=== PATIENT | female | born 1995 ===

== ENCOUNTER 2020-10-27 14:09 | Emergency (ER) | payer OTHER, MEDICARE, MEDICAID, SELFPAY ==
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
--- NOTE | ~2020-10-27 | XR_ITS ---
EXAMINATION: XR CHEST CLINICAL INFORMATION: Shortness of breath COMPARISON: None TECHNIQUE: Frontal view of the chest was obtained. FINDINGS: No significant abnormality is noted involving the heart, lungs, mediastinum, bony thorax or soft tissues. XR/XR chest 1V IMPRESSION: Unremarkable examination.
[2020-10-27 14:58] VITALS: BP 151/99; PULSE 94; RESP 16; TEMP 36.5; O2SAT 98; BMI 27.8
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
[2020-10-27 16:44] LABS: MANUAL DIFF FLAG NO
[2020-10-27 16:47] LABS: Basophils Percent Auto 0.3 % (0-2); Eosinophils Absolute Auto 0.1 X10*3/uL (0.0-0.4); Eosinophils Percent Auto 0.7 % (0-4); Hematocrit 43.8 % (37-47); Hemoglobin 15.2 g/dl (12.0-16.0); Imm Gran Abs Auto 0.01 X10*3/uL (0.00-0.03); Imm Gran Pct Auto 0.1 % (0.0-0.4); Lymphocytes Absolute Auto 2.5 X10*3/uL (1.2-4.9); Lymphocytes Percent Auto 33.3 % (20-40); Mean Corpuscular HGB Conc 34.7 g/dl (31.0-35.0); Mean Corpuscular Hemoglobin 30.1 pg (27.0-33.0); Mean Corpuscular Volume 86.7 fL (80-98); Monocytes Absolute Auto 0.5 X10*3/uL (0.1-1.2); Monocytes Percent Auto 7.3 % (2-11); Neutrophils Absolute Auto 4.3 X10*3/uL (2.0-8.3); Neutrophils Percent Auto 58.3 % (45-73); Platelet Count 348 X10*3/uL (160-400); Red Blood Count 5.05 X10*6/uL (4.20-5.50); Red Cell Distribution Width 12.7 % (11.0-16.0); White Blood Count 7.4 X10*3/uL (4.8-10.8)
[2020-10-27 16:49] LABS: OBS Int Ctl Valid YES; OBS1 NEGATIVE (NEGATIVE)
[2020-10-27] MEDS: Metoclopramide HCl 10 MG/2 ML VIAL IVPUSH (16:53)
[2020-10-27] MEDS: 0.9 % Sodium Chloride 1,000 ML 999 ML IVCONT (16:54)
[2020-10-27 17:15] LABS: Glucose Urine UA NEG (NEG); Leukocyte Esterase Urine NEG (NEG); Nitrite Urine NEG (NEG); Urine Blood NEG (NEG); Urine Ketones NEG (NEG); Urine Protein TRACE MG/DL (NEG-TRACE)
[2020-10-27 17:15] LABS: Lipase 14 U/L (8-78)
[2020-10-27 17:18] LABS: Alanine Aminotransferase 14 U/L (0-31); Albumin Level 4.8 g/dL (3.5-5.0); Alkaline Phosphatase 85 U/L (39-117); Anion Gap 13 (12-20); Aspartate Amino Transferase 14 U/L (5-31); Bilirubin Direct 0.5 mg/dL (0.0-0.5); Bilirubin Total 1.2 mg/dL (0.0-1.0); Blood Urea Nitrogen 9 mg/dL (9-16); Carbon Dioxide 25 mmol/L (22-29); Chloride 107 mmol/L (96-108); Creatinine Clr Calc Pharmacy 107.8; Estimated Glomerular Filt Rate > 60; Glucose Random 87 mg/dL (60-115); Magnesium 2.2 mg/dL (1.6-2.6); Potassium 3.9 mmol/L (3.3-5.1); Sodium 141 mmol/L (135-145); Total Protein 7.8 g/dL (6.5-8.0); Troponin-I High Sensitivity < 3.5 ng/L (<3.5-17.0)
[2020-10-27 17:21] LABS: Appearance Urine CLEAR; Color Urine YELLOW
[2020-10-27 17:22] LABS: UPreg QC Valid YES; Urine Pregnancy NEGATIVE (NEGATIVE)
[2020-10-27 17:36] LABS: Amphetamine Screen Urine Not Detected (Not Detect); Barbiturates, Urine Not Detected (Not Detect); Benzodiazepines Screen Urine Not Detected (Not Detect); Cannabinoid Screen Urine POSITIVE (Not Detect); Cocaine Screen Urine Not Detected (Not Detect); Opiate Screen Urine Not Detected (Not Detect); Phencyclidine Screen Urine Not Detected (Not Detect)
[2020-10-27 18:13] VITALS: BP 122/67; PULSE 62; RESP 18; O2SAT 100
[2020-10-27] MEDS: iohexoL 350 MG/ML 100 ML INFUS..BTL IV (18:39)
[2020-10-27 19:49] VITALS: BP 124/85; PULSE 76; RESP 16; TEMP 36.6; O2SAT 99
== END 2020-10-27 19:54 | disposition home or self-care (01) ==
PROVIDERS: Physician Assistant; Emergency Provider Emergency Medicine; PCP Internal Medicine
DX: Z04.1 Encounter for examination and observation following transport accident (principal); R10.9 Unspecified abdominal pain; R11.2 Nausea with vomiting, unspecified; R19.7 Diarrhea, unspecified; F12.90 Cannabis use, unspecified, uncomplicated; Z79.899 Other long term (current) drug therapy
CPT/HCPCS: 36415; 71045; 74177; 80048; 80076; 80307; 81003; 81025; 82272; 83690; 83735; 84484; 85025; 96361; 96374; 96375; 99284; J2765; Q9967

== ENCOUNTER 2021-02-04 11:54 | Emergency (ER) | payer MEDICARE, MEDICAID, SELFPAY ==
--- NOTE | ~2021-02-04 | XR_ITS ---
EXAMINATION: XR ABDOMEN KUB CLINICAL INDICATION: Rectal foreign body. COMPARISON: None TECHNIQUE: AP view of the abdomen. FINDINGS: No radiopaque foreign body. The bowel gas pattern is normal with no evidence of ileus or obstruction. No unusual soft tissue calcifications are noted. The bones are unremarkable. XR/XR KUB IMPRESSION: Unremarkable examination.
--- NOTE | ~2021-02-04 | CT_ITS ---
EXAMINATION: CT abdomen pelvis w con CLINICAL INFORMATION: Reason for Exam r/o rectal FB and perforation. rectal pain COMPARISON: No prior CT available for comparison. TECHNIQUE: Multidetector volumetric imaging was performed from the superior aspect of the liver through the pubic symphysis 85 mL Omnipaque 350 injected Sagittal and coronal reformatted images were obtained on the technologist's workstation. This CT examination was performed using dose optimization techniques as appropriate, variously including the following: *Automated exposure control *Adjustment of mA and/or kV according to patient size (this includes techniques or standardized protocols for targeted exams where dose is matched to indication/reason for exam; i.e. extremities or head) *Use of iterative reconstruction technique DLP: 479 mGy-cm FINDINGS: LOWER THORAX: Included lung bases are clear. HEPATOBILIARY: No focal hepatic lesions. No biliary ductal dilatation. GALLBLADDER: Gallbladder unremarkable. SPLEEN: Spleen is normal in size. PANCREAS: No focal mass or ductal dilatation. STOMACH AND GASTROINTESTINAL TRACT: Stomach is grossly unremarkable. There is no bowel distention or thickening. No CT evidence of appendicitis. ADRENALS: No adrenal nodules. KIDNEYS/URETERS: No hydronephrosis, stones or solid mass lesions. URINARY BLADDER: Partially decompressed. PELVIC VISCERA: Urinary bladder unremarkable. Uterus is normal for patient's age. Rectum and perirectal fat are clear. No CT evidence of radiodense foreign body. Trace amount of free fluid in the pelvis considered physiologic for patient's age. PERITONEUM: No free air or fluid. LYMPH NODES: No lymphadenopathy. VASCULAR:Abdominal aorta normal in size, no aneurysm found. BONES, ABDOMINAL WALL AND SOFT TISSUES: Age-appropriate changes of the spine and skeletal system, no destructive osteolytic or osteosclerotic bone lesion found CT/CT abdomen pelvis w con IMPRESSION: No CT explanation for patient's pain symptoms. No radiodense foreign body found within the rectum. No CT evidence of bowel perforation. Trace amount of fluid in the pelvis likely physiologic.
[2021-02-04 12:35] VITALS: BP 126/80; PULSE 87; RESP 18; TEMP 36.6; O2SAT 98; BMI 24.0
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
[2021-02-04 15:48] LABS: MANUAL DIFF FLAG NO
[2021-02-04 15:50] LABS: Basophils Percent Auto 0.3 % (0-2); Eosinophils Percent Auto 0.4 % (0-4); Hematocrit 42.6 % (37.0-47.0); Hemoglobin 14.5 g/dl (12.0-16.0); Imm Gran Abs Auto 0.02 X10*3/uL (0.00-0.03); Imm Gran Pct Auto 0.2 % (0.0-0.4); Lymphocytes Percent Auto 30.8 % (20-40); Mean Corpuscular Hemoglobin 30.2 pg (27.0-33.0); Mean Corpuscular Volume 88.8 fL (80.0-98.0); Mean Platelet Volume 9.7 fL (9.4-12.3); Monocytes Absolute Auto 0.8 X10*3/uL (0.1-1.2); Monocytes Percent Auto 8.1 % (2-11); Neutrophils Absolute Auto 5.87 x10*3/uL (2.0-8.3); Neutrophils Percent Auto 60.2 % (45-73); Platelet Count 362 X10*3/uL (160-400); Red Cell Distribution Width 12.7 % (11.0-16.0); White Blood Count 9.8 X10*3/uL (4.8-10.8)
[2021-02-04 16:12] LABS: Alanine Aminotransferase 18 U/L (0-31); Albumin Level 4.8 g/dL (3.5-5.0); Alkaline Phosphatase 84 U/L (39-117); Anion Gap 13 (12-20); Aspartate Amino Transferase 17 U/L (5-31); Bilirubin Direct 0.3 mg/dL (0.0-0.5); Bilirubin Total 0.6 mg/dL (0.0-1.0); Blood Urea Nitrogen 8 mg/dL (9-16); Calcium 9.8 mg/dL (8.4-10.2); Carbon Dioxide 26 mmol/L (22-29); Chloride 107 mmol/L (96-108); Creatinine Clr Calc Pharmacy 95.2; Estimated Glomerular Filt Rate > 60; Glucose Random 82 mg/dL (60-115); Lipase 10 U/L (8-78); Magnesium 2.3 mg/dL (1.6-2.6); Potassium 3.8 mmol/L (3.3-5.1); Sodium 142 mmol/L (135-145); Total Protein 7.7 g/dL (6.5-8.0)
[2021-02-04 16:28] LABS: OBS Int Ctl Valid YES; OBS1 NEGATIVE (NEGATIVE)
[2021-02-04 16:31] LABS: Appearance Urine HAZY; Color Urine YELLOW; Glucose Urine UA NEG (NEG); Leukocyte Esterase Urine NEG (NEG); Nitrite Urine NEG (NEG); Specific Gravity - Urine >= 1.030 (1.005-1.025); Urine Blood NEG (NEG); Urine Ketones 40 MG/DL (NEG); Urine Protein NEG (NEG-TRACE)
[2021-02-04 16:33] LABS: UPreg QC Valid YES; Urine Pregnancy NEGATIVE (NEGATIVE)
[2021-02-04] MEDS: Fluconazole 150 MG TABLET PO (16:56)
[2021-02-04] MEDS: cefTRIAXone sodium 500 MG, Lidocaine HCl 1 % MPF 1 ML IM (16:58)
[2021-02-04] MEDS: Ketorolac Tromethamine 15 MG/ML VIAL 30 MG IM (16:59)
[2021-02-04 17:09] VITALS: BP 136/78; PULSE 80; RESP 18; O2SAT 100
[2021-02-04 18:15] LABS: HCG Quantitative < 2 mIU/mL
[2021-02-04] MEDS: iohexoL 350 MG/ML 100 ML INFUS..BTL IV (18:35)
[2021-02-04 20:10] VITALS: BP 112/58; PULSE 72; RESP 16; TEMP 37.3; O2SAT 96
[2021-02-05 05:48] LABS: CT PCR NOT DETECTED (Not Detect.); NG PCR NOT DETECTED (Not Detect.)
[2021-02-05 11:05] LABS: BV Int Neg Control Negative (Negative); BV Int Pos Control Positive (Positive)
== END 2021-02-04 21:06 | disposition home or self-care (01) ==
PROVIDERS: Physician Assistant; Emergency Provider Internal Medicine; PCP Internal Medicine
DX: K60.2 Anal fissure, unspecified (principal); A54.9 Gonococcal infection, unspecified; B37.9 Candidiasis, unspecified
CPT/HCPCS: 36415; 74018; 74177; 80048; 80076; 81003; 81025; 82272; 83690; 83735; 84702; 85025; 87480; 87491; 87510; 87591; 87660; 96372; 96374; 96375; 99284; J0696; J1885; Q9967

== ENCOUNTER 2021-03-02 00:41 | Emergency (ER) | payer MEDICARE, MEDICAID, SELFPAY ==
--- NOTE | ~2021-03-02 | XR_ITS ---
EXAMINATION: XR CHEST CLINICAL INFORMATION: Chest discomfort COMPARISON: 10/27/2020 TECHNIQUE: Frontal view of the chest was obtained. FINDINGS: The lungs are clear with no focal consolidation. No evidence of pneumothorax, pulmonary edema, or pleural effusions. The cardiomediastinal silhouette is unremarkable. No acute osseous findings. XR/XR chest 1V IMPRESSION: No acute cardiopulmonary findings.
[2021-03-02 00:53] VITALS: BP 111/70; PULSE 70; RESP 18; TEMP 36.9; O2SAT 97; BMI 27.9
[2021-03-02 01:27] LABS: COVID-19 Test Negative (Negative); IDNOW Serial# 9DD0AD1C
[2021-03-02 01:33] VITALS: RESP 16
[2021-03-02 02:02] VITALS: BP 120/74; PULSE 74; RESP 18; O2SAT 96
[2021-03-02 02:08] LABS: Basophils Percent Auto 0.2 % (0-2); Eosinophils Absolute Auto 0.1 X10*3/uL (0.0-0.4); Eosinophils Percent Auto 1.1 % (0-4); Hemoglobin 13.5 g/dl (12.0-16.0); Imm Gran Abs Auto 0.02 X10*3/uL (0.00-0.03); Imm Gran Pct Auto 0.2 % (0.0-0.4); Lymphocytes Absolute Auto 2.4 X10*3/uL (1.2-4.9); Lymphocytes Percent Auto 29.4 % (20-40); MANUAL DIFF FLAG NO; Mean Corpuscular HGB Conc 33.8 g/dl (31.0-35.0); Mean Corpuscular Hemoglobin 29.7 pg (27.0-33.0); Mean Corpuscular Volume 88.1 fL (80.0-98.0); Mean Platelet Volume 9.9 fL (9.4-12.3); Monocytes Absolute Auto 0.6 X10*3/uL (0.1-1.2); Monocytes Percent Auto 7.5 % (2-11); Neutrophils Percent Auto 61.6 % (45-73); Platelet Count 273 X10*3/uL (160-400); Red Blood Count 4.54 X10*6/uL (4.20-5.50); Red Cell Distribution Width 12.6 % (11.0-16.0); White Blood Count 8.1 X10*3/uL (4.8-10.8)
[2021-03-02 02:09] LABS: Appearance Urine HAZY; Color Urine YELLOW; Glucose Urine UA NEG (NEG); Leukocyte Esterase Urine NEG (NEG); Nitrite Urine NEG (NEG); Specific Gravity - Urine >= 1.030 (1.005-1.025); UACC Culture Trigger NO; Urine Blood NEG (NEG); Urine Ketones NEG (NEG); Urine Protein 1+ MG/DL (NEG-TRACE)
[2021-03-02 02:11] LABS: UPreg QC Valid YES; Urine Pregnancy NEGATIVE (NEGATIVE)
[2021-03-02 02:15] LABS: Bacteria Urine 2+ /LPF; Mucus Urine 2+ /LPF; RBC Urine 0 /HPF (0); Squamous Epithelial Cell Urine 3+ /LPF
[2021-03-02 02:48] LABS: Alanine Aminotransferase 13 U/L (0-31); Albumin Level 4.3 g/dL (3.5-5.0); Alkaline Phosphatase 66 U/L (39-117); Anion Gap 14 (12-20); Aspartate Amino Transferase 11 U/L (5-31); Bilirubin Direct 0.2 mg/dL (0.0-0.5); Bilirubin Total 0.4 mg/dL (0.0-1.0); Blood Urea Nitrogen 9 mg/dL (9-16); Calcium 9.2 mg/dL (8.4-10.2); Carbon Dioxide 22 mmol/L (22-29); Chloride 105 mmol/L (96-108); Creatinine Clr Calc Pharmacy 105.8; Estimated Glomerular Filt Rate > 60; Glucose Random 94 mg/dL (60-115); Lipase 14 U/L (8-78); Potassium 3.4 mmol/L (3.3-5.1); Sodium 138 mmol/L (135-145); Total Protein 6.9 g/dL (6.5-8.0)
--- NOTE | 2021-03-02 03:38 | ED_ITS ---
HPI - Abdominal Pain General Chief Complaint: Abdominal Pain Stated Complaint: Abdominal & Back Pain Time Seen by Provider: 03/02/21 02:27 Source: patient Mode of arrival: ambulatory History of Present Illness HPI narrative: 26-year-old female without significant past medical history presents with abdominal pain in the epigastric area for approximately 2 weeks with associated nausea that is sharp in nature and states radiating into the b ack. She denies any vomiting or alcohol use and denies any diarrhea. In addition, patient denies any shortness of breath/chest pain/palpitations/urinary pain/burning/frequency. Related Data Previous Rx's Medication Instructions Recorded cyclobenzaprine 5 mg tablet 5 mg PO TID PRN #20 tab 06/03/20 naproxen 500 mg tablet 500 mg PO BID PRN #60 tab 06/03/20 doxycycline hyclate 100 mg tablet 100 mg PO BID 7 Days #14 tab 02/04/21 fluconazole 150 mg tablet 150 mg PO DAILY #1 tab 02/04/21 (Diflucan) sucralfate 100 mg/mL oral 10 ml PO BID #420 ml 03/02/21 suspension (Carafate) Allergies Allergy/AdvReac Type Severity Reaction Status Date / Time metronidazole [From FLAGYL] Allergy Unknown UNKNOWN Unverified 02/06/21 09:56 PEPPERONI Allergy Unknown HIVES Uncoded 02/06/21 09:56 Review of Systems Review of Systems Pertinent positives and negatives as stated in HPI 10 point review of systems is otherwise negative. Physical Exam Vital Signs: Vital Signs: Last Vital Signs Temp 98.4 F 03/02/21 00:53 Pulse 74 03/02/21 02:02 Resp 18 03/02/21 02:02 BP 120/74 03/02/21 02:02 Pulse Ox 96 03/02/21 02:02 Body Mass Index 27.9 VITAL SIGNS: Reviewed. GENERAL: Well developed, well nourished, in no acute distress. HEAD: Normocephalic/atraumatic EYES: PERRLA, EOMI OROPHARYNX: no oral lesions noted, posterior pharynx clear LUNGS: Normal breath sounds. No adventitious sounds or accessory muscle use. SpO2<96> CARDIOVASCULAR: Regular rate and rhythm without noted murmurs ABDOMEN: Soft, non-tender, non-distended with bowel sounds. NEUROLOGIC: Alert and oriented x 4. PSYCH: Tearful, logical thought process Course Course Course Narrative: 26-year-old female who is had a history of a number of visits here to the emergency room for chest pain/back pain/abdominal pain and today on review of all investigations there are no acute findings. Discussed with patient that her symptoms deserved to be further evaluated and she was encouraged to follow-up with her primary care provider. She was treated with a GI cocktail as symptoms are highly suspicious for possible ulcer disease. MDM - Abdominal Pain Lab Data Result diagrams: 03/02/21 02:00 03/02/21 02:00 Labs: Lab Results 03/02/21 03/02/21 03/02/21 Range/Units 01:02 02:00 02:00 WBC 8.1 (4.8-10.8) X10*3/uL RBC 4.54 (4.20-5.50) X10*6/uL Hgb 13.5 (12.0-16.0) g/dl Hct 40.0 (37.0-47.0) % MCV 88.1 (80.0-98.0) fL MCH 29.7 (27.0-33.0) pg MCHC 33.8 (31.0-35.0) g/dl RDW 12.6 (11.0-16.0) % Plt Count 273 (160-400) X10*3/uL MPV 9.9 (9.4-12.3) fL Immature Gran % (Auto) 0.2 (0.0-0.4) % Neut % (Auto) 61.6 (45-73) % Lymph % (Auto) 29.4 (20-40) % [place] % (Auto) 7.5 (2-11) % Eos % (Auto) 1.1 (0-4) % Baso % (Auto) 0.2 (0-2) % Lymph # (Auto) 2.4 (1.2-4.9) X10*3/uL [place] # (Auto) 0.6 (0.1-1.2) X10*3/uL Eos # (Auto) 0.1 (0.0-0.4) X10*3/uL Baso # (Auto) 0.0 (0.0-0.2) X10*3/uL Abs Immat Gran (auto) 0.02 (0.00-0.03) X10*3/uL Absolute Neuts (auto) 5.0 (2.0-8.3) x10*3/uL Absolute Nucleated RBC 0.000 (0.0-0.012) X10*3/uL Nucleated RBC % (auto) 0.0 (0.0-0.2) /100WBC Sodium 138 (135-145) mmol/L Potassium 3.4 (3.3-5.1) mmol/L Chloride 105 (96-108) mmol/L Carbon Dioxide 22 (22-29) mmol/L Anion Gap 14 (12-20) BUN 9 (9-16) mg/dL Creatinine 0.80 (0.5-1.4) mg/dL Estim Creat Clear Calc 105.8 Estimated GFR > 60 Random Glucose 94 (60-115) mg/dL Calcium 9.2 D (8.4-10.2) mg/dL Total Bilirubin 0.4 (0.0-1.0) mg/dL Direct Bilirubin 0.2 (0.0-0.5) mg/dL AST 11 (5-31) U/L ALT 13 (0-31) U/L Alkaline Phosphatase 66 D (39-117) U/L Total Protein 6.9 (6.5-8.0) g/dL Albumin 4.3 (3.5-5.0) g/dL Lipase 14 (8-78) U/L Urine Color Urine Appearance Urine pH (5.0-8.0) Ur Specific [place] (1.005-1.025) Urine Protein (NEG-TRACE) MG/DL Urine Glucose (UA) (NEG) MG/DL Urine Ketones (NEG) MG/DL Urine Blood (NEG) Urine Nitrite (NEG) Ur Leukocyte Esterase (NEG) Urine RBC (0) /HPF Urine WBC (0-4) /HPF Ur Squamous Epith Cells /LPF Urine Bacteria /LPF Urine Mucus /LPF Urine Test (NEGATIVE) COVID-19 (FERNANDO) Negative (Negative) COVID-19 Clin Com See Note 03/02/21 03/02/21 Range/Units 02:03 02:03 WBC (4.8-10.8) X10*3/uL RBC (4.20-5.50) X10*6/uL Hgb (12.0-16.0) g/dl Hct (37.0-47.0) % MCV (80.0-98.0) fL MCH (27.0-33.0) pg MCHC (31.0-35.0) g/dl RDW (11.0-16.0) % Plt Count (160-400) X10*3/uL MPV (9.4-12.3) fL Immature Gran % (Auto) (0.0-0.4) % Neut % (Auto) (45-73) % Lymph % (Auto) (20-40) % [place] % (Auto) (2-11) % Eos % (Auto) (0-4) % Baso % (Auto) (0-2) % Lymph # (Auto) (1.2-4.9) X10*3/uL [place] # (Auto) (0.1-1.2) X10*3/uL Eos # (Auto) (0.0-0.4) X10*3/uL Baso # (Auto) (0.0-0.2) X10*3/uL Abs Immat Gran (auto) (0.00-0.03) X10*3/uL Absolute Neuts (auto) (2.0-8.3) x10*3/uL Absolute Nucleated RBC (0.0-0.012) X10*3/uL Nucleated RBC % (auto) (0.0-0.2) /100WBC Sodium (135-145) mmol/L Potassium (3.3-5.1) mmol/L Chloride (96-108) mmol/L Carbon Dioxide (22-29) mmol/L Anion Gap (12-20) BUN (9-16) mg/dL Creatinine (0.5-1.4) mg/dL Estim Creat Clear Calc Estimated GFR Random Glucose (60-115) mg/dL Calcium (8.4-10.2) mg/dL Total Bilirubin (0.0-1.0) mg/dL Direct Bilirubin (0.0-0.5) mg/dL AST (5-31) U/L ALT (0-31) U/L Alkaline Phosphatase (39-117) U/L Total Protein (6.5-8.0) g/dL Albumin (3.5-5.0) g/dL Lipase (8-78) U/L Urine Color YELLOW Urine Appearance HAZY Urine pH 6.0 (5.0-8.0) Ur Specific [place] >= 1.030 H (1.005-1.025) Urine Protein 1+ H (NEG-TRACE) MG/DL Urine Glucose (UA) NEG (NEG) MG/DL Urine Ketones NEG (NEG) MG/DL Urine Blood NEG (NEG) Urine Nitrite NEG (NEG) Ur Leukocyte Esterase NEG (NEG) Urine RBC 0 (0) /HPF Urine WBC 1-4 (0-4) /HPF Ur Squamous Epith Cells 3+ /LPF Urine Bacteria 2+ /LPF Urine Mucus 2+ /LPF Urine Test NEGATIVE (NEGATIVE) COVID-19 (FERNANDO) (Negative) COVID-19 Clin Com Discharge Plan Discharge Clinical Impression: Gastritis, Epigastric abdominal pain Patient Disposition: Home, Self-Care Instructions: Gastritis (ED), Diet for Stomach Ulcers and Gastritis (ED), Abdominal Pain (ED) Additional Instructions: Follow-up with your primary care provider in the next 2-3 days by calling their office and seeing if you can get on the wait list to be seen before your scheduled appointment. Stop taking any ibuprofen, Motrin, naproxen, Aleve. Return to the ER for worsening symptoms. Prescriptions: New sucralfate [Carafate] 100 mg/mL suspension 10 ml PO BID Qty: 420 RF: 0 No Action doxycycline hyclate 100 mg tablet 100 mg PO BID 7 Days Qty: 14 RF: 0 fluconazole [Diflucan] 150 mg tablet 150 mg PO DAILY Qty: 1 RF: 0 cyclobenzaprine 5 mg tablet 5 mg PO TID PRN (Reason: muscle spasm) Qty: 20 RF: 0 naproxen 500 mg tablet 500 mg PO BID PRN (Reason: pain) Qty: 60 RF: 0 PMFSH Past Medical History Source: nursing notes reviewed Medical History HIV exposure Social History Social History Alcohol intake: unknown Patient Tobacco Use Status: Current someday Tobacco user Advance Directives: No Advance Directives Information Provided: No Patient : No
[2021-03-02] MEDS: Magnesium Hydrox/Alum Hydrox 30 ML ORAL.SUSP PO (03:41)
[2021-03-02] MEDS: Lidocaine HCl Viscous 2 % 15 ML SOLUTION 10 ML MUCOUS MEM (03:41)
== END 2021-03-02 04:09 | disposition home or self-care (01) ==
PROVIDERS: Emergency Provider Student in an Organized Health Care Education/Training Program
DX: K29.70 Gastritis, unspecified, without bleeding (principal); R10.9 Unspecified abdominal pain; Z20.822 Contact with and (suspected) exposure to COVID-19; Z79.899 Other long term (current) drug therapy
CPT/HCPCS: 36415; 71045; 80048; 80076; 81001; 81025; 83690; 85025; 87635; 99283; 99284

== ENCOUNTER 2021-03-19 09:23 | Outpatient (REF) | payer MEDICARE, MEDICAID, SELFPAY ==
[2021-03-19 09:46] LABS: MANUAL DIFF FLAG NO
[2021-03-19 10:22] LABS: Basophils Percent Auto 0.4 % (0-2); Eosinophils Absolute Auto 0.1 X10*3/uL (0.0-0.4); Eosinophils Percent Auto 1.3 % (0-4); Hematocrit 42.3 % (37.0-47.0); Imm Gran Abs Auto 0.03 X10*3/uL (0.00-0.03); Imm Gran Pct Auto 0.5 % (0.0-0.4); Lymphocytes Absolute Auto 2.1 X10*3/uL (1.2-4.9); Lymphocytes Percent Auto 38.6 % (20-40); Mean Corpuscular HGB Conc 33.1 g/dl (31.0-35.0); Mean Corpuscular Hemoglobin 29.4 pg (27.0-33.0); Mean Corpuscular Volume 88.9 fL (80.0-98.0); Mean Platelet Volume 10.9 fL (9.4-12.3); Monocytes Absolute Auto 0.3 X10*3/uL (0.1-1.2); Monocytes Percent Auto 6.2 % (2-11); Neutrophils Absolute Auto 2.9 x10*3/uL (2.0-8.3); Platelet Count 281 X10*3/uL (160-400); Red Blood Count 4.76 X10*6/uL (4.20-5.50); Red Cell Distribution Width 12.9 % (11.0-16.0); White Blood Count 5.5 X10*3/uL (4.8-10.8)
[2021-03-19 10:57] LABS: Alanine Aminotransferase 13 U/L (0-31); Albumin Level 4.5 g/dL (3.5-5.0); Alkaline Phosphatase 68 U/L (39-117); Anion Gap 14 (12-20); Aspartate Amino Transferase 17 U/L (5-31); Bilirubin Total 0.4 mg/dL (0.0-1.0); Blood Urea Nitrogen 9 mg/dL (9-16); Calcium 9.6 mg/dL (8.4-10.2); Carbon Dioxide 20 mmol/L (22-29); Chloride 111 mmol/L (96-108); Cholesterol 167 mg/dL; Estimated Glomerular Filt Rate > 60; Glucose Fasting 87 mg/dL (60-99); HDL Cholesterol 46 mg/dL; LDL Cholesterol Calculated 106 mg/dl; Potassium 4.2 mmol/L (3.3-5.1); Sodium 141 mmol/L (135-145); Total Protein 7.4 g/dL (6.5-8.0); Triglycerides 79 mg/dL
[2021-03-19 11:11] LABS: HBc Num1 0.08 S/CO (0.00-0.79); Hepatitis B Core Antibody Nonreactive (Nonreactive); Hepatitis B Surface Antigen Negative (Negative); ~HepC Num1 0.17 S/CO (0.00-0.79); ~Hepatitis B Surface Antibody NONREACTIVE (Nonreactive); ~Hepatitis C Antibody Nonreactive (Nonreactive)
[2021-03-19 11:17] LABS: TSH reflex Free T4 0.97 uIU/mL (0.32-4.0)
== END 2021-03-19 09:24 | disposition home or self-care (01) ==
LOC: HO.LAB 09:23
PROVIDERS: Visit Provider Nurse Practitioner Family
DX: Z01.84 Encounter for antibody response examination (principal); Z11.3 Encounter for screening for infections with a predominantly sexual mode of transmission; I10 Essential (primary) hypertension; E78.00 Pure hypercholesterolemia, unspecified; Z76.89 Persons encountering health services in other specified circumstances
CPT/HCPCS: 36415; 80053; 80061; 84443; 85025; 86704; 86706; 86803; 87340

== ENCOUNTER 2021-03-24 21:12 | Emergency (ER) | payer MEDICARE, MEDICAID, SELFPAY ==
[2021-03-24 21:38] VITALS: BP 127/69; PULSE 72; RESP 16; TEMP 37.3; O2SAT 98; BMI 26.8
[2021-03-24 22:17] LABS: Strep A Nucleic Acid Negative (Negative)
--- NOTE | 2021-03-25 00:12 | ED.URI ---
HPI - URI/Sore Throat General Chief Complaint: Upper Respiratory Symptoms Stated Complaint: tonsils are swollen Time Seen by Provider: 03/24/21 23:50 Source: patient Mode of arrival: ambulatory History of Present Illness HPI Narrative: 26-year-old female with no significant past medical history presenting to the ED complaining of tonsillar swelling greater on the right, sore throat, painful swallowing x3 days. Reports symptoms sometimes make it difficult to breathe. Admits to similar symptoms in the past. Admits pain radiates to right ear. Denies fever, chills, cough, SOB, CP, COVID-19 exposure, recent travel, drooling, inability to handle secretions MD elicited complaint: sore throat Related Data Home Medications Medication Instructions Recorded Confirmed valacyclovir 500 mg tablet mg PO 03/13/21 03/17/21 Previous Rx's Medication Instructions Recorded acetaminophen 500 mg tablet 500 - 1,000 mg PO Q6H PRN #60 tab 03/17/21 cyclobenzaprine 5 mg tablet 5 mg PO BEDTIME #20 tab 03/17/21 nabumetone 500 mg tablet 500 mg PO BID #30 tab 03/17/21 amoxicillin 875 mg-potassium 1 tab PO Q12H 7 Days #14 tab 03/25/21 clavulanate 125 mg tablet (Augmentin) Allergies Allergy/AdvReac Type Severity Reaction Status Date / Time metronidazole [From FLAGYL] Allergy Unknown UNKNOWN Verified 03/24/21 21:43 PEPPERONI Allergy Unknown HIVES Uncoded 03/24/21 21:43 Review of Systems Review of Systems: Constitutional: No Fever, No Chills ENT/Mouth: No Ear Pain, No Nasal Congestion, No Sinus Pain, No Hoarseness, + sore throat, No Rhinorrhea, + Swallowing Difficulty Cardiovascular: No Chest Pain, No SOB Respiratory: No Cough, No Sputum, No Wheezing Gastrointestinal: No Nausea, No Vomiting, No Diarrhea, No Abdominal pain Musculoskeletal: No joint pain, No Myalgias, No Joint Swelling Skin: No Skin Lesions, No rash Neuro: No Weakness Yes all other systems are reviewed and are negative [facility] Past Medical History Attestation statement: The following information was validated with the patient. Medical History HIV exposure Surgical History History of wisdom tooth extraction Family History Family History Mother Substance use disorder Mental health disorder Father Cancer Social History Social History Housing: House Alcohol intake: former Patient Tobacco Use Status: Current someday Tobacco user Tobacco use type: Cigar e-Cigarette/Vaping Use: Never Used Second Hand Smoke Exposure: No Advance Directives: No Patient : No service: No Current occupational status: employed Current occupational exposures/hazards: No Physical Exam Vital Signs: Vital Signs: Last Vital Signs Temp 99.1 F 03/24/21 21:38 Pulse 72 03/24/21 21:38 Resp 16 03/24/21 21:38 BP 127/69 03/24/21 21:38 Pulse Ox 98 03/24/21 21:38 BMI result Body Mass Index 26.8 Const: General: cooperative, healthy appearing and no acute distress Orientation/consciousness: patient oriented x3 Limitations: no limitations HENMT: Head: Yes normal to inspection Ears: hearing grossly normal bilaterally, external ears normal, TM's normal bilaterally and mastoids normal General nose exam: Normal external nose present Face and sinus: Yes normal facial exam Mouth: Normal oral and palatal mucosa present and moist mucous membranes Throat: Yes uvula midline, No peritonsillar mass, Yes posterior oropharynx abnormal (+ bilateral tonsillar erythema and swelling. No exudates) and No uvular edema Eyes: General: appearance normal, both eyes and all related structures EOM: EOMs intact bilaterally Neck: Other: + submandibular lymphadenopathy greater on the right Neck: Yes normal visual inspection and Yes supple Resp: Effort & Inspection: normal respiratory effort, no respiratory distress, no stridor and not tachypneic Auscultation: clear to auscultation bilaterally Cardio: Rate: regular rate Heart sounds: S1 normal heart sound present and S2 normal heart sound present Skin: Rashes: no rashes Wounds: no wounds Neuro: General: patient oriented x3 Gait exam (Neuro): Normal gait present Extrem: General: Yes normal to inspection Course Course Course Narrative: -rapid strep negative -0018--COVID-19 negative. Discussed with patient worrisome signs and symptoms, will give p.o. Augmentin secondary to unilaterally enlarged lymphadenopathy. MDM - URI/Sore Throat MDM Narrative Medical decision making narrative: 26-year-old female with no significant past medical history presenting to the ED complaining of tonsillar swelling greater on the right, sore throat, painful swallowing x3 days. On exam low-grade temp 99.1?, NAD, nontoxic appearing, talking in complete sentences, handling secretions, no respiratory distress, bilateral tonsillar erythema and swelling right-sided submandibular lymphadenopathy. Concern for strep pharyngitis vs viral pharyngitis vs COVID-19/viral syndrome. Plan: COVID-19, rapid strep Differential Diagnosis Differential diagnosis: Likely upper respiratory infection, viral infection and pharyngitis Medical Records Attestation: I reviewed the patient's medical records. Lab Data Attestation: I reviewed the patient's lab results. Labs: Lab Results 03/24/21 03/24/21 Range/Units 21:44 23:55 COVID-19 (FERNANDO) Negative (Negative) COVID-19 Clin Com See Note S. pyogenes GrpA MARK Negative (Negative) Discharge Plan Discharge Clinical Impression: Lymphadenopathy Pharyngitis, acute Qualifiers: Pharyngitis/tonsillitis etiology: unspecified etiology Qualified Code(s): J02.9 - Acute pharyngitis, unspecified Patient Disposition: Home, Self-Care Instructions: Pharyngitis (ED), Lymphadenopathy (ED) Additional Instructions: You tested negative for COVID-19 and strep throat Due to your one-sided inflamed lymph nodes we are treating you with antibiotics, Augmentin as an antibiotic please take as prescribed Gargle with warm salt water for throat pain relief Low take Tylenol and Motrin at home for pain and swelling If symptoms persist or worsen, pain becomes unbearable, you are unable to eat or drink, you develop fever please return to the emergency department Prescriptions: New amoxicillin-pot clavulanate [Augmentin] 875-125 mg tablet 1 tab PO Q12H 7 Days Qty: 14 RF: 0 No Action nabumetone 500 mg tablet 500 mg PO BID Qty: 30 RF: 0 cyclobenzaprine 5 mg tablet 5 mg PO BEDTIME Qty: 20 RF: 0 acetaminophen 500 mg tablet 500 - 1,000 mg PO Q6H PRN (Reason: pain) Qty: 60 RF: 0 valacyclovir 500 mg tablet PO RF: 0 Referrals: Lacanlale,Daezel A, [employer] [Primary Care Provider] - 3 days
[2021-03-25 00:17] LABS: COVID-19 Test Negative (Negative); IDNOW Serial# 9DD0AD1C
== END 2021-03-25 00:34 | disposition home or self-care (01) ==
PROVIDERS: Physician Assistant; Emergency Provider Emergency Medicine; PCP Nurse Practitioner Family
DX: J02.9 Acute pharyngitis, unspecified (principal); R59.0 Localized enlarged lymph nodes; Z20.822 Contact with and (suspected) exposure to COVID-19
CPT/HCPCS: 36415; 87635; 87651; 99283

== ENCOUNTER 2021-04-10 11:30 | Outpatient (REF) | payer MEDICARE, MEDICAID, SELFPAY ==
[2021-04-10 12:14] LABS: Glucose Fasting 93 mg/dL (60-99)
[2021-04-10 12:28] LABS: Monotest Negative (Negative)
[2021-04-11 09:06] LABS: Rubella IgG Antibody 2.43 Index
== END 2021-04-10 11:31 | disposition home or self-care (01) ==
LOC: HO.LAB 11:30
PROVIDERS: PCP Nurse Practitioner Family; Visit Provider Nurse Practitioner Family
DX: Z01.84 Encounter for antibody response examination (principal); Z11.3 Encounter for screening for infections with a predominantly sexual mode of transmission; Z20.822 Contact with and (suspected) exposure to COVID-19; J02.9 Acute pharyngitis, unspecified; Z76.89 Persons encountering health services in other specified circumstances
CPT/HCPCS: 36415; 82947; 86308; 86735; 86762; 86765; 86787

== ENCOUNTER 2021-04-14 13:15 | Outpatient (REF) | payer MEDICARE, MEDICAID, SELFPAY ==
--- NOTE | ~2021-04-14 | CT_ITS ---
EXAMINATION: CT HEAD WITHOUT CONTRAST CLINICAL INFORMATION: Headache COMPARISON: None TECHNIQUE: Contiguous axial imaging was performed from the skull base to vertex without intravenous administration of contrast. This CT examination was performed using dose optimization techniques as appropriate, variously including the following: *Automated exposure control *Adjustment of mA and/or kV according to patient size (this includes techniques or standardized protocols for targeted exams where dose is matched to indication/reason for exam; i.e. extremities or head) *Use of iterative reconstruction technique DLP: 955 mGy-cm FINDINGS: There is no evidence of acute intracranial hemorrhage or territorial infarction. No abnormal mass effect or midline shift is seen. Lazo to white matter differentiation is well preserved. No extra-axial fluid collections are identified. The ventricles are normal in size. There is no abnormal attenuation within the brain parenchyma. The osseous structures and soft tissues are normal. The mastoid air cells and visualized portions of the paranasal sinuses are well aerated. CT/CT head/brain wo con IMPRESSION: Unremarkable exam.
== END 2021-04-14 13:16 | disposition home or self-care (01) ==
LOC: HO.CT 13:15
PROVIDERS: Visit Provider Nurse Practitioner Family
DX: R51.9 Headache, unspecified (principal); H53.9 Unspecified visual disturbance
CPT/HCPCS: 70450

== ENCOUNTER 2021-04-15 13:55 | Outpatient (REF) | payer MEDICARE, MEDICAID, SELFPAY ==
[2021-04-15 14:42] LABS: Magnesium 2.3 mg/dL (1.6-2.6)
[2021-04-15 15:03] LABS: Vitamin D 25-OH Total 13.5 ng/mL (>30)
[2021-04-15 16:35] LABS: Folate 10.2 ng/mL (> or = 4.0); Vitamin B12 292 pg/mL (200-900)
== END 2021-04-15 13:56 | disposition home or self-care (01) ==
LOC: HO.LAB 13:55
PROVIDERS: PCP Nurse Practitioner Family; Visit Provider Nurse Practitioner Family
DX: R20.0 Anesthesia of skin (principal); R20.2 Paresthesia of skin
CPT/HCPCS: 36415; 82306; 82607; 82746; 83735

== ENCOUNTER 2021-04-24 09:08 | Outpatient (REF) | payer MEDICARE, MEDICAID, SELFPAY ==
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
== END 2021-04-24 09:09 | disposition home or self-care (01) ==
LOC: HO.SH 09:08
PROVIDERS: Visit Provider Nurse Practitioner Family
DX: Z01.118 Encounter for examination of ears and hearing with other abnormal findings (principal); H93.13 Tinnitus, bilateral
CPT/HCPCS: 92550; 92557; 92587

== ENCOUNTER 2021-05-27 10:00 | Outpatient (RCR) | payer MEDICARE, MEDICAID, SELFPAY | END 2021-05-27 10:53 | disposition home or self-care (01) | LOC: HO.PTCHIC 10:00 | PROVIDERS: PCP Nurse Practitioner Family; Visit Provider Nurse Practitioner Family | DX: M54.2 Cervicalgia (principal) | CPT/HCPCS: 97110; 97140; 97161 ==

== ENCOUNTER 2021-06-24 08:57 | Outpatient (REF) | payer MEDICARE, MEDICAID, SELFPAY ==
--- NOTE | 2021-06-24 09:02 | EMG_ITS ---
This is a 26-year-old woman with a history of genital herpes, who comes in with 5-year history of swelling and paresthesia in the legs. Neurological examination is normal. IMPRESSION: Peripheral neuropathy. Rule out lumbar radiculopathy. Nerve conduction EMG study: Normal electrodiagnostic study of both lower extremities with no evidence of peripheral neuropathy or nerve entrapment. Normal EMG of the right L4-S1 innervated muscles. MD DEE Cruz/CLARKE / [id number]
== END 2021-06-24 08:58 | disposition home or self-care (01) ==
LOC: HO.NEURO 08:57
PROVIDERS: PCP Nurse Practitioner Family; Visit Provider Nurse Practitioner Family
DX: R20.0 Anesthesia of skin (principal); R20.2 Paresthesia of skin
CPT/HCPCS: 95885; 95912

== ENCOUNTER 2021-07-01 11:32 | Outpatient (REF) | payer MEDICARE, MEDICAID, SELFPAY ==
[2021-07-01 12:50] LABS: Erythrocyte Sedimentation Rate 2 MM/HR (0-20)
[2021-07-01 13:07] LABS: Alanine Aminotransferase 18 U/L (0-31); Albumin Level 4.6 g/dL (3.5-5.0); Alkaline Phosphatase 80 U/L (39-117); Anion Gap 13 (12-20); Aspartate Amino Transferase 15 U/L (5-31); Bilirubin Total 0.6 mg/dL (0.0-1.0); Blood Urea Nitrogen 7 mg/dL (9-16); Calcium 9.8 mg/dL (8.4-10.2); Carbon Dioxide 22 mmol/L (22-29); Chloride 107 mmol/L (96-108); Estimated Glomerular Filt Rate > 60; Glucose Random 90 mg/dL (60-115); Magnesium 2.2 mg/dL (1.6-2.6); Potassium 3.9 mmol/L (3.3-5.1); Sodium 138 mmol/L (135-145); Total Protein 7.5 g/dL (6.5-8.0)
[2021-07-01 13:13] LABS: Vitamin D 25-OH Total 13.1 ng/mL (>30)
[2021-07-01 13:31] LABS: Folate 12.4 ng/mL (> or = 4.0); Vitamin B12 235 pg/mL (200-900)
[2021-07-02 05:52] LABS: HBS Num1 > 1000.00 mIU/mL (0-7.99); HBc Num1 0.09 S/CO (0.00-0.79); Hepatitis B Core Antibody Nonreactive (Nonreactive); Hepatitis B Surface Antigen Negative (Negative); ~Hepatitis B Surface Antibody REACTIVE (Nonreactive)
== END 2021-07-01 11:33 | disposition home or self-care (01) ==
LOC: HO.LAB 11:32
PROVIDERS: PCP Nurse Practitioner Family; Visit Provider Nurse Practitioner Family
DX: Z01.84 Encounter for antibody response examination (principal); M62.838 Other muscle spasm; Z78.9 Other specified health status
CPT/HCPCS: 36415; 80053; 82306; 82550; 82607; 82746; 83735; 85652; 86140; 86704; 86706; 87340

== ENCOUNTER 2021-07-09 11:25 | Outpatient (REF) | payer MEDICARE, MEDICAID, SELFPAY ==
--- NOTE | ~2021-07-09 | US_ITS ---
EXAMINATION: US SOFT TISSUE HEAD/NECK CLINICAL INFORMATION: Enlarged lymph nodes-right cervical adenopathy. COMPARISON: None TECHNIQUE: Linear transducer grayscale and color Doppler examination of the right neck level II. FINDINGS: Corresponding to the site of the palpable area involving the right-sided neck, there is indeed a 2.4 cm maximum transverse dimension well-circumscribed hypoechoic mass identified, most consistent with abnormal enlarged lymph node. Specific note is made of absence of hilar fat. For comparison, contralateral left sided neck was also scanned showing a 0.8 cm maximum transverse dimension morphologically abnormal-appearing but normal-sized lymph node. A few additional morphologically normal-appearing normal-sized lymph nodes are also noted on the left. US/US soft tiss head and/or neck IMPRESSION: There is a 2.40 cm maximum transverse dimension well-circumscribed hypoechoic mass identified corresponding to the site of the palpable area involving the right-sided neck, most consistent with abnormally enlarged and morphologically abnormal-appearing lymph node, of indeterminate etiology.
== END 2021-07-09 11:26 | disposition home or self-care (01) ==
LOC: HO.HMGCX 11:25
PROVIDERS: Visit Provider Nurse Practitioner Family
DX: R59.9 Enlarged lymph nodes, unspecified (principal)
CPT/HCPCS: 76536

== ENCOUNTER 2021-07-22 09:35 | Outpatient (REF) | payer MEDICARE, MEDICAID, SELFPAY ==
--- NOTE | ~2021-07-22 | XR_ITS ---
EXAMINATION: XR LUMBAR SPINE XR THORACIC SPINE CLINICAL INFORMATION: Dorsalgia. COMPARISON: None TECHNIQUE: AP and lateral views of the thoracic spine. 6 views of the lumbar spine. FINDINGS: The bony texture and alignment of the thoracic spine is unremarkable. Disc spaces are maintained. Pedicles are intact. No abnormal paraspinal line bulge is seen. No destructive bony lesions are evident. There are 5 [id number] lumbar vertebrae. The bony texture and alignment is satisfactory. Disc spaces are maintained. Pedicles intact. No acute fracture, spondylolisthesis, or spondylolysis is seen. Sacroiliac joints unremarkable. Psoas margins intact. XR/XR thoracic spine 3V IMPRESSION: No significant bony abnormality of the thoracic or lumbar spine identified.
--- NOTE | ~2021-07-22 | XR_ITS ---
EXAMINATION: XR LUMBAR SPINE XR THORACIC SPINE CLINICAL INFORMATION: Dorsalgia. COMPARISON: None TECHNIQUE: AP and lateral views of the thoracic spine. 6 views of the lumbar spine. FINDINGS: The bony texture and alignment of the thoracic spine is unremarkable. Disc spaces are maintained. Pedicles are intact. No abnormal paraspinal line bulge is seen. No destructive bony lesions are evident. There are 5 [id number] lumbar vertebrae. The bony texture and alignment is satisfactory. Disc spaces are maintained. Pedicles intact. No acute fracture, spondylolisthesis, or spondylolysis is seen. Sacroiliac joints unremarkable. Psoas margins intact. XR/XR lumbar spine 4V min IMPRESSION: No significant bony abnormality of the thoracic or lumbar spine identified.
[2021-07-22 12:26] LABS: Vitamin D 25-OH Total 18.7 ng/mL (>30)
== END 2021-07-22 09:36 | disposition home or self-care (01) ==
LOC: HO.LAB 09:35
PROVIDERS: PCP Nurse Practitioner Family; Visit Provider Nurse Practitioner Family
DX: M54.9 Dorsalgia, unspecified (principal); E55.9 Vitamin D deficiency, unspecified
CPT/HCPCS: 36415; 72072; 72110; 82306

== ENCOUNTER 2021-08-06 00:05 | Emergency (ER) | payer MEDICARE, MEDICAID, SELFPAY ==
--- NOTE | ~2021-08-06 | US_ITS ---
EXAMINATION: US PELVIS CLINICAL INFORMATION: Lower abdominal pain with history of ovarian cysts COMPARISON: 08/07/2018 TECHNIQUE: Ultrasound of the pelvis is performed using both transabdominal and transvaginal transducers along with Doppler. Transvaginal imaging is performed due to inadequate visualization transabdominally. FINDINGS: The uterus measures 9.0 cm in length and 4.0 x 5.5 cm in AP and transverse dimensions. Endometrial stripe measures 0.3 cm in thickness. The right ovary measures 3.2 x 2.4 x 2.7 cm (volume 11 mL) and contains a few cystic structures measuring up to 1.7 cm which are suggestive of follicles. The left ovary measures 2.7 x 2.1 x 2.2 cm (volume 7 mL) and appears unremarkable. Small amount of free fluid is noted in the cul-de-sac. US/US pelvic and transvaginal IMPRESSION: Small amount of nonspecific pelvic free fluid, which may be physiologic. Few small cystic structures in the right ovary favoring follicles.
[2021-08-06 00:29] VITALS: BP 135/81; PULSE 64; RESP 16; TEMP 36.8; O2SAT 99; BMI 28.8
[2021-08-06 00:37] LABS: Basophils Percent Auto 0.4 % (0-2); Eosinophils Absolute Auto 0.2 X10*3/uL (0.0-0.4); Hematocrit 40.8 % (37.0-47.0); Hemoglobin 13.9 g/dl (12.0-16.0); Imm Gran Abs Auto 0.02 X10*3/uL (0.00-0.03); Imm Gran Pct Auto 0.2 % (0.0-0.4); MANUAL DIFF FLAG NO; Mean Corpuscular HGB Conc 34.1 g/dl (31.0-35.0); Mean Corpuscular Hemoglobin 29.4 pg (27.0-33.0); Mean Corpuscular Volume 86.4 fL (80.0-98.0); Mean Platelet Volume 9.7 fL (9.4-12.3); Monocytes Absolute Auto 0.7 X10*3/uL (0.1-1.2); Monocytes Percent Auto 8.2 % (2-11); Neutrophils Absolute Auto 4.1 x10*3/uL (2.0-8.3); Neutrophils Percent Auto 45.2 % (45-73); Platelet Count 325 X10*3/uL (160-400); Red Blood Count 4.72 X10*6/uL (4.20-5.50); Red Cell Distribution Width 12.8 % (11.0-16.0); White Blood Count 9.1 X10*3/uL (4.8-10.8)
[2021-08-06 00:44] LABS: Appearance Urine CLEAR; Color Urine STRAW; Glucose Urine UA NEG (NEG); Leukocyte Esterase Urine NEG (NEG); Nitrite Urine NEG (NEG); Urine Blood NEG (NEG); Urine Ketones NEG (NEG); Urine Protein NEG (NEG-TRACE)
[2021-08-06 00:45] LABS: Urine Pregnancy NEGATIVE (NEGATIVE)
[2021-08-06 00:46] LABS: UPreg QC Valid YES
--- NOTE | 2021-08-06 00:58 | ED.ABDPAIN ---
HPI - Abdominal Pain General Chief Complaint: Abdominal Pain Stated Complaint: appendicitis ? R abd / ovary pain Time Seen by Provider: 08/06/21 00:54 Source: patient Mode of arrival: ambulatory Limitations: no limitations History of Present Illness HPI narrative: History of ovarian cyst been having pain in the lower abdomen for last 8 hours with nausea no vomiting. Patient does have diffuse abdominal pain for last 2 and half weeks seen her PCP with workup negative plan to get ultrasound came here today as the pain coming back and getting worse more in the lower abdomen no urinary complaints no fever no chills no back pain Related Data Home Medications Medication Instructions Recorded Confirmed valacyclovir 500 mg tablet mg PO 03/13/21 07/24/21 emtricitabine 200 mg-tenofovir 1 tab PO DAILY 04/10/21 07/24/21 disoproxil fumarate 300 mg tablet Previous Rx's Medication Instructions Recorded acetaminophen 500 mg tablet 500 - 1,000 mg PO Q6H PRN #60 tab 03/17/21 docusate sodium 100 mg capsule 100 mg PO DAILY #30 cap 04/17/21 cholecalciferol (vitamin D3) 50 50 mcg PO DAILY #90 tab 07/01/21 mcg (2,000 unit) tablet tizanidine 2 mg tablet 2 mg PO Q12H PRN #14 tab 07/01/21 nystatin 100,000 unit/mL oral 4 ml PO QID 7 Days #112 ml 07/23/21 suspension azithromycin 250 mg tablet See Rx Instructions PO .COMPLEX #6 07/29/21 tab epinephrine 0.3 mg/0.3 mL 0.3 mg (0.3 mL) IM Q4H PRN 30 Days 07/29/21 injection, auto-injector (EpiPen #2 ea 2-Edward) albuterol sulfate 90 mcg/actuation 2 inh INHALATION Q6-8H PRN #6.7 g 07/30/21 aerosol inhaler dicyclomine 20 mg tablet 20 mg PO QID PRN #20 tab 08/06/21 naproxen 500 mg tablet 500 mg PO BID PRN #30 tab 08/06/21 Allergies Allergy/AdvReac Type Severity Reaction Status Date / Time metronidazole [From FLAGYL] Allergy Unknown UNKNOWN Verified 07/29/21 08:54 PEPPERONI Allergy Unknown HIVES Uncoded 07/29/21 08:54 Review of Systems Review of Systems Yes all other systems are reviewed and are negative PMFSH Past Medical History Medical History HIV exposure Surgical History History of wisdom tooth extraction Family History Family History Mother Substance use disorder Mental health disorder Father Cancer Social History Social History Housing: House Alcohol intake: current Alcohol intake frequency: holidays/special occasions only Patient Tobacco Use Status: Former Tobacco user Tobacco use type: Cigar e-Cigarette/Vaping Use: Never Used Second Hand Smoke Exposure: No Advance Directives: No Patient : No service: No Current occupational status: employed Current occupational exposures/hazards: No Cognitive needs: No Hearing needs: No Vision needs: Yes (glasses) Physical Exam ED Vital Signs: Vital Signs - 24 hr 08/06/21 00:29 08/06/21 01:18 Temperature 98.3 F 98.4 F Pulse Rate 64 58 Respiratory Rate 16 14 Blood Pressure 135/81 107/77 Pulse Oximetry 99 99 BMI result Body Mass Index 28.8 Appearance: Alert. Oriented X3. No acute distress. ENT: Pharynx normal. Oral Mucosa moist Neck: Normal inspection. Neck supple. CVS: Normal heart rate and rhythm. Pulses normal. Respiratory: No respiratory distress. Equal air entry bilateral, no wheezing/rales/rhonchi Abdomen: Soft diffuse tenderness no rebound tenderness or guarding, Bowel sounds are present, no mass palpable, no CVA tenderness Skin: Skin warm and dry. Normal skin color. Normal skin turgor. Extremities: No lower extremity edema. No calf tenderness Neuro: Oriented X 3. MDM - Abdominal Pain MDM Narrative Medical decision making narrative: Patient's history of ovarian cyst ultrasound showed right-sided small cyst with small amount of free fluid likely the cause for the pain also patient looks like she has IBS will discharge patient on dicyclomine and naproxen Lab Data Attestation: I reviewed the patient's lab results. Result diagrams: 08/06/21 00:33 08/06/21 00:33 Labs: Lab Results 08/06/21 08/06/21 08/06/21 Range/Units 00:33 00:33 00:38 WBC 9.1 (4.8-10.8) X10*3/uL RBC 4.72 (4.20-5.50) X10*6/uL Hgb 13.9 (12.0-16.0) g/dl Hct 40.8 (37.0-47.0) % MCV 86.4 (80.0-98.0) fL MCH 29.4 (27.0-33.0) pg MCHC 34.1 (31.0-35.0) g/dl RDW 12.8 (11.0-16.0) % Plt Count 325 (160-400) X10*3/uL MPV 9.7 (9.4-12.3) fL Immature Gran % (Auto) 0.2 (0.0-0.4) % Neut % (Auto) 45.2 (45-73) % Lymph % (Auto) 44.0 H (20-40) % [place] % (Auto) 8.2 (2-11) % Eos % (Auto) 2.0 (0-4) % Baso % (Auto) 0.4 (0-2) % Lymph # (Auto) 4.0 (1.2-4.9) X10*3/uL [place] # (Auto) 0.7 (0.1-1.2) X10*3/uL Eos # (Auto) 0.2 (0.0-0.4) X10*3/uL Baso # (Auto) 0.0 (0.0-0.2) X10*3/uL Abs Immat Gran (auto) 0.02 (0.00-0.03) X10*3/uL Absolute Neuts (auto) 4.1 (2.0-8.3) x10*3/uL Absolute Nucleated RBC 0.000 (0.0-0.012) X10*3/uL Nucleated RBC % (auto) 0.0 (0.0-0.2) /100WBC Sodium 139 (135-145) mmol/L Potassium 3.9 (3.3-5.1) mmol/L Chloride 108 (96-108) mmol/L Carbon Dioxide 24 (22-29) mmol/L Anion Gap 11 L (12-20) BUN 8 L (9-16) mg/dL Creatinine 0.77 (0.5-1.4) mg/dL Estim Creat Clear Calc 111.6 Estimated GFR > 60 Random Glucose 105 (60-115) mg/dL Calcium 9.6 (8.4-10.2) mg/dL Total Bilirubin 0.2 (0.0-1.0) mg/dL AST 12 (5-31) U/L ALT 13 (0-31) U/L Alkaline Phosphatase 74 (39-117) U/L Total Protein 7.0 (6.5-8.0) g/dL Albumin 4.2 (3.5-5.0) g/dL Lipase 31 (8-78) U/L Urine Color STRAW Urine Appearance CLEAR Urine pH 6.0 (5.0-8.0) Ur Specific [place] 1.010 (1.005-1.025) Urine Protein NEG (NEG-TRACE) MG/DL Urine Glucose (UA) NEG (NEG) MG/DL Urine Ketones NEG (NEG) MG/DL Urine Blood NEG (NEG) Urine Nitrite NEG (NEG) Ur Leukocyte Esterase NEG (NEG) Urine Test (NEGATIVE) 08/06/21 Range/Units 00:38 WBC (4.8-10.8) X10*3/uL RBC (4.20-5.50) X10*6/uL Hgb (12.0-16.0) g/dl Hct (37.0-47.0) % MCV (80.0-98.0) fL MCH (27.0-33.0) pg MCHC (31.0-35.0) g/dl RDW (11.0-16.0) % Plt Count (160-400) X10*3/uL MPV (9.4-12.3) fL Immature Gran % (Auto) (0.0-0.4) % Neut % (Auto) (45-73) % Lymph % (Auto) (20-40) % [place] % (Auto) (2-11) % Eos % (Auto) (0-4) % Baso % (Auto) (0-2) % Lymph # (Auto) (1.2-4.9) X10*3/uL [place] # (Auto) (0.1-1.2) X10*3/uL Eos # (Auto) (0.0-0.4) X10*3/uL Baso # (Auto) (0.0-0.2) X10*3/uL Abs Immat Gran (auto) (0.00-0.03) X10*3/uL Absolute Neuts (auto) (2.0-8.3) x10*3/uL Absolute Nucleated RBC (0.0-0.012) X10*3/uL Nucleated RBC % (auto) (0.0-0.2) /100WBC Sodium (135-145) mmol/L Potassium (3.3-5.1) mmol/L Chloride (96-108) mmol/L Carbon Dioxide (22-29) mmol/L Anion Gap (12-20) BUN (9-16) mg/dL Creatinine (0.5-1.4) mg/dL Estim Creat Clear Calc Estimated GFR Random Glucose (60-115) mg/dL Calcium (8.4-10.2) mg/dL Total Bilirubin (0.0-1.0) mg/dL AST (5-31) U/L ALT (0-31) U/L Alkaline Phosphatase (39-117) U/L Total Protein (6.5-8.0) g/dL Albumin (3.5-5.0) g/dL Lipase (8-78) U/L Urine Color Urine Appearance Urine pH (5.0-8.0) Ur Specific [place] (1.005-1.025) Urine Protein (NEG-TRACE) MG/DL Urine Glucose (UA) (NEG) MG/DL Urine Ketones (NEG) MG/DL Urine Blood (NEG) Urine Nitrite (NEG) Ur Leukocyte Esterase (NEG) Urine Test NEGATIVE (NEGATIVE) Discharge Plan Discharge Clinical Impression: Ovarian cyst Patient Disposition: Home, Self-Care Instructions: Ovarian Cyst (ED), Irritable Bowel Syndrome (ED) Additional Instructions: Drink plenty of fluids Dicyclomine and naproxen as advised for the pain Follow with PCP Prescriptions: New dicyclomine 20 mg tablet 20 mg PO QID PRN (Reason: abdominal pain) Qty: 20 0RF naproxen 500 mg tablet 500 mg PO BID PRN (Reason: pain) Qty: 30 0RF No Action docusate sodium 100 mg capsule 100 mg PO DAILY Qty: 30 1RF cholecalciferol (vitamin D3) 50 mcg (2,000 unit) tablet 50 mcg PO DAILY Qty: 90 1RF tizanidine 2 mg tablet 2 mg PO Q12H PRN (Reason: muscle spasticity) Qty: 14 0RF nystatin 100,000 unit/mL suspension 4 ml PO QID 7 Days Qty: 112 0RF Rx Instructions: swish and swallow emtricitabine-tenofovir (TDF) 200-300 mg tablet 1 tab PO DAILY 0RF albuterol sulfate 90 mcg/actuation HFA aerosol inhaler 2 inh inhalation Q6-8H PRN (Reason: shortness of breath or wheezing) Qty: 6.7 0RF acetaminophen 500 mg tablet 500 - 1,000 mg PO Q6H PRN (Reason: pain) Qty: 60 0RF valacyclovir 500 mg tablet PO 0RF Recombivax HB (PF) 10 mcg/mL suspension 1.0 ml IM ONCE Qty: 1 0RF azithromycin 250 mg tablet See Rx Instructions PO .COMPLEX Qty: 6 0RF Rx Instructions: For 250 mg dose pack: take 500 mg today (day 1), then 250 mg for 4 days (days 2-5) PO epinephrine [EpiPen 2-Edward] 0.3 mg/0.3 mL auto-injector 0.3 mg IM Q4H PRN (Reason: anaphylaxis) 30 Days Qty: 2 4RF Rx Instructions: practice injector as well if available please Interventions: ED Discharge Assessment Last Done: 08/06/21 02:25 Discharge Date/Time: 08/06/21 02:25
[2021-08-06 00:59] LABS: Alanine Aminotransferase 13 U/L (0-31); Albumin Level 4.2 g/dL (3.5-5.0); Alkaline Phosphatase 74 U/L (39-117); Anion Gap 11 (12-20); Aspartate Amino Transferase 12 U/L (5-31); Bilirubin Total 0.2 mg/dL (0.0-1.0); Blood Urea Nitrogen 8 mg/dL (9-16); Calcium 9.6 mg/dL (8.4-10.2); Carbon Dioxide 24 mmol/L (22-29); Chloride 108 mmol/L (96-108); Creatinine Clr Calc Pharmacy 111.6; Estimated Glomerular Filt Rate > 60; Glucose Random 105 mg/dL (60-115); Lipase 31 U/L (8-78); Potassium 3.9 mmol/L (3.3-5.1); Sodium 139 mmol/L (135-145)
[2021-08-06 01:18] VITALS: BP 107/77; PULSE 58; RESP 14; TEMP 36.9; O2SAT 99
[2021-08-06] MEDS: Dicyclomine HCl 10 MG CAPSULE 20 MG PO (02:00)
[2021-08-06] MEDS: traMADoL HCL 50 MG TABLET PO (02:19)
== END 2021-08-06 02:25 | disposition home or self-care (01) ==
PROVIDERS: Emergency Provider Internal Medicine; PCP Nurse Practitioner Family
DX: N83.202 Unspecified ovarian cyst, left side (principal); N83.201 Unspecified ovarian cyst, right side; R10.30 Lower abdominal pain, unspecified; Z87.891 Personal history of nicotine dependence; Z79.899 Other long term (current) drug therapy
CPT/HCPCS: 36415; 76830; 76856; 80053; 81003; 81025; 83690; 85025; 99284

== ENCOUNTER → 2021-08-10 09:57 | Outpatient (BNVA) | payer MEDICARE, MEDICAID, SELFPAY | PROVIDERS: PCP Nurse Practitioner Family; Referring Provider Nurse Practitioner Family; Visit Provider Surgery | DX: R59.9 Enlarged lymph nodes, unspecified (principal); R06.02 Shortness of breath; T78.40XA Allergy, unspecified, initial encounter; Z88.9 Allergy status to unspecified drugs, medicaments and biological substances | CPT/HCPCS: 99202 ==

== ENCOUNTER → 2021-09-01 15:19 | Outpatient (BNVA) | payer MEDICARE, MEDICAID, SELFPAY | PROVIDERS: PCP Nurse Practitioner Family; Visit Provider Nurse Practitioner Family | DX: M54.2 Cervicalgia (principal); M62.838 Other muscle spasm; M79.601 Pain in right arm; M79.602 Pain in left arm; R20.2 Paresthesia of skin | CPT/HCPCS: 99202 ==

== ENCOUNTER 2021-09-03 15:58 | Outpatient (REF) | payer MEDICARE, MEDICAID, SELFPAY ==
--- NOTE | ~2021-09-03 | XR_ITS ---
EXAMINATION: CHEST AND CERVICAL SPINE CLINICAL INFORMATION: Pleurodynia COMPARISON: None TECHNIQUE: chest 2 views. cervical spine 4 views FINDINGS: Chest: The lungs are well-expanded and clear. The heart size and pulmonary vascularity is normal. No gross bony abnormality seen. Cervical spine: There is mild straightening of cervical lordosis. The vertebral heights, alignment and disc heights are normal. There is no visible acute fracture, dislocation or subluxation seen. No lytic or sclerotic process seen. The prevertebral soft tissues are normal. XR/XR chest 2V IMPRESSION: Unremarkable chest exam. Unremarkable cervical spine exam.
--- NOTE | ~2021-09-03 | XR_ITS ---
EXAMINATION: CHEST AND CERVICAL SPINE CLINICAL INFORMATION: Pleurodynia COMPARISON: None TECHNIQUE: chest 2 views. cervical spine 4 views FINDINGS: Chest: The lungs are well-expanded and clear. The heart size and pulmonary vascularity is normal. No gross bony abnormality seen. Cervical spine: There is mild straightening of cervical lordosis. The vertebral heights, alignment and disc heights are normal. There is no visible acute fracture, dislocation or subluxation seen. No lytic or sclerotic process seen. The prevertebral soft tissues are normal. XR/XR cervical spine 3V IMPRESSION: Unremarkable chest exam. Unremarkable cervical spine exam.
[2021-09-04 07:58] LABS: HIV AB/AG Nonreactive (Nonreactive); HIV Num 1 0.05 S/CO (0.00-0.99); ~HepC Num1 0.12 S/CO (0.00-0.79); ~Hepatitis C Antibody Nonreactive (Nonreactive)
== END 2021-09-03 15:59 | disposition home or self-care (01) ==
LOC: HO.XRAY 15:58
PROVIDERS: Absent Provider Nurse Practitioner Family; PCP Nurse Practitioner Family; Visit Provider Nurse Practitioner Family
DX: Z11.4 Encounter for screening for human immunodeficiency virus [HIV] (principal); Z11.3 Encounter for screening for infections with a predominantly sexual mode of transmission; R07.81 Pleurodynia; M54.2 Cervicalgia
CPT/HCPCS: 36415; 71046; 72040; 86803; 87389

== ENCOUNTER 2021-09-15 13:53 | Outpatient (REF) | payer MEDICARE, MEDICAID, SELFPAY ==
--- NOTE | ~2021-09-15 | CT_ITS ---
EXAMINATION: CT SOFT TISSUE NECK WITH CONTRAST CLINICAL INFORMATION: Localized swelling, mass and lump. COMPARISON: Cervical spine 09/03/2021, ultrasound soft tissue head and neck 07/09/2021 TECHNIQUE: Following the intravenous administration of 60 mL of Omnipaque 350 intravenous contrast, helical imaging was performed in the axial plane with generation of coronal and sagittal reformatted images. This CT examination was performed using dose optimization techniques as appropriate, variously including the following: *Automated exposure control *Adjustment of mA and/or kV according to patient size (this includes techniques or standardized protocols for targeted exams where dose is matched to indication/reason for exam; i.e. extremities or head) *Use of iterative reconstruction technique DLP: 265 mGy-cm FINDINGS: There are bilateral level 2 prominent neck lymph nodes. The largest right neck lymph node measures 2.2 x 1.3 x 0.7 cm on axial image 61/3. Largest left neck lymph node measures 1.8 x 1.4 x 1.0 cm on axial image 59/3. A lead marker placed on the level 3 right neck corresponds to a normal appearing sternomastoid muscle and subcutaneous fat. The ultrasound markings are slightly different which corresponds to a lymph node in the right neck. There are small shotty submandibular lymph nodes as well. The parotid glands are homogeneous in attenuation. The submandibular glands are normal. No contour abnormality or pathologic enhancement is seen within the oral cavity or pharyngeal mucosal space. The laryngeal structures are normal. The parapharyngeal fat is preserved. The carotid sheath vasculature opacify normally. No extra mucosal soft tissue mass or fluid collection is seen. No retropharyngeal fluid collection is seen. The thyroid gland is normal. The superior mediastinum is unremarkable. There is a 4 mm nodule right upper lobe axial image 126/3. Otherwise the lung apices are clear. The mastoid air cells and visualized portions of the paranasal sinuses are well-aerated. The temporomandibular joints are normal. No periapical disease is identified. No osseous abnormalities are seen. The imaged portions of the brain parenchyma are unremarkable. CT/CT soft tissue neck w con IMPRESSION: 1. Bilateral borderline neck lymph nodes. What patient probably feels is a right neck lymph node. No mass or abnormal enhancement seen. Bilateral prominent lymph nodes could be secondary to inflammatory or infectious etiology or a normal finding. 2. There is a 4 mm nodule right upper lobe. 3. Recommend a follow-up CT chest in 6-12 months.
[2021-09-15 14:31] LABS: Blood Urea Nitrogen 9 mg/dL (9-16); Estimated Glomerular Filt Rate > 60
[2021-09-15] MEDS: iohexoL 300 MG/ML 100 ML INFUS..BTL IV (21:43)
== END 2021-09-15 13:54 | disposition home or self-care (01) ==
LOC: HO.CT 13:53
PROVIDERS: Absent Provider Nurse Practitioner Family; PCP Nurse Practitioner Family; Visit Provider Nurse Practitioner Family
DX: R22.1 Localized swelling, mass and lump, neck (principal); E55.9 Vitamin D deficiency, unspecified
CPT/HCPCS: 36415; 70491; 82306; 82565; 84520; Q9967

== ENCOUNTER 2021-09-28 14:07 | Outpatient (REF) | payer MEDICARE, MEDICAID, SELFPAY ==
--- NOTE | ~2021-09-28 | XR_ITS ---
EXAMINATION: XR ANKLE, LEFT CLINICAL INFORMATION: Left ankle pain COMPARISON: None TECHNIQUE: AP, lateral, and mortise views of the left ankle. FINDINGS: The bones and soft tissues are normal. No fracture. Alignment is anatomic. Joint spaces are maintained. XR/XR ankle LT 2V IMPRESSION: No bony of the left ankle identified.
[2021-09-28 15:19] LABS: Albumin Level 4.1 g/dL (3.5-5.0); Total Protein 6.7 g/dL (6.5-8.0)
[2021-09-28 15:42] LABS: Vitamin D 25-OH Total 15.3 ng/mL (>30)
== END 2021-09-28 14:08 | disposition home or self-care (01) ==
LOC: HO.LAB 14:07
PROVIDERS: Nurse Practitioner Family; PCP Nurse Practitioner Family; Visit Provider Nurse Practitioner Family
DX: M25.572 Pain in left ankle and joints of left foot (principal); R60.0 Localized edema; E55.9 Vitamin D deficiency, unspecified
CPT/HCPCS: 36415; 73600; 82040; 82306; 84155

== ENCOUNTER 2021-11-17 10:30 | Outpatient (REF) | payer MEDICARE, MEDICAID, SELFPAY ==
--- NOTE | ~2021-11-17 | US_ITS ---
EXAMINATION: US ABDOMEN COMPLETE CLINICAL INFORMATION: Abdominal pain. COMPARISON: None TECHNIQUE: Real-time imaging of the abdominal viscera. FINDINGS: PANCREAS: Normal. ABDOMINAL AORTA: The proximal, mid, and distal segments are normal in caliber. INFERIOR VENA CAVA: Visualized portions are normal. LIVER: Normal. The liver is normal in size. The liver contour is normal. Parenchymal echogenicity is normal. No focal hepatic lesion. There is no intrahepatic biliary duct dilatation seen. GALLBLADDER: Gallbladder wall thickness is 0.19 cm. The gallbladder is physiologically distended without evidence of stones, sludge, polyps, wall thickening or pericholecystic fluid. COMMON BILE DUCT: Normal in caliber measuring 0.17 cm in diameter. RIGHT KIDNEY: Normal. No hydronephrosis. No renal calculi or focal parenchymal lesions. The kidney measures 11.0 cm in maximum dimension. LEFT KIDNEY: Normal. No hydronephrosis. No renal calculi or focal parenchymal lesions. The kidney measures 10.7 cm in maximum dimension. SPLEEN: Normal. The spleen measures 10.0 cm in maximum dimension. FREE FLUID: None. US/US abdomen complete IMPRESSION: Unremarkable complete abdomen ultrasound.
== END 2021-11-17 10:31 | disposition home or self-care (01) ==
LOC: HO.HMGCX 10:30
PROVIDERS: PCP Internal Medicine; Visit Provider Internal Medicine
DX: R10.9 Unspecified abdominal pain (principal)
CPT/HCPCS: 76700

== ENCOUNTER 2021-11-19 08:33 | Outpatient (REF) | payer MEDICARE, MEDICAID, SELFPAY ==
--- NOTE | 2021-11-19 08:37 | EMG_ITS ---
Bilateral median and ulnar motor and sensory studies were performed. Bilateral radial and median and lateral antecubital brachial sensory studies were performed and paraspinal muscles were tested with a needle. IMPRESSION: 1. Mild left ulnar neuropathy across cubital tunnel. 2. No evidence of median neuropathy or radiculopathy. MD LISE Gutierrez/CLARKE / [id number]
== END 2021-11-19 08:34 | disposition home or self-care (01) ==
LOC: HO.NEURO 08:33
PROVIDERS: PCP Nurse Practitioner Family; Visit Provider Nurse Practitioner Family
DX: R20.2 Paresthesia of skin (principal); M79.601 Pain in right arm; M79.602 Pain in left arm
CPT/HCPCS: 95886; 95913

== ENCOUNTER 2021-11-25 13:29 | Outpatient (REF) | payer MEDICARE, MEDICAID, SELFPAY ==
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
== END 2021-11-25 13:30 | disposition home or self-care (01) ==
LOC: HO.XRAY 13:29
PROVIDERS: Visit Provider Psychiatry & Neurology Neurology
DX: M50.90 Cervical disc disorder, unspecified, unspecified cervical region (principal)
CPT/HCPCS: 72050

== ENCOUNTER 2021-12-02 15:27 | Outpatient (REF) | payer MEDICARE, MEDICAID, SELFPAY ==
[2021-12-02 16:48] LABS: Vitamin D 25-OH Total 19.2 ng/mL (>30)
[2021-12-08 09:03] LABS: Cardiolipin IgG Ab <2.0 GPL-U/mL; Cardiolipin IgM Ab <2.0 MPL-U/mL
== END 2021-12-02 15:28 | disposition home or self-care (01) ==
LOC: HO.LAB 15:27
PROVIDERS: PCP Internal Medicine; Visit Provider Internal Medicine
DX: N96 Recurrent pregnancy loss (principal); E55.9 Vitamin D deficiency, unspecified
CPT/HCPCS: 36415; 82306; 86147

== ENCOUNTER 2021-12-09 09:25 | Outpatient (REF) | payer MEDICARE, MEDICAID, SELFPAY ==
--- NOTE | ~2021-12-09 | XR_ITS ---
EXAMINATION: XR MANDIBLE CLINICAL INFORMATION: Jaw pain. COMPARISON: None TECHNIQUE: 4 views of the mandible were obtained. FINDINGS: There are no fractures or dislocations. No bone, joint or soft tissue abnormality is demonstrated. The TM joints are symmetrical without any bony erosive changes. XR/XR mandible min 4V IMPRESSION: Unremarkable mandible and bilateral TM joints.
== END 2021-12-09 09:26 | disposition home or self-care (01) ==
LOC: HO.XRAY 09:25
PROVIDERS: PCP Internal Medicine; Visit Provider Internal Medicine
DX: R68.84 Jaw pain (principal)
CPT/HCPCS: 70110

== ENCOUNTER → 2021-12-10 15:04 | Outpatient (REF) | payer MEDICARE, MEDICAID, SELFPAY | LOC: HO.SL 15:04 | PROVIDERS: PCP Internal Medicine; Visit Provider Psychiatry & Neurology Neurology | DX: G47.33 Obstructive sleep apnea (adult) (pediatric) (principal) | CPT/HCPCS: 95806 ==

== ENCOUNTER → 2022-01-04 09:34 | Outpatient (BNVA) | payer MEDICARE, MEDICAID, SELFPAY | PROVIDERS: PCP Internal Medicine; Visit Provider Anesthesiology | DX: M54.2 Cervicalgia (principal); R20.2 Paresthesia of skin; M79.601 Pain in right arm; M79.602 Pain in left arm; M62.838 Other muscle spasm; M47.816 Spondylosis without myelopathy or radiculopathy, lumbar region | CPT/HCPCS: 99212 ==

== ENCOUNTER → 2022-01-05 09:59 | Outpatient (BNVA) | payer MEDICARE, MEDICAID, SELFPAY | PROVIDERS: PCP Internal Medicine; Visit Provider Orthopaedic Surgery | DX: G56.22 Lesion of ulnar nerve, left upper limb (principal) | CPT/HCPCS: 99202 ==

== ENCOUNTER 2022-01-07 09:47 | Emergency (ER) | payer MEDICARE, MEDICAID, SELFPAY ==
[2022-01-07 10:13] VITALS: BP 141/86; PULSE 86; RESP 20; TEMP 37; O2SAT 97; BMI 30.9
--- NOTE | 2022-01-07 11:18 | ED.ALLEREA ---
HPI - Allergic Reaction General Chief complaint: Allergic Reaction <Katy Hoover NP - Last Filed: 01/07/22 18:38> Stated complaint: Swollen Sore Throat <Katy Hoover NP - Last Filed: 01/07/22 18:38> Time Seen by Provider: 01/07/22 11:03 <LAUREN Crawley Last Filed: 01/07/22 18:38> Source: patient <LAUREN Crawley Last Filed: 01/07/22 18:38> Mode of arrival: ambulatory <Katy Hoover NP - Last Filed: 01/07/22 18:38> Limitations: no limitations <LAUREN Crawley Last Filed: 01/07/22 18:38> History of Present Illness HPI narrative: This is a 26-year-old female with a past medical history of allergies and a past allergic reaction that did not require hospitalization or intubation but she did get prescribed an epi pen, who comes to the ER with complaints of throat swelling and closing overnight. Patient contributes the reaction to drinking of the juice or to slices that she just bought an used for dinner. Patient reports taking Benadryl numerous times over night with little relief, but was afraid to inject her EpiPen because she did want to wake up her daughter anger to the hospital. Patient denies lip swelling, rashes, facial swelling, denies fever, chills, nausea, or vomiting. <Katy Hoover NP - Last Filed: 01/07/22 18:38> MD complaint: allergic reaction <Katy Hoover NP - Last Filed: 01/07/22 18:38> Onset (ago): hour(s) <Katy Hoover NP - Last Filed: 01/07/22 18:38> Exposure: food <LAUREN Crawley Last Filed: 01/07/22 18:38> Symptoms: itching, difficulty breathing and tongue swelling <LAUREN Crawley Last Filed: 01/07/22 18:38> Severity: moderate <LAUREN Crawley Last Filed: 01/07/22 18:38> Treatment prior to arrival: benadryl <LAUREN Crawley Last Filed: 01/07/22 18:38> Previous Allergic Reaction History: prior ED visit(s) <Katy Hoover NP - Last Filed: 01/07/22 18:38> Related Data Home medications: Home Medications Medication Instructions Recorded Confirmed valacyclovir 500 mg tablet mg PO 03/13/21 12/02/21 Previous Rx's Medication Instructions Recorded albuterol sulfate 90 mcg/actuation 2 inh inhalation Q6-8H PRN 07/30/21 aerosol inhaler shortness of breath or wheezing #6.7 grams hydrocortisone 2.5 % topical cream 1 appl topical BID #20 grams 09/15/21 loratadine 10 mg tablet 10 mg PO DAILY #30 tabs 09/15/21 cholecalciferol (vitamin D3) 1,250 1,250 mcg PO QWEEK #12 caps 09/18/21 mcg (50,000 unit) capsule diclofenac sodium 1 % topical gel 2 g topical QID #100 grams 09/28/21 (Voltaren Arthritis Pain) diphenhydramine HCl 25 mg tablet 50 mg PO TID PRN allergic reaction 01/07/22 (Benadryl Allergy) #14 tabs epinephrine 0.3 mg/0.3 mL 0.3 mg (0.3 mL) IM Q4H PRN 01/07/22 injection, auto-injector (EpiPen anaphylaxis 1 month #2 ea 2-Edward) famotidine 20 mg tablet (Pepcid) 20 mg PO BID #14 tabs 01/07/22 prednisone 20 mg tablet 40 mg PO DAILY 5 days #10 tabs 01/07/22 <Katy Hoover NP - Last Filed: 01/07/22 18:38> Allergies/adverse reactions: Allergies Allergy/AdvReac Type Severity Reaction Status Date / Time Seasonal Allergies Allergy Mild Unknown Verified 01/05/22 10:19 metronidazole [From FLAGYL] Allergy Unknown UNKNOWN Verified 01/05/22 10:19 PEPPERONI Allergy Unknown HIVES Uncoded 01/05/22 10:19 <Katy Hoover NP - Last Filed: 01/07/22 18:38> Review of Systems Review of Systems: Yes all other systems are reviewed and are negative <Katy Hoover NP - Last Filed: 01/07/22 18:38> Constitutional: Constitutional: Denies body ache(s), Denies chills, Denies fatigue, Denies fever(s), Denies headache(s) and Denies snoring <Katy Hoover NP - Last Filed: 01/07/22 18:38> Eyes: Eyes: Denies diplopia, Denies eye discharge and Denies dry eyes <Katy Hoover NP - Last Filed: 01/07/22 18:38> ENT: Reports Normal hearing present, Denies change in voice, Denies vertigo, Denies dizziness, Denies ear discharge, Denies headache(s), Denies lip swelling, Denies nasal congestion, Denies sinus pressure, Denies sore throat, Reports throat swelling and Reports tongue swelling <Katy Hoover NP - Last Filed: 01/07/22 18:38> Cardiovascular: Cardiovascular: Denies chest pain, Denies chest pain at rest, Denies chest pain with activity, Denies Epigastric Pain, Denies syncope, Denies pedal edema and Reports dyspnea <Katy Hoover NP - Last Filed: 01/07/22 18:38> Respiratory: Respiratory: Denies chest congestion, Reports cough (dry), Denies excessive phlegm production, Reports dyspnea, Denies snoring, Denies stridor and Denies wheezing <Katy Hoover NP - Last Filed: 01/07/22 18:38> Gastrointestinal: Gastrointestinal: Denies belching, Denies constipation, Denies diarrhea and Denies vomiting <Katy Hoover NP - Last Filed: 01/07/22 18:38> Genitourinary: Genitourinary: Reports no additional female genitourinary complaints <Katy Hoover NP - Last Filed: 01/07/22 18:38> Musculoskeletal: Musculoskeletal: Reports no additional musculoskeletal complaints <Katy Hoover NP - Last Filed: 01/07/22 18:38> Neurologic: Reports Normal hearing present, Reports Abnormal speech present, Denies vertigo, Denies dizziness, Denies syncope and Denies headache(s) <Katy Hoover NP - Last Filed: 01/07/22 18:38> Psychiatric: Psychiatric: Reports no additional psychiatric complaints <Katy Hoover NP - Last Filed: 01/07/22 18:38> Endocrine: Endocrine: Reports no additional endocrine complaints and Denies fatigue <Katy Hoover NP - Last Filed: 01/07/22 18:38> Hematologic/Lymphatic: Hematologic/Lymphatic: Reports no additional hematologic/lymphatic complaints <Katy Hoover NP - Last Filed: 01/07/22 18:38> Allergic/Immunologic: Allergic/Immunologic: Denies lip swelling, Reports throat swelling, Reports tongue swelling and Denies wheezing <Katy Hoover NP - Last Filed: 01/07/22 18:38> [facility]LY [facility] Past Medical History Attestation statement: The following information was validated with the patient. 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 <Katy Hoover NP - Last Filed: 01/07/22 18:38> Surgical History: Surgical History History of wisdom tooth extraction <Katy Hoover NP - Last Filed: 01/07/22 18:38> Family History Family History: Family History Mother Substance use disorder Mental health disorder Father Cancer <Katy Hoover NP - Last Filed: 01/07/22 18:38> Social History Social History: Social History (Updated 01/05/22 @ 10:22 by JACKELIN Cedillo) Housing: House Alcohol intake: current Alcohol intake frequency: holidays/special occasions only Patient Tobacco Use Status: Former Tobacco user Tobacco use type: Cigar e-Cigarette/Vaping Use: Currently Using Second Hand Smoke Exposure: No Advance Directives: No Advance Directives Information Provided: Yes service: No Current occupational status: employed 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 Current occupational exposures/hazards: No Cognitive needs: No Hearing needs: No Vision needs: Yes (glasses) <Katy Hoover NP - Last Filed: 01/07/22 18:38> Physical Exam ED Vital Signs: Vital Signs - 24 hr 01/07/22 10:13 Temperature 98.6 F Pulse Rate 86 Respiratory Rate 20 Blood Pressure 141/86 H Pulse Oximetry 97 Oxygen Delivery Method Room Air BMI result Body Mass Index 30.9 <Katy Hoover NP - Last Filed: 01/07/22 18:38> Vital Signs - 24 hr 01/07/22 10:13 Temperature 98.6 F Pulse Rate 86 Respiratory Rate 20 Blood Pressure 141/86 H Pulse Oximetry 97 Oxygen Delivery Method Room Air BMI result Body Mass Index 30.9 <SERGIO Ellis - Last Filed: 01/07/22 18:33> Const General: cooperative, healthy appearing, comfortable and no acute distress <Katy Hoover NP - Last Filed: 01/07/22 18:38> Orientation/consciousness: patient oriented x3 <Katy Hoover NP - Last Filed: 01/07/22 18:38> HENMT Head: Yes normal to inspection and Yes atraumatic <Katy Hoover NP - Last Filed: 01/07/22 18:38> Ears: hearing grossly normal bilaterally <Katy Hoover NP - Last Filed: 01/07/22 18:38> General nose exam: Normal external nose present, Normal nares present, No nasal polyps present, Normal nasal mucous membranes and turbinates present, Normal septum present and No nasal discharge present <Katy Hoover NP - Last Filed: 01/07/22 18:38> Face and sinus: Yes normal facial exam, Yes sinuses nontender and Yes face symmetric <Katy Hoover NP - Last Filed: 01/07/22 18:38> Mouth: Normal oral and palatal mucosa present, lip normal, tongue normal and moist mucous membranes <Katy Hoover NP - Last Filed: 01/07/22 18:38> Teeth and gingiva: dentition normal <Katy Hoover NP - Last Filed: 01/07/22 18:38> Throat: Yes posterior oropharynx normal, Yes tonsils normal and Yes uvula midline <Katy Hoover NP - Last Filed: 01/07/22 18:38> Eyes General: appearance normal, both eyes and all related structures <Katy Hoover NP - Last Filed: 01/07/22 18:38> Visual Rinaldi: normal visual rinaldi by confrontation <Katy FriedmanaliciastefanyLAUREN - Last Filed: 01/07/22 18:38> Alignment and Position: alignment normal <Katy FriedmanaliciastefanyLAUREN - Last Filed: 01/07/22 18:38> Eyelids: Yes eyelids normal <Katy FriedmanaliciastefanyLAUREN - Last Filed: 01/07/22 18:38> Conjunctivae: conjunctivae normal <Katy Friedmanmarlen [employer] - Last Filed: 01/07/22 18:38> Sclerae: sclerae normal <Katy Friedmanaliciastefany [employer] - Last Filed: 01/07/22 18:38> Corneas: corneas normal <Katyramona Hoover NP - Last Filed: 01/07/22 18:38> Pupils: Equal, round and reactive pupils present <Katy FriedmanLAUREN gee - Last Filed: 01/07/22 18:38> EOM: EOMs intact bilaterally <Katyramona Hoover NP - Last Filed: 01/07/22 18:38> Direct Ophthalmoscopy: normal light reflex <Katy Friedmanmarlen [employer] - Last Filed: 01/07/22 18:38> Neck Neck: Yes normal visual inspection and Yes no meningeal signs <Katy LAUREN Hoover - Last Filed: 01/07/22 18:38> Thyroid: Thyroid normal <Katy Friedmanmarlen [facility] Last Filed: 01/07/22 18:38> Lymphatic: no lymphadenopathy noted <Katyramona Hoover NP - Last Filed: 01/07/22 18:38> Chest Chest palpation & inspection: normal inspection of the chest <Katyramona Hoover [employer] - Last Filed: 01/07/22 18:38> Resp Effort & Inspection: normal respiratory effort, no respiratory distress, no stridor, not tachypneic, no tracheal deviation, no tripod positioning, no use of accessory muscles and symmetric chest movement <Katyramona Hoover NP - Last Filed: 01/07/22 18:38> Auscultation: clear to auscultation bilaterally <Katy Hoover NP - Last Filed: 01/07/22 18:38> Cardio Jugular venous distension: no JVD <Katy Hoover [employer] - Last Filed: 01/07/22 18:38> Palpation: normal PMI <Katyramona Hoover NP - Last Filed: 01/07/22 18:38> Rate: regular rate <Katyramona Hoover NP - Last Filed: 01/07/22 18:38> Rhythm: regular rhythm <Katyramona Hoover NP - Last Filed: 01/07/22 18:38> Heart sounds: S1 normal heart sound present and S2 normal heart sound present <Katyramona Hoover NP - Last Filed: 01/07/22 18:38> GI Inspection: Yes normal to inspection <Katyramona Hoover NP - Last Filed: 01/07/22 18:38> Palpation (GI): Soft to palpation, nontender, no guarding and not rigid <Katyramona Hoover NP - Last Filed: 01/07/22 18:38> Auscultation: normal bowel sounds <Katy Hoover NP - Last Filed: 01/07/22 18:38> Rectal Exam - Female: deferred <Katyramona Hoover NP - Last Filed: 01/07/22 18:38> General: Yes no CVA tenderness <Katyramona Hoover NP - Last Filed: 01/07/22 18:38> Back/Spine/Pelvis Back: no CVA tenderness <Katyramona Hoover NP - Last Filed: 01/07/22 18:38> Skin General skin exam: no rashes or lesions noted and elasticity normal <Katyramona Hoover NP - Last Filed: 01/07/22 18:38> Lesions: no lesions <Katyramona Hoover NP - Last Filed: 01/07/22 18:38> Rashes: no rashes <Katy Hoover NP - Last Filed: 01/07/22 18:38> Trauma: no lacerations or abrasions <Katy Hoover NP - Last Filed: 01/07/22 18:38> Wounds: no wounds <Katy Hoover NP - Last Filed: 01/07/22 18:38> Neuro General: patient oriented x3, gait normal and no meningeal signs <Katy Hoover NP - Last Filed: 01/07/22 18:38> Cranial nerves: Yes Equal, round and reactive pupils present and Yes Normal hearing present <Katy ElderLAUREN gee - Last Filed: 01/07/22 18:38> Cognition (Neuro): normal cognition <Katy FriedmanLAUREN gee - Last Filed: 01/07/22 18:38> Speech: Abnormal speech present <Katyramona Hoover NP - Last Filed: 01/07/22 18:38> Extrem General: Yes normal to inspection <Katyramona Hoover NP - Last Filed: 01/07/22 18:38> Psych Appearance: grossly normal <Katyramona Hoover NP - Last Filed: 01/07/22 18:38> Mental Status: mental status grossly normal <Katyramona Hoover NP - Last Filed: 01/07/22 18:38> Speech and movement: Normal speech and movement present and Clear speech present; No Slurred speech present <Katyramona Hoover NP - Last Filed: 01/07/22 18:38> Affect: normal affect <Katyramona Hoover NP - Last Filed: 01/07/22 18:38> Attitude: cooperative <Katyramona Hoover NP - Last Filed: 01/07/22 18:38> Thought process: Normal thought process present <Katyramona Hoover NP - Last Filed: 01/07/22 18:38> Thought content: Normal thought content present <Katyramona Hoover NP - Last Filed: 01/07/22 18:38> Course Course Course Narrative: IMP/Plan: Allergic rxn. Not anaphylaxis. Not sepsis/ infectious etiology. Patient well appearing in no acute distress, breathing easily without throat symptoms. Speaking full sentences, and handling secretions without difficulty. There is no obvious threat to airway. Lungs are CTA in all rinaldi. No signs of angioedema, stridor, airway compromise, anaphylaxis or anaphylactic shock. Not c/w SSSS/ TEN/ Eryth multiforme/ Romero Johnsons. Given HPI and PE - Will watch and observe. If patient continues to be symptom free - will d/c with return precautions. Patient understands and agrees with plan. <Katy Hoover NP - Last Filed: 01/07/22 18:38> IMP/Plan: Allergic rxn. Not anaphylaxis. Not sepsis/ infectious etiology. Patient well appearing in no acute distress, breathing easily without throat symptoms. Speaking full sentences, and handling secretions without difficulty. There is no obvious threat to airway. Lungs are CTA in all rinaldi. No signs of angioedema, stridor, airway compromise, anaphylaxis or anaphylactic shock. Not c/w SSSS/ TEN/ Eryth multiforme/ Romero Johnsons. Given HPI and PE - Will watch and observe. If patient continues to be symptom free - will d/c with return precautions. Patient understands and agrees with plan <SERGIO Ellis - Last Filed: 01/07/22 18:33> MDM - Allergic Reaction MDM Narrative Medical decision making narrative: <Katy Hoover NP - Last Filed: 01/07/22 18:38> Medical Records Attestation: I reviewed the patient's medical records. <Katy Hoover NP - Last Filed: 01/07/22 18:38> Lab Data Attestation: I reviewed the patient's lab results. <Katy Hoover NP - Last Filed: 01/07/22 18:38> Labs: Lab Results 01/07/22 Range/Units 12:01 COVID-19 (FERNANDO) Negative (Negative) COVID-19 Clin Com See Note <Katy Hoover NP - Last Filed: 01/07/22 18:38> Lab Results 01/07/22 Range/Units 12:01 COVID-19 (FERNANDO) Negative (Negative) COVID-19 Clin Com See Note <SERGIO Ellis - Last Filed: 01/07/22 18:33> Discharge Plan Discharge Clinical Impression: Allergic reaction <Katy Hoover NP - Last Filed: 01/07/22 18:38> Patient Disposition: Home, Self-Care <Katy Hoover NP - Last Filed: 01/07/22 18:38> Instructions: General Allergic Reaction (ED), Allergy Testing (ED) <Katy Hoover NP - Last Filed: 01/07/22 18:38> Additional Instructions: Thank you for your visit to the emergency department. He came in for treatment of an allergic reaction. Please take medications as prescribed. If you develop another allergic reaction please use EpiPen as directed and return to the emergency department. <Katy Hoover NP - Last Filed: 01/07/22 18:38> Prescriptions: New prednisone 20 mg tablet 40 mg PO DAILY 5 Days Qty: 10 0RF famotidine [Pepcid] 20 mg tablet 20 mg PO BID Qty: 14 0RF diphenhydramine HCl [Benadryl Allergy] 25 mg tablet 50 mg PO TID PRN (Reason: allergic reaction) Qty: 14 0RF No Action cholecalciferol (vitamin D3) 1,250 mcg (50,000 unit) capsule 1,250 mcg PO QWEEK Qty: 12 0RF epinephrine [EpiPen 2-Edward] 0.3 mg/0.3 mL auto-injector 0.3 mg IM Q4H PRN (Reason: anaphylaxis) 30 Days Qty: 2 4RF Rx Instructions: practice injector as well if available please hydrocortisone 2.5 % cream 1 appl topical BID Qty: 20 0RF loratadine 10 mg tablet 10 mg PO DAILY Qty: 30 0RF albuterol sulfate 90 mcg/actuation HFA aerosol inhaler 2 inh inhalation Q6-8H PRN (Reason: shortness of breath or wheezing) Qty: 6.7 0RF valacyclovir 500 mg tablet PO Recombivax HB (PF) 10 mcg/mL suspension 1.0 ml IM ONCE Qty: 1 0RF diclofenac sodium [Voltaren Arthritis Pain] 1 % gel 2 g topical QID Qty: 100 0RF Rx Instructions: apply to single elbow, wrist or hand; for hand includes palm/fingers/back of hand <Katy Hoover NP - Last Filed: 01/07/22 18:38> Referrals: Maeve Woodard MD [Primary Care Provider] - <Katy Hoover NP - Last Filed: 01/07/22 18:38> Stand Alone Forms: Work/School Release <Katy Hoover NP - Last Filed: 01/07/22 18:38> Interventions: ED Discharge Assessment Last Done: 01/07/22 12:35 <Katy Hoover NP - Last Filed: 01/07/22 18:38> Discharge Date/Time: 01/07/22 12:35 <Katy Hoover NP - Last Filed: 01/07/22 18:38> Print Language: Estonian <Katy Hoover [employer] - Last Filed: 01/07/22 18:38>
[2022-01-07] MEDS: Famotidine 20 MG TABLET PO (11:49)
[2022-01-07] MEDS: predniSONE 20 MG TABLET 60 MG PO (11:49)
[2022-01-07 12:34] LABS: COVID-19 Test Negative (Negative)
== END 2022-01-07 12:35 | disposition home or self-care (01) ==
PROVIDERS: Physician Assistant Medical; Emergency Provider Emergency Medicine Emergency Medical Services; PCP Internal Medicine
DX: T78.40XA Allergy, unspecified, initial encounter (principal); X58.XXXA Exposure to other specified factors, initial encounter; Z20.822 Contact with and (suspected) exposure to COVID-19
CPT/HCPCS: 87635; 99282; 99283

== ENCOUNTER 2022-01-26 06:12 | Outpatient (REF) | payer MEDICARE, MEDICAID, SELFPAY | END 2022-01-26 06:13 | disposition home or self-care (01) | LOC: CF 06:12 | PROVIDERS: Visit Provider Anesthesiology | DX: Z13.89 Encounter for screening for other disorder (principal) ==

== ENCOUNTER 2022-02-09 06:31 | Outpatient (REF) | payer MEDICARE, MEDICAID, SELFPAY ==
--- NOTE | ~2022-02-09 | XR_ITS ---
EXAMINATION: XR FOOT, RIGHT CLINICAL INFORMATION: Pain following injury COMPARISON: None TECHNIQUE: AP, lateral, and oblique views of the right foot. FINDINGS: The bones and soft tissues are normal. No fracture. Alignment is anatomic. Joint spaces are maintained. XR/XR foot RT min 3V IMPRESSION: Normal right foot.
[2022-02-09 14:55] LABS: MANUAL DIFF FLAG NO
[2022-02-09 15:32] LABS: Basophils Percent Auto 0.3 % (0-2); Eosinophils Percent Auto 0.3 % (0-4); Hematocrit 42.5 % (37.0-47.0); Hemoglobin 14.6 g/dl (12.0-16.0); Imm Gran Abs Auto 0.03 X10*3/uL (0.00-0.03); Imm Gran Pct Auto 0.3 % (0.0-0.4); Lymphocytes Absolute Auto 3.2 X10*3/uL (1.2-4.9); Lymphocytes Percent Auto 33.7 % (20-40); Mean Corpuscular HGB Conc 34.4 g/dl (31.0-35.0); Mean Corpuscular Hemoglobin 29.1 pg (27.0-33.0); Mean Corpuscular Volume 84.7 fL (80.0-98.0); Mean Platelet Volume 10.3 fL (9.4-12.3); Monocytes Absolute Auto 0.6 X10*3/uL (0.1-1.2); Monocytes Percent Auto 6.4 % (2-11); Neutrophils Absolute Auto 5.5 x10*3/uL (2.0-8.3); Platelet Count 368 X10*3/uL (160-400); Red Blood Count 5.02 X10*6/uL (4.20-5.50); White Blood Count 9.4 X10*3/uL (4.8-10.8)
[2022-02-09 16:36] LABS: Vitamin D 25-OH Total 15.9 ng/mL (>30)
[2022-02-09 17:53] LABS: Iron 70 mcg/dL (30-160); Percent Iron Saturation 22 % (15-50); Total Iron Binding Capacity 317 mcg/dL (228-428); Unsaturated Iron Binding 247 ug/dL
== END 2022-02-09 06:32 | disposition home or self-care (01) ==
LOC: HO.XRAY 06:31
PROVIDERS: Nurse Practitioner Family; Absent Provider Internal Medicine; PCP Internal Medicine; Visit Provider Anesthesiology
DX: S99.921A Unspecified injury of right foot, initial encounter (principal); M47.816 Spondylosis without myelopathy or radiculopathy, lumbar region; D64.9 Anemia, unspecified; E55.9 Vitamin D deficiency, unspecified; X58.XXXA Exposure to other specified factors, initial encounter; Y93.9 Activity, unspecified; Y92.9 Unspecified place or not applicable; Y99.9 Unspecified external cause status
CPT/HCPCS: 36415; 73630; 82306; 83540; 85025

== ENCOUNTER 2022-03-04 09:12 | Outpatient (REF) | payer MEDICARE, MEDICAID, SELFPAY ==
--- NOTE | ~2022-03-04 | CT_ITS ---
EXAMINATION: CT CHEST WITH CONTRAST CLINICAL INFORMATION: Follow-up pulmonary nodule COMPARISON: Previous chest x-ray September [address] September 2021 and abdominal and pelvic CT February 2021 TECHNIQUE: Multidetector volumetric CT imaging of the chest was obtained after the administration of 65 mL of Omnipaque 350 intravenous contrast without immediate adverse reactions. Axial MIP volume rendering provided. Sagittal and coronal reformatted images were obtained. This CT examination was performed using dose optimization techniques as appropriate, variously including the following: *Automated exposure control *Adjustment of mA and/or kV according to patient size (this includes techniques or standardized protocols for targeted exams where dose is matched to indication/reason for exam; i.e. 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 There is a 2 mm right middle lobe nodule axial image 98 series 5. This is not seen on previous exams and cannot be compared. There is a 6 mm right lower lobe nodule axial image 105 series 5 that is stable from lung windows from abdominal and pelvic CT February 2021. MEDIASTINUM: The mediastinum is normal. PLEURA: There is no pleural effusion. No pleural mass or thickening. AXILLA: No lymphadenopathy. UPPER ABDOMEN: The liver is low in attenuation questionable for mild fatty infiltration. OSSEOUS STRUCTURES: Unremarkable. CT/CT chest w IV con IMPRESSION: Small pulmonary nodules largest measuring 6 mm in the right lower lobe. The 2 larger pulmonary nodules are stable from previous CT scans as described above. 2 mm right middle lobe nodule is not included in [id number] on prior exams and cannot be compared. According to the UPDATED 2017 Fleischner Society recommendations, the advised follow-up imaging for less than 6 mm solid nodule: Low risk, no chest CT follow-up and high risk, optional chest CT follow-up in one year. Fleischner guidelines were followed.
[2022-03-04] MEDS: iohexoL 350 MG/ML 100 ML INFUS..BTL IV (10:05)
== END 2022-03-04 09:13 | disposition home or self-care (01) ==
LOC: HO.CT 09:12
PROVIDERS: PCP Internal Medicine; Visit Provider Internal Medicine
DX: R91.1 Solitary pulmonary nodule (principal)
CPT/HCPCS: 71260; Q9967

== ENCOUNTER → 2022-03-09 09:51 | Outpatient (BNVA) | payer MEDICARE, MEDICAID, SELFPAY | PROVIDERS: PCP Internal Medicine; Visit Provider Orthopaedic Surgery | DX: G56.22 Lesion of ulnar nerve, left upper limb (principal) | CPT/HCPCS: 99212 ==

== ENCOUNTER 2022-03-18 10:56 | Outpatient (REF) | payer MEDICARE, MEDICAID, SELFPAY ==
[2022-03-18 12:38] LABS: Erythrocyte Sedimentation Rate 2 MM/HR (0-20)
[2022-03-18 13:43] LABS: Vitamin B12 259 pg/mL (200-900)
[2022-03-22 23:05] LABS: CRP High Sensitivity 2.4 mg/L
== END 2022-03-18 10:57 | disposition home or self-care (01) ==
LOC: HO.LAB 10:56
PROVIDERS: PCP Internal Medicine; Visit Provider Nurse Practitioner Family
DX: M79.671 Pain in right foot (principal); M79.672 Pain in left foot; R20.0 Anesthesia of skin; R20.2 Paresthesia of skin; G89.4 Chronic pain syndrome
CPT/HCPCS: 36415; 82607; 85652; 86141; 99212

== ENCOUNTER → 2022-03-19 09:11 | Outpatient (BNVA) | payer MEDICARE, MEDICAID, SELFPAY | PROVIDERS: PCP Internal Medicine; Visit Provider Internal Medicine Pulmonary Disease | DX: R91.8 Other nonspecific abnormal finding of lung field (principal); J45.909 Unspecified asthma, uncomplicated | CPT/HCPCS: 99202 ==

== ENCOUNTER 2022-03-23 16:01 | Outpatient (REF) | payer MEDICARE, MEDICAID, SELFPAY ==
[2022-03-23 18:27] LABS: TSH reflex Free T4 0.82 uIU/mL (0.32-4.0)
== END 2022-03-23 16:02 | disposition home or self-care (01) ==
LOC: HO.LAB 16:01
PROVIDERS: Visit Provider Nurse Practitioner Family
DX: F32.2 Major depressive disorder, single episode, severe without psychotic features (principal)
CPT/HCPCS: 36415; 84443

== ENCOUNTER 2022-03-24 18:01 | Outpatient (REF) | payer MEDICARE, MEDICAID, SELFPAY ==
--- NOTE | ~2022-03-24 | MR_ITS ---
MR LUMBAR SPINE WITHOUT CONTRAST CLINICAL INFORMATION: Lumbar region radiculopathy. COMPARISON: None available. TECHNIQUE: MRI of the lumbar spine was obtained using routine sequences without contrast. FINDINGS: There are 5 nonrib-bearing lumbar-type vertebral bodies. Lumbar alignment is normal. The vertebral body heights are maintained. The disc volumes are preserved and the discs remain well-hydrated. There is no bone marrow edema. There are no acute fractures. Conus terminates at the L1-L2 level. There are no significant extraspinal soft tissue findings. Lumbar disc contours are within normal limits. There is no central canal stenosis and there is no foraminal stenosis within the lumbar spine. MR/MR lumbar spine wo con IMPRESSION: Unremarkable MRI of the lumbar spine. No lumbar disc herniations. No central canal stenosis
== END 2022-03-24 18:02 | disposition home or self-care (01) ==
LOC: HO.MRI 18:01
PROVIDERS: Visit Provider Nurse Practitioner Family
DX: M54.16 Radiculopathy, lumbar region (principal); M47.816 Spondylosis without myelopathy or radiculopathy, lumbar region
CPT/HCPCS: 72148

== ENCOUNTER 2022-04-02 13:40 | Outpatient (REF) | payer MEDICARE, MEDICAID, SELFPAY ==
--- NOTE | 2022-04-02 16:49 | PFT_ITS ---
Forced vital capacity 103%, FEV1 108%, FEV1/FVC ratio 90. [id number] 133%, MVV 103%. Post bronchodilator therapy, there is no significant change. Total lung capacity 107%. Residual volume 103%. Diffusion capacity 103% CONCLUSION: Normal pulmonary function test, and there is no evidence of obstructive or restrictive pulmonary disorder. Clinical correlation recommended. MD GUILLAUME Tinoco/CLARKE / [id number]
== END 2022-04-02 13:41 | disposition home or self-care (01) ==
LOC: HO.RESP 13:40
PROVIDERS: Visit Provider Internal Medicine Pulmonary Disease
DX: J45.909 Unspecified asthma, uncomplicated (principal)
CPT/HCPCS: 94060; 94727; 94729

== ENCOUNTER 2022-04-09 13:58 | Outpatient (REF) | payer MEDICARE, MEDICAID, SELFPAY ==
[2022-04-10 06:57] LABS: CT PCR DETECTED (Not Detect.); NG PCR NOT DETECTED (Not Detect.)
[2022-04-10 12:19] LABS: BV Int Neg Control Negative (Negative); BV Int Pos Control Positive (Positive)
== END 2022-04-09 13:59 | disposition home or self-care (01) ==
LOC: HO.LNP 13:58
PROVIDERS: PCP Internal Medicine; Visit Provider Advanced Practice Midwife
DX: Z01.419 Encounter for gynecological examination (general) (routine) without abnormal findings (principal); B37.31 Acute candidiasis of vulva and vagina; Z11.3 Encounter for screening for infections with a predominantly sexual mode of transmission; Z79.899 Other long term (current) drug therapy
CPT/HCPCS: 0353U; 87480; 87510; 87660; 88142; 99212

== ENCOUNTER 2022-04-22 09:57 | Outpatient (REF) | payer MEDICARE, MEDICAID, SELFPAY ==
--- NOTE | ~2022-04-22 | XR_ITS ---
EXAMINATION: XR CHEST CLINICAL INFORMATION: R06.00 - Dyspnea, unspecified COMPARISON: CT chest 03/04/2022; chest radiographs 09/03/2021, 03/02/2021. TECHNIQUE: 2 views of the chest were obtained. FINDINGS: The lungs are clear and there is no airspace consolidation or groundglass opacity or effusion. Heart size normal. Vascularity normal. The hilar and mediastinal contours are unremarkable. No acute bony abnormality. Bilateral nipple piercings again seen. XR/XR chest 2V IMPRESSION: Unremarkable examination.
--- NOTE | 2022-04-22 10:05 | ECG_ITS ---
Test Reason : preop Blood Pressure : / mmHG Vent. Rate : 062 BPM Atrial Rate : 062 BPM P-R Int : 146 ms QRS Dur : 100 ms QT Int : 404 ms P-R-T Axes : 034 037 033 degrees QTc Int : 410 ms Sinus rhythm with Premature atrial complexes Otherwise normal ECG No previous ECGs available Referred By: Maeve Guzman Electronically Signed By:EDMAR RICE MD
[2022-04-22 10:12] LABS: MANUAL DIFF FLAG NO
[2022-04-22 11:03] LABS: Basophils Percent Auto 0.6 % (0-2); Eosinophils Absolute Auto 0.1 X10*3/uL (0.0-0.4); Eosinophils Percent Auto 1.1 % (0-4); Hematocrit 45.1 % (37.0-47.0); Hemoglobin 15.2 g/dl (12.0-16.0); Imm Gran Abs Auto 0.01 X10*3/uL (0.00-0.03); Imm Gran Pct Auto 0.1 % (0.0-0.4); Lymphocytes Absolute Auto 2.8 X10*3/uL (1.2-4.9); Lymphocytes Percent Auto 39.8 % (20-40); Mean Corpuscular HGB Conc 33.7 g/dl (31.0-35.0); Mean Corpuscular Volume 85.9 fL (80.0-98.0); Mean Platelet Volume 10.5 fL (9.4-12.3); Monocytes Absolute Auto 0.4 X10*3/uL (0.1-1.2); Monocytes Percent Auto 5.8 % (2-11); Neutrophils Absolute Auto 3.7 x10*3/uL (2.0-8.3); Neutrophils Percent Auto 52.6 % (45-73); Platelet Count 357 X10*3/uL (160-400); Red Blood Count 5.25 X10*6/uL (4.20-5.50); Red Cell Distribution Width 12.8 % (11.0-16.0); White Blood Count 7.1 X10*3/uL (4.8-10.8)
[2022-04-22 11:18] LABS: Alanine Aminotransferase 16 U/L (0-31); Albumin Level 4.6 g/dL (3.5-5.0); Alkaline Phosphatase 85 U/L (39-117); Anion Gap 13 (12-20); Aspartate Amino Transferase 12 U/L (5-31); Bilirubin Total 0.6 mg/dL (0.0-1.0); Blood Urea Nitrogen 8 mg/dL (9-16); Calcium 9.4 mg/dL (8.4-10.2); Carbon Dioxide 22 mmol/L (22-29); Chloride 108 mmol/L (96-108); Cholesterol 187 mg/dL; Estimated Glomerular Filt Rate > 60; Glucose Fasting 103 mg/dL (60-99); HDL Cholesterol 44 mg/dL; LDL Cholesterol Calculated 123 mg/dl; Potassium 3.9 mmol/L (3.3-5.1); Sodium 139 mmol/L (135-145); Total Protein 7.5 g/dL (6.5-8.0); Triglycerides 103 mg/dL
[2022-04-22 11:29] LABS: Syphilis Screen Nonreactive (Nonreactive)
[2022-04-22 11:30] LABS: HBsAGNum1 0.28 S/CO (0.00-0.99); HIV AB/AG Nonreactive (Nonreactive); HIV Num 1 0.07 S/CO (0.00-0.99); Hepatitis B Surface Antigen Negative (Negative); ~Hepatitis C Antibody Nonreactive (Nonreactive)
[2022-04-22 11:39] LABS: Vitamin D 25-OH Total 12.6 ng/mL (>30)
== END 2022-04-22 09:58 | disposition home or self-care (01) ==
LOC: HO.XRAY 09:57
PROVIDERS: Advanced Practice Midwife; PCP Internal Medicine; Visit Provider Internal Medicine
DX: Z00.00 Encounter for general adult medical examination without abnormal findings (principal); B37.31 Acute candidiasis of vulva and vagina; G89.4 Chronic pain syndrome; E55.9 Vitamin D deficiency, unspecified; R06.00 Dyspnea, unspecified; Z11.3 Encounter for screening for infections with a predominantly sexual mode of transmission; Z13.6 Encounter for screening for cardiovascular disorders
CPT/HCPCS: 36415; 71046; 80053; 80061; 82306; 85025; 86780; 86803; 87340; 87389; 93005

== ENCOUNTER 2022-04-29 13:58 | Outpatient (REF) | payer MEDICARE, MEDICAID, SELFPAY ==
--- NOTE | ~2022-04-29 | MM_ITS ---
EXAMINATION: MM DIAGNOSTIC DIGITAL BREAST TOMOSYNTHESIS, BILATERAL US DIAGNOSTIC ULTRASOUND BREAST, RIGHT CLINICAL INFORMATION: 27-year-old with right breast pain. No erythema or palpable mass. Patient notes intermittent bilateral milky discharge. No prior breast imaging. The lifetime risk of breast cancer based on the Tyrer-Cuzick Model is 18%. COMPARISON: None (current study represents initial baseline exam). TECHNIQUE: Ultrasound right breast is initially performed using grayscale imaging and color Doppler without and with harmonics. All 4 quadrants are imaged. Subsequently, bilateral digital breast tomosynthesis is performed. Digital breast tomosynthesis is performed in both the craniocaudal and mediolateral oblique views along with computer-aided detection (CAD). Synthesized 2D images are generated from the tomosynthesis. FINDINGS: Ultrasound, right: Ultrasound right breast demonstrates no cystic or solid mass, architectural abnormality, or focal duct ectasia. No skin thickening or edema tracking in the soft tissue planes. Mammography, bilateral: There are scattered areas of fibroglandular density (ACR BI-RADS breast composition Category b). Breast tissue composition borders on predominantly fatty. Stromal and fibroglandular densities appear normal. There is no significant mass or architectural abnormality or focal duct ectasia. No abnormal calcifications. The axilla are unremarkable. No skin thickening or coarsening of the Frederick's ligaments. There are bilateral nipple piercings. Results are discussed with the patient at time of visit. The history of bilateral intermittent milky nipple discharge suggests probable systemic etiology, possibly hormonal. Availability of genetic testing also discussed in regards to family history and cancer risks. 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 MM/MM tomosynthesis diagnostic BI IMPRESSION: 1. No mammographic evidence of malignancy or inflammatory changes. 2. Unremarkable targeted right breast ultrasound. ASSESSMENT: BI-RADS 1: Negative RECOMMENDATION: 1. Patient should be managed based on the clinical impression. The bilateral intermittent milky nipple discharge suggests probable systemic etiology, possibly hormonal. Recommend correlation with laboratories. 2. If there is significant or concerning family history cancer, genetic testing may be considered for further assessment. 3. Otherwise, routine annual screening mammography, beginning age 40, or earlier as clinical risk factors warrant. This patient's information was entered into a reminder system with a target due date for their next mammogram.
== END 2022-04-29 13:59 | disposition home or self-care (01) ==
LOC: HO.MAMMO 13:58
PROVIDERS: PCP Internal Medicine; Visit Provider Internal Medicine
DX: N64.4 Mastodynia (principal)
CPT/HCPCS: 76642; 77062; 77066

== ENCOUNTER → 2022-04-30 13:28 | Outpatient (BNVA) | payer MEDICARE, MEDICAID, SELFPAY | PROVIDERS: PCP Internal Medicine; Visit Provider Orthopaedic Surgery | DX: G56.22 Lesion of ulnar nerve, left upper limb (principal); U07.0 Vaping-related disorder; F17.290 Nicotine dependence, other tobacco product, uncomplicated | CPT/HCPCS: 99212 ==

== ENCOUNTER 2022-05-06 06:20 | Day surgery (SDC) | payer MEDICARE, MEDICAID, SELFPAY ==
[2022-05-06] VITALS (7 sets, daily range): BP systolic 119–153; BP diastolic 67–90; PULSE 65–92; RESP 15–16; TEMP 36.8–36.9; O2SAT 97–99; BMI 31.4
[2022-05-06 06:46] LABS: UPreg QC Valid YES; Urine Pregnancy NEGATIVE (NEGATIVE)
--- NOTE | 2022-05-06 07:13 | P.CONAN_ITS ---
HPI - Anesthesia Eval Consult details Narrative: 27 year old female for left cubital tunnel release PMFSH Active Problems Active Problems: All Active Problems (Updated 05/06/22 @ 06:35 by Patricia Pitts RN) Back pain (Acute) Abdominal pain (Acute) Hematochezia (Acute) Nausea and vomiting (Acute) Chest pain (Acute) Severe anxiety (Acute) Vision changes (Acute) Headache (Acute) Cervicalgia (Acute) Routine screening for STI (sexually transmitted infection) (Acute) Screening for eye condition (Acute) PTSD (post-traumatic stress disorder) (Acute) Bipolar 1 disorder (Acute) ADHD (Acute) Depo-Provera contraceptive status (Acute) Upper respiratory tract infection (Acute) Sore throat (Acute) Tinnitus (Acute) Numbness and tingling of both legs (Acute) Hemorrhoids (Acute) Vitamin D deficiency (Acute) Nonimmune to hepatitis B virus (Acute) Immunization due (Acute) Left shoulder pain (Acute) Adenopathy (Acute) Shortness of breath (Acute) Muscle spasm (Acute) Muscle twitch (Acute) Thrush, oral (Acute) Mass in neck (Acute) Allergic reaction (Acute) Atopic reaction (Acute) Upper respiratory tract infection (Acute) Cervicalgia (Acute) Paresthesia and pain of both upper extremities (Acute) Muscle spasms of neck (Acute) Rib pain on right side (Acute) Neck mass (Acute) Anxiety and depression (Acute) Bug bite (Acute) Low vitamin D level (Acute) Incidental lung nodule, > 3mm and < 8mm (Acute) Lymphadenopathy (Acute) Bilateral leg edema (Acute) Left ankle pain (Acute) Allergies (Acute) Abdominal pain (Acute) Paresthesia of hand, bilateral (Acute) Pain in right elbow (Acute) Cubital tunnel syndrome (Acute) Right upper lobe pulmonary nodule (Acute) Hypovitaminosis D (Acute) Jaw pain (Acute) Preoperative clearance (Acute) Spondylosis of lumbar region without myelopathy or radiculopathy (Acute) Cubital tunnel syndrome on left (Acute) Injury of toe on right foot (Acute) Pulmonary nodules (Acute) Pain in both feet (Acute) Chronic pain syndrome (Acute) Polyarthralgia (Acute) Lumbar spondylosis (Acute) Lumbar radiculopathy (Acute) Asthma (Acute) Physical exam (Acute) Breast pain, right (Acute) Moderate recurrent major depression (Acute) Cervical cancer screening (Acute) Screen for sexually transmitted diseases (Acute) Well woman exam with routine gynecological exam (Acute) Yeast infection involving the vagina and surrounding area (Acute) control counseling (Acute) Past Medical History Medical History (Updated 05/06/22 @ 06:35 by Patricia Pitts, RN) ADHD Asthma Bipolar 1 disorder Borderline personality disorder COVID-19 virus infection Depression Encounter to establish care (~03/2021) GERD (gastroesophageal reflux disease) History of multiple miscarriages HIV exposure Low vitamin D level Lung nodules Family History Family History Mother Substance use disorder Mental health disorder Father Cancer Family history of problems with anesthesia: Unobtainable Surgical History Surgical History (Updated 05/06/22 @ 06:36 by Patricia Pitts RN) History of wisdom tooth extraction Hx of biopsy History of Problems with Anesthesia: No Social History Social History Housing: House Alcohol intake: current Alcohol intake frequency: holidays/special occasions only Patient Tobacco Use Status: Never used Tobacco Tobacco use type: Cigar e-Cigarette/Vaping Use: Currently Using Second Hand Smoke Exposure: No Use of substances other than those prescribed or required for medical reasons: Yes Substance Use Frequency: Daily Are you DNR?: No Advance Directives: No Advance Directives Information Provided: Yes service: No Current occupational status: employed 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 Current occupational exposures/hazards: No Cognitive needs: No Hearing needs: No Vision needs: Yes (glasses) Meds Allergies Allergy/AdvReac Type Severity Reaction Status Date / Time Seasonal Allergies Allergy Mild Unknown Verified 05/06/22 06:36 metronidazole [From FLAGYL] Allergy Unknown UNKNOWN Verified 05/06/22 06:36 PEPPERONI Allergy Unknown HIVES Uncoded 04/29/22 13:44 Home Medications Medication Instructions Recorded Confirmed Last Taken Type methylprednisolone acetate 20 20 mg Infiltration Q3W 04/09/22 04/29/22 Unknown History mg/mL suspension for injection (Depo-Medrol) Exam Exam Date and Time: May 06, 2022 0713 Height,Weight and Vital Signs: Height 5 ft 4 in Weight 83.007 kg Last Vital Signs Temp 98.4 F 05/06/22 06:43 Pulse 77 05/06/22 06:43 Resp 15 05/06/22 06:43 BP 134/80 05/06/22 06:43 Pulse Ox 97 05/06/22 06:43 O2 Del Method 05/06/22 06:43 Pertinent Lab Results Pertinent Lab Results: Laboratory Tests 05/06/22 06:30 Urine Test NEGATIVE Airway Mallampati Class: II TM Dist: >3cm Neck ROM: Full Heart: rrr Lungs: cta Assessment and Plan Assessment Anesthesia Assessment: Anesthesia Plan Discussed and Chart Reviewed Final Anesthetic Review Family History of Problems with Anesthesia: Unobtainable History of Problems with Anesthesia: No NPO: Yes ASA Class: II Final Preanesthetic Review: No Changes in Pt Med Stat, Meds/Allgs Chart Reviewed, Consent Obtained/Reviewed and Anes Risks/Benef Reviewed Patient Risk: Low Procedure Risk: Low Anesthetic Plan Anesthetic Plan: GA Disposition: Standard PACU
--- NOTE | 2022-05-06 07:46 | MHC.SHP ---
Pre-Procedural Eval Section A Date of Service: 05/06/22 The patient is an INPATIENT: No Changes since office visit: No Cold of Flu in the past 2 weeks, No New Medical Problems, No Changes in Medication and No Patient answered all questions The History & Physical has been completed within 30 days and I have reviewed it.: Yes Section B Chief Complaint: Lesion of ulnar nerve, left upper limb Allergies: Allergies Allergy/AdvReac Type Severity Reaction Status Date / Time Seasonal Allergies Allergy Mild Unknown Verified 05/06/22 06:36 metronidazole [From FLAGYL] Allergy Unknown UNKNOWN Verified 05/06/22 06:36 PEPPERONI Allergy Unknown HIVES Uncoded 04/29/22 13:44 Plan I have reviewed the history and physical and performed a pertinent physical examination on my patient. No changes have occurred unless specified. Time Spent With Patient Time: Total time managing care of this patient today ____ minutes.
--- NOTE | 2022-05-06 07:46 | W.PM.OPN ---
Operative Note Operative Note Date of Service: 05/06/22 Narrative: Operative Note Narrative: Preop diagnosis: 1. Left Cubital tunnel syndrome Postop diagnosis: Same Procedure: 1. Left Cubital Tunnel Release Surgeon: Vera Carbajal MD Anesthesia: General Anesthesia Findings: Thickening about the ulnar nerve at the cubital tunnel Implants: none Tourniquet time: 19 minutes EBL: 5.0 ml Specimen: none Drains: None Complications: None Disposition: Brought to the recovery room in stable condition Plan: Follow-up in 10-14 days for wound check, and suture removal Indications: The patient is 27 years old with left cubital tunnel syndrome . The risks and benefits of operative treatment, including but not limited to risk of damage to blood vessels, nerves, tendons, infection, recurrence, persistent pain or numbness, incomplete resolution of preoperative symptoms, or need for further surgery were discussed with the patient and they wished to proceed with surgery. Procedure: Once consent was obtained patient was brought back to the operating suite and placed in the operating table in a supine position. Perioperative antibiotics and anesthesia was administered by the anesthesia team. The limb was prepped and draped in a standard surgical fashion, and a sterile tourniquet applied to the proximal aspect of the left upper extremity. The limb was elevated exsanguinated with Esmarch bandage and the tourniquet inflated to 250 mm of mercury for a total tourniquet time of 19 minutes. A 6 cm gently curved but longitudinally oriented incision was made centered over the cubital tunnel of the left upper extremity. Incision was made through the skin to the subcutaneous tissues using a # 15 Blade. I then dissected down to the level of the medial epicondyle and the cubital tunnel using tenotomy scissors. Care was taken to protect the lateral antebrachial cutaneous nerve. The ulnar nerve was identified just posterior to the medial intermuscular septum. The ulnar nerve was released in a proximal to distal direction using tenotomy in iris scissors while directly visualizing and protecting the ulnar nerve. Thickening and fibrosis was appreciated about the ulnar nerve as it passed through the cubital tunnel. The ulnar nerve was assessed as I passed the elbow through full flexion and extension and was found to remain stable within its groove. At this point the tourniquet was deflated and hemostasis obtained with a brief period of local pressure and bipolar electrocautery. The wound was copiously irrigated with normal saline. The subcutaneous layer was closed with 4-0 Vicryl suture, and the skin edges were reapproximated with 5-0 nylon suture. The wound was infiltrated with some 0.25% plain Marcaine for postop pain control and sterile dressings was applied. The patient appears to have tolerated the procedure well and with no complications. All digits were well vascularized conclusion of the case.
== END 2022-05-06 10:25 | disposition home or self-care (01) ==
PROVIDERS: Anesthesiology; PCP Internal Medicine; Visit Provider Orthopaedic Surgery
PROC: (CPT 64718; principal; 2022-05-06 07:30)
DX: G56.22 Lesion of ulnar nerve, left upper limb (principal)
CPT/HCPCS: 64718; 81025; J0690; J1100; J1885; J2405; J2795

== ENCOUNTER → 2022-05-10 10:35 | Outpatient (BNVA) | payer MEDICARE, MEDICAID, SELFPAY | PROVIDERS: PCP Internal Medicine; Visit Provider Physician Assistant | DX: Z13.89 Encounter for screening for other disorder (principal) | CPT/HCPCS: 99212 ==

== ENCOUNTER → 2022-05-19 13:26 | Outpatient (BNVA) | payer MEDICARE, MEDICAID, SELFPAY | PROVIDERS: Visit Provider Orthopaedic Surgery | DX: Z13.89 Encounter for screening for other disorder (principal) | CPT/HCPCS: 99212 ==

== ENCOUNTER 2022-06-03 09:03 | Outpatient (REF) | payer MEDICARE, MEDICAID, SELFPAY ==
--- NOTE | ~2022-06-03 | XR_ITS ---
EXAMINATION: XR THORACIC SPINE CLINICAL INFORMATION: Dorsalgia. COMPARISON: Radiographs dated 07/22/2021. TECHNIQUE: Frontal, lateral and swimmer's views of the thoracic spine were obtained. FINDINGS: There is no fracture or bone destruction seen and the vertebral alignment is normal. There is no disc space narrowing. There is no abnormality of the paraspinal soft tissues. XR/XR thoracic spine 3V IMPRESSION: Unremarkable examination. EXAMINATION: XR LUMBOSACRAL SPINE CLINICAL INFORMATION: Spondylosis without myelopathy or radiculopathy. COMPARISON: Radiographs dated 07/22/2021. TECHNIQUE: AP, bilateral oblique and lateral views of the lumbar spine were obtained. Lateral views were obtained in flexion, extension, and neutral positions. A dedicated lateral view is obtained of the lumbosacral junction. FINDINGS: Vertebral body heights are normal. There is a slight lumbar dextroscoliosis. The lumbar disc spaces are well-maintained. No acute fracture or spondylolisthesis is seen. There is no spondylolysis defect. There is no instability with flexion or extension. The posterior elements are intact. The paravertebral soft tissues are unremarkable. IMPRESSION: 1. No acute fracture or spondylolisthesis is seen. There is no spondylolysis defect. 2. There is a slight lumbar dextroscoliosis. 3. The lumbar disc spaces are well-maintained. 4. There is no instability with flexion or extension.
--- NOTE | ~2022-06-03 | XR_ITS ---
EXAMINATION: XR THORACIC SPINE CLINICAL INFORMATION: Dorsalgia. COMPARISON: Radiographs dated 07/22/2021. TECHNIQUE: Frontal, lateral and swimmer's views of the thoracic spine were obtained. FINDINGS: There is no fracture or bone destruction seen and the vertebral alignment is normal. There is no disc space narrowing. There is no abnormality of the paraspinal soft tissues. XR/XR lumbar spine 6V w bending IMPRESSION: Unremarkable examination. EXAMINATION: XR LUMBOSACRAL SPINE CLINICAL INFORMATION: Spondylosis without myelopathy or radiculopathy. COMPARISON: Radiographs dated 07/22/2021. TECHNIQUE: AP, bilateral oblique and lateral views of the lumbar spine were obtained. Lateral views were obtained in flexion, extension, and neutral positions. A dedicated lateral view is obtained of the lumbosacral junction. FINDINGS: Vertebral body heights are normal. There is a slight lumbar dextroscoliosis. The lumbar disc spaces are well-maintained. No acute fracture or spondylolisthesis is seen. There is no spondylolysis defect. There is no instability with flexion or extension. The posterior elements are intact. The paravertebral soft tissues are unremarkable. IMPRESSION: 1. No acute fracture or spondylolisthesis is seen. There is no spondylolysis defect. 2. There is a slight lumbar dextroscoliosis. 3. The lumbar disc spaces are well-maintained. 4. There is no instability with flexion or extension.
== END 2022-06-03 09:04 | disposition home or self-care (01) ==
LOC: HO.XRAY 09:03
PROVIDERS: PCP Internal Medicine; Visit Provider Nurse Practitioner Family
DX: M47.816 Spondylosis without myelopathy or radiculopathy, lumbar region (principal); M62.838 Other muscle spasm; M54.2 Cervicalgia; M54.6 Pain in thoracic spine; G43.109 Migraine with aura, not intractable, without status migrainosus; Z91.81 History of falling
CPT/HCPCS: 72072; 72114; 99212

== ENCOUNTER → 2022-06-15 12:22 | Outpatient (BNVA) | payer MEDICARE, MEDICAID, SELFPAY | PROVIDERS: PCP Internal Medicine; Visit Provider Orthopaedic Surgery | DX: Z48.811 Encounter for surgical aftercare following surgery on the nervous system (principal); Z98.890 Other specified postprocedural states | CPT/HCPCS: 99212 ==

== ENCOUNTER → 2022-07-02 15:23 | Outpatient (BNVA) | payer MEDICARE, MEDICAID, SELFPAY | PROVIDERS: PCP Internal Medicine; Visit Provider Nurse Practitioner Family | DX: M25.50 Pain in unspecified joint (principal); M47.816 Spondylosis without myelopathy or radiculopathy, lumbar region; M79.7 Fibromyalgia; G89.4 Chronic pain syndrome | CPT/HCPCS: 99212 ==

== ENCOUNTER 2022-07-06 08:26 | Outpatient (REF) | payer MEDICARE, MEDICAID, SELFPAY ==
--- NOTE | ~2022-07-06 | CT_ITS ---
EXAMINATION: CT CHEST WITHOUT CONTRAST CLINICAL INFORMATION: Pulmonary nodules. COMPARISON: Chest x-ray 04/22/[address] chest 03/04/2022. TECHNIQUE: Multidetector volumetric CT imaging of the chest was done. Axial MIP volume rendering provided. Sagittal and coronal reformatted images were obtained. This CT examination was performed using dose optimization techniques as appropriate, variously including the following: *Automated exposure control *Adjustment of mA and/or kV according to patient size (this includes techniques or standardized protocols for targeted exams where dose is matched to indication/reason for exam; i.e. extremities or head) *Use of iterative reconstruction technique DLP: 131 mGy-cm. FINDINGS: SMASH HAND: Unremarkable. LUNGS: There are 3 pulmonary nodules: A 4 nodule right upper lobe axial image 181/7, a 2 new nodule right middle lobe axial image 355/7 and a 6 mm nodule right lower lobe laterally image 362/7. These nodules are stable. There are no new nodules seen. MEDIASTINUM: Thyroid lobes are symmetric and normal. Central trachea and the bronchi are widely patent. The heart size and the great vessels are normal caliber. No abnormal-sized mediastinal or hilar lymph nodes seen. There is no pericardial effusion. CORONARY ARTERY CALCIFICATION: None visualized on this study. PLEURA: There is no pleural effusion or thickening. AXILLA: There are small shotty lymph nodes in the axilla. UPPER ABDOMEN: Visualized liver, spleen, pancreas and bilateral adrenal glands are unremarkable. OSSEOUS STRUCTURES: No aggressive lytic or sclerotic process seen. CT/CT chest wo IV con IMPRESSION: 1. Stable bilateral pulmonary nodules. No new nodules seen. 2. No abnormal mediastinal or axillary lymph nodes seen. Fleischner guidelines were followed.
== END 2022-07-06 08:27 | disposition home or self-care (01) ==
LOC: HO.CT 08:26
PROVIDERS: PCP Internal Medicine; Visit Provider Internal Medicine Pulmonary Disease
DX: R91.8 Other nonspecific abnormal finding of lung field (principal)
CPT/HCPCS: 71250

== ENCOUNTER → 2022-07-07 10:02 | Outpatient (BNVA) | payer MEDICARE, MEDICAID, SELFPAY | PROVIDERS: PCP Internal Medicine; Visit Provider Advanced Practice Midwife | DX: A74.9 Chlamydial infection, unspecified (principal) | CPT/HCPCS: 99212 ==

== ENCOUNTER → 2022-07-30 11:35 | Outpatient (BNVA) | payer MEDICARE, MEDICAID, SELFPAY | PROVIDERS: PCP Internal Medicine; Visit Provider Nurse Practitioner Family | DX: Z51.81 Encounter for therapeutic drug level monitoring (principal); M25.50 Pain in unspecified joint; M47.816 Spondylosis without myelopathy or radiculopathy, lumbar region; M79.7 Fibromyalgia; M41.86 Other forms of scoliosis, lumbar region; G89.4 Chronic pain syndrome | CPT/HCPCS: Q3014 ==

== ENCOUNTER 2022-09-07 13:27 | Outpatient (REF) | payer MEDICARE, MEDICAID, SELFPAY ==
[2022-09-08 06:12] LABS: CT PCR NOT DETECTED (Not Detect.); NG PCR NOT DETECTED (Not Detect.)
[2022-09-08 12:37] LABS: BV Int Neg Control Negative (Negative); BV Int Pos Control Positive (Positive)
== END 2022-09-07 13:28 | disposition home or self-care (01) ==
LOC: HO.LNP 13:27
PROVIDERS: PCP Internal Medicine; Visit Provider Advanced Practice Midwife
DX: A74.9 Chlamydial infection, unspecified (principal); Z20.2 Contact with and (suspected) exposure to infections with a predominantly sexual mode of transmission
CPT/HCPCS: 0353U; 87480; 87510; 87660; 99212

== ENCOUNTER 2022-09-13 13:30 | Outpatient (RCR) | payer MEDICARE, MEDICAID, SELFPAY ==
--- NOTE | 2022-07-07 13:04 | MHC.OT.EP ---
[address] [phone] Occupational Therapy Plan of Care Patient Name: Argelia Adan Date of Evaluation: 07/07/22 Diagnosis: Left Cubital Tunnel Release Pain Location: Constant ache/stabbing and high sensitivity in left medial elbow and over scar incision Pain Score: 10 Pain Scale Used: Numeric (0 - 10) Aggravating Factors: Movement, use, sleeping Alleviating Factors: Sleeping pains, ice Assessment: 27 yo female w/ hx of left arm numbness, underwent EMG while trying to locate source of numbness and back/neck pain. She underwent left cubital tunnel release 2// but has since had more difficulty w/ elbow pain, changes in sensation/sensitivity over incision site. On assessment today, she is reporting 10/10 pain at incision site, pulling and stabbing with movement, but has full range and incision check shows well healing scar with no significant edema or redness, palpable and mobile tissue, no hypertrophy noted and therapist able to touch and palpate without report of increased discomfort. She does have decreased gross grasp and reports she has difficulty w/ all daily activities and has been unable to work since surgery. We have educated on simple ulnar nerve glide and intro into desensitization to incision site. I anticipate she will find relief w/ course of therapy. Frequency and Duration: The patient will be seen 2x/wk for 4 weeks Short Term Goals: Ind w/ joint protection w/ sleeping to avoid overbending elbow Ind w/ scar mobilization techniques Ind w/ scar desensitization techniques Gross grasp 30lb 5/10 pain w/ light daily activites [facility] Goals: 2/10 pain w/ moderate home tasks QuickDASH score <40pts Gross grasp 40lb Ind w/ progression of scar textures Treatment Plan: Therapeutic Exercise Therapeutic Activity Home Exercise Program Patient Education Desensitization/Sensory Re-ed Edema Control ADL Training Ultrasound MHP Cold Packs Soft Tissue Mobilization Kinesiotaping Electronically Signed By: Nhung Rivera OTR/Michelle CHT Please Sign and return to therapist. Thank you once again for your referral.
--- NOTE | 2022-09-17 13:22 | MHC.OT.DC ---
[address] [phone] F: [phone] Occupational Therapy Discharge Note Patient Name: Argelia Adan Provider: Vera Carbajal MD Diagnosis: Left Cubital Tunnel Release Date of Surgery: 05/06/22 Date of Evaluation: 07/07/22 Date of Discharge: 09/17/22 Treatments to Date: 8 Cancellations to Date: 5 No Shows to Date: 4 Discharge Status: Improved Function Independent with HEP Discharge Summary: Argelia was referred to OT s/p cubital tunnel release 05/06/22 w/ persistent pain and impaired sensation at surgical site. She had limited elbow range at this time, but has progressed well w/ good range and strength. Scar is soft and mobile, she reports good carry over w/ HEP for exercises, scar management and desensitization. She notes general B/L UE fatigue and pain, we have added UB stretches and back strengthening for postural stability, but at this time she is Ind w/ post-op self management. Electronically Signed By: Nhung Rivera OTR/L CHT Reviewed/agree with student documentation: Therapist: Please Sign and return to therapist, thank you for your referral.
== END 2023-08-30 13:43 | disposition home or self-care (01) ==
LOC: HO.OT 13:30
PROVIDERS: PCP Internal Medicine; Visit Provider Orthopaedic Surgery
DX: G56.22 Lesion of ulnar nerve, left upper limb (principal)
CPT/HCPCS: 97110; 97112; 97140; 97165

== ENCOUNTER → 2022-09-22 09:33 | Outpatient (BNVA) | payer MEDICARE, MEDICAID, SELFPAY | PROVIDERS: PCP Internal Medicine; Visit Provider Internal Medicine Pulmonary Disease | DX: R91.8 Other nonspecific abnormal finding of lung field (principal) | CPT/HCPCS: 99212 ==

== ENCOUNTER 2022-10-12 09:59 | Outpatient (AMB) | payer MEDICARE, MEDICAID, SELFPAY ==
[2022-10-12 10:09] VITALS: BP 122/80
--- NOTE | 2022-10-12 10:09 | A.OFFPC_ITS ---
Vital Signs 10/12/22 10:09 Height 5 ft 4 in Weight 175 lb BMI 30.0 BP 122/80 Blood Pressure Location Lt brachial Position Sitting Intake Visit Reasons: 6m follow up Intake Note: Patient here for a 6 month follow up Park Maintainer Required: No Accompanied by: Self / Same As Patient Allergies Seasonal Allergies Allergy (Mild, Verified 10/12/22 10:20) Unknown metronidazole [From FLAGYL] Allergy (Unknown, Verified 10/12/22 10:20) UNKNOWN duloxetine Adverse Reaction (Verified 10/12/22 10:20) Nausea PEPPERONI Allergy (Unknown, Uncoded 10/12/22 10:20) HIVES Medication List - Last Reconciled 10/12/22 by Maeve Guzman MD albuterol sulfate 90 mcg/actuation 2 inhalations inhalation Q6-8H PRN azelastine intranasal baclofen 10 mg PO TID 30 days cholecalciferol (vitamin D3) 1,250 mcg PO QWEEK diclofenac sodium 1% (Voltaren Arthritis Pain) 2 grams topical QID diphenhydramine HCl (Benadryl Allergy) 50 mg (2 x 25 mg) PO TID PRN epinephrine (EpiPen 2-Edward) 0.3 mg (0.3 mL) IM Q4H PRN 1 month gabapentin 300 mg PO BEDTIME 30 days hydrocortisone 2.5% 1 appl topical BID loratadine 10 mg PO DAILY magnesium glycinate 200 mg (2 x 100 mg) PO DAILY 30 days methylprednisolone acetate (Depo-Medrol) 20 mg Infiltration Q3W riboflavin (vitamin B2) 400 mg PO DAILY 30 days valacyclovir 1,000 mg (2 x 500 mg) PO DAILY 90 days Tobacco use date assessed: 04/07/22 Dental Screening Dental Screen Date: 10/12/22 Did you have a dental visit in the last 12 months?: No Did you have a dental problem in the last 6 months where you did not have access to dental care?: No Was dental information given to patient?: Patient has dentist HPI HPI Comments History of Present Illness Details This is a 27-year-old female with bipolar disorder, vitamin-D deficiency, psoriasis that complains of abdominal pain in epigastric area burning like in quality that radiates to bilateral upper quadrants. This has been present for over 6 months. I will start her on PPIs as needed. On supplements for vitamin-D deficiency and vitamin-D levels will be order. She wants a referral for Dermatology due to psoriasis. Bipolar disorder is follow by counseling once a week and psychiatry sees her every 2 weeks. Was prescribed medication but she does not take it because she does not feel the need. [facility] Medical History (Updated 10/12/22 @ 10:37 by Maeve Guzman MD) ADHD Asthma Bipolar 1 disorder Borderline personality disorder COVID-19 virus infection Depression Encounter to establish care (~03/2021) GERD (gastroesophageal reflux disease) History of multiple miscarriages HIV exposure Low vitamin D level Lung nodules Surgical History History of wisdom tooth extraction Hx of biopsy Family History Mother Substance use disorder Mental health disorder Father Cancer Social History Housing: House Alcohol intake: current Alcohol intake frequency: holidays/special occasions only Patient Tobacco Use Status: Never used Tobacco Tobacco use type: Cigar e-Cigarette/Vaping Use: Currently Using Second Hand Smoke Exposure: No service: No Current occupational status: unemployed 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 Saeed White, Hanane Steen, Ang Bae and colleagues, with an educational carly from [employer]. Review of Systems Const All systems reviewed & are unremarkable except as noted in HPI and below Eyes Reports no additional complaints, Denies change in vision and Denies other visual disturbances Card Denies chest pain at rest, Denies chest pain with activity, Denies edema, Denies irregular heart rhythm, Denies claudication, Denies dyspnea, Denies dyspnea on exertion, Denies orthopnea, Denies paroxysmal nocturnal dyspnea and Denies slow heart rate Resp Denies cough, Denies dyspnea and Denies dyspnea on exertion GI Denies abdominal pain, Denies change in bowel habits, Denies excessive flatus, Reports heartburn, Denies nausea and Denies vomiting Denies urinary incontinence, Denies urinary hesitancy and Denies urinary urgency Musc Denies abnormal gait, Denies atrophy, Denies deformity and Denies limited range of motion Skin/Breast Denies bleeding lesions, Denies changing lesions and Denies rash Neuro Denies abnormal gait and Denies lack of coordination Physical exam (Primary Care) Vital Signs: Last Vital Signs BP 122/80 10/12/22 10:09 BMI result Body Mass Index 30.0 Tobacco/Smoking Status: Tobacco use Status Tobacco use date assessed 04/07/22 10/12/22 10:16 Patient Tobacco Use Status Never used Tobacco 10/12/22 10:16 Tobacco use type Cigar 10/12/22 10:16 e-Cigarette/Vaping Use Currently Using 10/12/22 10:16 Thrive Assessment: Date of Thrive Assessment Date Thrive assessed 04/07/22 10/12/22 10:16 Eyes General: appearance normal, both eyes and all related structures Eyelids: Yes eyelids normal Conjunctivae: conjunctivae normal Neck Neck: Yes normal visual inspection and Yes supple Resp Effort & Inspection: normal respiratory effort Auscultation: clear to auscultation bilaterally Cardio Jugular venous distension: no JVD Rate: regular rate Rhythm: regular rhythm Heart sounds: S1 normal heart sound present and S2 normal heart sound present Extrem General: Yes full ROM Assessment and Plan Assessment & Plan (1) Bipolar 1 disorder: Code(s): F31.9 - Bipolar disorder, unspecified Plan: Follow-up with counseling and psychiatry. (2) Vitamin D deficiency: Code(s): E55.9 - Vitamin D deficiency, unspecified Plan: Continue vitamin-D supplement. (3) Abdominal pain: Code(s): R10.9 - Unspecified abdominal pain Plan: Upper GI series ordered. Start PPIs as needed. (4) Psoriasis: Code(s): L40.9 - Psoriasis, unspecified Plan: Start steroid cream as needed. Referred to dermatology. Orders: Orders Vitamin B12 and Folate Today E53.8 - Deficiency of other specified B group vitamins Vitamin D 25-OH Total Today E55.9 - Vitamin D deficiency, unspecified [place] upper GI series Today R10.13 - Epigastric pain Referrals Dermatology Referral L40.9 - Psoriasis, unspecified Medications: New hydroxyzine HCl 25 mg PO BEDTIME 30 days PRN 30 tabs 1RF itching omeprazole 20 mg PO DAILY 30 days PRN 30 caps 1RF heartburn triamcinolone acetonide 0.025% 1 appl topical DAILY 2 weeks PRN 15 grams 0RF psoriasis Coding Level of Care Code Est Pt Level 4 (92541) Diagnoses Bipolar 1 disorder F31.9 Vitamin D deficiency E55.9 Abdominal pain R10.9 Psoriasis L40.9 Time Spent (min) 22
== END 2022-10-12 10:37 | disposition home or self-care (01) ==
PROVIDERS: Visit Provider Internal Medicine
DX: F31.9 Bipolar disorder, unspecified (principal); E55.9 Vitamin D deficiency, unspecified; R10.9 Unspecified abdominal pain; L40.9 Psoriasis, unspecified
CPT/HCPCS: 99214

== ENCOUNTER 2022-10-12 10:47 | Outpatient (REF) | payer MEDICARE, MEDICAID, SELFPAY ==
[2022-10-12 13:18] LABS: Vitamin D 25-OH Total 20.8 ng/mL (>30)
[2022-10-12 13:31] LABS: Folate 6.5 ng/mL (> or = 4.0); Vitamin B12 260 pg/mL (200-900)
== END 2022-10-12 10:48 | disposition home or self-care (01) ==
LOC: HO.LAB 10:47
PROVIDERS: Visit Provider Internal Medicine
DX: E53.8 Deficiency of other specified B group vitamins (principal); E55.9 Vitamin D deficiency, unspecified
CPT/HCPCS: 36415; 82306; 82607; 82746

== ENCOUNTER 2022-10-13 08:24 | Outpatient (REF) | payer MEDICARE, MEDICAID, SELFPAY ==
[2022-10-13 09:31] LABS: Alanine Aminotransferase 16 U/L (0-31); Albumin Level 4.3 g/dL (3.5-5.0); Alkaline Phosphatase 77 U/L (39-117); Anion Gap 12 (12-20); Aspartate Amino Transferase 11 U/L (5-31); Bilirubin Direct 0.1 mg/dL (0.0-0.5); Bilirubin Total 0.3 mg/dL (0.0-1.0); Blood Urea Nitrogen 8 mg/dL (9-16); Calcium 9.6 mg/dL (8.4-10.2); Carbon Dioxide 22 mmol/L (22-29); Chloride 110 mmol/L (96-108); Estimated Glomerular Filt Rate > 60; Glucose Random 104 mg/dL (60-115); Potassium 3.8 mmol/L (3.3-5.1); Sodium 140 mmol/L (135-145); Total Protein 7.2 g/dL (6.5-8.0)
== END 2022-10-13 08:25 | disposition home or self-care (01) ==
LOC: HO.LAB 08:24
PROVIDERS: PCP Internal Medicine; Visit Provider Psychiatry & Neurology Neurology
DX: R20.0 Anesthesia of skin (principal)
CPT/HCPCS: 36415; 80048; 80076

== ENCOUNTER 2022-10-21 14:37 | Outpatient (AMB) | payer MEDICARE, MEDICAID, SELFPAY ==
[2022-10-21 14:45] VITALS: BP 116/68; PULSE 74; TEMP 36.8; O2SAT 98; BMI 30.3
--- NOTE | 2022-10-21 14:45 | MHC.OFFVIS ---
Intake Vital Signs 10/21/22 14:45 Height 5 ft 4 in Weight 176 lb 5.917 oz BMI 30.3 BP 116/68 Blood Pressure Location Lt brachial Position Sitting Pulse 74 Pulse Source Pulse Oximeter Temp 98.2 F Temp Source Skin Pulse Oximetry (%) 98 Intake Visit Reasons: Chronic pain syndrome Intake Note: New pt presents today for consult., referred by pain mgmt. Diagnosed with FM, offered cortisone injections, she declined. C/o whole body pain States pain doctor wanted her to come here to address the inflammation in her back. 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 Required: No Accompanied by: Self / Same As Patient Allergies Seasonal Allergies Allergy (Mild, Verified 10/21/22 14:50) Unknown metronidazole [From FLAGYL] Allergy (Unknown, Verified 10/21/22 14:50) UNKNOWN duloxetine Adverse Reaction (Verified 10/21/22 14:50) Nausea PEPPERONI Allergy (Unknown, Uncoded 10/21/22 14:50) HIVES Medication List - Last Reconciled 10/21/22 by Beatrice Enriquez MD albuterol sulfate 90 mcg/actuation 2 inhalations inhalation Q6-8H PRN azelastine intranasal baclofen 10 mg PO TID 30 days cholecalciferol (vitamin D3) 50 mcg PO DAILY 90 days diclofenac sodium 1% (Voltaren Arthritis Pain) 2 grams topical QID diphenhydramine HCl (Benadryl Allergy) 50 mg (2 x 25 mg) PO TID PRN epinephrine (EpiPen 2-Edward) 0.3 mg (0.3 mL) IM Q4H PRN 1 month fluticasone propionate 50 mcg/actuation (Flonase Allergy Relief) 1 spray intranasal BID folic acid 1 mg PO DAILY 90 days gabapentin 300 mg PO BEDTIME 30 days hydrocortisone 2.5% 1 appl topical BID hydroxyzine HCl 25 mg PO BEDTIME PRN 30 days loratadine 10 mg PO DAILY magnesium glycinate 200 mg (2 x 100 mg) PO DAILY 30 days mecobalamin (vitamin B12) 1,000 mcg PO DAILY 90 days methylprednisolone acetate (Depo-Medrol) 20 mg Infiltration Q3W omeprazole 20 mg PO DAILY PRN riboflavin (vitamin B2) 400 mg PO DAILY 30 days triamcinolone acetonide 0.025% 1 appl topical DAILY PRN 2 weeks valacyclovir 1,000 mg (2 x 500 mg) PO DAILY 90 days HPI HPI Comments History of Present Illness Details This is a 27-year-old female who presents for evaluation of diffuse pain. Patient was evaluated by Pain Management will refer her to rheumatology for evaluation of fibromyalgia. She took gabapentin for 1 month prescribed by Pain Management which helped her sleep but did not provide much help. Duloxetine was prescribed but patient did not pick it up. She continues to have diffuse pain especially along her entire spine. She also has tingling and numbness of various areas of her body. She has difficulty falling and staying asleep. She is unaware of a definite family history of autoimmune rheumatic disease [facility] Medical History ADHD Asthma Bipolar 1 disorder Borderline personality disorder COVID-19 virus infection Depression Encounter to establish care (~03/2021) GERD (gastroesophageal reflux disease) History of multiple miscarriages HIV exposure Low vitamin D level Lung nodules Surgical History History of wisdom tooth extraction Hx of biopsy S/P cubital tunnel release Family History Mother Substance use disorder Mental health disorder Father Cancer Social History Housing: House Alcohol intake: current Alcohol intake frequency: holidays/special occasions only Patient Tobacco Use Status: Never used Tobacco Tobacco use type: Cigar e-Cigarette/Vaping Use: Currently Using Second Hand Smoke Exposure: No service: No Current occupational status: unemployed 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 Cognitive needs: No Hearing needs: No Vision needs: Yes (glasses) Female Reproductive History Menstrual Age of Menarche: 13 Total pregnancies: 4 Ab spontaneous: 3 Review of Systems Const Reports fatigue, Reports headache(s) and Reports weakness Eyes Reports blurry vision, Reports dry eyes, Reports itchy eyes and Reports eye pain ENT Reports dizziness, Reports headache(s) and Reports tinnitus Card Reports chest pain Resp Reports wheezing GI Reports heartburn and Reports nausea Musc Reports arthralgias and Reports stiffness Skin/Breast Reports unusual bruising Neuro Reports dizziness, Reports headache(s), Reports memory loss and Reports weakness Psych Reports anxiety, Reports depression and Reports memory loss Endo Reports fatigue Aller/Immun Reports itchy eyes and Reports wheezing Physical Exam Vital Signs: Last Vital Signs Temp 98.2 F 10/21/22 14:45 Pulse 74 10/21/22 14:45 BP 116/68 10/21/22 14:45 Pulse Ox 98 10/21/22 14:45 BMI result Body Mass Index 30.3 Const General: cooperative, healthy appearing and comfortable Nutritional Appearance: overweight Orientation/consciousness: patient oriented x3 Limitations: no limitations HEENT Head: Yes normocephalic and Yes atraumatic Mouth: moist mucous membranes Resp Effort & Inspection: normal respiratory effort and able to speak in complete sentences Auscultation: clear to auscultation bilaterally Cardio Rate: regular rate Rhythm: regular rhythm Skin General skin exam: no rashes or lesions noted Neuro General: patient oriented x3 Extrem Other: No active synovitis. No significant fibromyalgia tender points Assessment & Plan Assessment & Plan (1) Fibromyalgia: Code(s): M79.7 - Fibromyalgia Plan: This is a 27-year-old female presents for evaluation of diffuse pain. Referred by Pain Management. I do not see any signs of autoimmune rheumatic disease upon my evaluation. Discussed management of fibromyalgia with patient. Is a noninflammatory, non-autoimmune central afferent processing disorder leading to a diffuse pain syndrome. Patient follows up regularly with a psychiatrist and a psychotherapist. I suggested evaluation by a therapist and/or a psychiatrist. Advised patient to try to follow sleep hygiene practices. She had a sleep study which did not show sleep apnea. Discuss CBT for sleep with psychotherapist. Patient walks more than 25 minutes most days, she would benefit from increased physical activity, either through formal physical therapy or by joining a gym. Advised patient that she should start activity slowly and increase as tolerated. Consider low-impact exercises such as swimming, aqua therapy stretching, yoga. She took gabapentin for 1 month and it was not helpful. Duloxetine was prescribed but patient did not pick it up. Patient can follow-up with her other providers. Follow-up as needed Coding Level of Care Code New Pt Level 3 (59436) Diagnoses Fibromyalgia M79.7
== END 2022-10-21 15:25 | disposition home or self-care (01) ==
PROVIDERS: PCP Internal Medicine; Visit Provider Student in an Organized Health Care Education/Training Program
DX: M79.7 Fibromyalgia (principal)
CPT/HCPCS: 99203

== ENCOUNTER → 2022-10-21 14:37 | Outpatient (BNVA) | payer MEDICARE, MEDICAID, SELFPAY | PROVIDERS: Visit Provider Student in an Organized Health Care Education/Training Program | DX: M79.7 Fibromyalgia (principal) | CPT/HCPCS: 99202 ==

== ENCOUNTER 2022-11-02 20:22 | Emergency (ER) | payer MEDICARE, MEDICAID, SELFPAY ==
[2022-11-02 21:06] VITALS: BP 112/73; PULSE 78; RESP 20; TEMP 36.9; O2SAT 100; BMI 26.1
--- NOTE | 2022-11-02 22:50 | ED_ITS ---
HPI - General Adult General Chief complaint: Wound/Laceration Stated complaint: right hand finger lac Time Seen by Provider: 11/02/22 22:45 Source: patient, RN notes reviewed and old records reviewed Mode of arrival: ambulatory Limitations: no limitations History of Present Illness HPI narrative: 27-year-old female presents for evaluation of a laceration to the right 4th finger. Patient reports that she was trying to use a knife to puncture holes into the bottom of a pot for a plant to be used She accidentally sliced her right 4th finger on the palmar surface Bleeding controlled She is able to flex and extend the finger Unknown last tetanus She complains of mild pain a 07/12 pain Related Data Home Medications Medication Instructions Recorded Confirmed methylprednisolone acetate 20 20 mg Infiltration Q3W 04/09/22 10/12/22 mg/mL suspension for injection (Depo-Medrol) azelastine 137 mcg (0.1 %) nasal intranasal 06/03/22 10/12/22 spray aerosol Previous Rx's Medication Instructions Recorded hydrocortisone 2.5 % topical cream 1 appl topical BID #20 grams 09/15/21 diclofenac sodium 1 % topical gel 2 g topical QID #100 grams 09/28/21 (Voltaren Arthritis Pain) diphenhydramine HCl 25 mg tablet 50 mg PO TID PRN allergic reaction 01/07/22 (Benadryl Allergy) #14 tabs epinephrine 0.3 mg/0.3 mL 0.3 mg (0.3 mL) IM Q4H PRN 01/07/22 injection, auto-injector (EpiPen anaphylaxis 1 month #2 ea 2-Edward) valacyclovir 500 mg tablet 1,000 mg PO DAILY 90 days #180 tabs 04/07/22 baclofen 10 mg tablet 10 mg PO TID muscle spasm 30 days 06/03/22 #90 tabs magnesium glycinate 100 mg tablet 200 mg PO DAILY migraine 30 days 06/03/22 #60 tabs riboflavin (vitamin B2) 400 mg 400 mg PO DAILY migraine headache 06/03/22 tablet 30 days #30 tabs cholecalciferol (vitamin D3) 50 50 mcg PO DAILY 90 days #90 caps 10/12/22 mcg (2,000 unit) capsule hydroxyzine HCl 25 mg tablet 25 mg PO BEDTIME PRN itching 30 10/12/22 days #30 tabs omeprazole 20 mg capsule,delayed 20 mg PO DAILY PRN for heartburn 10/12/22 release #90 caps triamcinolone acetonide 0.025 % 1 appl topical DAILY PRN psoriasis 10/12/22 topical cream 2 weeks #15 grams albuterol sulfate 90 mcg/actuation 2 inh inhalation Q6-8H PRN 10/13/22 aerosol inhaler shortness of breath or wheezing #6.7 grams fluticasone propionate 50 1 spray intranasal BID #16 grams 10/13/22 mcg/actuation nasal spray,suspension (Flonase Allergy Relief) loratadine 10 mg tablet 10 mg PO DAILY #30 tabs 10/13/22 folic acid 1 mg tablet 1 mg PO DAILY 90 days #90 tabs 10/17/22 mecobalamin (vitamin B12) 1,000 1,000 mcg PO DAILY 90 days #90 tabs 10/17/22 mcg chewable tablet gabapentin 300 mg capsule 300 mg PO BID pain 30 days #60 caps 10/25/22 clotrimazole 1 % topical cream 1 appl topical BID 4 weeks #30 10/26/22 grams ibuprofen 800 mg tablet 800 mg PO TID PRN pain #20 tabs 11/02/22 Allergies Allergy/AdvReac Type Severity Reaction Status Date / Time Seasonal Allergies Allergy Mild Unknown Verified 10/21/22 14:50 metronidazole [From FLAGYL] Allergy Unknown UNKNOWN Verified 10/21/22 14:50 duloxetine AdvReac Nausea Verified 10/21/22 14:50 PEPPERONI Allergy Unknown HIVES Uncoded 10/21/22 14:50 Review of Systems Integumentary/Breasts: Skin/Breast: Reports wounds PMFSH Past Medical History Medical History ADHD Asthma Bipolar 1 disorder Borderline personality disorder COVID-19 virus infection Depression Encounter to establish care (~03/2021) GERD (gastroesophageal reflux disease) History of multiple miscarriages HIV exposure Low vitamin D level Lung nodules Surgical History History of wisdom tooth extraction Hx of biopsy S/P cubital tunnel release Family History Family History Mother Substance use disorder Mental health disorder Father Cancer Social History Social History Housing: House Alcohol intake: current Alcohol intake frequency: holidays/special occasions only Patient Tobacco Use Status: Never used Tobacco Tobacco use type: Cigar e-Cigarette/Vaping Use: Currently Using Second Hand Smoke Exposure: No Advance Directives: No Advance Directives Information Provided: Yes service: No Current occupational status: unemployed 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 Cognitive needs: No Hearing needs: No Vision needs: Yes (glasses) Physical Exam ED Vital Signs: Vital Signs - 24 hr 11/02/22 21:06 Temperature 98.4 F Pulse Rate 78 Respiratory Rate 20 Blood Pressure 112/73 Pulse Oximetry 100 Oxygen Delivery Method Room Air BMI result Body Mass Index 26.1 Const General: healthy appearing, comfortable, no acute distress, alert and awake Nutritional Appearance: well nourished Orientation/consciousness: patient oriented x3 HENMT Head: Yes normocephalic and Yes atraumatic Skin Other: Indicates she is due for an hear the ventral surface of the right 4th finger just distal to the MCP joint General skin exam: elasticity normal Neuro General: patient oriented x3 Cranial nerves: Yes Bilaterally intact EOM present Cognition (Neuro): normal cognition Extrem Other: Moving all extremities well without any obvious deformities. She is able to flex and extend the right 4th finger with complete range of motion. Procedures Laceration Laceration 1: Site: hand Side (If applicable): right (4th finger) Size (cm): 2 Description: linear Depth: simple, single layer Local Anesthetic: lidocaine 1% Amount of anesthesia used (mL): 4 Pre-repair: wound explored Skin layer closed with: nylon Size (cm): 5-0 Number of sutures: 2 Medical Decision Making Medical Decision Making MDM Narrative: 27-year-old female will require wound closure, see procedure note. Tetanus will be updated. No evidence of tendon Injury Differential Diagnosis Differential Diagnoses: The differential diagnosis associated with the presentation includes Laceration Skin tear Puncture wound acute wound Discharge Plan Discharge Clinical Impression: Finger laceration Patient Disposition: Home, Self-Care Instructions: Laceration (ED) Additional Instructions: You had 2 sutures placed today. These can be removed in 7-10 days Keep the area clean and dry Your tetanus was also updated today Return for new or worsening symptoms Prescriptions: New ibuprofen 800 mg tablet 800 mg PO TID PRN (Reason: pain) Qty: 20 0RF No Action epinephrine [EpiPen 2-Edward] 0.3 mg/0.3 mL auto-injector 0.3 mg IM Q4H PRN (Reason: anaphylaxis) 30 Days Qty: 2 4RF Rx Instructions: practice injector as well if available please omeprazole 20 mg capsule,delayed release(DR/EC) 20 mg PO DAILY PRN (Reason: for heartburn) Qty: 90 0RF cholecalciferol (vitamin D3) 50 mcg (2,000 unit) capsule 50 mcg PO DAILY 90 Days Qty: 90 1RF albuterol sulfate 90 mcg/actuation HFA aerosol inhaler 2 inh inhalation Q6-8H PRN (Reason: shortness of breath or wheezing) Qty: 6.7 0RF fluticasone propionate [Flonase Allergy Relief] 50 mcg/actuation spray,suspension 1 spray intranasal BID Qty: 16 3RF Rx Instructions: administer into each nostril loratadine 10 mg tablet 10 mg PO DAILY Qty: 30 3RF folic acid 1 mg tablet 1 mg PO DAILY 90 Days Qty: 90 1RF mecobalamin (vitamin B12) 1,000 mcg tablet,chewable 1,000 mcg PO DAILY 90 Days Qty: 90 1RF gabapentin 300 mg capsule 300 mg PO BID 30 Days Qty: 60 3RF clotrimazole 1 % cream 1 appl topical BID 28 Days Qty: 30 0RF diphenhydramine HCl [Benadryl Allergy] 25 mg tablet 50 mg PO TID PRN (Reason: allergic reaction) Qty: 14 0RF hydrocortisone 2.5 % cream 1 appl topical BID Qty: 20 0RF diclofenac sodium [Voltaren Arthritis Pain] 1 % gel 2 g topical QID Qty: 100 0RF Rx Instructions: apply to single elbow, wrist or hand; for hand includes palm/fingers/back of hand valacyclovir 500 mg tablet 1,000 mg PO DAILY 90 Days Qty: 180 1RF hydroxyzine HCl 25 mg tablet 25 mg PO BEDTIME PRN (Reason: itching) 30 Days Qty: 30 1RF triamcinolone acetonide 0.025 % cream 1 appl topical DAILY PRN (Reason: psoriasis) 14 Days Qty: 15 0RF Depo-Medrol 20 mg/mL suspension 20 mg Infiltration Q3W azelastine 137 mcg (0.1 %) aerosol,spray intranasal baclofen 10 mg tablet 10 mg PO TID 30 Days Qty: 90 0RF magnesium glycinate 100 mg tablet 200 mg PO DAILY 30 Days Qty: 60 6RF riboflavin (vitamin B2) 400 mg tablet 400 mg PO DAILY 30 Days Qty: 30 6RF
[2022-11-03] MEDS: Ibuprofen 800 MG TABLET PO (00:14)
[2022-11-03] MEDS: Diphth,Pertus(ACell),Tet Adult 0.5 ML SYRINGE IM (00:14)
== END 2022-11-03 00:19 | disposition home or self-care (01) ==
PROVIDERS: Emergency Provider Internal Medicine
DX: S61.214A Laceration without foreign body of right ring finger without damage to nail, initial encounter (principal); W26.0XXA Contact with knife, initial encounter; Y93.89 Activity, other specified; Y92.017 Garden or yard in single-family (private) house as the place of occurrence of the external cause; Y99.9 Unspecified external cause status
CPT/HCPCS: 12001; 90471; 90715; 99283; 99284

== ENCOUNTER 2022-11-09 12:01 | Outpatient (AMB) | payer MEDICARE, MEDICAID, SELFPAY ==
[2022-11-09 12:10] VITALS: BP 118/78; PULSE 78; O2SAT 98; BMI 29.5
--- NOTE | 2022-11-09 12:10 | A.OFFPC_ITS ---
Vital Signs 11/09/22 12:10 Height 5 ft 4 in Weight 172 lb BMI 29.5 BP 118/78 Blood Pressure Location Rt brachial Position Sitting Pulse 78 Pulse Source Pulse Oximeter Pulse Oximetry (%) 98 Intake Visit Reasons: Rt [place] [facility] [place] Intake Note: stitches removal from ring finger Allergies Seasonal Allergies Allergy (Mild, Verified 11/09/22 12:16) Unknown metronidazole [From FLAGYL] Allergy (Unknown, Verified 11/09/22 12:16) UNKNOWN duloxetine Adverse Reaction (Verified 11/09/22 12:16) Nausea PEPPERONI Allergy (Unknown, Uncoded 11/09/22 12:16) HIVES Medication List - Last Reconciled 11/09/22 by BROOKE Rosado albuterol sulfate 90 mcg/actuation 2 inhalations inhalation Q6-8H PRN azelastine intranasal baclofen 10 mg PO TID 30 days cholecalciferol (vitamin D3) 50 mcg PO DAILY 90 days clotrimazole 1% 1 appl topical BID 4 weeks diclofenac sodium 1% (Voltaren Arthritis Pain) 2 grams topical QID diphenhydramine HCl (Benadryl Allergy) 50 mg (2 x 25 mg) PO TID PRN epinephrine (EpiPen 2-Edward) 0.3 mg (0.3 mL) IM Q4H PRN 1 month fluticasone propionate 50 mcg/actuation (Flonase Allergy Relief) 1 spray intranasal BID folic acid 1 mg PO DAILY 90 days gabapentin 300 mg PO BID 30 days hydrocortisone 2.5% 1 appl topical BID hydroxyzine HCl 25 mg PO BEDTIME PRN 30 days ibuprofen 800 mg PO TID PRN loratadine 10 mg PO DAILY magnesium glycinate 200 mg (2 x 100 mg) PO DAILY 30 days mecobalamin (vitamin B12) 1,000 mcg PO DAILY 90 days methylprednisolone acetate (Depo-Medrol) 20 mg Infiltration Q3W omeprazole 20 mg PO DAILY PRN riboflavin (vitamin B2) 400 mg PO DAILY 30 days triamcinolone acetonide 0.025% 1 appl topical DAILY PRN 2 weeks valacyclovir 1,000 mg (2 x 500 mg) PO DAILY 90 days Tobacco use date assessed: 04/07/22 HPI R[place] [facility] [place] HPI Details Patient is a 27-year-old female presents today for right hand 4th finger sutures removal. Patient of Dr. Reeves. Patient was seen in the emergency department 11/02/2022 for right hand 4th finger laceration after working in a garden, 2 sutures were placed, patient was given tetanus vaccine. She is here today for sutures removal. Denies finger pain, able to move fingers with no problem, reports intermittent pruritus around laceration. [facility] Medical History ADHD Asthma Bipolar 1 disorder Borderline personality disorder COVID-19 virus infection Depression Encounter to establish care (~03/2021) GERD (gastroesophageal reflux disease) History of multiple miscarriages HIV exposure Low vitamin D level Lung nodules Surgical History History of wisdom tooth extraction Hx of biopsy S/P cubital tunnel release Family History Mother Substance use disorder Mental health disorder Father Cancer Social History Housing: House Alcohol intake: current Alcohol intake frequency: holidays/special occasions only Patient Tobacco Use Status: Never used Tobacco Tobacco use type: Cigar e-Cigarette/Vaping Use: Currently Using Second Hand Smoke Exposure: No service: No Current occupational status: unemployed 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 Saeed White, Hanane Steen, Ang Bae and colleagues, with an educational carly from [employer]. Review of Systems Const Reports no additional complaints Skin/Breast Reports as per HPI Physical exam (Primary Care) Vital Signs: Last Vital Signs Pulse 78 11/09/22 12:10 BP 118/78 11/09/22 12:10 Pulse Ox 98 11/09/22 12:10 BMI result Body Mass Index 29.5 Tobacco/Smoking Status: Tobacco use Status Tobacco use date assessed 04/07/22 11/09/22 12:13 Patient Tobacco Use Status Never used Tobacco 11/09/22 12:13 Tobacco use type Cigar 11/09/22 12:13 e-Cigarette/Vaping Use Currently Using 11/09/22 12:13 Thrive Assessment: Date of Thrive Assessment Date Thrive assessed 04/07/22 11/09/22 12:13 Const General: cooperative and no acute distress Orientation/consciousness: patient oriented x3 HENMT Head: Yes normocephalic and Yes atraumatic Eyes General: appearance normal, both eyes and all related structures Pupils: Equal, round and reactive pupils present EOM: EOMs intact bilaterally Neck Neck: Yes normal visual inspection and Yes full ROM Resp Effort & Inspection: normal respiratory effort and able to speak in complete sentences Auscultation: clear to auscultation bilaterally, no crackles, no rales, no rhonchi and no wheezes Cardio Rate: regular rate Rhythm: regular rhythm Heart sounds: S1 normal heart sound present and S2 normal heart sound present Peripheral pulses: radial pulses present on the right GI Auscultation: normal bowel sounds Skin Other: Right hand 4th finger palmar aspect laceration about 2 cm with 2 sutures, sutures removed, patient tolerated well, no erythema, no discharge, laceration well approximated, very mild tenderness Neuro General: patient oriented x3 Cranial nerves: Yes Equal, round and reactive pupils present Gait exam (Neuro): Normal gait present Extrem General: Yes full ROM and No edema Assessment and Plan Assessment & Plan (1) Visit for suture removal: Code(s): Z48.02 - Encounter for removal of sutures Plan: Right hand 4th finger palmar aspect laceration about 2 cm with 2 sutures, sutures removed, patient tolerated well, no erythema, no discharge, laceration well approximated, very mild tenderness. Keep area dry and clean. Signs and symptoms reviewed when to notify provider or go to the emergency department. Patient agreed with the plan. Coding Level of Care Code Est Pt Level 2 (69971) Diagnoses Visit for suture removal Z48.02
== END 2022-11-09 12:32 | disposition home or self-care (01) ==
PROVIDERS: Visit Provider Nurse Practitioner Family
DX: Z48.02 Encounter for removal of sutures (principal)
CPT/HCPCS: 99212

== ENCOUNTER 2022-11-16 09:27 | Outpatient (REF) | payer MEDICARE, MEDICAID, SELFPAY ==
--- NOTE | ~2022-11-16 | FL_ITS ---
EXAMINATION: XR GI SERIES CLINICAL INFORMATION: 27-year-old female complaining of episodic epigastric pain. COMPARISON: None available. TECHNIQUE: Standard double air contrast upper GI examination was performed utilizing both thick and thin barium. Multiple spot images were obtained.. FINDINGS: Esophagus is normal in caliber and contour. There is no mucosal abnormality, stricture, or mass. Esophageal peristalsis appears normal. There is no hiatus hernia. There is no evidence of gastroesophageal reflux. Stomach has a normal contour with normal fold pattern. No ulcerations, masses, or other abnormalities. The duodenal bulb has a normal appearance. Slight delay of contrast into the duodenal sweep was noted, however eventually contrast did progress throughout the duodenum normally. Normal fold pattern noted in the duodenum. FLUOROSCOPY TIME: 3.4 minutes 19 spot images obtained. DOSE AREA PRODUCT: 38.261 uGy-m2 (microgray-meter squared) FL/FL upper GI series IMPRESSION: Normal upper GI series examination.
== END 2022-11-16 09:28 | disposition home or self-care (01) ==
LOC: HO.XRAY 09:27
PROVIDERS: PCP Internal Medicine; Visit Provider Internal Medicine
DX: R10.13 Epigastric pain (principal)
CPT/HCPCS: 74240

== ENCOUNTER → 2022-11-16 09:29 | Outpatient (BNV) | payer MEDICARE, MEDICAID, SELFPAY | PROVIDERS: PCP Internal Medicine; Visit Provider Radiology Diagnostic Radiology | DX: R10.13 Epigastric pain (principal) | CPT/HCPCS: 74240 ==

== ENCOUNTER 2023-04-02 12:30 | Emergency (ER) | payer MEDICARE, MEDICAID, SELFPAY ==
--- NOTE | ~2023-04-02 | XR_ITS ---
EXAMINATION: CHEST 2 VIEWS CLINICAL INFORMATION: pain. COMPARISON: 04/22/2022. TECHNIQUE: PA and lateral views of the chest obtained. FINDINGS: The lungs are well expanded. No focal infiltrate, effusion, edema, or pneumothorax. Cardiac and mediastinal silhouettes are within normal limits for technique. No acute bony abnormality seen XR/XR chest 2V IMPRESSION: No evidence of acute disease
--- NOTE | 2023-04-02 13:26 | ED.GENADULT ---
HPI - General Adult General Chief complaint: Upper Respiratory Symptoms Stated complaint: L ear pain/Sore throat Time Seen by Provider: 04/02/23 14:59 Source: patient, RN notes reviewed and old records reviewed Mode of arrival: ambulatory Limitations: no limitations History of Present Illness HPI narrative: 28-year-old woman presents for evaluation of left ear pain, sore throat. her symptoms started 2 days ago. Her daughter was positive for RSV and flu 2 weeks ago she denies any difficulty swallowing has pain while doing so she has mild cough no fevers or chills no other complaints or concerns Related Data Home Medications Medication Instructions Recorded Confirmed methylprednisolone acetate 20 20 mg Infiltration Q3W 04/09/22 11/09/22 mg/mL suspension for injection (Depo-Medrol) azelastine 137 mcg (0.1 %) nasal intranasal 06/03/22 11/09/22 spray aerosol Previous Rx's Medication Instructions Recorded hydrocortisone 2.5 % topical cream 1 appl topical BID #20 grams 09/15/21 diclofenac sodium 1 % topical gel 2 g topical QID #100 grams 09/28/21 (Voltaren Arthritis Pain) diphenhydramine HCl 25 mg tablet 50 mg (2 x 25 mg) PO TID PRN 01/07/22 (Benadryl Allergy) allergic reaction #14 tabs epinephrine 0.3 mg/0.3 mL 0.3 mg (0.3 mL) IM Q4H PRN 01/07/22 injection, auto-injector (EpiPen anaphylaxis 1 month #2 ea 2-Edward) valacyclovir 500 mg tablet 1,000 mg (2 x 500 mg) PO DAILY 90 04/07/22 days #180 tabs baclofen 10 mg tablet 10 mg PO TID muscle spasm 30 days 06/03/22 #90 tabs magnesium glycinate 100 mg tablet 200 mg (2 x 100 mg) PO DAILY 06/03/22 migraine 30 days #60 tabs riboflavin (vitamin B2) 400 mg 400 mg PO DAILY migraine headache 06/03/22 tablet 30 days #30 tabs cholecalciferol (vitamin D3) 50 50 mcg PO DAILY 90 days #90 caps 10/12/22 mcg (2,000 unit) capsule hydroxyzine HCl 25 mg tablet 25 mg PO BEDTIME PRN itching 30 10/12/22 days #30 tabs omeprazole 20 mg capsule,delayed 20 mg PO DAILY PRN for heartburn 10/12/22 release #90 caps triamcinolone acetonide 0.025 % 1 appl topical DAILY PRN psoriasis 10/12/22 topical cream 2 weeks #15 grams fluticasone propionate 50 1 spray intranasal BID #16 grams 10/13/22 mcg/actuation nasal spray,suspension (Flonase Allergy Relief) loratadine 10 mg tablet 10 mg PO DAILY #30 tabs 10/13/22 folic acid 1 mg tablet 1 mg PO DAILY 90 days #90 tabs 10/17/22 mecobalamin (vitamin B12) 1,000 1,000 mcg PO DAILY 90 days #90 tabs 10/17/22 mcg chewable tablet gabapentin 300 mg capsule 300 mg PO BID pain 30 days #60 caps 10/25/22 clotrimazole 1 % topical cream 1 appl topical BID 4 weeks #30 10/26/22 grams ibuprofen 800 mg tablet 800 mg PO TID PRN pain #20 tabs 11/02/22 albuterol sulfate 90 mcg/actuation 2 inh inhalation Q6-8H PRN 11/14/22 aerosol inhaler shortness of breath or wheezing #6.7 grams amoxicillin 500 mg tablet 500 mg PO TID #30 tabs 04/02/23 Allergies Allergy/AdvReac Type Severity Reaction Status Date / Time Seasonal Allergies Allergy Mild Unknown Verified 11/09/22 12:16 metronidazole [From FLAGYL] Allergy Unknown UNKNOWN Verified 11/09/22 12:16 duloxetine AdvReac Nausea Verified 11/09/22 12:16 PEPPERONI Allergy Unknown HIVES Uncoded 11/09/22 12:16 Review of Systems Constitutional: Constitutional: Denies chills and Denies fever(s) ENT: Denies ear discharge, Reports otalgia and Reports sore throat Cardiovascular: Cardiovascular: Denies dyspnea Respiratory: Respiratory: Denies chest congestion, Denies cough and Denies dyspnea Gastrointestinal: Gastrointestinal: Denies abdominal pain, Denies nausea and Denies vomiting Musculoskeletal: Musculoskeletal: Denies back pain Integumentary/Breasts: Skin/Breast: Denies rash PMFSH Past Medical History Medical History ADHD Asthma Bipolar 1 disorder Borderline personality disorder COVID-19 virus infection Depression Encounter to establish care (~03/2021) GERD (gastroesophageal reflux disease) History of multiple miscarriages HIV exposure Low vitamin D level Lung nodules Surgical History History of wisdom tooth extraction Hx of biopsy S/P cubital tunnel release Family History Family History Mother Substance use disorder Mental health disorder Father Cancer Social History Social History Housing: House Alcohol intake: current Alcohol intake frequency: holidays/special occasions only Patient Tobacco Use Status: Never used Tobacco Tobacco use type: Cigar e-Cigarette/Vaping Use: Currently Using Second Hand Smoke Exposure: No Advance Directives: No Advance Directives Information Provided: No service: No Current occupational status: unemployed 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 Cognitive needs: No Hearing needs: No Vision needs: Yes (glasses) Physical Exam ED Vital Signs: Vital Signs - 24 hr 04/02/23 13:27 Temperature 97.5 F Pulse Rate 63 Respiratory Rate 18 Blood Pressure 145/97 H Pulse Oximetry 98 Oxygen Delivery Method Room Air BMI result Body Mass Index 30.9 Const General: healthy appearing, comfortable, no acute distress, alert and awake Nutritional Appearance: well nourished Orientation/consciousness: patient oriented x3 HENMT Other: mildly erythematous oropharynx with bilateral tonsillar hypertrophy, no exudates Head: Yes normocephalic and Yes atraumatic Ears: TM's abnormal bilaterally, TM normal on the right, left TM abnormal and TM abnormal ( left erythematous with bulging) Eyes Eyelids: Yes eyelids normal Conjunctivae: conjunctivae normal Sclerae: sclerae normal Corneas: corneas normal Pupils: Equal, round and reactive pupils present EOM: EOMs intact bilaterally Neck Neck: Yes full ROM Resp Effort & Inspection: normal respiratory effort, able to speak in complete sentences, no audible wheezes and not labored Auscultation: clear to auscultation bilaterally Cardio Rate: regular rate Rhythm: regular rhythm GI Inspection: No distended Palpation (GI): Soft to palpation, not firm, nontender, no guarding and not rigid Skin General skin exam: no rashes or lesions noted and elasticity normal Neuro General: patient oriented x3 Cranial nerves: Yes Equal, round and reactive pupils present and Yes Bilaterally intact EOM present Cognition (Neuro): normal cognition Extrem Other: Moving all extremities well without any obvious deformities Course Course Course Narrative: RME- 28-year-old female presents for evaluation of left ear pain and a sore throat. 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 Left TM is slightly erythematous compared to the right. No perforations. Plan for viral testing, strep throat swab, chest x-ray Medical Decision Making Medical Decision Making MDM Narrative: 28-year-old female presents for evaluation of ear pain and sore throat. Her viral swab were negative, chest x-ray was clear, her your does appear to show acute left otitis media will treat with amoxicillin. Differential Diagnosis Differential Diagnoses: The differential diagnosis associated with the presentation includes Otitis media Otitis externa Pharyngitis Upper respiratory infection Lab Data Labs: Lab Results 04/02/23 Range/Units 14:07 Influenza Type A (PCR) NEGATIVE (Negative) Influenza Type B (PCR) NEGATIVE (Negative) RSV RNA Qual (PCR) NEGATIVE (Negative) SARS-CoV-2 RNA (RT-PCR) NEGATIVE (Negative) S. pyogenes GrpA MARK Negative (Negative) Independent Interpretation I performed an independent interpretation of an: Plain X-Ray ( no infiltrate) Radiology Impression Discussion of test interpretation with radiology: I have reviewed the radiologist's reading. ( unremarkable examination) Discharge Plan Discharge Clinical Impression: Acute left otitis media Patient Disposition: Home, Self-Care Instructions: Ear Infection (ED) Additional Instructions: your being treated for an ear infection, take amoxicillin 3 times daily for 10 days. your viral swabs were negative in your chest x-ray was clear use ibuprofen/Tylenol for pain follow-up with your primary doctor Prescriptions: New amoxicillin 500 mg tablet 500 mg PO TID Qty: 30 0RF No Action epinephrine [EpiPen 2-Edward] 0.3 mg/0.3 mL auto-injector 0.3 mg IM Q4H PRN (Reason: anaphylaxis) 30 Days Qty: 2 4RF Rx Instructions: practice injector as well if available please omeprazole 20 mg capsule,delayed release(DR/EC) 20 mg PO DAILY PRN (Reason: for heartburn) Qty: 90 0RF cholecalciferol (vitamin D3) 50 mcg (2,000 unit) capsule 50 mcg PO DAILY 90 Days Qty: 90 1RF fluticasone propionate [Flonase Allergy Relief] 50 mcg/actuation spray,suspension 1 spray intranasal BID Qty: 16 3RF Rx Instructions: administer into each nostril loratadine 10 mg tablet 10 mg PO DAILY Qty: 30 3RF folic acid 1 mg tablet 1 mg PO DAILY 90 Days Qty: 90 1RF mecobalamin (vitamin B12) 1,000 mcg tablet,chewable 1,000 mcg PO DAILY 90 Days Qty: 90 1RF gabapentin 300 mg capsule 300 mg PO BID 30 Days Qty: 60 3RF clotrimazole 1 % cream 1 appl topical BID 28 Days Qty: 30 0RF albuterol sulfate 90 mcg/actuation HFA aerosol inhaler 2 inh inhalation Q6-8H PRN (Reason: shortness of breath or wheezing) Qty: 6.7 0RF diphenhydramine HCl [Benadryl Allergy] 25 mg tablet 50 mg PO TID PRN (Reason: allergic reaction) Qty: 14 0RF ibuprofen 800 mg tablet 800 mg PO TID PRN (Reason: pain) Qty: 20 0RF hydrocortisone 2.5 % cream 1 appl topical BID Qty: 20 0RF diclofenac sodium [Voltaren Arthritis Pain] 1 % gel 2 g topical QID Qty: 100 0RF Rx Instructions: apply to single elbow, wrist or hand; for hand includes palm/fingers/back of hand valacyclovir 500 mg tablet 1,000 mg PO DAILY 90 Days Qty: 180 1RF hydroxyzine HCl 25 mg tablet 25 mg PO BEDTIME PRN (Reason: itching) 30 Days Qty: 30 1RF triamcinolone acetonide 0.025 % cream 1 appl topical DAILY PRN (Reason: psoriasis) 14 Days Qty: 15 0RF Depo-Medrol 20 mg/mL suspension 20 mg Infiltration Q3W azelastine 137 mcg (0.1 %) aerosol,spray intranasal baclofen 10 mg tablet 10 mg PO TID 30 Days Qty: 90 0RF magnesium glycinate 100 mg tablet 200 mg PO DAILY 30 Days Qty: 60 6RF riboflavin (vitamin B2) 400 mg tablet 400 mg PO DAILY 30 Days Qty: 30 6RF
[2023-04-02 13:27] VITALS: BP 145/97; PULSE 63; RESP 18; TEMP 36.4; O2SAT 98; BMI 30.9
[2023-04-02 14:23] LABS: IDNOW Serial# 08D9AD1C; Strep A Nucleic Acid Negative (Negative)
[2023-04-02 14:53] LABS: Influenza A PCR NEGATIVE (Negative); Influenza B PCR NEGATIVE (Negative); Resp Syncy Virus RNA Qual PCR NEGATIVE (Negative); SARS COV2 PCR INHOUSE NEGATIVE (Negative)
== END 2023-04-02 15:09 | disposition home or self-care (01) ==
PROVIDERS: Physician Assistant; Emergency Provider Emergency Medicine; PCP Internal Medicine
DX: H66.92 Otitis media, unspecified, left ear (principal); H92.02 Otalgia, left ear; R07.89 Other chest pain; J02.8 Acute pharyngitis due to other specified organisms; Z20.828 Contact with and (suspected) exposure to other viral communicable diseases; Z20.822 Contact with and (suspected) exposure to COVID-19
CPT/HCPCS: 0241U; 71046; 87651; 99282; 99283

== ENCOUNTER 2023-04-12 09:35 | Outpatient (AMB) | payer MEDICARE, MEDICAID, SELFPAY ==
[2023-04-12 09:38] VITALS: BP 118/70; BMI 31.2
--- NOTE | 2023-04-12 09:38 | MHC.PC.OV ---
Vital Signs 04/12/23 09:38 Height 5 ft 4 in Weight 182 lb BMI 31.2 BP 118/70 Blood Pressure Location Lt brachial Position Sitting Intake Visit Reasons: PE Intake Note: Patient here for a physical exam Customer Service Consultant Required: No Accompanied by: Self / Same As Patient Allergies Seasonal Allergies Allergy (Mild, Verified 04/12/23 09:53) Unknown metronidazole [From FLAGYL] Allergy (Unknown, Verified 04/12/23 09:53) UNKNOWN duloxetine Adverse Reaction (Verified 04/12/23 09:53) Nausea PEPPERONI Allergy (Unknown, Uncoded 04/12/23 09:53) HIVES Medication List - Last Reconciled 04/12/23 by Maeve Guzman MD albuterol sulfate 90 mcg/actuation 2 inhalations inhalation Q6-8H PRN amoxicillin 500 mg PO TID azelastine intranasal baclofen 10 mg PO TID 30 days cholecalciferol (vitamin D3) 50 mcg PO DAILY 90 days clotrimazole 1% 1 appl topical BID 4 weeks diclofenac sodium 1% (Voltaren Arthritis Pain) 2 grams topical QID diphenhydramine HCl (Benadryl Allergy) 50 mg (2 x 25 mg) PO TID PRN epinephrine (EpiPen 2-Edward) 0.3 mg (0.3 mL) IM Q4H PRN 1 month fluticasone propionate 50 mcg/actuation (Flonase Allergy Relief) 1 spray intranasal BID folic acid 1 mg PO DAILY 90 days gabapentin 300 mg PO BID 30 days hydrocortisone 2.5% 1 appl topical BID hydroxyzine HCl 25 mg PO BEDTIME PRN 30 days ibuprofen 800 mg PO TID PRN loratadine 10 mg PO DAILY magnesium glycinate 200 mg (2 x 100 mg) PO DAILY 30 days mecobalamin (vitamin B12) 1,000 mcg PO DAILY 90 days methylprednisolone acetate (Depo-Medrol) 20 mg Infiltration Q3W omeprazole 20 mg PO DAILY PRN riboflavin (vitamin B2) 400 mg PO DAILY 30 days triamcinolone acetonide 0.025% 1 appl topical DAILY PRN 2 weeks valacyclovir 1,000 mg (2 x 500 mg) PO DAILY 90 days Tobacco use date assessed: 04/12/23 Dental Screening Dental Screen Date: 04/12/23 Did you have a dental visit in the last 12 months?: No Did you have a dental problem in the last 6 months where you did not have access to dental care?: No Was dental information given to patient?: Patient has dentist HPI HPI Comments History of Present Illness Details This is a 28-year-old female with bipolar disorder that comes for her physical exam. She refuse treatment for her bipolar disorder. Last Pap smear was April 2022 and was normal. No chest pain or shortness of breath. Complains of diffuse joint pain and would like to see rheumatology. [facility] Medical History (Updated 04/12/23 @ 10:03 by Maeve Guzman MD) Lung nodules Borderline personality disorder Depression Bipolar 1 disorder ADHD Low vitamin D level GERD (gastroesophageal reflux disease) Asthma History of multiple miscarriages COVID-19 virus infection Encounter to establish care (~03/2021) HIV exposure Surgical History S/P cubital tunnel release Hx of biopsy History of wisdom tooth extraction Family History Mother Substance use disorder Mental health disorder Father Cancer Social History Housing: House Alcohol intake: current Alcohol intake frequency: holidays/special occasions only Patient Tobacco Use Status: Never used Tobacco Tobacco use type: Cigar e-Cigarette/Vaping Use: Currently Using Second Hand Smoke Exposure: No service: No Current occupational status: unemployed 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 1. Little interest or pleasure in doing things: not at all 2. Feeling down, depressed, or hopeless: not at all 3. Trouble falling or staying asleep, or sleeping too much: not at all 4. Feeling tired or having little energy: not at all 5. Poor appetite or overeating: not at all 6. Feeling bad about yourself - or that you are a failure or have let yourself or your family down: not at all 7. Trouble concentrating on things, such as reading the newspaper or watching television: not at all 8. Moving or speaking so slowly that other people could have noticed. Or the opposite - being so fidgety or restless that you have been moving around a lot more than usual: not at all 9. Thoughts that you would be better off or of hurting yourself in some way: not at all Total score: 0 Depression Screening Interpretation: Negative Depression Screening Done: Yes 53778 - PHQ-9 Billing: Yes Source: Developed by Drs. Saeed White, Hanane Steen, Ang Bae and colleagues, with an educational carly from [employer]. Thrive Questionnaire Date Thrive assessed: 04/12/23 I am a: Patient What is your living situation today?: I have a steady place to live Within the past 12 months, did the food you bought not last and you didn't have the money to get more?: Never true Within the past 12 months, did you worry whether your food would run out before you got money to buy more?: Never true Do you have trouble paying for medicines?: No Do you have trouble getting transportation to medical appointments?: No Do you have trouble paying your heating and electricity bill?: No Do you have trouble taking care of your child, family member or friend?: No Do you have trouble with day-to-day activities such as bathing, preparing meals, shopping, managing finances, etc.?: No Are you currently unemployed and looking for a job?: No Are you interested in more education?: No Please select the resources that you would like help with: None Currently or been in a relationship where the following occur: no concerns reported AUDIT C Alcohol Use Questionnaire (AUDIT-C) 1. How often do you have a drink containing alcohol?: Monthly or less 2. How many drinks containing alcohol do you have on a typical day when you are drinking?: 1 or 2 3. How often do you have six or more drinks on one occasion?: Never Total Score: 1 Score Reviewed/Action Taken: No MEGAN-7 AMB Questionnaire MEGAN-7 Date MEGAN - 7 assessed: 04/12/23 Feeling nervous, anxious, or on edge: 0 = Not at all Not being able to stop or control worryin = Not at all Worrying too much about different things: 0 = Not at all Trouble relaxin = Not at all Being so restless that it is hard to sit still: 0 = Not at all Becoming easily annoyed or irritable: 0 = Not at all Feeling afraid as if something awful might happen: 0 = Not at all Total MEGAN-7 score (0-4 normal; 5-9 mild; 10-14 moderate; 15-21 severe): 0 Source: Developed by Drs. Saeed White, Hanane Steen, Ang Bae and colleagues, with an educational carly from [employer]. MEGAN-7 Assessment Billing MEGAN-7 Assessment Tool: MEGAN-7 Assessment 60057 Review of Systems Const All systems reviewed & are unremarkable except as noted in HPI and below Eyes Reports no additional complaints, Denies change in vision and Denies other visual disturbances Card Denies chest pain at rest, Denies chest pain with activity, Denies edema, Denies irregular heart rhythm, Denies claudication, Denies dyspnea, Denies dyspnea on exertion, Denies orthopnea, Denies paroxysmal nocturnal dyspnea and Denies slow heart rate Resp Denies cough, Denies dyspnea and Denies dyspnea on exertion GI Denies abdominal pain, Denies change in bowel habits, Denies excessive flatus, Denies nausea and Denies vomiting Denies urinary incontinence, Denies urinary hesitancy and Denies urinary urgency Musc Denies abnormal gait, Denies atrophy, Denies deformity and Denies limited range of motion Skin/Breast Denies bleeding lesions, Denies changing lesions and Denies rash Neuro Denies abnormal gait, Denies behavioral changes, Denies confusion and Denies lack of coordination Psych Denies behavioral changes and Denies confusion Physical exam (Primary Care) Vital Signs: Last Vital Signs BP 118/70 04/12/23 09:38 BMI result Body Mass Index 31.2 Tobacco/Smoking Status: Tobacco use Status Tobacco use date assessed 04/12/23 04/12/23 09:45 Patient Tobacco Use Status Never used Tobacco 04/12/23 09:45 Tobacco use type Cigar 04/12/23 09:45 e-Cigarette/Vaping Use Currently Using 04/12/23 09:45 PHQ-9: PHQ-9 Score PHQ-9: Total score 0 04/12/23 09:57 Depression Screening Interpretation: Negative Thrive Assessment: Date of Thrive Assessment Date Thrive assessed 04/12/23 04/12/23 09:45 Currently or been in a relationship where the following occur: no concerns reported Const General: No confusion Orientation/consciousness: patient oriented x3 and No confusion HENMT Head: Yes normal to inspection, Yes normocephalic and Yes atraumatic Ears: external ears normal Eyes General: appearance normal, both eyes and all related structures Eyelids: Yes eyelids normal Conjunctivae: conjunctivae normal Neck Neck: Yes normal visual inspection and Yes supple Resp Effort & Inspection: normal respiratory effort Auscultation: clear to auscultation bilaterally Cardio Jugular venous distension: no JVD Rate: regular rate Rhythm: regular rhythm Heart sounds: S1 normal heart sound present and S2 normal heart sound present GI Inspection: Yes normal to inspection Palpation (GI): Soft to palpation and nontender Auscultation: normal bowel sounds Skin General skin exam: no rashes or lesions noted Neuro General: patient oriented x3, no focal motor deficits and No confusion Extrem General: Yes full ROM Psych Appearance: grossly normal Office Procedures Flu Questionnaire Does the patient have a severe egg allergy?: No Immunizations flu vacc [id number] 6mos up(PF) 60 mcg(15 mcgx4)/0.5 mL IM syringe Performing Provider: Maeve Guzman MD [facility] Documented (not given) by: SAMINA Barnes on 04/12/23 10:06 Reason Not Given: Not Given Assessment and Plan Assessment & Plan (1) Physical exam: Code(s): Z00.00 - Encounter for general adult medical examination without abnormal findings Plan: Repeat in a year. (2) Bipolar 1 disorder: Code(s): F31.9 - Bipolar disorder, unspecified Plan: Refuse treatment. Orders: Orders Influenza [id number] Immunization Today Z23 - Encounter for immunization XR scapula RT Today M89.8X1 - Other specified disorders of bone, shoulder Referrals Rheumatology Referral M25.50 - Pain in unspecified joint Coding Level of Care Code Est Pt Prev Care 18-39y(87068) Diagnoses Physical exam Z00.00 Bipolar 1 disorder F31.9 Additional Codes MEGAN-7 Assessment Billing - MEGAN-7 Assessment Tool: MEGAN-7 Assessment 19441 ([id number]) Time Spent (min) 32
== END 2023-04-12 10:03 | disposition home or self-care (01) ==
PROVIDERS: Visit Provider Internal Medicine
DX: Z00.00 Encounter for general adult medical examination without abnormal findings (principal); F31.9 Bipolar disorder, unspecified
CPT/HCPCS: 99395

== ENCOUNTER 2023-04-12 10:13 | Outpatient (REF) | payer MEDICARE, MEDICAID, SELFPAY ==
--- NOTE | ~2023-04-12 | XR_ITS ---
EXAMINATION: XR SCAPULA, RIGHT CLINICAL INFORMATION: Reason for Exam M89.8X1 - Other specified disorders of bone, shoulder COMPARISON: None available. TECHNIQUE: AP and scapular Y views of the right scapula. FINDINGS: The bones and soft tissues are normal. No scapular fracture. Glenohumeral and acromioclavicular alignment is normal. XR/XR scapula RT IMPRESSION: Normal right scapula.
== END 2023-04-12 10:14 | disposition home or self-care (01) ==
LOC: HO.XRAY 10:13
PROVIDERS: PCP Internal Medicine; Visit Provider Internal Medicine
DX: M89.8X1 Other specified disorders of bone, shoulder (principal)
CPT/HCPCS: 73010

== ENCOUNTER 2023-05-11 09:51 | Emergency (ER) | payer MEDICARE, MEDICAID, SELFPAY ==
[2023-05-11 10:35] VITALS: BP 131/71; PULSE 58; RESP 16; TEMP 36.4; O2SAT 98; BMI 31.2
--- NOTE | 2023-05-11 12:11 | ED_ITS ---
HPI - General Adult General Chief complaint: General Medical Stated complaint: Swelling in thighs Time Seen by Provider: 05/11/23 11:54 History of Present Illness HPI narrative: patient complains of red area on inside of bilateral thighs for several weeks She also thinks she has Trichomonas and wants testing to follow with [facility] as she is allergic to Flagyl and says that [facility] would like her to get another test to confirm whether or not she has Trichomonas She has no fever vomiting or dysuria Related Data Home Medications Medication Instructions Recorded Confirmed methylprednisolone acetate 20 20 mg Infiltration Q3W 04/09/22 04/12/23 mg/mL suspension for injection (Depo-Medrol) azelastine 137 mcg (0.1 %) nasal intranasal 06/03/22 04/12/23 spray aerosol Previous Rx's Medication Instructions Recorded hydrocortisone 2.5 % topical cream 1 appl topical BID #20 grams 09/15/21 diclofenac sodium 1 % topical gel 2 g topical QID #100 grams 09/28/21 (Voltaren Arthritis Pain) diphenhydramine HCl 25 mg tablet 50 mg (2 x 25 mg) PO TID PRN 01/07/22 (Benadryl Allergy) allergic reaction #14 tabs epinephrine 0.3 mg/0.3 mL 0.3 mg (0.3 mL) IM Q4H PRN 01/07/22 injection, auto-injector (EpiPen anaphylaxis 1 month #2 ea 2-Edward) valacyclovir 500 mg tablet 1,000 mg (2 x 500 mg) PO DAILY 90 04/07/22 days #180 tabs baclofen 10 mg tablet 10 mg PO TID muscle spasm 30 days 06/03/22 #90 tabs magnesium glycinate 100 mg tablet 200 mg (2 x 100 mg) PO DAILY 06/03/22 migraine 30 days #60 tabs riboflavin (vitamin B2) 400 mg 400 mg PO DAILY migraine headache 06/03/22 tablet 30 days #30 tabs cholecalciferol (vitamin D3) 50 50 mcg PO DAILY 90 days #90 caps 10/12/22 mcg (2,000 unit) capsule hydroxyzine HCl 25 mg tablet 25 mg PO BEDTIME PRN itching 30 10/12/22 days #30 tabs omeprazole 20 mg capsule,delayed 20 mg PO DAILY PRN for heartburn 10/12/22 release #90 caps triamcinolone acetonide 0.025 % 1 appl topical DAILY PRN psoriasis 10/12/22 topical cream 2 weeks #15 grams fluticasone propionate 50 1 spray intranasal BID #16 grams 10/13/22 mcg/actuation nasal spray,suspension (Flonase Allergy Relief) loratadine 10 mg tablet 10 mg PO DAILY #30 tabs 10/13/22 folic acid 1 mg tablet 1 mg PO DAILY 90 days #90 tabs 10/17/22 mecobalamin (vitamin B12) 1,000 1,000 mcg PO DAILY 90 days #90 tabs 10/17/22 mcg chewable tablet gabapentin 300 mg capsule 300 mg PO BID pain 30 days #60 caps 10/25/22 clotrimazole 1 % topical cream 1 appl topical BID 4 weeks #30 10/26/22 grams ibuprofen 800 mg tablet 800 mg PO TID PRN pain #20 tabs 11/02/22 albuterol sulfate 90 mcg/actuation 2 inh inhalation Q6-8H PRN 11/14/22 aerosol inhaler shortness of breath or wheezing #6.7 grams amoxicillin 500 mg tablet 500 mg PO TID #30 tabs 04/02/23 clobetasol 0.05 % topical ointment 1 appl topical BID 1 week #15 grams 05/11/23 Allergies Allergy/AdvReac Type Severity Reaction Status Date / Time Seasonal Allergies Allergy Mild Unknown Verified 05/11/23 10:34 metronidazole [From FLAGYL] Allergy Unknown UNKNOWN Verified 05/11/23 10:34 duloxetine AdvReac Nausea Verified 05/11/23 10:34 PEPPERONI Allergy Unknown HIVES Uncoded 04/12/23 09:53 PMFSH Past Medical History Source: nursing notes reviewed Medical History Lung nodules Borderline personality disorder Depression Bipolar 1 disorder ADHD Low vitamin D level GERD (gastroesophageal reflux disease) Asthma History of multiple miscarriages COVID-19 virus infection Encounter to establish care (~03/2021) HIV exposure Surgical History S/P cubital tunnel release Hx of biopsy History of wisdom tooth extraction Family History Family History Mother Substance use disorder Mental health disorder Father Cancer Social History Social History Housing: House Alcohol intake: current Alcohol intake frequency: holidays/special occasions only Patient Tobacco Use Status: Never used Tobacco Tobacco use type: Cigar e-Cigarette/Vaping Use: Currently Using Second Hand Smoke Exposure: No Advance Directives: No Advance Directives Information Provided: No service: No Current occupational status: unemployed 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 Cognitive needs: No Hearing needs: No Vision needs: Yes (glasses) Physical Exam ED Vital Signs: Vital Signs - 24 hr 05/11/23 10:35 Temperature 97.5 F Pulse Rate 58 Respiratory Rate 16 Blood Pressure 131/71 Pulse Oximetry 98 Oxygen Delivery Method Room Air BMI result Body Mass Index 31.2 general appearance no distress Neck is supple respiratory no distress Abdomen soft nontender External exam of in her thighs shows small areas of redness in bilateral upper inner thighs, no herpetic lesions no evidence of abscess or cellulitis Course Course Course Narrative: patient with small areas of redness in upper inner thighs is treated for possible fungal infection with clobetasol Bacterial vaginosis panel and GC chlamydia testing were done These results will be followed with proof passer, she believes she is positive for Trichomonas [facility] she should follow with [facility] to seek alternative treatment BV test was sent today at her request to confirm diagnosis of trichomoniasis Discharge Plan Discharge Clinical Impression: Rash, skin Patient Disposition: Home, Self-Care Additional Instructions: vaginal swab tests were sent and results will be available to gynecology so make an appointment with the [facility] As you are allergic to Flagyl if the test comes positive you will need the specialist to guide care Return any time any worse condition or any concerns For the small red rash on inner thighs which may be a fungal infection we will try clobetasol ointment Prescriptions: New clobetasol 0.05 % ointment 1 appl topical BID 7 Days Qty: 15 0RF No Action epinephrine [EpiPen 2-Edward] 0.3 mg/0.3 mL auto-injector 0.3 mg IM Q4H PRN (Reason: anaphylaxis) 30 Days Qty: 2 4RF Rx Instructions: practice injector as well if available please omeprazole 20 mg capsule,delayed release(DR/EC) 20 mg PO DAILY PRN (Reason: for heartburn) Qty: 90 0RF cholecalciferol (vitamin D3) 50 mcg (2,000 unit) capsule 50 mcg PO DAILY 90 Days Qty: 90 1RF fluticasone propionate [Flonase Allergy Relief] 50 mcg/actuation spray,suspension 1 spray intranasal BID Qty: 16 3RF Rx Instructions: administer into each nostril loratadine 10 mg tablet 10 mg PO DAILY Qty: 30 3RF folic acid 1 mg tablet 1 mg PO DAILY 90 Days Qty: 90 1RF mecobalamin (vitamin B12) 1,000 mcg tablet,chewable 1,000 mcg PO DAILY 90 Days Qty: 90 1RF gabapentin 300 mg capsule 300 mg PO BID 30 Days Qty: 60 3RF clotrimazole 1 % cream 1 appl topical BID 28 Days Qty: 30 0RF albuterol sulfate 90 mcg/actuation HFA aerosol inhaler 2 inh inhalation Q6-8H PRN (Reason: shortness of breath or wheezing) Qty: 6.7 0RF diphenhydramine HCl [Benadryl Allergy] 25 mg tablet 50 mg PO TID PRN (Reason: allergic reaction) Qty: 14 0RF amoxicillin 500 mg tablet 500 mg PO TID Qty: 30 0RF ibuprofen 800 mg tablet 800 mg PO TID PRN (Reason: pain) Qty: 20 0RF hydrocortisone 2.5 % cream 1 appl topical BID Qty: 20 0RF diclofenac sodium [Voltaren Arthritis Pain] 1 % gel 2 g topical QID Qty: 100 0RF Rx Instructions: apply to single elbow, wrist or hand; for hand includes palm/fingers/back of hand valacyclovir 500 mg tablet 1,000 mg PO DAILY 90 Days Qty: 180 1RF hydroxyzine HCl 25 mg tablet 25 mg PO BEDTIME PRN (Reason: itching) 30 Days Qty: 30 1RF triamcinolone acetonide 0.025 % cream 1 appl topical DAILY PRN (Reason: psoriasis) 14 Days Qty: 15 0RF Depo-Medrol 20 mg/mL suspension 20 mg Infiltration Q3W azelastine 137 mcg (0.1 %) aerosol,spray intranasal baclofen 10 mg tablet 10 mg PO TID 30 Days Qty: 90 0RF magnesium glycinate 100 mg tablet 200 mg PO DAILY 30 Days Qty: 60 6RF riboflavin (vitamin B2) 400 mg tablet 400 mg PO DAILY 30 Days Qty: 30 6RF
[2023-05-11 15:21] LABS: CT PCR NOT DETECTED (Not Detect.); NG PCR NOT DETECTED (Not Detect.)
[2023-05-12 11:11] LABS: BV Int Neg Control Negative (Negative); BV Int Pos Control Positive (Positive)
== END 2023-05-11 13:53 | disposition home or self-care (01) ==
PROVIDERS: Physician Assistant Medical; Emergency Provider Emergency Medicine; PCP Internal Medicine
DX: A59.01 Trichomonal vulvovaginitis (principal); R21 Rash and other nonspecific skin eruption
CPT/HCPCS: 0353U; 87480; 87510; 87660; 99283

== ENCOUNTER 2023-05-14 11:12 | Emergency (ER) | payer MEDICARE, MEDICAID, SELFPAY ==
--- NOTE | 2023-05-14 11:19 | ED.GENADULT ---
HPI - General Adult General Chief complaint: General Medical Stated complaint: Allergy to medicine? Time Seen by Provider: 05/14/23 11:18 Source: patient Mode of arrival: ambulatory Limitations: no limitations History of Present Illness HPI narrative: Patient is a 28 year old assigned female at with a history of PTSD, bipolar disorder, and chronic pain syndrome presenting to the emergency department today requesting treatment for trich and BV infections. Patient states that she spoke with someone from here on the phone earlier in the day about getting IV Flagyl and being monitored to insure she doesn't have an allergic reaction. Patient explained she has seen her OBGYN and spoken to all the area allergists and no one does the flagyl desensitization she needs. Patient states that she would like a dose of the medication here after being pre-treated and monitored. Patient states that her allergy was a rash and it was back in 2016. Patient denies any dizziness, lightheadedness, abdominal pain, nausea, vomiting, fever, chills, blurry vision, double vision, loss of vision, chest pain, difficulty breathing, shortness of breath, back pain, night sweats, pain with urination, increased urinary frequency, increased urinary urgency, blood in her urine or stool, syncope or a near syncopal episode, recent trauma or falls, bowel incontinence, bladder incontinence, bowel retention, bladder retention, or any other complaints at this time. Onset (ago): week(s) Severity: mild Relieving factors: none Exacerbating factors: none Associated symptoms: denies other symptoms Treatments prior to arrival: none Related Data Home Medications Medication Instructions Recorded Confirmed methylprednisolone acetate 20 20 mg Infiltration Q3W 04/09/22 04/12/23 mg/mL suspension for injection (Depo-Medrol) azelastine 137 mcg (0.1 %) nasal intranasal 06/03/22 04/12/23 spray aerosol Previous Rx's Medication Instructions Recorded hydrocortisone 2.5 % topical cream 1 appl topical BID #20 grams 09/15/21 diclofenac sodium 1 % topical gel 2 g topical QID #100 grams 09/28/21 (Voltaren Arthritis Pain) diphenhydramine HCl 25 mg tablet 50 mg (2 x 25 mg) PO TID PRN 01/07/22 (Benadryl Allergy) allergic reaction #14 tabs epinephrine 0.3 mg/0.3 mL 0.3 mg (0.3 mL) IM Q4H PRN 01/07/22 injection, auto-injector (EpiPen anaphylaxis 1 month #2 ea 2-Edward) valacyclovir 500 mg tablet 1,000 mg (2 x 500 mg) PO DAILY 90 04/07/22 days #180 tabs baclofen 10 mg tablet 10 mg PO TID muscle spasm 30 days 06/03/22 #90 tabs magnesium glycinate 100 mg tablet 200 mg (2 x 100 mg) PO DAILY 06/03/22 migraine 30 days #60 tabs riboflavin (vitamin B2) 400 mg 400 mg PO DAILY migraine headache 06/03/22 tablet 30 days #30 tabs cholecalciferol (vitamin D3) 50 50 mcg PO DAILY 90 days #90 caps 10/12/22 mcg (2,000 unit) capsule hydroxyzine HCl 25 mg tablet 25 mg PO BEDTIME PRN itching 30 10/12/22 days #30 tabs omeprazole 20 mg capsule,delayed 20 mg PO DAILY PRN for heartburn 10/12/22 release #90 caps triamcinolone acetonide 0.025 % 1 appl topical DAILY PRN psoriasis 10/12/22 topical cream 2 weeks #15 grams fluticasone propionate 50 1 spray intranasal BID #16 grams 10/13/22 mcg/actuation nasal spray,suspension (Flonase Allergy Relief) loratadine 10 mg tablet 10 mg PO DAILY #30 tabs 10/13/22 folic acid 1 mg tablet 1 mg PO DAILY 90 days #90 tabs 10/17/22 mecobalamin (vitamin B12) 1,000 1,000 mcg PO DAILY 90 days #90 tabs 10/17/22 mcg chewable tablet gabapentin 300 mg capsule 300 mg PO BID pain 30 days #60 caps 10/25/22 clotrimazole 1 % topical cream 1 appl topical BID 4 weeks #30 10/26/22 grams ibuprofen 800 mg tablet 800 mg PO TID PRN pain #20 tabs 11/02/22 albuterol sulfate 90 mcg/actuation 2 inh inhalation Q6-8H PRN 11/14/22 aerosol inhaler shortness of breath or wheezing #6.7 grams amoxicillin 500 mg tablet 500 mg PO TID #30 tabs 04/02/23 clobetasol 0.05 % topical ointment 1 appl topical BID 1 week #15 grams 05/11/23 metronidazole 500 mg tablet 500 mg PO BID 7 days #14 tabs 05/14/23 prednisone 20 mg tablet 20 mg PO DAILY 7 days #7 tabs 05/14/23 Allergies Allergy/AdvReac Type Severity Reaction Status Date / Time Seasonal Allergies Allergy Mild Unknown Verified 05/11/23 10:34 metronidazole [From FLAGYL] Allergy Unknown Hives Verified 05/11/23 16:12 duloxetine AdvReac Nausea Verified 05/11/23 10:34 PEPPERONI Allergy Unknown HIVES Uncoded 04/12/23 09:53 Review of Systems Constitutional: Constitutional: Reports no additional constitutional complaints, Denies chills, Denies fever(s) and Denies night sweats Eyes: Eyes: Reports no additional eye complaints, Denies blurry vision, Denies change in vision, Denies diplopia, Denies eye discharge, Denies loss of vision and Denies eye pain ENT: Denies dizziness Cardiovascular: Cardiovascular: Reports no additional cardiovascular complaints, Denies chest pain, Denies lightheadedness, Denies Loss of Consciousness and Denies dyspnea Respiratory: Respiratory: Reports no additional respiratory complaints and Denies dyspnea Gastrointestinal: Gastrointestinal: Reports no additional gastrointestinal complaints, Denies abdominal pain, Denies melena, Denies hematochezia, Denies change in bowel habits and Denies change in stool character Genitourinary: Genitourinary: Denies hematuria, Denies urinary frequency, Denies dysuria, Denies urinary incontinence, Denies urinary hesitancy and Denies urinary urgency Musculoskeletal: Musculoskeletal: Reports no additional musculoskeletal complaints, Denies numbness and Denies tingling Neurologic: Denies dizziness, Denies loss of vision, Denies numbness and Denies tingling Psychiatric: Psychiatric: Reports no additional psychiatric complaints Endocrine: Endocrine: Reports no additional endocrine complaints Hematologic/Lymphatic: Hematologic/Lymphatic: Reports no additional hematologic/lymphatic complaints Allergic/Immunologic: Allergic/Immunologic: Reports no additional allergic/immunologic complaints PMFSH Past Medical History Attestation statement: The following information was validated with the patient. Source: old records reviewed and nursing notes reviewed Medical History Pain of right scapula Visit for suture removal Chlamydia infection Dextroscoliosis of lumbar spine Status post fall Mid back pain control counseling Yeast infection involving the vagina and surrounding area Well woman exam with routine gynecological exam Screen for sexually transmitted diseases Cervical cancer screening Breast pain, right Physical exam Lumbar radiculopathy Lumbar spondylosis Polyarthralgia Pain in both feet Injury of toe on right foot Preoperative clearance Jaw pain Pain in right elbow Paresthesia of hand, bilateral Abdominal pain Left ankle pain Bilateral leg edema Lymphadenopathy Incidental lung nodule, > 3mm and < 8mm Low vitamin D level Bug bite Anxiety and depression Neck mass Rib pain on right side Muscle spasms of neck Paresthesia and pain of both upper extremities Cervicalgia Upper respiratory tract infection Atopic reaction Allergic reaction Mass in neck Thrush, oral Muscle twitch Muscle spasm Shortness of breath Adenopathy Left shoulder pain Immunization due Nonimmune to hepatitis B virus Numbness and tingling of both legs Tinnitus Sore throat Upper respiratory tract infection Depo-Provera contraceptive status Screening for eye condition Routine screening for STI (sexually transmitted infection) Cervicalgia Headache Vision changes Chest pain Nausea and vomiting Hematochezia Abdominal pain Back pain Lung nodules Borderline personality disorder Depression Bipolar 1 disorder ADHD Low vitamin D level GERD (gastroesophageal reflux disease) Asthma History of multiple miscarriages COVID-19 virus infection Encounter to establish care (~03/2021) HIV exposure Surgical History S/P cubital tunnel release Hx of biopsy History of wisdom tooth extraction Family History Family History Mother Substance use disorder Mental health disorder Father Cancer Social History Social History Housing: House Alcohol intake: current Alcohol intake frequency: holidays/special occasions only Patient Tobacco Use Status: Never used Tobacco Tobacco use type: Cigar Smoked in Last 30 Days: Yes e-Cigarette/Vaping Use: Currently Using Second Hand Smoke Exposure: No Use of substances other than those prescribed or required for medical reasons: No Advance Directives: No Advance Directives Information Provided: No service: No Current occupational status: unemployed 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 Cognitive needs: No Hearing needs: No Vision needs: Yes (glasses) Physical Exam ED Vital Signs: Vital Signs - 24 hr 05/14/23 11:30 05/14/23 12:33 05/14/23 12:58 Temperature 98.1 F 98.2 F 98.2 F Pulse Rate 78 82 87 Respiratory Rate 16 20 18 Blood Pressure 137/95 H 126/80 123/73 Pulse Oximetry 96 97 97 Oxygen Delivery Method Room Air Room Air Room Air BMI result Body Mass Index 30.0 Const General: cooperative, no acute distress, alert and awake Nutritional Appearance: well nourished Orientation/consciousness: patient oriented x3 Limitations: no limitations HENMT Head: Yes normal to inspection and Yes atraumatic Ears: hearing grossly normal bilaterally and external ears normal General nose exam: Normal external nose present, no nasal discharge noted and no epistaxis Face and sinus: Yes normal facial exam, No abrasion and No laceration Mouth: Normal oral and palatal mucosa present, no drooling and no muffled voice Eyes General: appearance normal, both eyes and all related structures Periorbital: periorbital findings normal Eyelids: Yes eyelids normal Conjunctivae: conjunctivae normal Pupils: Equal, round and reactive pupils present EOM: EOMs intact bilaterally Neck Neck: Yes normal visual inspection, Yes full ROM and Yes no lymphadenopathy Chest Chest palpation & inspection: normal inspection of the chest Resp Effort & Inspection: normal respiratory effort and able to speak in complete sentences GI Inspection: Yes normal to inspection Neuro General: patient oriented x3 and moves all extremities Cranial nerves: Yes Equal, round and reactive pupils present Cognition (Neuro): normal cognition Motor exam (neuro): 5/5 motor strength present throughout Sensory Exam: Normal double simultaneous stimulation for sensation Coordination: [id number] test normal Extrem General: Yes normal to inspection, Yes full ROM and Yes capillary refill normal Psych Appearance: grossly normal Mental Status: mental status grossly normal Affect: normal affect Attitude: cooperative Thought process: Normal thought process present Thought content: Normal thought content present Insight: Good insight present (Psych) Medications Administered Discontinued Medications Generic Name Dose Route Start Last Admin Trade Name Freq PRN Reason Stop Dose Admin Diphenhydramine HCl 50 mg 05/14/23 11:29 05/14/23 12:14 Diphenhydramine Hcl 50 Mg/Ml Vial IVPUSH 05/14/23 11:30 50 mg ONCE ONE Administration Metronidazole 500 mg in 100 mls @ 100 mls/hr 05/14/23 11:29 05/14/23 13:44 Flagyl IV 05/14/23 12:28 Infused ONCE ONE Infusion Methylprednisolone Sodium Succinate 60 mg 05/14/23 11:37 05/14/23 12:11 Methylprednisolone Sod Succ 125 Mg/2 Ml Vial IVPUSH 05/14/23 11:38 60 mg ONCE ONE Administration Medical Decision Making Medical Decision Making [facility] Narrative: Patient is a 28 year old assigned female at with a history of PTSD, bipolar disorder, and chronic pain syndrome presenting to the emergency department today for trich and BV treatment. Patient's physical exam was unremarkable. Patient's blood work was unremarkable. I explained my physical exam findings as well as all test results to the patient. I answered all questions asked by the patient. Patient was given IV Flagyl after receiving IV steroids and Benadryl, without any incident. I stressed the importance of the patient taking her medication as prescribed. I stressed the importance of the patient following up with her primary care provider. I stressed the importance of the patient returning to the emergency department immediately if her symptoms were to worsen or if she were to develop any dizziness, shortness of breath, difficulty breathing, chest pain, blurry vision, loss of vision, nausea, vomiting, abdominal pain, fever, chills, back pain, or any other complaints. Patient verbalized agreement and understanding with this treatment plan and discharge. Please also refer to the addendum I wrote on the 05/11/2023 ED visit. Differential Diagnosis Differential Diagnoses: The differential diagnosis associated with the presentation includes Medication reaction Trichomonas Bacterial vaginitis Bacterial vaginosis Admission/Observation Consideration of admission/observation: Escalation of care including admission/observation considered Patient would have been admitted to the hospital had her work up had any findings where hospital admission was appropriate and her clinical presentation warranted hospital admission. Lab Data [facility] Lab Attestation statement: I reviewed the patient's lab results. My interpretation of these results are in the [facility] Rationale portion of this note. 05/14/23 11:47 05/14/23 12:45 Labs: Lab Results 05/14/23 05/14/23 Range/Units 11:47 12:45 WBC 8.1 (4.8-10.8) X10*3/uL RBC 5.20 (4.20-5.50) X10*6/uL Hgb 15.0 (12.0-16.0) g/dl Hct 43.8 (37.0-47.0) % MCV 84.2 (80.0-98.0) fL MCH 28.8 (27.0-33.0) pg MCHC 34.2 (31.0-35.0) g/dl RDW 12.7 (11.0-16.0) % Plt Count 321 (160-400) X10*3/uL MPV 9.6 (9.4-12.3) fL Immature Gran % (Auto) 0.5 H (0.0-0.4) % Neut % (Auto) 67.0 (45-73) % Lymph % (Auto) 24.8 (20-40) % Troup % (Auto) 6.8 (2-11) % Eos % (Auto) 0.7 (0-4) % Baso % (Auto) 0.2 (0-2) % Lymph # (Auto) 2.0 (1.2-4.9) X10*3/uL Troup # (Auto) 0.6 (0.1-1.2) X10*3/uL Eos # (Auto) 0.1 (0.0-0.4) X10*3/uL Baso # (Auto) 0.0 (0.0-0.2) X10*3/uL Abs Immat Gran (auto) 0.04 H (0.00-0.03) X10*3/uL Absolute Neuts (auto) 5.4 (2.0-8.3) x10*3/uL Absolute Nucleated RBC 0.000 (0.0-0.012) X10*3/uL Nucleated RBC % (auto) 0.0 (0.0-0.2) /100WBC Sodium 139 (135-145) mmol/L Potassium 3.8 (3.3-5.1) mmol/L Chloride 107 (96-108) mmol/L Carbon Dioxide 22 (22-29) mmol/L Anion Gap 14 (12-20) BUN 8 L (9-16) mg/dL Creatinine 0.80 (0.5-1.4) mg/dL Estim Creat Clear Calc 111.5 Estimated GFR > 60 Random Glucose 88 (60-115) mg/dL Calcium 9.3 (8.4-10.2) mg/dL Magnesium 2.3 (1.6-2.6) mg/dL Total Bilirubin 0.8 (0.0-1.0) mg/dL AST 16 (5-31) U/L ALT 14 (0-31) U/L Alkaline Phosphatase 79 (39-117) U/L Total Protein 7.7 (6.5-8.0) g/dL Albumin 4.3 (3.5-5.0) g/dL Discharge Plan Discharge Clinical Impression: Infection due to trichomonas, Bacterial vaginitis Patient Disposition: Home, Self-Care Instructions: Bacterial Vaginosis (ED), Trichomoniasis (ED) Additional Instructions: Do NOT drink alcohol while on these medications. You may take benadryl over the counter for any itching / rash. Follow up with your primary care provider. Return to the emergency department immediately if your symptoms worsen or if you develop any dizziness, shortness of breath, difficulty breathing, chest pain, blurry vision, loss of vision, nausea, vomiting, abdominal pain, fever, chills, back pain, or any other complaints. Prescriptions: New prednisone 20 mg tablet 20 mg PO DAILY 7 Days Qty: 7 0RF metronidazole 500 mg tablet 500 mg PO BID 7 Days Qty: 14 0RF No Action epinephrine [EpiPen 2-Edward] 0.3 mg/0.3 mL auto-injector 0.3 mg IM Q4H PRN (Reason: anaphylaxis) 30 Days Qty: 2 4RF Rx Instructions: practice injector as well if available please omeprazole 20 mg capsule,delayed release(DR/EC) 20 mg PO DAILY PRN (Reason: for heartburn) Qty: 90 0RF cholecalciferol (vitamin D3) 50 mcg (2,000 unit) capsule 50 mcg PO DAILY 90 Days Qty: 90 1RF fluticasone propionate [Flonase Allergy Relief] 50 mcg/actuation spray,suspension 1 spray intranasal BID Qty: 16 3RF Rx Instructions: administer into each nostril loratadine 10 mg tablet 10 mg PO DAILY Qty: 30 3RF folic acid 1 mg tablet 1 mg PO DAILY 90 Days Qty: 90 1RF mecobalamin (vitamin B12) 1,000 mcg tablet,chewable 1,000 mcg PO DAILY 90 Days Qty: 90 1RF gabapentin 300 mg capsule 300 mg PO BID 30 Days Qty: 60 3RF clotrimazole 1 % cream 1 appl topical BID 28 Days Qty: 30 0RF albuterol sulfate 90 mcg/actuation HFA aerosol inhaler 2 inh inhalation Q6-8H PRN (Reason: shortness of breath or wheezing) Qty: 6.7 0RF diphenhydramine HCl [Benadryl Allergy] 25 mg tablet 50 mg PO TID PRN (Reason: allergic reaction) Qty: 14 0RF amoxicillin 500 mg tablet 500 mg PO TID Qty: 30 0RF clobetasol 0.05 % ointment 1 appl topical BID 7 Days Qty: 15 0RF ibuprofen 800 mg tablet 800 mg PO TID PRN (Reason: pain) Qty: 20 0RF hydrocortisone 2.5 % cream 1 appl topical BID Qty: 20 0RF diclofenac sodium [Voltaren Arthritis Pain] 1 % gel 2 g topical QID Qty: 100 0RF Rx Instructions: apply to single elbow, wrist or hand; for hand includes palm/fingers/back of hand valacyclovir 500 mg tablet 1,000 mg PO DAILY 90 Days Qty: 180 1RF hydroxyzine HCl 25 mg tablet 25 mg PO BEDTIME PRN (Reason: itching) 30 Days Qty: 30 1RF triamcinolone acetonide 0.025 % cream 1 appl topical DAILY PRN (Reason: psoriasis) 14 Days Qty: 15 0RF Depo-Medrol 20 mg/mL suspension 20 mg Infiltration Q3W azelastine 137 mcg (0.1 %) aerosol,spray intranasal baclofen 10 mg tablet 10 mg PO TID 30 Days Qty: 90 0RF magnesium glycinate 100 mg tablet 200 mg PO DAILY 30 Days Qty: 60 6RF riboflavin (vitamin B2) 400 mg tablet 400 mg PO DAILY 30 Days Qty: 30 6RF Referrals: Maeve Woodard MD [Primary Care Provider] - Interventions: ED Discharge Assessment Last Done: 05/14/23 15:58 Discharge Date/Time: 05/14/23 15:58 Print Language: Grenadian
[2023-05-14 11:30] VITALS: BP 137/95; PULSE 78; RESP 16; TEMP 36.7; O2SAT 96
[2023-05-14 11:52] LABS: MANUAL DIFF FLAG NO
[2023-05-14 11:53] LABS: Basophils Percent Auto 0.2 % (0-2); Eosinophils Absolute Auto 0.1 X10*3/uL (0.0-0.4); Eosinophils Percent Auto 0.7 % (0-4); Hematocrit 43.8 % (37.0-47.0); Imm Gran Abs Auto 0.04 X10*3/uL (0.00-0.03); Imm Gran Pct Auto 0.5 % (0.0-0.4); Lymphocytes Percent Auto 24.8 % (20-40); Mean Corpuscular HGB Conc 34.2 g/dl (31.0-35.0); Mean Corpuscular Hemoglobin 28.8 pg (27.0-33.0); Mean Corpuscular Volume 84.2 fL (80.0-98.0); Mean Platelet Volume 9.6 fL (9.4-12.3); Monocytes Absolute Auto 0.6 X10*3/uL (0.1-1.2); Monocytes Percent Auto 6.8 % (2-11); Neutrophils Absolute Auto 5.4 x10*3/uL (2.0-8.3); Platelet Count 321 X10*3/uL (160-400); Red Cell Distribution Width 12.7 % (11.0-16.0); White Blood Count 8.1 X10*3/uL (4.8-10.8)
[2023-05-14] MEDS: methylPREDNISolone Sod Succ 125 MG/2 ML VIAL 60 MG IVPUSH (12:11)
[2023-05-14] MEDS: diphenhydrAMINE HCL 50 MG/ML VIAL IVPUSH (12:14)
[2023-05-14] MEDS: metroNIDAZOLE/NS 500 MG/100 ML PIGGYBACK 100 MG IV (12:30)
[2023-05-14 12:33] VITALS: BP 126/80; PULSE 82; RESP 20; TEMP 36.8; O2SAT 97
[2023-05-14 12:58] VITALS: BP 123/73; PULSE 87; RESP 18; TEMP 36.8; O2SAT 97
[2023-05-14 13:14] LABS: Alanine Aminotransferase 14 U/L (0-31); Albumin Level 4.3 g/dL (3.5-5.0); Alkaline Phosphatase 79 U/L (39-117); Anion Gap 14 (12-20); Aspartate Amino Transferase 16 U/L (5-31); Bilirubin Total 0.8 mg/dL (0.0-1.0); Blood Urea Nitrogen 8 mg/dL (9-16); Calcium 9.3 mg/dL (8.4-10.2); Carbon Dioxide 22 mmol/L (22-29); Chloride 107 mmol/L (96-108); Creatinine Clr Calc Pharmacy 111.5; Estimated Glomerular Filt Rate > 60; Glucose Random 88 mg/dL (60-115); Magnesium 2.3 mg/dL (1.6-2.6); Potassium 3.8 mmol/L (3.3-5.1); Sodium 139 mmol/L (135-145); Total Protein 7.7 g/dL (6.5-8.0)
== END 2023-05-14 15:58 | disposition home or self-care (01) ==
PROVIDERS: Physician Assistant Medical; Emergency Provider Emergency Medicine; PCP Internal Medicine
DX: A59.01 Trichomonal vulvovaginitis (principal); N76.0 Acute vaginitis
CPT/HCPCS: 36415; 80053; 83735; 85025; 96365; 96375; 99284; J1200; J1836; J2930

== ENCOUNTER 2023-07-21 14:33 | Outpatient (AMB) | payer MEDICARE, MEDICAID, SELFPAY ==
--- NOTE | 2023-07-21 14:36 | MHC.OFFVIS ---
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 Doing well with no concerns. She tries to eat healthy and stays active with exercise. Currently is not sexually active. She reports a increased discharge. STI screening offered; she accepts. Denies family history of breast, ovarian or colon cancer. Last pap smear 2022, negative. [facility] Medical History Pain of right scapula Visit for suture removal Chlamydia infection Dextroscoliosis of lumbar spine Status post fall Mid back pain control counseling Yeast infection involving the vagina and surrounding area Well woman exam with routine gynecological exam Screen for sexually transmitted diseases Cervical cancer screening Breast pain, right Physical exam Lumbar radiculopathy Lumbar spondylosis Polyarthralgia Pain in both feet Injury of toe on right foot Preoperative clearance Jaw pain Pain in right elbow Paresthesia of hand, bilateral Abdominal pain Left ankle pain Bilateral leg edema Lymphadenopathy Incidental lung nodule, > 3mm and < 8mm Low vitamin D level Bug bite Anxiety and depression Neck mass Rib pain on right side Muscle spasms of neck Paresthesia and pain of both upper extremities Cervicalgia Upper respiratory tract infection Atopic reaction Allergic reaction Mass in neck Thrush, oral Muscle twitch Muscle spasm Shortness of breath Adenopathy Left shoulder pain Immunization due Nonimmune to hepatitis B virus Numbness and tingling of both legs Tinnitus Sore throat Upper respiratory tract infection Depo-Provera contraceptive status Screening for eye condition Routine screening for STI (sexually transmitted infection) Cervicalgia Headache Vision changes Chest pain Nausea and vomiting Hematochezia Abdominal pain Back pain Lung nodules Borderline personality disorder Depression Bipolar 1 disorder ADHD Low vitamin D level GERD (gastroesophageal reflux disease) Asthma History of multiple miscarriages COVID-19 virus infection Encounter to establish care (~03/2021) HIV exposure Surgical History S/P cubital tunnel release Hx of biopsy History of wisdom tooth extraction Family History Mother Substance use disorder Mental health disorder Father Cancer Social History Housing: House Alcohol intake: current Alcohol intake frequency: holidays/special occasions only Patient Tobacco Use Status: Never used Tobacco Tobacco use type: Cigar e-Cigarette/Vaping Use: Currently Using Second Hand Smoke Exposure: No service: No Current occupational status: unemployed 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 Cognitive needs: No Hearing needs: No Vision needs: Yes (glasses) Female Reproductive History Menstrual Age of Menarche: 13 control method: progesterone injection Total pregnancies: 4 Full term: 1 Number of Living Children: 1 Ab induced: 2 Ab spontaneous: 1 Date of last pap smear: 04/09/22 (neg) History of STI: Yes (04/09/22 chl, 05/11/23 Trich) Review of Systems Const All systems reviewed & are unremarkable except as noted in HPI and below Reports as per HPI Eyes Reports no additional complaints ENT Reports no additional complaints Card Reports no additional complaints Resp Reports no additional complaints GI Reports as per HPI and Reports no additional complaints Reports as per HPI Musc Reports no additional complaints Skin/Breast Reports as per HPI Neuro Reports no additional complaints Psych Reports no additional complaints Endo Reports no additional complaints Clif/Lymph Reports no additional complaints Aller/Immun Reports no additional complaints Physical Exam Vital Signs: Last Vital Signs BP 110/70 07/21/23 14:37 BMI result Body Mass Index 31.2 Const General: cooperative, healthy appearing, no acute distress, well developed and alert Orientation/consciousness: patient oriented x3 HEENT Head: Yes normal to inspection Eyes General: appearance normal, both eyes and all related structures Neck Neck: Yes normal visual inspection Thyroid: Thyroid normal Chest Chest palpation & inspection: normal inspection of the chest and other (no puckering, dimpling, peau de orange, retraction, discharge, masses) Breast/axilla inspection: normal inspection of the breasts Breast/axilla palpation: normal palpation of the breasts Resp Effort & Inspection: normal respiratory effort GI Inspection: Yes normal to inspection Palpation (GI): Soft to palpation Rectal Exam - Female: deferred General: Yes bladder normal to palpation External Female Exam: normal external appearance and normal appearance of the urethra Speculum Exam - Vagina: normal appearance of the vagina, normal palpation and normal vaginal discharge Speculum Exam - Cervix: normal appearance of the cervix and normal palpation Bimanual exam- vagina & uterus: normal bimanual exam, normal palpation, uterine size normal, bladder normal to palpation, normal palpation and non-tender Bimanual Exam- Adnexa, other: no masses Skin General skin exam: no rashes or lesions noted Rashes: no rashes Neuro General: patient oriented x3 Cognition (Neuro): normal cognition Extrem General: Yes normal to inspection Psych Attitude: cooperative Thought process: Normal thought process present Results AMB Urinalysis, Automated UA Leukoctes 0 Maryanne/uL Last Edit by SAMINA Quintanilla on 07/21/23 15:02 UA Nitrite Negative Last Edit by Anel Wick Liset on 07/21/23 15:02 UA Urobilinogen 0 mg/dL Last Edit by Anel Wick Liset on 07/21/23 15:02 UA Protein 0 mg/dL Last Edit by SAMINA Quintanilla on 07/21/23 15:02 UA pH 6.0 Last Edit by SAMINA Quintanilla on 07/21/23 15:02 UA Blood 0 Jeromy/uL Last Edit by Anel Wick Liset on 07/21/23 15:02 UA Specific [place] 1.025 Last Edit by Anel Wick Liset on 07/21/23 15:02 UA Ketone Negative Last Edit by SAMINA Quintanilla on 07/21/23 15:02 UA Bilirubin 0 mg/dL Last Edit by SAMINA Quintanilla on 07/21/23 15:02 UA Glucose 0 mg/dL Last Edit by SAMINA Quintanilla on 07/21/23 15:02 AMB Test Urine AMB Test Urine Negative Last Edit by SAMINA Quintanilla on 07/21/23 15:02 Results Reviewed Results Reviewed: Laboratory Last Values Urine pH (Auto) 6.0 07/21/23 15:00 Specific [place] (Auto) 1.025 07/21/23 15:00 Urine Protein (Auto) 0 mg/dL 07/21/23 15:00 Glucose (UA)(Auto) 0 mg/dL 07/21/23 15:00 Urine Ketones (Auto) Negative 07/21/23 15:00 Urine Blood (Auto) 0 Jeromy/uL 07/21/23 15:00 Urine Nitrite (Auto) Negative 07/21/23 15:00 Urine Bilirubin (Auto) 0 mg/dL 07/21/23 15:00 Urine Urobilinogen (Auto) 0 mg/dL 07/21/23 15:00 Leukocyte Esterase (Auto) 0 Maryanne/uL 07/21/23 15:00 Tst Clinic Negative 07/21/23 15:00 Assessment & Plan Assessment & Plan (1) Encounter for well woman exam with routine gynecological exam: Code(s): Z01.419 - Encounter for gynecological examination (general) (routine) without abnormal findings Plan Discussed: Current recommendations for pap smears per ASCCP guidelines. Breast awareness and periodic breast exams. Maintain a healthy lifestyle including a well balanced diet and routine exercise. Use condoms for STI and prevention. Patient verbalizes understanding and agrees to the plan of care. She was given opportunity to ask questions and all questions were answered to the best of my ability. RTO in one year for annual conduit installer examination. This note is constructed using voice recognition software. While every effort has been made to ensure accuracy, supervisor cap and hat production errors may have been included. Orders: Orders AMB Urinalysis Automated 07/21/23 R10.2 - Pelvic and perineal pain AMB HCG Urine Test 07/21/23 R10.2 - Pelvic and perineal pain US pelvic and transvaginal 07/21/23 R10.2 - Pelvic and perineal pain CT NG by PCR Today Z20.2 - Contact with and (suspected) exposure to infections with a predominantly sexual mode of transmission Bacterial Vaginosis Panel Today Z20.2 - Contact with and (suspected) exposure to infections with a predominantly sexual mode of transmission
[2023-07-21 14:37] VITALS: BP 110/70; BMI 31.2
== END 2023-07-21 15:32 | disposition home or self-care (01) ==
PROVIDERS: PCP Internal Medicine; Visit Provider Advanced Practice Midwife
DX: Z01.419 Encounter for gynecological examination (general) (routine) without abnormal findings (principal)
CPT/HCPCS: G0101

== ENCOUNTER 2023-07-21 14:33 | Outpatient (REF) | payer MEDICARE, MEDICAID, SELFPAY ==
[2023-07-22 12:49] LABS: CT PCR NOT DETECTED (Not Detect.); NG PCR NOT DETECTED (Not Detect.)
[2023-07-23 13:07] LABS: BV Int Neg Control Negative (Negative); BV Int Pos Control Positive (Positive)
== END 2023-07-21 14:34 | disposition home or self-care (01) ==
LOC: HO.LNP 14:33
PROVIDERS: PCP Internal Medicine; Visit Provider Advanced Practice Midwife
DX: Z13.89 Encounter for screening for other disorder (principal)
CPT/HCPCS: 0353U; 81003; 81025; 87480; 87510; 87660; G0101

== ENCOUNTER 2023-07-21 15:27 | Outpatient (REF) | payer MEDICARE, MEDICAID, SELFPAY ==
--- NOTE | ~2023-07-21 | XR_ITS ---
EXAMINATION: XR KNEE, LEFT CLINICAL INFORMATION: Pain in left knee COMPARISON: None available. TECHNIQUE: AP and lateral views of the left knee. FINDINGS: No fracture or joint effusion. Alignment is anatomic. Joint spaces are maintained. No abnormal soft tissue calcification. XR/XR knee LT 2V IMPRESSION: No bony abnormality.
== END 2023-07-21 15:28 | disposition home or self-care (01) ==
LOC: HO.LAB 15:27
PROVIDERS: PCP Internal Medicine; Visit Provider Advanced Practice Midwife
DX: Z01.419 Encounter for gynecological examination (general) (routine) without abnormal findings (principal); M25.562 Pain in left knee; R10.2 Pelvic and perineal pain; Z20.2 Contact with and (suspected) exposure to infections with a predominantly sexual mode of transmission
CPT/HCPCS: 0353U; 73560; 81003; 81025; 87480; 87510; 87660; G0101

== ENCOUNTER 2023-07-31 16:45 | Emergency (ER) | payer MEDICARE, MEDICAID, SELFPAY ==
--- NOTE | ~2023-07-31 | CT_ITS ---
EXAMINATION: CT CHEST, ABDOMEN AND PELVIS WITH CONTRAST CLINICAL INFORMATION: Pain status post fall COMPARISON: 07/06/2022 TECHNIQUE: Multidetector volumetric imaging was performed from the thoracic inlet through the pubic symphysis following administration of oral and 100 mL of Omnipaque 300 intravenous contrast. Sagittal and coronal reformatted images were obtained on the technologist workstation. This CT examination was performed using dose optimization techniques as appropriate, variously including the following: *Automated exposure control *Adjustment of mA and/or kV according to patient size (this includes techniques or standardized protocols for targeted exams where dose is matched to indication/reason for exam; i.e. extremities or head) *Use of iterative reconstruction technique DLP: 294 and 617 mGy-cm FINDINGS: CHEST: LUNGS: 3 pulmonary nodules unchanged within the right upper lobe right middle lobe and right lower lobe. No new findings. MEDIASTINUM: The mediastinum is normal. Central vascular structures are unremarkable. No hilar or mediastinal lymphadenopathy. PERICARDIUM/PLEURA: There is no significant effusion. No pleural mass or thickening. CHEST WALL/AXILLA: Unremarkable. ABDOMEN/PELVIS: LIVER, GALLBLADDER, BILIARY TREE: The liver is normal in size, shape, and attenuation. No focal hepatic lesion or biliary ductal dilatation is present. The gallbladder is unremarkable with no evidence of radiopaque gallstones, gallbladder wall thickening, or pericholecystic inflammatory changes. PANCREAS: Unremarkable. SPLEEN: Unremarkable. ADRENAL GLANDS: Unremarkable. KIDNEYS AND URETERS: The kidneys are normal in size, shape, and attenuation. No hydronephrosis or hydroureter or calculi seen. No perinephric stranding. BLADDER: Unremarkable. GASTROINTESTINAL TRACT: The small and large bowel are unremarkable. The appendix is unremarkable. ABDOMINAL WALL: No hernia is demonstrated. LYMPH NODES: Normal. VASCULAR: Unremarkable. PELVIC VISCERA: Unremarkable. OSSEOUS STRUCTURES: Unremarkable. CT/CT abdomen pelvis wo IV con IMPRESSION: 1. No evidence for any traumatic injury. Stable pulmonary nodules as above. No new findings. 2. No acute abnormality. No significant change from 07/06/2022. No evidence for any acute fracture. No significant abnormality within the abdomen or pelvis. 3. No significant change in small pulmonary nodules.
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
[2023-07-31 16:55] VITALS: BP 155/96; PULSE 95; RESP 16; TEMP 36.8; O2SAT 96; BMI 31.3
--- NOTE | 2023-07-31 17:04 | ED_ITS ---
HPI - General Adult General Chief complaint: Extremity Injury, Lower Stated complaint: L knee injury Time Seen by Provider: 07/31/23 18:04 Source: patient Mode of arrival: ambulatory Limitations: no limitations History of Present Illness HPI narrative: Patient is a 28 year old assigned female at with a history of Bipolar disorder and PTSD presenting to the emergency department today with neck pain, left flank pain, and left knee pain. Patient states that she isn't sure what happened because she drank a lot of alcohol but she believes she may have fallen. Patient denies any dizziness, lightheadedness, abdominal pain, nausea, vomiting, fever, chills, blurry vision, double vision, loss of vision, chest pain, difficulty breathing, shortness of breath, back pain, night sweats, pain with urination, increased urinary frequency, increased urinary urgency, blood in her urine or stool, syncope or a near syncopal episode, bowel incontinence, bladder incontinence, bowel retention, bladder retention, or any other complaints at this time. Relieving factors: none Exacerbating factors: none Associated symptoms: denies other symptoms Treatments prior to arrival: none Related Data Home Medications ?Medication ?Instructions ?Recorded ?Confirmed azelastine 137 mcg (0.1 %) nasal intranasal 06/03/22 04/12/23 spray aerosol Previous Rx's ?Medication ?Instructions ?Recorded hydrocortisone 2.5 % topical cream 1 appl topical BID #20 grams 09/15/21 diclofenac sodium 1 % topical gel 2 g topical QID #100 grams 09/28/21 (Voltaren Arthritis Pain) diphenhydramine HCl 25 mg tablet 50 mg (2 x 25 mg) PO TID PRN 01/07/22 (Benadryl Allergy) allergic reaction #14 tabs epinephrine 0.3 mg/0.3 mL 0.3 mg (0.3 mL) IM Q4H PRN 01/07/22 injection, auto-injector (EpiPen anaphylaxis 1 month #2 ea 2-Edward) valacyclovir 500 mg tablet 1,000 mg (2 x 500 mg) PO DAILY 90 04/07/22 days #180 tabs baclofen 10 mg tablet 10 mg PO TID muscle spasm 30 days 06/03/22 #90 tabs magnesium glycinate 100 mg tablet 200 mg (2 x 100 mg) PO DAILY 06/03/22 migraine 30 days #60 tabs riboflavin (vitamin B2) 400 mg 400 mg PO DAILY migraine headache 06/03/22 tablet 30 days #30 tabs cholecalciferol (vitamin D3) 50 50 mcg PO DAILY 90 days #90 caps 10/12/22 mcg (2,000 unit) capsule omeprazole 20 mg capsule,delayed 20 mg PO DAILY PRN for heartburn 10/12/22 release #90 caps triamcinolone acetonide 0.025 % 1 appl topical DAILY PRN psoriasis 10/12/22 topical cream 2 weeks #15 grams fluticasone propionate 50 1 spray intranasal BID #16 grams 10/13/22 mcg/actuation nasal spray,suspension (Flonase Allergy Relief) loratadine 10 mg tablet 10 mg PO DAILY #30 tabs 10/13/22 folic acid 1 mg tablet 1 mg PO DAILY 90 days #90 tabs 10/17/22 mecobalamin (vitamin B12) 1,000 1,000 mcg PO DAILY 90 days #90 tabs 10/17/22 mcg chewable tablet gabapentin 300 mg capsule 300 mg PO BID pain 30 days #60 caps 10/25/22 clotrimazole 1 % topical cream 1 appl topical BID 4 weeks #30 10/26/22 grams ibuprofen 800 mg tablet 800 mg PO TID PRN pain #20 tabs 11/02/22 albuterol sulfate 90 mcg/actuation 2 inh inhalation Q6-8H PRN 11/14/22 aerosol inhaler shortness of breath or wheezing #6.7 grams clobetasol 0.05 % topical ointment 1 appl topical BID 1 week #15 grams 05/11/23 clindamycin phosphate 2 % vaginal 1 appful vaginal BEDTIME 7 days #5 07/26/23 cream grams fluconazole 150 mg tablet 150 mg PO DAILY 1 dose #1 tab 07/26/23 cefuroxime axetil 250 mg tablet 250 mg PO BID 7 days #14 tabs 07/31/23 Allergies Allergy/AdvReac Type Severity Reaction Status Date / Time Seasonal Allergies Allergy Mild Unknown Verified 07/31/23 16:57 metronidazole [From FLAGYL] Allergy Unknown Hives Verified 07/31/23 16:57 duloxetine AdvReac Nausea Verified 07/31/23 16:57 Review of Systems Constitutional: Constitutional: Reports no additional constitutional comp laints, Denies chills, Denies fever(s) and Denies night sweats Eyes: Eyes: Reports no additional eye complaints, Denies blurry vision, Denies change in vision, Denies diplopia, Denies eye discharge, Denies loss of vision and Denies eye pain ENT: Denies dizziness and Reports neck pain Cardiovascular: Cardiovascular: Reports no additional cardiovascular complaints, Denies chest pain, Denies lightheadedness, Denies Loss of Consciousness and Denies dyspnea Respiratory: Respiratory: Reports no additional respiratory complaints and Denies dyspnea Gastrointestinal: Gastrointestinal: Reports no additional gastrointestinal complaints, Denies abdominal pain, Denies melena, Denies hematochezia, Denies change in bowel habits and Denies change in stool character Genitourinary: Genitourinary: Denies hematuria, Denies urinary frequency, Denies dysuria, Reports flank pain, Denies urinary incontinence, Denies urinary hesitancy and Denies urinary urgency Musculoskeletal: Musculoskeletal: Reports no additional musculoskeletal complaints, Reports neck pain, Denies numbness and Denies tingling Comments: left knee pain Neurologic: Denies dizziness, Denies loss of vision, Denies numbness and Denies tingling Psychiatric: Psychiatric: Reports no additional psychiatric complaints Endocrine: Endocrine: Reports no additional endocrine complaints Hematologic/Lymphatic: Hematologic/Lymphatic: Reports no additional hematologic/lymphatic complaints Allergic/Immunologic: Allergic/Immunologic: Reports no additional allergic/immunologic complaints [facility] Past Medical History Attestation statement: The following information was validated with the patient. Source: old records reviewed and nursing notes reviewed Medical History Pain of right scapula Visit for suture removal Chlamydia infection Dextroscoliosis of lumbar spine Status post fall Mid back pain control counseling Yeast infection involving the vagina and surrounding area Well woman exam with routine gynecological exam Screen for sexually transmitted diseases Cervical cancer screening Breast pain, right Physical exam Lumbar radiculopathy Lumbar spondylosis Polyarthralgia Pain in both feet Injury of toe on right foot Preoperative clearance Jaw pain Pain in right elbow Paresthesia of hand, bilateral Abdominal pain Left ankle pain Bilateral leg edema Lymphadenopathy Incidental lung nodule, > 3mm and < 8mm Low vitamin D level Bug bite Anxiety and depression Neck mass Rib pain on right side Muscle spasms of neck Paresthesia and pain of both upper extremities Cervicalgia Upper respiratory tract infection Atopic reaction Allergic reaction Mass in neck Thrush, oral Muscle twitch Muscle spasm Shortness of breath Adenopathy Left shoulder pain Immunization due Nonimmune to hepatitis B virus Numbness and tingling of both legs Tinnitus Sore throat Upper respiratory tract infection Depo-Provera contraceptive status Screening for eye condition Routine screening for STI (sexually transmitted infection) Cervicalgia Headache Vision changes Chest pain Nausea and vomiting Hematochezia Abdominal pain Back pain Lung nodules Borderline personality disorder Depression Bipolar 1 disorder ADHD Low vitamin D level GERD (gastroesophageal reflux disease) Asthma History of multiple miscarriages COVID-19 virus infection Encounter to establish care (~03/2021) HIV exposure Surgical History S/P cubital tunnel release Hx of biopsy History of wisdom tooth extraction Family History Family History Mother Substance use disorder Mental health disorder Father Cancer Social History Social History Housing: House Alcohol intake: current Alcohol intake frequency: holidays/special occasions only Patient Tobacco Use Status: Never used Tobacco Tobacco use type: Cigar e-Cigarette/Vaping Use: Currently Using Second Hand Smoke Exposure: No Advance Directives: No Advance Directives Information Provided: No Do you have a plan to hurt others: No Plan service: No Current occupational status: unemployed 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 Cognitive needs: No Hearing needs: No Vision needs: Yes (glasses) Physical Exam ED Vital Signs: Vital Signs - 24 hr 07/31/23 16:55 07/31/23 18:31 07/31/23 20:50 Temperature 98.2 F 98.1 F 98.4 F Pulse Rate 95 82 66 Respiratory Rate 16 18 19 Blood Pressure 155/96 H 148/88 H 130/84 Pulse Oximetry 96 98 99 Oxygen Delivery Method Room Air Room Air Room Air 07/31/23 21:24 Temperature 98.4 F Pulse Rate 66 Respiratory Rate 16 Blood Pressure 130/84 Pulse Oximetry 99 Oxygen Delivery Method BMI result Body Mass Index 31.3 Const General: cooperative, no acute distress, alert and awake Nutritional Appearance: well nourished Orientation/consciousness: patient oriented x3 Limitations: no limitations HENMT Head: Yes normal to inspection and Yes atraumatic Ears: hearing grossly normal bilaterally and external ears normal General nose exam: Normal external nose present, no nasal discharge noted and no epistaxis Face and sinus: Yes normal facial exam, No abrasion and No laceration Mouth: Normal oral and palatal mucosa present, no drooling and no muffled voice Eyes General: appearance normal, both eyes and all related structures Periorbital: periorbital findings normal Eyelids: Yes eyelids normal Conjunctivae: conjunctivae normal Pupils: Equal, round and reactive pupils present EOM: EOMs intact bilaterally Neck Other: minimal bruising present to the posterior cervical spine Neck: Yes full ROM and Yes no lymphadenopathy Chest Chest palpation & inspection: normal inspection of the chest Resp Effort & Inspection: normal respiratory effort and able to speak in complete sentences GI Inspection: Yes normal to inspection Neuro General: patient oriented x3 and moves all extremities Cranial nerves: Yes Equal, round and reactive pupils present Cognition (Neuro): normal cognition Motor exam (neuro): 5/5 motor strength present throughout Sensory Exam: Normal double simultaneous stimulation for sensation Coordination: [id number] test normal Extrem General: Yes normal to inspection, Yes full ROM and Yes capillary refill normal Psych Appearance: grossly normal Mental Status: mental status grossly normal Affect: normal affect Attitude: cooperative Thought process: Normal thought process present Thought content: Normal thought content present Insight: Good insight present (Psych) Course Course Course Narrative: RME: 28-year-old female presents to ED for bruising. Patient states she was drinking last night and does remember what happened. Patient states she might have fallen. Physical exam positive for posterior cervical spine tenderness mild bruising, left lower rib tenderness on palpation, and left knee tenderness. Medical Decision Making Medical Decision Making [facility] Narrative: Patient is a 28 year old assigned female at with a history of bipolar disorder and PTSD presenting to the emergency department today with bruising and possible fall. Patient's physical exam was as noted in the physical exam portion of this note. Patient's urine showed a UTI. Patient's left knee x-ray, head CT, C-spine CT, abdomen/pelvis CT, and chest CT showed no acute process. I explained my physical exam findings as well as all test results to the patient. I answered all questions asked by the patient. I stressed the importance of the patient taking her medication as prescribed. I stressed the importance of the patient following up with her primary care provider. I stressed the importance of the patient returning to the emergency department immediately if her symptoms were to worsen or if she were to develop any dizziness, shortness of breath, difficulty breathing, chest pain, blurry vision, loss of vision, nausea, vomiting, abdominal pain, fever, chills, back pain, or any other complaints. Patient verbalized agreement and understanding with this treatment plan and discharge. Differential Diagnosis Differential Diagnoses: The differential diagnosis associated with the presentation includes Fall Bruising Left knee pain Admission/Observation Consideration of admission/observation: Escalation of care including admission/observation considered Patient would have been admitted to the hospital had her work up had any findings where hospital admission was appropriate and her clinical presentation warranted hospital admission. Lab Data [facility] Lab Attestation statement: I reviewed the patient's lab results. My interpretation of these results are in the [facility] Rationale portion of this note. Labs: Lab Results 07/31/23 Range/Units 17:56 Urine Color Yellow Urine Appearance Clear Urine pH 8.5 (5.0-9.0) Ur Specific [place] >= 1.030 H (1.005-1.025) Urine Protein 30 (1+) H (Neg-Trace) mg/dL Urine Glucose (UA) Negative (Negative) mg/dL Urine Ketones Trace (Negative) mg/dL Urine Blood Negative (Negative) Urine Nitrite Negative (Negative) Ur Leukocyte Esterase Moderate (2+) H (Negative) Urine RBC 0-2 (0-2) /HPF Urine WBC 21-50 H (0-5) /HPF Ur Squamous Epith Cells 0-2 (0-2) /HPF Urine Bacteria 1+ (None Seen) Hyaline Casts 0-2 (0-2) /LPF Urine Test NEGATIVE (NEGATIVE) Independent Interpretation I performed an independent interpretation of an: Plain X-Ray and CT Scan Interpretation: My interpretation is in agreement with the radiologist's impression of these imaging studies. EXAMINATION: XR KNEE, LEFT CLINICAL INFORMATION: drunk. knee pain. possible fall COMPARISON: Left knee radiograph 07/21/2023 TECHNIQUE: AP, lateral, and both oblique views of the left knee. FINDINGS: No fracture or joint effusion. Alignment is anatomic. Joint spaces are maintained. No abnormal soft tissue calcification. XR/XR knee LT 4V IMPRESSION: Normal left knee. Dictated By: Shonda Rangel Signed By: Electronically signed by Shonda Rangel 07/31/[id number] EXAM: CT scan of the head and cervical spine. INDICATION: Reason for Exam drinkingand fall TECHNIQUE: A noncontrast CT scan was performed from the skull base to the vertex. A noncontrast CT scan of the cervical spine was performed from the base of the skull through T1 at 2.5 mm and 1.25 mm collimation. Coronal and sagittal reformats were obtained at the acquisition workstation. This CT examination was performed using dose optimization techniques as appropriate, variously including the following: *Automated exposure control *Adjustment of mA and/or kV according to patient size (this includes techniques or standardized protocols for targeted exams where dose is matched to indication/reason for exam; i.e. extremities or head) *Use of iterative reconstruction technique DLP: 444 mGy-cm COMPARISON: 04/14/2021 FINDINGS: Head: There is no evidence of acute intracranial hemorrhage or territorial infarction. Lazo-white matter differentiation is preserved. No abnormal mass effect or midline shift. No extra-axial fluid collections. No abnormal attenuation is demonstrated within the brain parenchyma. Scattered periventricular and deep white matter hypodensities consistent with microangiopathy. The ventricles and sulcal spaces are proportional without hydrocephalus. Proportional prominence of the ventricles and sulcal spaces. No acute osseous or soft tissue abnormalities. The mastoid air cells and visualized portions of the paranasal sinuses are well aerated. Cervical Spine: The atlantooccipital and atlantoaxial articulations are well aligned. Reversal of the normal cervical lordosis. Otherwise, there is anatomic alignment of the vertebral bodies and posterior elements. No evidence of acute fracture or subluxation. The vertebral body heights and disc spaces are maintained. There is no prevertebral soft tissue swelling. The thyroid gland and remaining cervical soft tissues are normal in appearance. The lung apices demonstrate no abnormalities. CT/CT cervical spine wo IV con IMPRESSION: No acute intracranial pathology. No acute fracture subluxation cervical spine. Dictated By: Ilia Carballo MD Signed By: Electronically signed by Ilia Carballo MD 07/31/232017 EXAMINATION: CT CHEST, ABDOMEN AND PELVIS WITH CONTRAST CLINICAL INFORMATION: Pain status post fall COMPARISON: 07/06/2022 TECHNIQUE: Multidetector volumetric imaging was performed from the thoracic inlet through the pubic symphysis following administration of oral and 100 mL of Omnipaque 300 intravenous contrast. Sagittal and coronal reformatted images were obtained on the technologist workstation. This CT examination was performed using dose optimization techniques as appropriate, variously including the following: *Automated exposure control *Adjustment of mA and/or kV according to patient size (this includes techniques or standardized protocols for targeted exams where dose is matched to indication/reason for exam; i.e. extremities or head) *Use of iterative reconstruction technique DLP: 294 and 617 mGy-cm FINDINGS: CHEST: LUNGS: 3 pulmonary nodules unchanged within the right upper lobe right middle lobe and right lower lobe. No new findings. MEDIASTINUM: The mediastinum is normal. Central vascular structures are unremarkable. No hilar or mediastinal lymphadenopathy. PERICARDIUM/PLEURA: There is no significant effusion. No pleural mass or thickening. CHEST WALL/AXILLA: Unremarkable. ABDOMEN/PELVIS: LIVER, GALLBLADDER, BILIARY TREE: The liver is normal in size, shape, and attenuation. No focal hepatic lesion or biliary ductal dilatation is present. The gallbladder is unremarkable with no evidence of radiopaque gallstones, gallbladder wall thickening, or pericholecystic inflammatory changes. PANCREAS: Unremarkable. SPLEEN: Unremarkable. ADRENAL GLANDS: Unremarkable. KIDNEYS AND URETERS: The kidneys are normal in size, shape, and attenuation. No hydronephrosis or hydroureter or calculi seen. No perinephric stranding. BLADDER: Unremarkable. GASTROINTESTINAL TRACT: The small and large bowel are unremarkable. The appendix is unremarkable. ABDOMINAL WALL: No hernia is demonstrated. LYMPH NODES: Normal. VASCULAR: Unremarkable. PELVIC VISCERA: Unremarkable. OSSEOUS STRUCTURES: Unremarkable. CT/CT abdomen pelvis wo IV con IMPRESSION: 1. No evidence for any traumatic injury. Stable pulmonary nodules as above. No new findings. 2. No acute abnormality. No significant change from 07/06/2022. No evidence for any acute fracture. No significant abnormality within the abdomen or pelvis. 3. No significant change in small pulmonary nodules. Dictated By: Ilia Carballo MD Signed By: Electronically signed by Ilia Carballo MD 07/31/232024 Radiology Impression Discussion of test interpretation with radiology: I have reviewed the radiologist's reading. Prescription Management I considered prescription management with: Antibiotic (patient prescribed an antibiotic for UTI) Discharge Plan Discharge Clinical Impression: Fall, Urinary tract infection, Acute knee pain Patient Disposition: Home, Self-Care Instructions: Urinary Tract Infection in Women (DC), Knee Pain (ED), Fall Prevention (ED) Additional Instructions: Follow up with your primary care provider. Return to the emergency department immediately if your symptoms worsen or if you develop any dizziness, shortness of breath, difficulty breathing, chest pain, blurry vision, loss of vision, nausea, vomiting, abdominal pain, fever, chills, back pain, or any other complaints. Prescriptions: New cefuroxime axetil 250 mg tablet 250 mg PO BID 7 Days Qty: 14 0RF No Action epinephrine [EpiPen 2-Edward] 0.3 mg/0.3 mL auto-injector 0.3 mg IM Q4H PRN (Reason: anaphylaxis) 30 Days Qty: 2 4RF Rx Instructions: practice injector as well if available please omeprazole 20 mg capsule,delayed release(DR/EC) 20 mg PO DAILY PRN (Reason: for heartburn) Qty: 90 0RF cholecalciferol (vitamin D3) 50 mcg (2,000 unit) capsule 50 mcg PO DAILY 90 Days Qty: 90 1RF fluticasone propionate [Flonase Allergy Relief] 50 mcg/actuation spra y,suspension 1 spray intranasal BID Qty: 16 3RF Rx Instructions: administer into each nostril loratadine 10 mg tablet 10 mg PO DAILY Qty: 30 3RF folic acid 1 mg tablet 1 mg PO DAILY 90 Days Qty: 90 1RF mecobalamin (vitamin B12) 1,000 mcg tablet,chewable 1,000 mcg PO DAILY 90 Days Qty: 90 1RF gabapentin 300 mg capsule 300 mg PO BID 30 Days Qty: 60 3RF clotrimazole 1 % cream 1 appl topical BID 28 Days Qty: 30 0RF albuterol sulfate 90 mcg/actuation HFA aerosol inhaler 2 inh inhalation Q6-8H PRN (Reason: shortness of breath or wheezing) Qty: 6.7 0RF clindamycin phosphate 2 % cream 1 appful vaginal BEDTIME 7 Days Qty: 5 0RF Rx Instructions: for 7 days fluconazole 150 mg tablet 150 mg PO DAILY Qty: 1 1RF Rx Instructions: administer on day 1 of therapy, diphenhydramine HCl [Benadryl Allergy] 25 mg tablet 50 mg PO TID PRN (Reason: allergic reaction) Qty: 14 0RF clobetasol 0.05 % ointment 1 appl topical BID 7 Days Qty: 15 0RF ibuprofen 800 mg tablet 800 mg PO TID PRN (Reason: pain) Qty: 20 0RF hydrocortisone 2.5 % cream 1 appl topical BID Qty: 20 0RF diclofenac sodium [Voltaren Arthritis Pain] 1 % gel 2 g topical QID Qty: 100 0RF Rx Instructions: apply to single elbow, wrist or hand; for hand includes palm/fingers/back of hand valacyclovir 500 mg tablet 1,000 mg PO DAILY 90 Days Qty: 180 1RF triamcinolone acetonide 0.025 % cream 1 appl topical DAILY PRN (Reason: psoriasis) 14 Days Qty: 15 0RF azelastine 137 mcg (0.1 %) aerosol,spray intranasal baclofen 10 mg tablet 10 mg PO TID 30 Days Qty: 90 0RF magnesium glycinate 100 mg tablet 200 mg PO DAILY 30 Days Qty: 60 6RF riboflavin (vitamin B2) 400 mg tablet 400 mg PO DAILY 30 Days Qty: 30 6RF Referrals: Maeve Woodard MD [Primary Care Provider] - Interventions: ED Discharge Assessment Last Done: 07/31/23 21:24 Discharge Date/Time: 07/31/23 21:25 Print Language: Mexican
[2023-07-31 18:07] LABS: Appearance Urine Clear; Color Urine Yellow; Glucose Urine UA Negative (Negative); Leukocyte Esterase Urine Moderate (2+) (Negative); Nitrite Urine Negative (Negative); PH 8.5 (5.0-9.0); Specific Gravity - Urine >= 1.030 (1.005-1.025); UMIC TRIGGER UACC YES; Urine Blood Negative (Negative); Urine Ketones Trace mg/dL (Negative); Urine Protein 30 (1+) mg/dL (Neg-Trace)
[2023-07-31 18:09] LABS: UPreg QC Valid YES; Urine Pregnancy NEGATIVE (NEGATIVE)
[2023-07-31 18:12] LABS: Bacteria Urine 1+ (None Seen); Hyaline Casts Urine 0-2 /LPF (0-2); RBC Urine 0-2 /HPF (0-2); Squamous Epithelial Cell Urine 0-2 /HPF (0-2); UACC Culture Trigger YES; WBC Urine 21-50 /HPF (0-5)
[2023-07-31 18:31] VITALS: BP 148/88; PULSE 82; RESP 18; TEMP 36.7; O2SAT 98
[2023-07-31 20:50] VITALS: BP 130/84; PULSE 66; RESP 19; TEMP 36.9; O2SAT 99
[2023-07-31 21:24] VITALS: BP 130/84; PULSE 66; RESP 16; TEMP 36.9; O2SAT 99
== END 2023-07-31 21:25 | disposition home or self-care (01) ==
PROVIDERS: Physician Assistant; Emergency Provider Internal Medicine; PCP Internal Medicine
DX: M25.562 Pain in left knee (principal); N39.0 Urinary tract infection, site not specified; Z91.81 History of falling
CPT/HCPCS: 70450; 71250; 72125; 73564; 74176; 81001; 81025; 87086; 99283; 99284

== ENCOUNTER 2023-08-02 13:23 | Outpatient (REF) | payer MEDICARE, MEDICAID, SELFPAY ==
--- NOTE | ~2023-08-02 | US_ITS ---
EXAMINATION: US PELVIS COMPLETE CLINICAL INFORMATION: Pelvic pain COMPARISON: CT abdomen pelvis 07/31/2023 TECHNIQUE: Transabdominal and transvaginal imaging was performed. FINDINGS: The uterus is of normal size and echogenicity measuring 8.3 x 4.3 x 5.0 cm. A regular homogeneous endometrium is identified measuring 0.5 cm. Both ovaries are of normal size and echogenicity. The right measures 3.1 x 1.6 x 2.1 cm for a volume of 5.4 mL. The left measures 2.8 x 2.1 x 2.1 cm for a volume of 6.5 mL. There is no pelvic free fluid. US/US pelvic and transvaginal IMPRESSION: Unremarkable pelvic ultrasound.
== END 2023-08-02 13:24 | disposition home or self-care (01) ==
LOC: HO.US 13:23
PROVIDERS: PCP Internal Medicine; Visit Provider Advanced Practice Midwife
DX: R10.2 Pelvic and perineal pain (principal)
CPT/HCPCS: 76830; 76856

== ENCOUNTER 2023-08-16 11:01 | Outpatient (REF) | payer MEDICARE, MEDICAID, SELFPAY ==
[2023-08-17 11:17] LABS: Bacterial Vaginosis PCR NEGATIVE (Negative); Candida Group PCR DETECTED (Not Detect); Candida glab krusei PCR NOT DETECTED (Not Detect); Trichomonas vaginalis PCR NOT DETECTED (Not Detect)
[2023-08-17 11:39] LABS: CT PCR NOT DETECTED (Not Detect.); NG PCR NOT DETECTED (Not Detect.)
== END 2023-08-16 11:02 | disposition home or self-care (01) ==
LOC: HO.LAB 11:01
PROVIDERS: PCP Internal Medicine; Visit Provider Advanced Practice Midwife
DX: Z01.419 Encounter for gynecological examination (general) (routine) without abnormal findings (principal); Z20.2 Contact with and (suspected) exposure to infections with a predominantly sexual mode of transmission
CPT/HCPCS: 0352U; 0353U; 99212

== ENCOUNTER 2023-08-16 11:01 | Outpatient (AMB) | payer MEDICARE, MEDICAID, SELFPAY ==
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
[2023-08-16 11:17] VITALS: BMI 31.6
== END 2023-08-16 12:22 | disposition home or self-care (01) ==
PROVIDERS: PCP Internal Medicine; Visit Provider Advanced Practice Midwife
DX: Z11.3 Encounter for screening for infections with a predominantly sexual mode of transmission (principal); B37.31 Acute candidiasis of vulva and vagina
CPT/HCPCS: 99213

== ENCOUNTER 2023-08-31 14:03 | Outpatient (AMB) | payer MEDICARE, MEDICAID, SELFPAY ==
[2023-08-31 14:04] VITALS: BP 122/82; BMI 30.9
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
== END 2023-08-31 14:37 | disposition home or self-care (01) ==
PROVIDERS: PCP Internal Medicine; Visit Provider Internal Medicine
DX: M25.562 Pain in left knee (principal); G89.29 Other chronic pain; K52.9 Noninfective gastroenteritis and colitis, unspecified; M79.7 Fibromyalgia; J45.30 Mild persistent asthma, uncomplicated
CPT/HCPCS: 99214; G2211

== ENCOUNTER 2023-09-01 11:31 | Outpatient (AMB) | payer MEDICARE, MEDICAID, SELFPAY ==
--- NOTE | 2023-09-01 11:37 | A.OFFVIS_ITS ---
Vital Signs 09/01/23 11:40 Height 5 ft 4 in Weight 181 lb BMI 31.1 BP 124/80 Intake Visit Reasons: Ultrasound Follow up Herbicide Service Sales Representative Required: No Information Interpreted: non-clinical & clinical Slat Pickler: Slat Pickler Present ([place]anre) Allergies Seasonal Allergies Allergy (Mild, Verified 09/01/23 11:42) Unknown metronidazole [From FLAGYL] Allergy (Unknown, Verified 09/01/23 11:42) Hives duloxetine Adverse Reaction (Verified 09/01/23 11:42) Nausea Is last menstrual period known: No (no menses depo) Post menopausal: No HPI Comments Details: Patient is here today for a follow up pelvic ultrasound due to history of pelvic pain. She reports the pelvic pain is more so cramping, she is unsure if she picked up the clindamycin treatment previously for BV. She admits to having unprotected intimacy with a several partners over the last week or so. Admits to consuming excessive amounts of alcohol. She does have a therapist she speaks with weekly. She is wondering if she should stopped Depo-Provera due to the risks of bone loss changes along with her vitamin-D deficiency. [facility] Medical History Yeast infection involving the vagina and surrounding area Pain of right scapula Visit for suture removal Chlamydia infection Dextroscoliosis of lumbar spine Status post fall Mid back pain control counseling Well woman exam with routine gynecological exam Screen for sexually transmitted diseases Cervical cancer screening Breast pain, right Physical exam Lumbar radiculopathy Lumbar spondylosis Polyarthralgia Pain in both feet Injury of toe on right foot Preoperative clearance Jaw pain Pain in right elbow Paresthesia of hand, bilateral Abdominal pain Left ankle pain Bilateral leg edema Lymphadenopathy Incidental lung nodule, > 3mm and < 8mm Low vitamin D level Bug bite Anxiety and depression Neck mass Rib pain on right side Muscle spasms of neck Paresthesia and pain of both upper extremities Cervicalgia Upper respiratory tract infection Atopic reaction Allergic reaction Mass in neck Thrush, oral Muscle twitch Muscle spasm Shortness of breath Adenopathy Left shoulder pain Immunization due Nonimmune to hepatitis B virus Numbness and tingling of both legs Tinnitus Sore throat Upper respiratory tract infection Depo-Provera contraceptive status Screening for eye condition Routine screening for STI (sexually transmitted infection) Cervicalgia Headache Vision changes Chest pain Nausea and vomiting Hematochezia Abdominal pain Back pain Lung nodules Borderline personality disorder Depression Bipolar 1 disorder ADHD Low vitamin D level GERD (gastroesophageal reflux disease) Asthma History of multiple miscarriages COVID-19 virus infection Encounter to establish care (~03/2021) HIV exposure Surgical History S/P cubital tunnel release Hx of biopsy History of wisdom tooth extraction Family History Mother Substance use disorder Mental health disorder Father Cancer Social History Housing: House Alcohol intake: current Alcohol intake frequency: holidays/special occasions only Patient Tobacco Use Status: Never used Tobacco Tobacco use type: Cigar e-Cigarette/Vaping Use: Currently Using Second Hand Smoke Exposure: No service: No Current occupational status: unemployed 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 Cognitive needs: No Hearing needs: No Vision needs: Yes (glasses) Female Reproductive History Menstrual Age of Menarche: 13 control method: progesterone injection Date of last pap smear: 04/12/22 (negative) Review of Systems Const All systems reviewed & are unremarkable except as noted in HPI and below Physical Exam Vital Signs: Last Vital Signs BP 124/80 09/01/23 11:40 BMI result Body Mass Index 31.1 Const General: cooperative, healthy appearing and no acute distress Orientation/consciousness: patient oriented x3 GI Inspection: Yes normal to inspection Palpation (GI): Soft to palpation and Other GI palpation findings present (Nontender) Rectal Exam - Female: visual inspection normal General: Yes bladder normal to palpation External Female Exam: normal appearance of the urethra Speculum Exam - Vagina: normal appearance of the vagina, normal palpation and normal vaginal discharge Speculum Exam - Cervix: normal appearance of the cervix and normal palpation Bimanual exam- vagina & uterus: normal bimanual exam, normal palpation, uterine size normal, bladder normal to palpation, normal palpation, uterine shape normal and non-tender Bimanual Exam- Adnexa, other: normal adnexae Neuro General: patient oriented x3 Results Reviewed Results Reviewed: [address] [address] Ultrasound Report Signed Patient: Argelia Adan MR#: [id number] : 1995 Acct:[id number] Age/Sex: 28 / F ADM Date: 08/02/23 Loc: HO.US Attending Dr: Marylou Garsia CNM Ordering Physician: Marylou Garsia CNM Date of Service: 08/02/23 Procedure(s): US pelvic and transvaginal Accession Number(s): [id number] cc: Marylou Garsia CNM; Maeve Woodard MD~ EXAMINATION: US PELVIS COMPLETE CLINICAL INFORMATION: Pelvic pain COMPARISON: CT abdomen pelvis 07/31/2023 TECHNIQUE: Transabdominal and transvaginal imaging was performed. FINDINGS: The uterus is of normal size and echogenicity measuring 8.3 x 4.3 x 5.0 cm. A regular homogeneous endometrium is identified measuring 0.5 cm. Both ovaries are of normal size and echogenicity. The right measures 3.1 x 1.6 x 2.1 cm for a volume of 5.4 mL. The left measures 2.8 x 2.1 x 2.1 cm for a volume of 6.5 mL. There is no pelvic free fluid. US/US pelvic and transvaginal IMPRESSION: Unremarkable pelvic ultrasound. 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: Assessment & Plan Assessment & Plan (1) Possible exposure to STD: Code(s): Z20.2 - Contact with and (suspected) exposure to infections with a predominantly sexual mode of transmission (2) Encounter to discuss test results: Code(s): Z71.2 - Person consulting for explanation of examination or test findings (3) High risk sexual behavior: Code(s): Z72.51 - High risk heterosexual behavior Qualifiers: High risk sexual behavior type: unspecified Qualified Code(s): Z72.51 - High risk heterosexual behavior (4) Pelvic cramping: Code(s): R10.2 - Pelvic and perineal pain Plan Discussed: Ultrasound findings are normal, encouraged to have STD screening today due to recent unprotected intimacy with multiple partners. Lab work for HIV ordered. Advised use of condoms consistently. Counseled regarding her benefit of staying on Depo-Provera for now due to the risk of , self-help measures to help with bone loss prevention to inclu de a healthy well-balanced diet, adequate calcium and vitamin-D intake, weight- bearing exercises routinely, stopping alcohol and tobacco use. We can discuss other options at her next follow-up. Encouraged to continue speaking with her therapist along with discussion of her alcohol consumption, and consider a plan for sobriety to include possibly rehab along with other supports such as AA meetings. Return to the office in 4 weeks to follow up on concerns today. Orders: Orders HIV Ab/Ag Today Z20.2 - Contact with and (suspected) exposure to infections with a predominantly sexual mode of transmission Hepatitis C Antibody Reflex Today Z20.2 - Contact with and (suspected) exposure to infections with a predominantly sexual mode of transmission Hepatitis B Core Antibody Today Z20.2 - Contact with and (suspected) exposure to infections with a predominantly sexual mode of transmission Syphilis Screen Today Z20.2 - Contact with and (suspected) exposure to infections with a predominantly sexual mode of transmission Coding Level of Care Code Est Pt Level 3 (98980) Diagnoses Possible exposure to STD Z20.2 Encounter to discuss test results Z71.2 High risk sexual behavior, unspecified type Z72.51 High risk sexual behavior type: unspecified Pelvic cramping R10.2
[2023-09-01 11:40] VITALS: BP 124/80; BMI 31.1
== END 2023-09-01 12:11 | disposition home or self-care (01) ==
LOC: HO.HWS 11:31
PROVIDERS: PCP Internal Medicine; Visit Provider Advanced Practice Midwife
DX: Z20.2 Contact with and (suspected) exposure to infections with a predominantly sexual mode of transmission (principal); Z71.2 Person consulting for explanation of examination or test findings; Z72.51 High risk heterosexual behavior; R10.2 Pelvic and perineal pain
CPT/HCPCS: 99213

== ENCOUNTER 2023-09-01 11:31 | Outpatient (REF) | payer MEDICARE, MEDICAID, SELFPAY ==
[2023-09-01 14:32] LABS: Syphilis Screen Nonreactive (Nonreactive)
[2023-09-01 15:19] LABS: Bacterial Vaginosis PCR NEGATIVE (Negative); Candida Group PCR NOT DETECTED (Not Detect); Candida glab krusei PCR NOT DETECTED (Not Detect); Trichomonas vaginalis PCR NOT DETECTED (Not Detect)
[2023-09-02 02:48] LABS: CT PCR NOT DETECTED (Not Detect.); NG PCR NOT DETECTED (Not Detect.)
[2023-09-02 08:12] LABS: HBc Num1 0.12 S/CO (0.00-0.79); HIV AB/AG Nonreactive (Nonreactive); HIV Num 1 0.05 S/CO (0.00-0.99); Hepatitis B Core Antibody Nonreactive (Nonreactive); ~HepC Num1 0.12 S/CO (0.00-0.79); ~Hepatitis C Antibody Nonreactive (Nonreactive)
== END 2023-09-01 11:32 | disposition home or self-care (01) ==
LOC: HO.LAB 11:31
PROVIDERS: Absent Provider Internal Medicine; PCP Internal Medicine; Visit Provider Advanced Practice Midwife
DX: N94.89 Other specified conditions associated with female genital organs and menstrual cycle (principal); R10.2 Pelvic and perineal pain; Z20.2 Contact with and (suspected) exposure to infections with a predominantly sexual mode of transmission; Z71.2 Person consulting for explanation of examination or test findings; Z72.51 High risk heterosexual behavior
CPT/HCPCS: 0352U; 0353U; 36415; 86704; 86780; 86803; 87389; 99212

== ENCOUNTER 2023-09-01 12:42 | Outpatient (REF) | payer MEDICARE, MEDICAID, SELFPAY | END 2023-09-01 12:43 | disposition home or self-care (01) | LOC: HO.LNP 12:42 | PROVIDERS: Visit Provider Advanced Practice Midwife | DX: Z13.89 Encounter for screening for other disorder (principal) ==

== ENCOUNTER 2023-09-30 09:52 | Outpatient (REF) | payer MEDICARE, MEDICAID, SELFPAY ==
[2023-09-30 12:03] LABS: Bacterial Vaginosis PCR NEGATIVE (Negative); Candida Group PCR NOT DETECTED (Not Detect); Candida glab krusei PCR NOT DETECTED (Not Detect); Trichomonas vaginalis PCR NOT DETECTED (Not Detect)
[2023-09-30 12:28] LABS: CT PCR NOT DETECTED (Not Detect.); NG PCR NOT DETECTED (Not Detect.)
== END 2023-09-30 09:53 | disposition home or self-care (01) ==
LOC: HO.LNP 09:52
PROVIDERS: PCP Internal Medicine; Visit Provider Advanced Practice Midwife
DX: R10.2 Pelvic and perineal pain (principal); M54.50 Low back pain, unspecified; Z20.2 Contact with and (suspected) exposure to infections with a predominantly sexual mode of transmission
CPT/HCPCS: 0352U; 81003; 81025; 87491; 87591; 99212

== ENCOUNTER 2023-09-30 09:52 | Outpatient (AMB) | payer MEDICARE, MEDICAID, SELFPAY ==
--- NOTE | 2023-09-30 09:58 | MHC.OFFVIS ---
Vital Signs 09/30/23 09:59 Height 5 ft 4 in Weight 182 lb 8 oz BMI 31.3 BP 114/66 Blood Pressure Location Lt brachial Position Sitting Intake Visit Reasons: 4 weeks follow up Allergies Seasonal Allergies Allergy (Mild, Verified 09/30/23 10:01) Unknown metronidazole [From FLAGYL] Allergy (Unknown, Verified 09/30/23 10:01) Hives duloxetine Adverse Reaction (Verified 09/30/23 10:01) Nausea HPI Comments Details: Patient reports today that she has cramping in the pelvic area and low back pain. Currently on Depo and no issues with bleeding. She admits to having a urine culture done in July and was told she had a UTI but never took any treatment. Review of the culture results was 100,000K of mixed contaminant. Uses boric acid as needed. She admits to drinking on the weekends and sometimes can not remember things. [facility] Medical History (Reviewed 09/30/23 @ 10:02 by Rohini Harris [facility]) Yeast infection involving the vagina and surrounding area Pain of right scapula Visit for suture removal Chlamydia infection Dextroscoliosis of lumbar spine Status post fall Mid back pain control counseling Well woman exam with routine gynecological exam Screen for sexually transmitted diseases Cervical cancer screening Breast pain, right Physical exam Lumbar radiculopathy Lumbar spondylosis Polyarthralgia Pain in both feet Injury of toe on right foot Preoperative clearance Jaw pain Pain in right elbow Paresthesia of hand, bilateral Abdominal pain Left ankle pain Bilateral leg edema Lymphadenopathy Incidental lung nodule, > 3mm and < 8mm Low vitamin D level Bug bite Anxiety and depression Neck mass Rib pain on right side Muscle spasms of neck Paresthesia and pain of both upper extremities Cervicalgia Upper respiratory tract infection Atopic reaction Allergic reaction Mass in neck Thrush, oral Muscle twitch Muscle spasm Shortness of breath Adenopathy Left shoulder pain Immunization due Nonimmune to hepatitis B virus Numbness and tingling of both legs Tinnitus Sore throat Upper respiratory tract infection Depo-Provera contraceptive status Screening for eye condition Routine screening for STI (sexually transmitted infection) Cervicalgia Headache Vision changes Chest pain Nausea and vomiting Hematochezia Abdominal pain Back pain Lung nodules Borderline personality disorder Depression Bipolar 1 disorder ADHD Low vitamin D level GERD (gastroesophageal reflux disease) Asthma History of multiple miscarriages COVID-19 virus infection Encounter to establish care (~03/2021) HIV exposure Surgical History S/P cubital tunnel release Hx of biopsy History of wisdom tooth extraction Family History Mother Substance use disorder Mental health disorder Father Cancer Social History Housing: House Alcohol intake: current Alcohol intake frequency: holidays/special occasions only Patient Tobacco Use Status: Never used Tobacco Tobacco use type: Cigar e-Cigarette/Vaping Use: Currently Using Second Hand Smoke Exposure: No service: No Current occupational status: unemployed 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 Cognitive needs: No Hearing needs: No Vision needs: Yes (glasses) Female Reproductive History Menstrual Age of Menarche: 13 Review of Systems Const All systems reviewed & are unremarkable except as noted in HPI and below Physical Exam Vital Signs: Last Vital Signs BP 114/66 09/30/23 09:59 BMI result Body Mass Index 31.3 Const General: cooperative, healthy appearing and no acute distress Orientation/consciousness: patient oriented x3 GI Inspection: Yes normal to inspection Palpation (GI): Soft to palpation and Other GI palpation findings present (Nontender) Rectal Exam - Female: visual inspection normal General: Yes bladder normal to palpation External Female Exam: normal appearance of the urethra Speculum Exam - Vagina: normal appearance of the vagina, normal palpation and abnormal vaginal discharge (Watery) Speculum Exam - Cervix: normal appearance of the cervix and normal palpation Bimanual exam- vagina & uterus: normal bimanual exam, normal palpation, uterine size normal, bladder normal to palpation, normal palpation, uterine shape normal and non-tender Bimanual Exam- Adnexa, other: normal adnexae Neuro General: patient oriented x3 Results AMB Test Urine AMB Test Urine Negative Last Edit by Rohini Harris CMA on 09/30/23 10:25 AMB Urinalysis, Automated UA Leukoctes 0 Maryanne/uL Last Edit by Rohini Harris CMA on 09/30/23 10:26 UA Nitrite Negative Last Edit by Rohini Harris CMA on 09/30/23 10:26 UA Urobilinogen 3.5 mg/dL Last Edit by Rohini Harris CMA on 09/30/23 10:26 UA Protein 0 mg/dL Last Edit by Rohini Harris CMA on 09/30/23 10:26 UA pH 5.5 Last Edit by Rohini Harris CMA on 09/30/23 10:26 UA Blood 0 Jeromy/uL Last Edit by Rohini Harris CMA on 09/30/23 10:26 UA Specific [place] 1.025 Last Edit by Rohini Harris CMA on 09/30/23 10:26 UA Ketone Negative Last Edit by Rohini Harris CMA on 09/30/23 10:26 UA Bilirubin 0 mg/dL Last Edit by Rohini Harris CMA on 09/30/23 10:26 UA Glucose 0 mg/dL Last Edit by Rohini Harris CMA on 09/30/23 10:26 Results Reviewed Results Reviewed: Laboratory Last Values Urine pH (Auto) 5.5 09/30/23 10:24 Specific [place] (Auto) 1.025 09/30/23 10:24 Urine Protein (Auto) 0 mg/dL 09/30/23 10:24 Glucose (UA)(Auto) 0 mg/dL 09/30/23 10:24 Urine Ketones (Auto) Negative 09/30/23 10:24 Urine Blood (Auto) 0 Jeromy/uL 09/30/23 10:24 Urine Nitrite (Auto) Negative 09/30/23 10:24 Urine Bilirubin (Auto) 0 mg/dL 09/30/23 10:24 Urine Urobilinogen (Auto) 3.5 mg/dL 09/30/23 10:24 Leukocyte Esterase (Auto) 0 Maryanne/uL 09/30/23 10:24 Tst Clinic Negative 09/30/23 10:24 Assessment & Plan Assessment & Plan (1) Possible exposure to STD: Code(s): Z20.2 - Contact with and (suspected) exposure to infections with a predominantly sexual mode of transmission (2) Pelvic cramping: Code(s): R10.2 - Pelvic and perineal pain Plan Plan BV panel and GC chlamydia today. Urine dip was normal. Advise safety with alcohol use offered referral -declined, encouraged sobriety. Return to the office p.r.n. await test results for plan of care. Keep appointment for annual exam as scheduled. Orders: Orders Bacterial Vaginosis Panel Today Z11.3 - Encounter for screening for infections with a predominantly sexual mode of transmission CT NG by PCR Today Z11.3 - Encounter for screening for infections with a predominantly sexual mode of transmission AMB HCG Urine Test Today Z32.02 - Encounter for test, result negative AMB Urinalysis Automated Today Z13.9 - Encounter for screening, unspecified Coding Level of Care Code Est Pt Level 3 (94698) Diagnoses Possible exposure to STD Z20.2 Pelvic cramping R10.2
[2023-09-30 09:59] VITALS: BP 114/66; BMI 31.3
== END 2023-09-30 10:55 | disposition home or self-care (01) ==
LOC: HO.HWS 09:52
PROVIDERS: PCP Internal Medicine; Visit Provider Advanced Practice Midwife
DX: Z20.2 Contact with and (suspected) exposure to infections with a predominantly sexual mode of transmission (principal); R10.2 Pelvic and perineal pain; Z32.02 Encounter for pregnancy test, result negative; Z13.9 Encounter for screening, unspecified
CPT/HCPCS: 99213

== ENCOUNTER 2023-10-02 13:37 | Emergency (ER) | payer MEDICARE, MEDICAID, SELFPAY ==
[2023-10-02 14:04] VITALS: BP 120/66; PULSE 86; RESP 18; TEMP 36.6; O2SAT 97; BMI 30.9
--- NOTE | 2023-10-02 14:06 | ED_ITS ---
HPI - URI/Sore Throat General Chief Complaint: Ear Problems Stated Complaint: Ear infection? Time Seen by Provider: 10/02/23 15:48 Source: patient and RN notes reviewed Mode of arrival: ambulatory Limitations: no limitations History of Present Illness ED Provider: Bri Salcedo PA-C HPI Narrative: This is a 28-year-old female, with a history of seasonal allergies, who presents emergency department with complaints of right ear pain and slightly sore throat x2 days. She states that several days ago she went swimming. She states that the pain in her right ear started after swimming. She states that she has a history of seasonal allergies. She denies any fevers or chills. Denies cough, abdominal pain, nausea, vomiting or diarrhea. Denies taking any medications prior to arrival. No other complaints or concerns at this time. MD elicited complaint: sore throat Onset (ago): day(s) Consistency: constant Able to tolerate fluids by mouth: Yes Exacerbating factors: nothing Relieving factors: nothing Associated symptoms: denies other symptoms Treatments prior to arrival: none Related Data Home Medications ?Medication ?Instructions ?Recorded ?Confirmed azelastine 137 mcg (0.1 %) nasal intranasal 06/03/22 08/31/23 spray medroxyprogesterone 400 mg/mL mg IM 09/01/23 intramuscular syringe Previous Rx's ?Medication ?Instructions ?Recorded hydrocortisone 2.5 % topical cream 1 appl topical BID #20 grams 09/15/21 diclofenac sodium 1 % topical gel 2 g topical QID #100 grams 09/28/21 (Voltaren Arthritis Pain) diphenhydramine HCl 25 mg tablet 50 mg (2 x 25 mg) PO TID PRN 01/07/22 (Benadryl Allergy) allergic reaction #14 tabs epinephrine 0.3 mg/0.3 mL 0.3 mg (0.3 mL) IM Q4H PRN 01/07/22 injection, auto-injector (EpiPen anaphylaxis 1 month #2 ea 2-Edward) valacyclovir 500 mg tablet 1,000 mg (2 x 500 mg) PO DAILY 90 04/07/22 days #180 tabs baclofen 10 mg tablet 10 mg PO TID muscle spasm 30 days 06/03/22 #90 tabs magnesium glycinate 100 mg (as 200 mg (2 x 100 mg) PO DAILY 06/03/22 glycinate) tablet migraine 30 days #60 tabs riboflavin (vitamin B2) 400 mg 400 mg PO DAILY migraine headache 06/03/22 tablet 30 days #30 tabs cholecalciferol (vitamin D3) 50 50 mcg PO DAILY 90 days #90 caps 10/12/22 mcg (2,000 unit) capsule omeprazole 20 mg capsule,delayed 20 mg PO DAILY PRN for heartburn 10/12/22 release #90 caps triamcinolone acetonide 0.025 % 1 appl topical DAILY PRN psoriasis 10/12/22 topical cream 2 weeks #15 grams fluticasone propionate 50 1 spray intranasal BID #16 grams 10/13/22 mcg/actuation nasal spray,suspension (Flonase Allergy Relief) loratadine 10 mg tablet 10 mg PO DAILY #30 tabs 10/13/22 folic acid 1 mg tablet 1 mg PO DAILY 90 days #90 tabs 10/17/22 mecobalamin (vitamin B12) 1,000 1,000 mcg PO DAILY 90 days #90 tabs 10/17/22 mcg chewable tablet gabapentin 300 mg capsule 300 mg PO BID pain 30 days #60 caps 10/25/22 clotrimazole 1 % topical cream 1 appl topical BID 4 weeks #30 10/26/22 grams ibuprofen 800 mg tablet 800 mg PO TID PRN pain #20 tabs 11/02/22 albuterol sulfate 90 mcg/actuation 2 inh inhalation Q6-8H PRN 11/14/22 aerosol inhaler shortness of breath or wheezing #6.7 grams clobetasol 0.05 % topical ointment 1 appl topical BID 1 week #15 grams 05/11/23 clindamycin phosphate 2 % vaginal 1 appful vaginal BEDTIME 7 days #5 07/26/23 cream grams miconazole nitrate 2 % vaginal 1 appful vaginal BEDTIME 7 days 08/16/23 cream (Miconazole-7) #45 grams Knee brace #1 ea 08/31/23 amoxicillin 500 mg capsule 500 mg PO BID 10 days #20 caps 10/02/23 amoxicillin 875 mg-potassium 1 tab PO BID 10 days #20 tabs 10/02/23 clavulanate 125 mg tablet Allergies Allergy/AdvReac Type Severity Reaction Status Date / Time Seasonal Allergies Allergy Mild Unknown Verified 10/02/23 14:04 metronidazole [From FLAGYL] Allergy Unknown Hives Verified 10/02/23 14:04 duloxetine AdvReac Nausea Verified 10/02/23 14:04 Review of Systems Review of Systems: Yes all other systems are reviewed and are negative Constitutional: Constitutional: Reports as per [facility] Past Medical History Medical History Yeast infection involving the vagina and surrounding area Pain of right scapula Visit for suture removal Chlamydia infection Dextroscoliosis of lumbar spine Status post fall Mid back pain control counseling Well woman exam with routine gynecological exam Screen for sexually transmitted diseases Cervical cancer screening Breast pain, right Physical exam Lumbar radiculopathy Lumbar spondylosis Polyarthralgia Pain in both feet Injury of toe on right foot Preoperative clearance Jaw pain Pain in right elbow Paresthesia of hand, bilateral Abdominal pain Left ankle pain Bilateral leg edema Lymphadenopathy Incidental lung nodule, > 3mm and < 8mm Low vitamin D level Bug bite Anxiety and depression Neck mass Rib pain on right side Muscle spasms of neck Paresthesia and pain of both upper extremities Cervicalgia Upper respiratory tract infection Atopic reaction Allergic reaction Mass in neck Thrush, oral Muscle twitch Muscle spasm Shortness of breath Adenopathy Left shoulder pain Immunization due Nonimmune to hepatitis B virus Numbness and tingling of both legs Tinnitus Sore throat Upper respiratory tract infection Depo-Provera contraceptive status Screening for eye condition Routine screening for STI (sexually transmitted infection) Cervicalgia Headache Vision changes Chest pain Nausea and vomiting Hematochezia Abdominal pain Back pain Lung nodules Borderline personality disorder Depression Bipolar 1 disorder ADHD Low vitamin D level GERD (gastroesophageal reflux disease) Asthma History of multiple miscarriages COVID-19 virus infection Encounter to establish care (~03/2021) HIV exposure Surgical History S/P cubital tunnel release Hx of biopsy History of wisdom tooth extraction Family History Family History Mother Substance use disorder Mental health disorder Father Cancer Social History Social History Housing: House Alcohol intake: current Alcohol intake frequency: holidays/special occasions only Patient Tobacco Use Status: Never used Tobacco Tobacco use type: Cigar e-Cigarette/Vaping Use: Currently Using Second Hand Smoke Exposure: No Advance Directives: No Advance Directives Information Provided: Yes Do you have a plan to hurt others: No Plan service: No Current occupational status: unemployed 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 No bulging, TM is intact. Left TM unremarkable. No mastoid tenderness Posterior oropharynx is mildly erythematous, no tonsillar hypertrophy or exudates noted. No trismus, drooling, or dysphonia. Head: Yes normal to inspection, Yes normocephalic and Yes atraumatic Ears: hearing grossly normal bilaterally General nose exam: Normal external nose present Face and sinus: Yes normal facial exam Mouth: Normal oral and palatal mucosa present Eyes: General: appearance normal, both eyes and all related structures Eyelids: Yes eyelids normal Conjunctivae: conjunctivae normal Sclerae: sclerae normal Pupils: Equal, round and reactive pupils present EOM: EOMs intact bilaterally Neck: Neck: Yes normal visual inspection, Yes full ROM and Yes no lymphadenopathy Lymphatic: no lymphadenopathy noted Chest: Chest palpation & inspection: normal inspection of the chest Resp: Effort & Inspection: normal respiratory effort and able to speak in complete sentences Auscultation: clear to auscultation bilaterally, no crackles, no rales, no rhonchi and no wheezes Cardio: Rate: regular rate Rhythm: regular rhythm Heart sounds: S1 normal heart sound present and S2 normal heart sound present GI: Inspection: Yes normal to inspection Skin: General skin exam: no rashes or lesions noted Trauma: no lacerations or abrasions Wounds: no wounds Neuro: General: patient oriented x3 and moves all extremities Cranial nerves: Yes Equal, round and reactive pupils present Extrem: General: Yes normal to inspection Right upper extremity: normal to inspection Left upper extremity: normal to inspection Right lower extremity: normal to inspection Left lower extremity: normal to inspection Course Course Course Narrative: This is a rapid medical exam. Deferred additional HPI, ROS, PE to primary provider. 28 yo yo female with history of arthritis, fibromyalgia, mental health diagnosis here with right ear pain since yesterday, right sided sore throat. Will obtain strep testing, covid testing TANISHA Galdamez APRN Medical Decision Making Medical Decision Making [facility] Narrative: This is a 28-year-old female who presents emergency department with complaints of right ear pain x2 days. She reports recent swimming. On arrival, vital signs within normal limits. Oropharynx is slightly erythematous, no tonsillar hypertrophy or exudates. Right TM is dull slightly erythematous. She has no mastoid tenderness. Differential diagnoses include viral syndrome, otitis media, otitis externa, pharyngitis, otalgia, Eustachian tube dysfunction. Less likely mastoiditis. COVID, flu and strep swabs were collected and are negative. Discussed findings with patient. Will treat as a early right otitis media. Given strict return precautions. She understands and agrees with plan. Patient stable for discharge. Differential Diagnosis Differential Diagnoses: The differential diagnosis associated with the presentation includes See above Lab Data [facility] Lab Attestation statement: I reviewed the patient's lab results. Negative viral swabs Labs: Lab Results 10/02/23 10/02/23 Range/Units 14:19 15:25 COVID-19 (FERNANDO) Negative (Negative) COVID-19 Clin Com See Note Influenza Type A (MARK) Negative (Negative) Influenza Type B (MARK) Negative (Negative) Influenza A & B Note See Note S. pyogenes GrpA MARK Negative (Negative) Radiology Impression Discussion of test interpretation with radiology: I have reviewed the radiologist's reading. External Record Review External record reviewed: Inpatient record, Office record, Outpatient record, Prior outpatient labs, Prior outpatient radiology, Primary care record and Outside ED record Discharge Plan Discharge Clinical Impression: Otitis media Patient Disposition: Home, Self-Care Instructions: Ear Infection (ED) Additional Instructions: You were seen in the emergency department due to right ear pain Your ear appears to be infected. Please take full course of antibiotics even if your feeling better. No swimming or submerging the ear canals with water until your symptoms improved and you complete the entire course. Take ibuprofen and or Tylenol as needed for pain and symptoms. If any new or worsening symptoms occur including but not limited to worsening pain, fevers, chest pain, shortness of breath, please return for re-evaluation. Prescriptions: New amoxicillin 500 mg capsule 500 mg PO BID 10 Days Qty: 20 0RF amoxicillin-pot clavulanate 875-125 mg tablet 1 tab PO BID 10 Days Qty: 20 0RF No Action epinephrine [EpiPen 2-Edward] 0.3 mg/0.3 mL auto-injector 0.3 mg IM Q4H PRN (Reason: anaphylaxis) 30 Days Qty: 2 4RF Rx Instructions: practice injector as well if available please omeprazole 20 mg capsule,delayed release(DR/EC) 20 mg PO DAILY PRN (Reason: for heartburn) Qty: 90 0RF cholecalciferol (vitamin D3) 50 mcg (2,000 unit) capsule 50 mcg PO DAILY 90 Days Qty: 90 1RF fluticasone propionate [Flonase Allergy Relief] 50 mcg/actuation spray,suspension 1 spray intranasal BID Qty: 16 3RF Rx Instructions: administer into each nostril loratadine 10 mg tablet 10 mg PO DAILY Qty: 30 3RF folic acid 1 mg tablet 1 mg PO DAILY 90 Days Qty: 90 1RF mecobalamin (vitamin B12) 1,000 mcg tablet,chewable 1,000 mcg PO DAILY 90 Days Qty: 90 1RF gabapentin 300 mg capsule 300 mg PO BID 30 Days Qty: 60 3RF clotrimazole 1 % cream 1 appl topical BID 28 Days Qty: 30 0RF albuterol sulfate 90 mcg/actuation HFA aerosol inhaler 2 inh inhalation Q6-8H PRN (Reason: shortness of breath or wheezing) Qty: 6.7 0RF clindamycin phosphate 2 % cream 1 appful vaginal BEDTIME 7 Days Qty: 5 0RF Rx Instructions: for 7 days diphenhydramine HCl [Benadryl Allergy] 25 mg tablet 50 mg PO TID PRN (Reason: allergic reaction) Qty: 14 0RF clobetasol 0.05 % ointment 1 appl topical BID 7 Days Qty: 15 0RF ibuprofen 800 mg tablet 800 mg PO TID PRN (Reason: pain) Qty: 20 0RF hydrocortisone 2.5 % cream 1 appl topical BID Qty: 20 0RF (DME) Knee brace Misc See Rx Instructions .Route Qty: 1 0RF Rx Instructions: As directed diclofenac sodium [Voltaren Arthritis Pain] 1 % gel 2 g topical QID Qty: 100 0RF Rx Instructions: apply to single elbow, wrist or hand; for hand includes palm/fingers/back of hand valacyclovir 500 mg tablet 1,000 mg PO DAILY 90 Days Qty: 180 1RF triamcinolone acetonide 0.025 % cream 1 appl topical DAILY PRN (Reason: psoriasis) 14 Days Qty: 15 0RF azelastine 137 mcg (0.1 %) aerosol,spray intranasal baclofen 10 mg tablet 10 mg PO TID 30 Days Qty: 90 0RF magnesium glycinate 100 mg tablet 200 mg PO DAILY 30 Days Qty: 60 6RF riboflavin (vitamin B2) 400 mg tablet 400 mg PO DAILY 30 Days Qty: 30 6RF medroxyprogesterone 400 mg/mL syringe IM miconazole nitrate [Miconazole-7] 2 % cream 1 appful vaginal BEDTIME 7 Days Qty: 45 3RF Interventions: ED Discharge Assessment Last Done: 10/02/23 19:06 Discharge Date/Time: 10/02/23 19:06 Print Language: Colombian
[2023-10-02 14:57] LABS: COVID-19 Test Negative (Negative); IDNOW Serial# 58CA691E
[2023-10-02 14:58] LABS: IDNOW Serial# 08D9AD1C; Strep A Nucleic Acid Negative (Negative)
[2023-10-02 16:02] LABS: IDNOW Serial# 152EDE1D; Influenza A Negative (Negative)
[2023-10-02 16:03] LABS: Influenza B2 Negative (Negative)
[2023-10-02 19:06] VITALS: BP 120/66; PULSE 86; RESP 18; TEMP 36.6; O2SAT 97
== END 2023-10-02 19:06 | disposition home or self-care (01) ==
PROVIDERS: Nurse Practitioner Family; Emergency Provider Emergency Medicine; PCP Internal Medicine
DX: J02.9 Acute pharyngitis, unspecified (principal); H66.91 Otitis media, unspecified, right ear; Z79.899 Other long term (current) drug therapy; Z11.52 Encounter for screening for COVID-19
CPT/HCPCS: 87502; 87635; 87651; 99282; 99283

== ENCOUNTER 2023-10-17 18:21 | Emergency (ER) | payer MEDICARE, MEDICAID, SELFPAY ==
--- NOTE | 2023-10-17 18:55 | ED_ITS ---
HPI - General Adult General Chief complaint: General Medical Stated complaint: body ache, headache Time Seen by Provider: 10/17/23 23:12 History of Present Illness ED Provider: Kyree ORR narrative: The patient is a 28-year-old female who complains headache, body aches, eye pressure, and cough. She also says that she has had problems with her left last lower molar. She says that she had a filling that has fallen out and she now has pain in the tooth. She has had trouble getting dental follow up. She has been feeling particularly unwell for about 2 days. She says that she has a lot of body aches. Her daughter is also ill with what seems to be a bad cold. Related Data Home Medications ?Medication ?Instructions ?Recorded ?Confirmed azelastine 137 mcg (0.1 %) nasal intranasal 06/03/22 08/31/23 spray medroxyprogesterone 400 mg/mL mg IM 09/01/23 intramuscular syringe Previous Rx's ?Medication ?Instructions ?Recorded hydrocortisone 2.5 % topical cream 1 appl topical BID #20 grams 09/15/21 diclofenac sodium 1 % topical gel 2 g topical QID #100 grams 09/28/21 (Voltaren Arthritis Pain) diphenhydramine HCl 25 mg tablet 50 mg (2 x 25 mg) PO TID PRN 01/07/22 (Benadryl Allergy) allergic reaction #14 tabs epinephrine 0.3 mg/0.3 mL 0.3 mg (0.3 mL) IM Q4H PRN 01/07/22 injection, auto-injector (EpiPen anaphylaxis 1 month #2 ea 2-Edward) valacyclovir 500 mg tablet 1,000 mg (2 x 500 mg) PO DAILY 90 04/07/22 days #180 tabs baclofen 10 mg tablet 10 mg PO TID muscle spasm 30 days 06/03/22 #90 tabs magnesium glycinate 100 mg (as 200 mg (2 x 100 mg) PO DAILY 06/03/22 glycinate) tablet migraine 30 days #60 tabs riboflavin (vitamin B2) 400 mg 400 mg PO DAILY migraine headache 06/03/22 tablet 30 days #30 tabs cholecalciferol (vitamin D3) 50 50 mcg PO DAILY 90 days #90 caps 10/12/22 mcg (2,000 unit) capsule omeprazole 20 mg capsule,delayed 20 mg PO DAILY PRN for heartburn 10/12/22 release #90 caps triamcinolone acetonide 0.025 % 1 appl topical DAILY PRN psoriasis 10/12/22 topical cream 2 weeks #15 grams fluticasone propionate 50 1 spray intranasal BID #16 grams 10/13/22 mcg/actuation nasal spray,suspension (Flonase Allergy Relief) loratadine 10 mg tablet 10 mg PO DAILY #30 tabs 10/13/22 folic acid 1 mg tablet 1 mg PO DAILY 90 days #90 tabs 10/17/22 mecobalamin (vitamin B12) 1,000 1,000 mcg PO DAILY 90 days #90 tabs 10/17/22 mcg chewable tablet gabapentin 300 mg capsule 300 mg PO BID pain 30 days #60 caps 10/25/22 clotrimazole 1 % topical cream 1 appl topical BID 4 weeks #30 10/26/22 grams ibuprofen 800 mg tablet 800 mg PO TID PRN pain #20 tabs 11/02/22 albuterol sulfate 90 mcg/actuation 2 inh inhalation Q6-8H PRN 11/14/22 aerosol inhaler shortness of breath or wheezing #6.7 grams clobetasol 0.05 % topical ointment 1 appl topical BID 1 week #15 grams 05/11/23 clindamycin phosphate 2 % vaginal 1 appful vaginal BEDTIME 7 days #5 07/26/23 cream grams miconazole nitrate 2 % vaginal 1 appful vaginal BEDTIME 7 days 08/16/23 cream (Miconazole-7) #45 grams Knee brace #1 ea 08/31/23 amoxicillin 500 mg capsule 500 mg PO BID 10 days #20 caps 10/02/23 amoxicillin 875 mg-potassium 1 tab PO BID 10 days #20 tabs 10/02/23 clavulanate 125 mg tablet amoxicillin 500 mg capsule 500 mg PO TID 7 days #21 caps 10/17/23 Allergies Allergy/AdvReac Type Severity Reaction Status Date / Time Seasonal Allergies Allergy Mild Unknown Verified 10/17/23 18:59 metronidazole [From FLAGYL] Allergy Unknown Hives Verified 10/17/23 18:59 duloxetine AdvReac Nausea Verified 10/17/23 18:59 Review of Systems Review of Systems: Yes all other systems are reviewed and are negative PMFSH Past Medical History Medical History Yeast infection involving the vagina and surrounding area Pain of right scapula Visit for suture removal Chlamydia infection Dextroscoliosis of lumbar spine Status post fall Mid back pain control counseling Well woman exam with routine gynecological exam Screen for sexually transmitted diseases Cervical cancer screening Breast pain, right Physical exam Lumbar radiculopathy Lumbar spondylosis Polyarthralgia Pain in both feet Injury of toe on right foot Preoperative clearance Jaw pain Pain in right elbow Paresthesia of hand, bilateral Abdominal pain Left ankle pain Bilateral leg edema Lymphadenopathy Incidental lung nodule, > 3mm and < 8mm Low vitamin D level Bug bite Anxiety and depression Neck mass Rib pain on right side Muscle spasms of neck Paresthesia and pain of both upper extremities Cervicalgia Upper respiratory tract infection Atopic reaction Allergic reaction Mass in neck Thrush, oral Muscle twitch Muscle spasm Shortness of breath Adenopathy Left shoulder pain Immunization due Nonimmune to hepatitis B virus Numbness and tingling of both legs Tinnitus Sore throat Upper respiratory tract infection Depo-Provera contraceptive status Screening for eye condition Routine screening for STI (sexually transmitted infection) Cervicalgia Headache Vision changes Chest pain Nausea and vomiting Hematochezia Abdominal pain Back pain Lung nodules Borderline personality disorder Depression Bipolar 1 disorder ADHD Low vitamin D level GERD (gastroesophageal reflux disease) Asthma History of multiple miscarriages COVID-19 virus infection Encounter to establish care (~03/2021) HIV exposure Surgical History S/P cubital tunnel release Hx of biopsy History of wisdom tooth extraction Family History Family History Mother Substance use disorder Mental health disorder Father Cancer Social History Social History Housing: House Alcohol intake: current Alcohol intake frequency: holidays/special occasions only Patient Tobacco Use Status: Never used Tobacco Tobacco use type: Cigar e-Cigarette/Vaping Use: Currently Using Second Hand Smoke Exposure: No Advance Directives: No Advance Directives Information Provided: No Do you have a plan to hurt others: No Plan service: No Current occupational status: unemployed 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 She does not appear in acute distress. HENMT Other: Face is symmetrical. Pharynx is unremarkable. Tympanic membranes are normal. Tooth #18 seems to have a large gap in the middle as if a filling had fallen out. No soft tissue swelling. No trismus. Eyes Other: Pupils are round equal, conjunctivae are clear, extraocular movements intact. Neck Other: No significant cervical adenopathy. Moving her neck easily. Resp Effort & Inspection: normal respiratory effort Auscultation: clear to auscultation bilaterally Cardio Rate: regular rate Rhythm: regular rhythm Heart sounds: S1 normal heart sound present and S2 normal heart sound present Skin Other: Skin is dry and unremarkable Neuro Other: The patient is awake and alert with a normal mental status. Her demeanor is entirely nontoxic. Pupils are round, equal, and reactive to light. Extraocular movements are intact. There is no nystagmus. Face is symmetrical. Speech is clear. She moves her extremities normally with normal strength and coordination. She is neurologically intact. Extrem Other: No peripheral edema Course Course Course Narrative: RME performed by Maricarmen Nicholson PA-C. Patient is a 28 year old assigned female at presenting to the emergency department with body aches. Patient states her child is sick and she has been having body aches. Detailed physical exam and review of systems are deferred to the enrollment consultant. Swabs ordered. Patient placed back in the waiting room pending room availability and results. Medications Administered Discontinued Medications Generic Name Dose Route Start Last Admin Trade Name Freq PRN Reason Stop Dose Admin Amoxicillin 500 mg 10/17/23 23:28 10/17/23 23:34 Amoxicillin 500 Mg Capsule PO 10/17/23 23:29 500 mg ONCE ONE Administration Medical Decision Making Medical Decision Making [facility] Narrative: The patient is a 28-year-old female. Both she and her 8-year-old daughter were checked in as patients. I saw the daughter as well. Daughter seemed to have a viral respiratory illness. The patient may also have a viral respiratory illness. Her viral swab is negative. Her rapid strep is negative. The patient is also complaining of pain related to tooth #18 where I think a filling has fallen out. She will be placed on a course of amoxicillin. She says that the dental work has been done at the [facility]. She says the dentist who did her previous work has left the state. She is having trouble following up. She is encouraged to contact the [facility]. Lab Data Labs: Lab Results 10/17/23 Range/Units 19:21 Influenza Type A (PCR) NEGATIVE (Negative) Influenza Type B (PCR) NEGATIVE (Negative) RSV RNA Qual (PCR) NEGATIVE (Negative) SARS-CoV-2 RNA (RT-PCR) NEGATIVE (Negative) S. pyogenes GrpA MARK Negative (Negative) Discharge Plan Discharge Clinical Impression: Pain, dental, Body aches Patient Disposition: Home, Self-Care Additional Instructions: Please do your best to try to follow up with the [facility] or the [facility] for a dental appointment for your left lower tooth. Please take the amoxicillin 3 times a day as prescribed. You have tested negative for COVID, RSV, and influenza. You have also tested negative for strep throat. You may use ibuprofen and acetaminophen as needed for discomfort. Please follow up with your regular doctor for these other symptoms if they persist. Return to the emergency room if significantly worse. Prescriptions: New amoxicillin 500 mg capsule 500 mg PO TID 7 Days Qty: 21 0RF No Action epinephrine [EpiPen 2-Edward] 0.3 mg/0.3 mL auto-injector 0.3 mg IM Q4H PRN (Reason: anaphylaxis) 30 Days Qty: 2 4RF Rx Instructions: practice injector as well if available please omeprazole 20 mg capsule,delayed release(DR/EC) 20 mg PO DAILY PRN (Reason: for heartburn) Qty: 90 0RF cholecalciferol (vitamin D3) 50 mcg (2,000 unit) capsule 50 mcg PO DAILY 90 Days Qty: 90 1RF fluticasone propionate [Flonase Allergy Relief] 50 mcg/actuation spray,suspension 1 spray intranasal BID Qty: 16 3RF Rx Instructions: administer into each nostril loratadine 10 mg tablet 10 mg PO DAILY Qty: 30 3RF folic acid 1 mg tablet 1 mg PO DAILY 90 Days Qty: 90 1RF mecobalamin (vitamin B12) 1,000 mcg tablet,chewable 1,000 mcg PO DAILY 90 Days Qty: 90 1RF gabapentin 300 mg capsule 300 mg PO BID 30 Days Qty: 60 3RF clotrimazole 1 % cream 1 appl topical BID 28 Days Qty: 30 0RF albuterol sulfate 90 mcg/actuation HFA aerosol inhaler 2 inh inhalation Q6-8H PRN (Reason: shortness of breath or wheezing) Qty: 6.7 0RF clindamycin phosphate 2 % cream 1 appful vaginal BEDTIME 7 Days Qty: 5 0RF Rx Instructions: for 7 days diphenhydramine HCl [Benadryl Allergy] 25 mg tablet 50 mg PO TID PRN (Reason: allergic reaction) Qty: 14 0RF clobetasol 0.05 % ointment 1 appl topical BID 7 Days Qty: 15 0RF ibuprofen 800 mg tablet 800 mg PO TID PRN (Reason: pain) Qty: 20 0RF amoxicillin 500 mg capsule 500 mg PO BID 10 Days Qty: 20 0RF amoxicillin-pot clavulanate 875-125 mg tablet 1 tab PO BID 10 Days Qty: 20 0RF hydrocortisone 2.5 % cream 1 appl topical BID Qty: 20 0RF (DME) Knee brace Misc See Rx Instructions .Route Qty: 1 0RF Rx Instructions: As directed diclofenac sodium [Voltaren Arthritis Pain] 1 % gel 2 g topical QID Qty: 100 0RF Rx Instructions: apply to single elbow, wrist or hand; for hand includes palm/fingers/back of hand valacyclovir 500 mg tablet 1,000 mg PO DAILY 90 Days Qty: 180 1RF triamcinolone acetonide 0.025 % cream 1 appl topical DAILY PRN (Reason: psoriasis) 14 Days Qty: 15 0RF azelastine 137 mcg (0.1 %) aerosol,spray intranasal baclofen 10 mg tablet 10 mg PO TID 30 Days Qty: 90 0RF magnesium glycinate 100 mg tablet 200 mg PO DAILY 30 Days Qty: 60 6RF riboflavin (vitamin B2) 400 mg tablet 400 mg PO DAILY 30 Days Qty: 30 6RF medroxyprogesterone 400 mg/mL syringe IM miconazole nitrate [Miconazole-7] 2 % cream 1 appful vaginal BEDTIME 7 Days Qty: 45 3RF Referrals: [facility] [Provider Group] (Dental pain) Maeve Woodard MD [Primary Care Provider] - (body aches) Interventions: ED Discharge Assessment Last Done: 10/17/23 23:52 Discharge Date/Time: 10/17/23 23:52 Print Language: Mozambican
[2023-10-17 18:56] VITALS: BP 123/80; PULSE 99; RESP 17; TEMP 36.6; O2SAT 97; BMI 30.4
[2023-10-17 19:53] LABS: IDNOW Serial# 6674DD1D; Strep A Nucleic Acid Negative (Negative)
[2023-10-17 20:11] LABS: Influenza A PCR NEGATIVE (Negative); Influenza B PCR NEGATIVE (Negative); Resp Syncy Virus RNA Qual PCR NEGATIVE (Negative); SARS COV2 PCR INHOUSE NEGATIVE (Negative)
[2023-10-17 22:34] VITALS: BP 121/82; PULSE 74; RESP 16; TEMP 36.7; O2SAT 98
[2023-10-17] MEDS: Amoxicillin 500 MG CAPSULE PO (23:34)
[2023-10-17 23:52] VITALS: BP 121/82; PULSE 74; RESP 16; TEMP 36.7; O2SAT 98
== END 2023-10-17 23:52 | disposition home or self-care (01) ==
PROVIDERS: Physician Assistant Medical; Emergency Provider Emergency Medicine; PCP Internal Medicine
DX: M79.10 Myalgia, unspecified site (principal); R51.9 Headache, unspecified; K08.89 Other specified disorders of teeth and supporting structures; Z03.818 Encounter for observation for suspected exposure to other biological agents ruled out
CPT/HCPCS: 0241U; 87651; 99283

== ENCOUNTER 2023-11-17 13:41 | Outpatient (AMB) | payer MEDICARE, MEDICAID, SELFPAY ==
[2023-11-17 13:53] VITALS: BP 112/70; BMI 31.4
--- NOTE | 2023-11-17 13:53 | A.OFFVIS_ITS ---
Vital Signs 11/17/23 13:53 Height 5 ft 5 in Weight 189 lb BMI 31.4 BP 112/70 Intake Visit Reasons: STD Testing Assemblies And Installations Inspector Required: No Information Interpreted: clinical only Baked And Graphite Inspector: Baked And Graphite Inspector Present Allergies Seasonal Allergies Allergy (Mild, Verified 11/17/23 13:54) Unknown metronidazole [From FLAGYL] Allergy (Unknown, Verified 11/17/23 13:54) Hives duloxetine Adverse Reaction (Verified 11/17/23 13:54) Nausea Medication List - Last Reconciled 11/17/23 by Florence Vora CNM albuterol sulfate 90 mcg/actuation 2 inhalations inhalation Q6-8H PRN azelastine intranasal baclofen 10 mg PO TID 30 days cholecalciferol (vitamin D3) 50 mcg PO DAILY 90 days clindamycin phosphate 2% 1 appful vaginal BEDTIME 7 days clobetasol 0.05% 1 appl topical BID 1 week clotrimazole 1% 1 appl topical BID 4 weeks diclofenac sodium 1% (Voltaren Arthritis Pain) 2 grams topical QID diphenhydramine HCl (Benadryl Allergy) 50 mg (2 x 25 mg) PO TID PRN epinephrine (EpiPen 2-Edward) 0.3 mg (0.3 mL) IM Q4H PRN 1 month fluticasone propionate 50 mcg/actuation (Flonase Allergy Relief) 1 spray intranasal BID folic acid 1 mg PO DAILY 90 days gabapentin 300 mg PO BID 30 days hydrocortisone 2.5% 1 appl topical BID ibuprofen 800 mg PO TID PRN Knee brace As directed loratadine 10 mg PO DAILY magnesium glycinate 200 mg (2 x 100 mg) PO DAILY 30 days mecobalamin (vitamin B12) 1,000 mcg PO DAILY 90 days medroxyprogesterone mg IM miconazole nitrate 2% (Miconazole-7) 1 appful vaginal BEDTIME 7 days omeprazole 20 mg PO DAILY PRN riboflavin (vitamin B2) 400 mg PO DAILY 30 days triamcinolone acetonide 0.025% 1 appl topical DAILY PRN 2 weeks valacyclovir 1,000 mg (2 x 500 mg) PO DAILY 90 days Is last menstrual period known: No (depo) HPI HPI STD Testing: Details: Patient is here because she wants to get checked for STIs she also sites complicated history of not feeling well. She says she had been having diarrhea for last 3 months. She has a stool sample kit in her car but she has not brought herself to do it yet. She is nauseous all the time she is worried that she might have caught a STI from someone she slept with 2 weeks ago it feels to her like when she had chlamydia she also had trichomoniasis in the past and she is allergic to Flagyl so she had to be put in the hospital to get the dose of Flagyl along with Benadryl and prednisone and recounted having the IV not work and feeling some allergic symptoms but wanting to get out of there and denying them, so she could get out of there and she broke out in hives still at the end of the course of the Flagyl at home. She does not feel like it is trich. She does not like using condoms. She cites a diet that is varied from home and outside preparation. She voices depression when I asked her about this she said she has a diagnosis of depression but she has a therapist and she does talk to her and that I was not to worry. She keeps feeling though that something is wrong and she gets pain and bloating in her upper abdomen and she feels like no body's able to tell her what is wrong and that is frustrating. She voiced when I and they do an autopsy that is when they'll figure out what is wrong with me She says she had some test in the hospital but was told that she was fine and she feels like everyone keeps telling her she is fine when she is not. [facility] Medical History (Updated 11/17/23 @ 15:07 by Florence Vora CNM) Chlamydia infection control counseling Yeast infection involving the vagina and surrounding area Pain of right scapula Visit for suture removal Dextroscoliosis of lumbar spine Status post fall Mid back pain Well woman exam with routine gynecological exam Screen for sexually transmitted diseases Cervical cancer screening Breast pain, right Physical exam Lumbar radiculopathy Lumbar spondylosis Polyarthralgia Pain in both feet Injury of toe on right foot Preoperative clearance Jaw pain Pain in right elbow Paresthesia of hand, bilateral Abdominal pain Left ankle pain Bilateral leg edema Lymphadenopathy Incidental lung nodule, > 3mm and < 8mm Low vitamin D level Bug bite Anxiety and depression Neck mass Rib pain on right side Muscle spasms of neck Paresthesia and pain of both upper extremities Cervicalgia Upper respiratory tract infection Atopic reaction Allergic reaction Mass in neck Thrush, oral Muscle twitch Muscle spasm Shortness of breath Adenopathy Left shoulder pain Immunization due Nonimmune to hepatitis B virus Numbness and tingling of both legs Tinnitus Sore throat Upper respiratory tract infection Depo-Provera contraceptive status Screening for eye condition Routine screening for STI (sexually transmitted infection) Cervicalgia Headache Vision changes Chest pain Nausea and vomiting Hematochezia Abdominal pain Back pain Lung nodules Borderline personality disorder Depression Bipolar 1 disorder ADHD Low vitamin D level GERD (gastroesophageal reflux disease) Asthma History of multiple miscarriages COVID-19 virus infection Encounter to establish care (~03/2021) HIV exposure Surgical History S/P cubital tunnel release Hx of biopsy History of wisdom tooth extraction Family History Mother Substance use disorder Mental health disorder Father Cancer Social History Housing: House Alcohol intake: current Alcohol intake frequency: holidays/special occasions only Patient Tobacco Use Status: Never used Tobacco Tobacco use type: Cigar e-Cigarette/Vaping Use: Currently Using Second Hand Smoke Exposure: No service: No Current occupational status: unemployed 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 External Female Exam: normal external appearance Speculum Exam - Vagina: normal appearance of the vagina and normal vaginal discharge Speculum Exam - Cervix: normal appearance of the cervix Bimanual exam- vagina & uterus: normal bimanual exam, uterine size normal, consistency normal, uterine mobility normal, uterine shape normal and non-tender Bimanual Exam- Adnexa, other: normal adnexae, no masses and No adnexal tenderness Results Reviewed Results Reviewed: Name: AntionetteArgelia Age/Sex: 27/F Attending: Florence Vora CNM : 1995 Submitted by: Florence Vora CNM Copies to: Maeve Woodard MD MR #: [id number] Status: DEP REF Collected: 04/09/22 Location: [facility] Received: 04/12/22 Interpretation Satisfactory for evaluation. Negative for intraepithelial lesion or malignancy. Clinical Information LMP: Unknown Previous PAP test: Unknown, WNL Material Received ThinPrep-Cervical Copies To Florence Vora CNM [address] [place] [address] [address]. [address] [place] [address] Maeve Woodard MD [address] [place] [address] [address]. [address] [place] [address] Electronically Signed By: Bri Banerjee 04/24/22 1229 The Pap Test is a screening procedure with the inherent possibility of both false negative and false positive results. Results should be interpreted in the context of historic and current clinical findings. Reliability of the Pap Test is enhanced by performing the test on a regular repetitive basis. Patient: Argelia Adan Age/Sex: 27/F MR#: [id number] Page 1 of 1 Assessment & Plan Assessment & Plan (1) Moderate recurrent major depression: Code(s): F33.1 - Major depressive disorder, recurrent, moderate Category: Medical (2) control counseling: Comment: [facility] around January 20, 2022, due for next around 2022, Code(s): Z30.09 - Encounter for other general counseling and advice on contraception Category: Medical (3) Chlamydia infection: Comment: Diagnosed 04/09/2022 and treated however patient never took medication medication prescribed again 07/07/2022 need test of cure in future.; patient says she was treated for this but believes she may have the same symptoms again she had unprotected intercourse 2 weeks ago and is concerned testing done today she will await the results.... Code(s): A74.9 - Chlamydial infection, unspecified Category: Medical (4) Encounter for screening examination for sexually transmitted disease: Code(s): Z11.3 - Encounter for screening for infections with a predominantly sexual mode of transmission Category: Medical (5) Chronic diarrhea: Code(s): K52.9 - Noninfective gastroenteritis and colitis, unspecified Category: Medical Plan Patient is here because she wants to get checked for STIs she also sites complicated history of not feeling well. She says she had been having diarrhea for last 3 months. She has a stool sample kit in her car but she has not brought herself to do it yet. She is nauseous all the time she is worried that she might have caught a STI from someone she slept with 2 weeks ago it feels to her like when she had chlamydia she also had trichomoniasis in the past and she is allergic to Flagyl so she had to be put in the hospital to get the dose of Flagyl along with Benadryl and prednisone and recounted having me IV not work and feeling some allergic symptoms but wanting to get out of there and denying them so she could get out of there and she broke out in hives still at the end of the course of the Flagyl at home. She does not feel like it is trich. She does not like using condoms. She cites a diet that is varied from home and outside preparation. She voices depression when I asked her about this she said she has a diagnosis of depression but she has a therapist and she does talked to her and that I was not to worry. She keeps feeling though that something is wrong and she gets pain and bloating in her upper abdomen and she feels like no body's able to tell her what is wrong and that is frustrating. She says she had some test in the hospital but was told that she was fine and she feels like a 1 keeps telling her she is fine when she is not. -lengthy visit discussing all of her symptoms and worries and concerns discussed the possibility of some bacterial contamination of her food perhaps listeria or some other pathogen. Suggested ordering stool sample however patient says she is already has the kit in her car and just has not brought herself to be able to do it yet. When placing orders it was evident that there was even a test for C diff the system. We will send a UA C&S. I did offer to treat her empirically while we await testing, as the urine culture would not even be ready until Tuesday or Tuesday, but she did not really think that it was that. She has a history of a severe allergic reaction to Flagyl, so she is and I are both hoping it is not trich. she says she feels like it might be chlamydia again. We will await testing. she is on the portal so she can gain access to her results tomorrow and if she does have chlamydia she will be treated. She says she has a therapist and does have support. she is eating. discussed eating lightly with lots of clear fluids while her GI system is dealing with what ever is going on and safety in food and drinking fluids she likes vitamin water and cranberry juice. I ordered testing for her for STIs that she will do at her leisure. Orders: Orders CT NG by PCR Today N89.8 - Other specified noninflammatory disorders of vagina, Z20.2 - Contact with and (suspected) exposure to infections with a predominantly sexual mode of transmission Bacterial Vaginosis Panel Today N89.8 - Other specified noninflammatory disorders of vagina HIV Ab/Ag Today A74.9 - Chlamydial infection, unspecified, F33.1 - Major depressive disorder, recurrent, moderate, K52.9 - Noninfective gastroenteritis and colitis, unspecified, Z11.3 - Encounter for screening for infections with a predominantly sexual mode of transmission, Z30.09 - Encounter for other general counseling and advice on contraception Hepatitis C Antibody Today A74.9 - Chlamydial infection, unspecified, F33.1 - Major depressive disorder, recurrent, moderate, K52.9 - Noninfective gastroenteritis and colitis, unspecified, Z11.3 - Encounter for screening for infections with a predominantly sexual mode of transmission, Z30.09 - Encounter for other general counseling and advice on contraception Hepatitis B Surface Antigen Today A74.9 - Chlamydial infection, unspecified, F33.1 - Major depressive disorder, recurrent, moderate, K52.9 - Noninfective gastroenteritis and colitis, unspecified, Z11.3 - Encounter for screening for infections with a predominantly sexual mode of transmission, Z30.09 - Encounter for other general counseling and advice on contraception Urine Culture Today N94.89 - Other specified conditions associated with female genital organs and menstrual cycle Syphilis Screen Today A74.9 - Chlamydial infection, unspecified, F33.1 - Major depressive disorder, recurrent, moderate, K52.9 - Noninfective gastroenteritis and colitis, unspecified, Z11.3 - Encounter for screening for infections with a predominantly sexual mode of transmission, Z30.09 - Encounter for other general counseling and advice on contraception Coding Level of Care Code Est Pt Level 3 (52524) Complex EM visit Add On G2211 Diagnoses Moderate recurrent major depression F33.1 control counseling Z30.09 Chlamydia infection A74.9 Encounter for screening examination for sexually transmitted disease Z11.3 Chronic diarrhea K52.9 Time Spent (min) 45 Comment Complex visit exploring patient's many concerns as noted
== END 2023-11-17 15:05 | disposition home or self-care (01) ==
LOC: HO.HWSM 13:42
PROVIDERS: PCP Internal Medicine; Visit Provider Advanced Practice Midwife
DX: Z30.09 Encounter for other general counseling and advice on contraception (principal); A74.9 Chlamydial infection, unspecified; F33.1 Major depressive disorder, recurrent, moderate
CPT/HCPCS: 99213; G2211

== ENCOUNTER 2023-11-17 13:41 | Outpatient (REF) | payer MEDICARE, MEDICAID, SELFPAY ==
[2023-11-18 05:09] LABS: CT PCR NOT DETECTED (Not Detect.); NG PCR NOT DETECTED (Not Detect.)
[2023-11-18 11:34] LABS: Bacterial Vaginosis PCR POSITIVE (Negative); Candida Group PCR NOT DETECTED (Not Detect); Candida glab krusei PCR NOT DETECTED (Not Detect); Trichomonas vaginalis PCR NOT DETECTED (Not Detect)
== END 2023-11-17 13:42 | disposition home or self-care (01) ==
LOC: HO.LNP 13:41
PROVIDERS: PCP Internal Medicine; Visit Provider Advanced Practice Midwife
DX: N89.8 Other specified noninflammatory disorders of vagina (principal); N94.89 Other specified conditions associated with female genital organs and menstrual cycle; Z20.2 Contact with and (suspected) exposure to infections with a predominantly sexual mode of transmission; F33.1 Major depressive disorder, recurrent, moderate; Z30.09 Encounter for other general counseling and advice on contraception; A74.9 Chlamydial infection, unspecified; Z11.3 Encounter for screening for infections with a predominantly sexual mode of transmission; K52.9 Noninfective gastroenteritis and colitis, unspecified
CPT/HCPCS: 0352U; 87086; 87491; 87591; 99212

== ENCOUNTER 2023-11-17 14:42 | Outpatient (REF) | payer MEDICARE, MEDICAID, SELFPAY | END 2023-11-17 14:43 | disposition home or self-care (01) | LOC: HO.LAB 14:42 | PROVIDERS: Visit Provider Advanced Practice Midwife | DX: Z13.89 Encounter for screening for other disorder (principal) ==

== ENCOUNTER 2024-01-30 09:12 | Emergency (ER) | payer MEDICARE, MEDICAID, SELFPAY ==
[2024-01-30 09:15] VITALS: BP 135/91; PULSE 74; RESP 18; TEMP 36.8; O2SAT 99; BMI 32.8
--- NOTE | 2024-01-30 09:27 | ED_ITS ---
HPI - General Adult General Chief complaint: General Medical Stated complaint: Neck pain Time Seen by Provider: 01/30/24 09:27 Source: patient Mode of arrival: ambulatory Limitations: no limitations History of Present Illness ED Provider: Flory Ware PA-C HPI narrative: 28 yo female with history of anxiety, fibromyalgia, PTSD, bipolar disorder, depression, asthma, chronic pain who presents to the ER for evaluation of left sided neck pain that started acutely this morning when she was doing her hair. She reports when she went to pull her hair back she looked down and heard a crack in her neck and had immediate pain in the left side of her neck, radiating to her upper back and left shoulder. Worse with any movement or palpation. No associated headache. No trauma. She took tylenol prior to coming in with no relief. MD complaint: neck pain Onset (ago): minute(s) Location: neck Radiation: back and extremity Severity: severe Severity scale (1-10): 10 Quality: sharp Pain Consistency: constant Relieving factors: rest Exacerbating factors: movement Associated symptoms: denies other symptoms Treatments prior to arrival: other (tylenol) Related Data Home Medications ?Medication ?Instructions ?Recorded ?Confirmed azelastine 137 mcg (0.1 %) nasal intranasal 06/03/22 11/17/23 spray medroxyprogesterone 400 mg/mL mg IM 09/01/23 11/17/23 intramuscular syringe Previous Rx's ?Medication ?Instructions ?Recorded hydrocortisone 2.5 % topical cream 1 appl topical BID #20 grams 09/15/21 diclofenac sodium 1 % topical gel 2 g topical QID #100 grams 09/28/21 (Voltaren Arthritis Pain) diphenhydramine HCl 25 mg tablet 50 mg (2 x 25 mg) PO TID PRN 01/07/22 (Benadryl Allergy) allergic reaction #14 tabs epinephrine 0.3 mg/0.3 mL 0.3 mg (0.3 mL) IM Q4H PRN 01/07/22 injection, auto-injector (EpiPen anaphylaxis 1 month #2 ea 2-Edward) valacyclovir 500 mg tablet 1,000 mg (2 x 500 mg) PO DAILY 90 04/07/22 days #180 tabs baclofen 10 mg tablet 10 mg PO TID muscle spasm 30 days 06/03/22 #90 tabs magnesium glycinate 100 mg (as 200 mg (2 x 100 mg) PO DAILY 06/03/22 glycinate) tablet migraine 30 days #60 tabs riboflavin (vitamin B2) 400 mg 400 mg PO DAILY migraine headache 06/03/22 tablet 30 days #30 tabs cholecalciferol (vitamin D3) 50 50 mcg PO DAILY 90 days #90 caps 10/12/22 mcg (2,000 unit) capsule omeprazole 20 mg capsule,delayed 20 mg PO DAILY PRN for heartburn 10/12/22 release #90 caps triamcinolone acetonide 0.025 % 1 appl topical DAILY PRN psoriasis 10/12/22 topical cream 2 weeks #15 grams fluticasone propionate 50 1 spray intranasal BID #16 grams 10/13/22 mcg/actuation nasal spray,suspension (Flonase Allergy Relief) loratadine 10 mg tablet 10 mg PO DAILY #30 tabs 10/13/22 folic acid 1 mg tablet 1 mg PO DAILY 90 days #90 tabs 10/17/22 mecobalamin (vitamin B12) 1,000 1,000 mcg PO DAILY 90 days #90 tabs 10/17/22 mcg chewable tablet gabapentin 300 mg capsule 300 mg PO BID pain 30 days #60 caps 10/25/22 clotrimazole 1 % topical cream 1 appl topical BID 4 weeks #30 10/26/22 grams ibuprofen 800 mg tablet 800 mg PO TID PRN pain #20 tabs 11/02/22 albuterol sulfate 90 mcg/actuation 2 inh inhalation Q6-8H PRN 11/14/22 aerosol inhaler shortness of breath or wheezing #6.7 grams clobetasol 0.05 % topical ointment 1 appl topical BID 1 week #15 grams 05/11/23 miconazole nitrate 2 % vaginal 1 appful vaginal BEDTIME 7 days 08/16/23 cream (Miconazole-7) #45 grams Knee brace #1 ea 08/31/23 clindamycin phosphate 2 % vaginal 1 appful vaginal BEDTIME 7 days #5 11/21/23 cream grams fluconazole 150 mg tablet 150 mg PO Q3D 2 doses #2 tabs 11/21/23 cyclobenzaprine 10 mg tablet 10 mg PO TID PRN muscle spasm #10 01/30/24 tabs lidocaine 5 % topical patch 1 patch topical DAILY #15 ea 01/30/24 naproxen 500 mg tablet 500 mg PO BID PRN pain #20 tabs 01/30/24 Allergies Allergy/AdvReac Type Severity Reaction Status Date / Time Seasonal Allergies Allergy Mild Unknown Verified 01/30/24 09:17 metronidazole [From FLAGYL] Allergy Unknown Hives Verified 01/30/24 09:17 duloxetine AdvReac Nausea Verified 01/30/24 09:17 Review of Systems Review of Systems: Yes all other systems are reviewed and are negative [facility] Past Medical History Medical History (Updated 01/30/24 @ 09:47 by SERGIO Damon) Chlamydia infection control counseling Yeast infection involving the vagina and surrounding area Pain of right scapula Visit for suture removal Dextroscoliosis of lumbar spine Status post fall Mid back pain Well woman exam with routine gynecological exam Screen for sexually transmitted diseases Cervical cancer screening Breast pain, right Physical exam Lumbar radiculopathy Lumbar spondylosis Polyarthralgia Pain in both feet Injury of toe on right foot Preoperative clearance Jaw pain Pain in right elbow Paresthesia of hand, bilateral Abdominal pain Left ankle pain Bilateral leg edema Lymphadenopathy Incidental lung nodule, > 3mm and < 8mm Low vitamin D level Bug bite Anxiety and depression Neck mass Rib pain on right side Muscle spasms of neck Paresthesia and pain of both upper extremities Cervicalgia Upper respiratory tract infection Atopic reaction Allergic reaction Mass in neck Thrush, oral Muscle twitch Muscle spasm Shortness of breath Adenopathy Left shoulder pain Immunization due Nonimmune to hepatitis B virus Numbness and tingling of both legs Tinnitus Sore throat Upper respiratory tract infection Depo-Provera contraceptive status Screening for eye condition Routine screening for STI (sexually transmitted infection) Cervicalgia Headache Vision changes Chest pain Nausea and vomiting Hematochezia Abdominal pain Back pain Lung nodules Borderline personality disorder Depression Bipolar 1 disorder ADHD Low vitamin D level GERD (gastroesophageal reflux disease) Asthma History of multiple miscarriages COVID-19 virus infection Encounter to establish care (~03/2021) HIV exposure Surgical History S/P cubital tunnel release Hx of biopsy History of wisdom tooth extraction Family History Family History Mother Substance use disorder Mental health disorder Father Cancer Social History Social History Housing: House Alcohol intake: current Alcohol intake frequency: holidays/special occasions only Patient Tobacco Use Status: Never used Tobacco Tobacco use type: Cigar e-Cigarette/Vaping Use: Currently Using Second Hand Smoke Exposure: No Advance Directives: No Advance Directives Information Provided: Yes Do you have a plan to hurt others: No Plan service: No Current occupational status: unemployed 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 Oriented X3. No acute distress. Head: normocephalic, atraumatic. Eyes: Pupils equal, round and reactive to light. ENT: Pharynx normal. No tonsillar swelling or exudate. Neck: Appears tense. Neck supple. left lateral and left posterior soft tissue tenderness with associated spasm. nontender cervical spine. pain with flexion of the neck and right rotation. CVS: Normal heart rate and rhythm. Pulses normal. Respiratory: No respiratory distress. Breath sounds normal. Skin: Skin warm and dry. Normal skin color. Normal skin turgor. No rashes. Extremities: No lower extremity edema. No joint swelling. Limited ROM of the LUE due to pain. Neuro/psych: Oriented X 3. No motor deficit. No sensory deficit. CN II-XII intact. Normal speech and cognition. Medications Administered Discontinued Medications Generic Name Dose Route Start Last Admin Trade Name Yadiel PRN Reason Stop Dose Admin Cyclobenzaprine HCl 10 mg 01/30/24 09:39 01/30/24 09:56 Cyclobenzaprine Hcl 10 Mg Tablet PO 01/30/24 09:40 10 mg ONCE ONE Administration Ketorolac Tromethamine 30 mg 01/30/24 09:39 01/30/24 09:55 Ketorolac Tromethamine 30 Mg/Ml Vial IM 01/30/24 09:40 30 mg ONCE ONE Administration Lidocaine 1 patch 01/30/24 09:39 01/30/24 09:54 Lidocaine 4 % Patch Adh..Patch TRANSDERMA 01/30/24 09:40 1 patch ONCE ONE Administration Protocol Oxycodone HCl 5 mg 01/30/24 09:39 01/30/24 09:56 Oxycodone Hcl Immed Release 5 Mg Tablet PO 01/30/24 09:40 5 mg ONCE ONE Administration Medical Decision Making Medical Decision Making MDM Narrative: 28 yo female w/ hx PTSD, fibromyalgia, chronic pain, bipolar, anxiety/depression presenting with acute left sided neck pain that started this morning while doing her hair. Low suspicion for acute fracture or subluxation. Doubt dissection. She has palpable spasm and soft tissue tenderness on exam. Clinical presentation is most c/w acute muscle strain and spasm, possible radiculopathy. will treat with nsaids, muscle relaxers. gentle ROM and massage. she will f/u with her PCP patient also reports 6 months of liquid stools. has seen gastroenterology but needs to follow up. she was supposed to send in a stool sample but never did. she denies vomiting. has been diagnosed with IBS. will refer back to her PCP and gastroenerology for further evaluatoin and treatment. Differential Diagnosis Differential Diagnoses: The differential diagnosis associated with the p resentation includes cervical muscle strain, cervical radiculopathy, doubt dissection or acute cervical fracture External Record Review External record reviewed: Office record, Outpatient record, Prior outpatient labs and Prior outpatient radiology Tests considered The following testing was considered but not selected: considered xr cervical spine but no trauma Prescription Management I considered prescription management with: Pain Medication Chronic Conditions Patient?s care impacted by: Other (chronic pain syndrome, fibromyalgia) Critical Care Time Critical Care Time Critical Care Time: No Discharge Plan Discharge Clinical Impression: Cervical muscle strain Qualifiers: Encounter type: initial encounter Qualified Code(s): S16.1XXA - Strain of muscle, fascia and tendon at neck level, initial encounter Patient Disposition: Home, Self-Care Instructions: Cervical Strain (DC), Cervical Radiculopathy (ED) Additional Instructions: Your pain is most likely due to muscle strain and spasm. No bending, lifting or twisting. Use ice alternating with head several times per day for 20 minutes at a time for the next 48 hours. Take medications as prescribed to help with pain and discomfort. Follow up with your Primary Care Doctor this week. Follow back up with Gastroenterology for further evaluation and treatment of your GI symptoms. Keep a food diary to see if there is correlation of your symptoms with any food groups. If you develop new or worsening symptoms call 911 or come back to the ER for further evaluation. Prescriptions: New cyclobenzaprine 10 mg tablet 10 mg PO TID PRN (Reason: muscle spasm) Qty: 10 0RF lidocaine 5 % adhesive patch,medicated 1 patch topical DAILY Qty: 15 0RF Rx Instructions: leave on most painful area for up to 12 hrs naproxen 500 mg tablet 500 mg PO BID PRN (Reason: pain) Qty: 20 0RF No Action epinephrine [EpiPen 2-Edward] 0.3 mg/0.3 mL auto-injector 0.3 mg IM Q4H PRN (Reason: anaphylaxis) 30 Days Qty: 2 4RF Rx Instructions: practice injector as well if available please omeprazole 20 mg capsule,delayed release(DR/EC) 20 mg PO DAILY PRN (Reason: for heartburn) Qty: 90 0RF cholecalciferol (vitamin D3) 50 mcg (2,000 unit) capsule 50 mcg PO DAILY 90 Days Qty: 90 1RF fluticasone propionate [Flonase Allergy Relief] 50 mcg/actuation spray,suspension 1 spray intranasal BID Qty: 16 3RF Rx Instructions: administer into each nostril loratadine 10 mg tablet 10 mg PO DAILY Qty: 30 3RF folic acid 1 mg tablet 1 mg PO DAILY 90 Days Qty: 90 1RF mecobalamin (vitamin B12) 1,000 mcg tablet,chewable 1,000 mcg PO DAILY 90 Days Qty: 90 1RF gabapentin 300 mg capsule 300 mg PO BID 30 Days Qty: 60 3RF clotrimazole 1 % cream 1 appl topical BID 28 Days Qty: 30 0RF albuterol sulfate 90 mcg/actuation HFA aerosol inhaler 2 inh inhalation Q6-8H PRN (Reason: shortness of breath or wheezing) Qty: 6.7 0RF clindamycin phosphate 2 % cream 1 appful vaginal BEDTIME 7 Days Qty: 5 0RF Rx Instructions: for 7 days fluconazole 150 mg tablet 150 mg PO Q3D 0 Days Qty: 2 0RF Rx Instructions: may repeat second dose 72 hrs after first dose if symptoms persist diphenhydramine HCl [Benadryl Allergy] 25 mg tablet 50 mg PO TID PRN (Reason: allergic reaction) Qty: 14 0RF clobetasol 0.05 % ointment 1 appl topical BID 7 Days Qty: 15 0RF ibuprofen 800 mg tablet 800 mg PO TID PRN (Reason: pain) Qty: 20 0RF hydrocortisone 2.5 % cream 1 appl topical BID Qty: 20 0RF (DME) Knee brace Misc See Rx Instructions .Route Qty: 1 0RF Rx Instructions: As directed diclofenac sodium [Voltaren Arthritis Pain] 1 % gel 2 g topical QID Qty: 100 0RF Rx Instructions: apply to single elbow, wrist or hand; for hand includes palm/fingers/back of hand valacyclovir 500 mg tablet 1,000 mg PO DAILY 90 Days Qty: 180 1RF triamcinolone acetonide 0.025 % cream 1 appl topical DAILY PRN (Reason: psoriasis) 14 Days Qty: 15 0RF azelastine 137 mcg (0.1 %) aerosol,spray intranasal baclofen 10 mg tablet 10 mg PO TID 30 Days Qty: 90 0RF magnesium glycinate 100 mg tablet 200 mg PO DAILY 30 Days Qty: 60 6RF riboflavin (vitamin B2) 400 mg tablet 400 mg PO DAILY 30 Days Qty: 30 6RF medroxyprogesterone 400 mg/mL syringe IM miconazole nitrate [Miconazole-7] 2 % cream 1 appful vaginal BEDTIME 7 Days Qty: 45 3RF Referrals: [facility] [Provider Group] Maeve Woodard MD [Primary Care Provider] - Print Language: Cypriot
[2024-01-30] MEDS: Lidocaine 4 % Patch ADH..PATCH 1 PATCH TRANSDERMA (09:54)
[2024-01-30] MEDS: Ketorolac Tromethamine 30 MG/ML VIAL IM (09:55)
[2024-01-30] MEDS: oxyCODONE HCl Immed Release 5 MG TABLET PO (09:56)
[2024-01-30] MEDS: Cyclobenzaprine HCl 10 MG TABLET PO (09:56)
[2024-01-30 10:56] VITALS: BP 135/91; PULSE 74; RESP 18; TEMP 36.8; O2SAT 99
== END 2024-01-30 10:56 | disposition home or self-care (01) ==
PROVIDERS: Emergency Provider Emergency Medicine; PCP Internal Medicine
DX: S16.1XXA Strain of muscle, fascia and tendon at neck level, initial encounter (principal); X58.XXXA Exposure to other specified factors, initial encounter; Z79.899 Other long term (current) drug therapy; Y93.9 Activity, unspecified; Y92.9 Unspecified place or not applicable; Y99.9 Unspecified external cause status
CPT/HCPCS: 96372; 99283; 99284; J1885

== ENCOUNTER 2024-02-14 10:42 | Outpatient (AMB) | payer MEDICARE, MEDICAID, SELFPAY ==
--- NOTE | 2024-02-14 10:51 | MHC.OFFVIS ---
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: Outsole Cementer Machine Present Allergies Seasonal Allergies Allergy (Mild, Verified 02/14/24 10:55) Unknown metronidazole [From FLAGYL] Allergy (Unknown, Verified 02/14/24 10:55) Hives duloxetine Adverse Reaction (Verified 02/14/24 10:55) Nausea Medication List - Last Reconciled 02/14/24 by Florence Vora CNM albuterol sulfate 90 mcg/actuation 2 inhalations inhalation Q6-8H PRN azelastine intranasal baclofen 10 mg PO TID 30 days cholecalciferol (vitamin D3) 50 mcg PO DAILY 90 days clindamycin phosphate 2% 1 appful vaginal BEDTIME 7 days clobetasol 0.05% 1 appl topical BID 1 week clotrimazole 1% 1 appl topical BID 4 weeks cyclobenzaprine 10 mg PO TID PRN diclofenac sodium 1% (Voltaren Arthritis Pain) 2 grams topical QID diphenhydramine HCl (Benadryl Allergy) 50 mg (2 x 25 mg) PO TID PRN epinephrine (EpiPen 2-Edward) 0.3 mg (0.3 mL) IM Q4H PRN 1 month fluconazole 150 mg PO Q3D 2 doses fluticasone propionate 50 mcg/actuation (Flonase Allergy Relief) 1 spray intranasal BID folic acid 1 mg PO DAILY 90 days gabapentin 300 mg PO BID 30 days hydrocortisone 2.5% 1 appl topical BID ibuprofen 800 mg PO TID PRN Knee brace As directed lidocaine 5% 1 patch topical DAILY loratadine 10 mg PO DAILY magnesium glycinate 200 mg (2 x 100 mg) PO DAILY 30 days mecobalamin (vitamin B12) 1,000 mcg PO DAILY 90 days medroxyprogesterone mg IM miconazole nitrate 2% (Miconazole-7) 1 appful vaginal BEDTIME 7 days naproxen 500 mg PO BID PRN omeprazole 20 mg PO DAILY PRN riboflavin (vitamin B2) 400 mg PO DAILY 30 days triamcinolone acetonide 0.025% 1 appl topical DAILY PRN 2 weeks valacyclovir 1,000 mg (2 x 500 mg) PO DAILY 90 days Is last menstrual period known: No (depo) HPI HPI Vaginal discharge itchy & fool odor: Details: Patient is here because she has got lots of vaginal itching and her vagina feels raw and she has a discharge that has changed each day today she denies that there is any bad odor she did however have a sexual encounter where she needed to clean out her vagina vigorously after the encounter and 2 or 3 days later that is this situation said itself up. Lengthy discussion during the visit about her allergies she says she has used metronidazole gel many times with no problems or maybe just a slight irritation but that is all she is allergic Flagyl and it was repeated multiple times during the visit that metronidazole and Flagyl are exactly the same thing they are not just related to each other they are exactly the same thing so given that she does what she has experienced as a true reaction with full hives to metronidazole can not prescribe metronidazole gel for. She had trichomoniasis within the last year or so and needed to be treated in the emergency room with IV fluids during the started the treatment as well as prednisone and Benadryl she then went home to continue the treatment and she did get a little itchy inside but was able to continue the treatment with Co treating along with the Benadryl as per the ER instructions. She has also had other infections such as chlamydia and had an experience ones where it did continue to be found rectally but had been treated and was not found vaginally. [facility] Medical History Abdominal pain Chlamydia infection control counseling Yeast infection involving the vagina and surrounding area Pain of right scapula Visit for suture removal Dextroscoliosis of lumbar spine Status post fall Mid back pain Well woman exam with routine gynecological exam Screen for sexually transmitted diseases Cervical cancer screening Breast pain, right Physical exam Lumbar radiculopathy Lumbar spondylosis Polyarthralgia Pain in both feet Injury of toe on right foot Preoperative clearance Jaw pain Pain in right elbow Paresthesia of hand, bilateral Left ankle pain Bilateral leg edema Lymphadenopathy Incidental lung nodule, > 3mm and < 8mm Low vitamin D level Bug bite Anxiety and depression Neck mass Rib pain on right side Muscle spasms of neck Paresthesia and pain of both upper extremities Cervicalgia Upper respiratory tract infection Atopic reaction Allergic reaction Mass in neck Thrush, oral Muscle twitch Muscle spasm Shortness of breath Adenopathy Left shoulder pain Immunization due Nonimmune to hepatitis B virus Numbness and tingling of both legs Tinnitus Sore throat Upper respiratory tract infection Depo-Provera contraceptive status Screening for eye condition Routine screening for STI (sexually transmitted infection) Cervicalgia Headache Vision changes Chest pain Nausea and vomiting Hematochezia Abdominal pain Back pain Lung nodules Borderline personality disorder Depression Bipolar 1 disorder ADHD Low vitamin D level GERD (gastroesophageal reflux disease) Asthma History of multiple miscarriages COVID-19 virus infection Encounter to establish care (~03/2021) HIV exposure Surgical History S/P cubital tunnel release Hx of biopsy History of wisdom tooth extraction Family History Mother Substance use disorder Mental health disorder Father Cancer Social History Housing: House Alcohol intake: current Alcohol intake frequency: holidays/special occasions only Patient Tobacco Use Status: Never used Tobacco Tobacco use type: Cigar e-Cigarette/Vaping Use: Currently Using Second Hand Smoke Exposure: No service: No Current occupational status: unemployed 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 Cognitive needs: No Hearing needs: No Vision needs: Yes (glasses) Female Reproductive History Menstrual Age of Menarche: 13 Duration of menses: other control method: progesterone injection Total pregnancies: 3 Full term: 1 Date of last pap smear: 04/12/22 (negative) History of abnormal pap smear: No Physical Exam Vital Signs: Last Vital Signs BP 120/78 02/14/24 10:53 BMI result Body Mass Index 31.4 Assessment & Plan Assessment & Plan (1) Yeast infection involving the vagina and surrounding area: Code(s): B37.31 - Acute candidiasis of vulva and vagina Category: Medical (2) Encounter for screening examination for sexually transmitted disease: Code(s): Z11.3 - Encounter for screening for infections with a predominantly sexual mode of transmission Category: Medical (3) Recurrent HSV (herpes simplex virus): Comment: Patient desires refill for daily suppression this time. Code(s): B00.9 - Herpesviral infection, unspecified Category: Medical Plan Patient is here because she has got lots of vaginal itching and her vagina feels raw and she has a discharge that has changed each day today she denies that there is any bad odor she did however have a sexual encounter where she needed to clean out her vagina vigorously after the encounter and 2 or 3 days later that is this situation said itself up. Lengthy discussion during the visit about her allergies she says she has used metronidazole gel many times with no problems or maybe just a slight irritation but that is all she is allergic Flagyl and it was repeated multiple times during the visit that metronidazole and Flagyl are exactly the same thing they are not just related to each other they are exactly the same thing so given that she does what she has experienced as a true reaction with full hives to metronidazole can not prescribe metronidazole gel for. She had trichomoniasis within the last year or so and needed to be treated in the emergency room with IV fluids during the started the treatment as well as prednisone and Benadryl she then went home to continue the treatment and she did get a little itchy inside but was able to continue the treatment with Co treating along with the Benadryl as per the ER instructions. She has also had other infections such as chlamydia and had an experience ones where it did continue to be found rectally but had been treated and was not found vaginally. Patient today has obvious yeast in that her entire vulva is very reddened and there was a white clumpy discharge though there is also vulvar dryness patient has had itching at her vulva and she is fearful that she will end up with a herpes outbreak because this is the circumstance it sets her up for she would like refills on Valtrex as well she gets it towards the front and top of her vulva there is a tiny slit in the mucosa today that could possibly be herpetic but the patient believes it is just tiny cut from scratching. Regardless I refill her prescription for her for Valtrex which at this point she would like to take on a daily basis, and I am also prescribing clindamycin cream for p.r.n. use if she feels she has clear symptoms of bacterial infection with a foul odor that is fishy along with the unpleasant discharge. For today she needs treatment for yeast she has found that the Monistat cream tends to burn her and she has been very itchy for about 2 or 3 days so she wishes to have the Diflucan prescribed for her again I am giving her 6 refills on Diflucan for her a lot of Education was done on the generic and brand names of the medications and the metronidazole is the same thing as Flagyl and the same medication whether not it is a gel form though it is less potent they are then it by mouth form additionally miconazole as the same as Monistat. And fluconazole as the same as Diflucan. Testing done today for gonorrhea chlamydia trichomoniasis Stephanie and bacterial vaginosis she does not need to treat the bacterial vaginosis unless she has the appropriate symptoms. safer sex was addressed. In addition she does have therapist and encouragement was given to use her supports as needed. Orders: Orders Bacterial Vaginosis Panel Today N89.8 - Other specified noninflammatory disorders of vagina CT NG by PCR Today N89.8 - Other specified noninflammatory disorders of vagina Medications: New valacyclovir 1,000 mg PO DAILY 90 tabs 4RF Changed From fluconazole may repeat second dose 72 hrs after first dose if symptoms persist 150 mg PO Q3D 2 doses 2 tabs 0RF To fluconazole may repeat second dose 72 hrs after first dose if symptoms persist, USE WHEN CLEAR SYMPTOMS OF YEAST ARE PRESENT. 150 mg PO Q3D 2 doses 2 tabs 6RF From clindamycin phosphate 2% for 7 days 1 appful vaginal BEDTIME 7 days 5 grams 0RF To clindamycin phosphate 2% for 7 days; USE ONLY WHEN YOU HAVE CLEAR BV SYMPTOMS 1 appful vaginal BEDTIME 7 days 5 grams 2RF Coding Level of Care Code Est Pt Level 3 (96325) Diagnoses Yeast infection involving the vagina and surrounding area B37.31 Encounter for screening examination for sexually transmitted disease Z11.3 Recurrent HSV (herpes simplex virus) B00.9
[2024-02-14 10:53] VITALS: BP 120/78; BMI 31.4
== END 2024-02-14 12:15 | disposition home or self-care (01) ==
LOC: HO.HWSM 10:42
PROVIDERS: PCP Internal Medicine; Visit Provider Advanced Practice Midwife
DX: B37.31 Acute candidiasis of vulva and vagina (principal); Z11.3 Encounter for screening for infections with a predominantly sexual mode of transmission; B00.9 Herpesviral infection, unspecified
CPT/HCPCS: 99213

== ENCOUNTER 2024-02-14 10:42 | Outpatient (REF) | payer MEDICARE, MEDICAID, SELFPAY ==
[2024-02-15 02:55] LABS: CT PCR NOT DETECTED (Not Detect.); NG PCR NOT DETECTED (Not Detect.)
[2024-02-15 11:10] LABS: Bacterial Vaginosis PCR NEGATIVE (Negative); Candida Group PCR DETECTED (Not Detect); Candida glab krusei PCR NOT DETECTED (Not Detect); Trichomonas vaginalis PCR NOT DETECTED (Not Detect)
== END 2024-02-14 10:43 | disposition home or self-care (01) ==
LOC: HO.LAB 10:42
PROVIDERS: PCP Internal Medicine; Visit Provider Advanced Practice Midwife
DX: B37.31 Acute candidiasis of vulva and vagina (principal); N89.8 Other specified noninflammatory disorders of vagina; B00.9 Herpesviral infection, unspecified
CPT/HCPCS: 0352U; 87491; 87591; 99212

== ENCOUNTER 2024-03-27 09:36 | Outpatient (AMB) | payer MEDICARE, MEDICAID, SELFPAY ==
[2024-03-27 09:37] VITALS: BP 118/70; BMI 31.4
--- NOTE | 2024-03-27 09:37 | A.OFFVIS_ITS ---
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: Research Dairy Farm Supervisor Present Allergies Seasonal Allergies Allergy (Mild, Verified 03/27/24 09:37) Unknown metronidazole [From FLAGYL] Allergy (Unknown, Verified 02/14/24 10:55) Hives duloxetine Adverse Reaction (Verified 02/14/24 10:55) Nausea Medication List - Last Reviewed 03/27/24 by Ivon Cody CMA albuterol sulfate 90 mcg/actuation 2 inhalations inhalation Q6-8H PRN azelastine intranasal baclofen 10 mg PO TID 30 days cholecalciferol (vitamin D3) 50 mcg PO DAILY 90 days clindamycin phosphate 2% 1 appful vaginal BEDTIME 7 days clobetasol 0.05% 1 appl topical BID 1 week clotrimazole 1% 1 appl topical BID 4 weeks cyclobenzaprine 10 mg PO TID PRN diclofenac sodium 1% (Voltaren Arthritis Pain) 2 grams topical QID diphenhydramine HCl (Benadryl Allergy) 50 mg (2 x 25 mg) PO TID PRN epinephrine (EpiPen 2-Edward) 0.3 mg (0.3 mL) IM Q4H PRN 1 month fluconazole 150 mg PO Q3D 2 doses fluticasone propionate 50 mcg/actuation (Flonase Allergy Relief) 1 spray intranasal BID folic acid 1 mg PO DAILY 90 days gabapentin 300 mg PO BID 30 days hydrocortisone 2.5% 1 appl topical BID ibuprofen 800 mg PO TID PRN Knee brace As directed lidocaine 5% 1 patch topical DAILY loratadine 10 mg PO DAILY magnesium glycinate 200 mg (2 x 100 mg) PO DAILY 30 days mecobalamin (vitamin B12) 1,000 mcg PO DAILY 90 days medroxyprogesterone 150 mg IM [id number] miconazole nitrate 2% (Miconazole-7) 1 appful vaginal BEDTIME 7 days naproxen 500 mg PO BID PRN omeprazole 20 mg PO DAILY PRN riboflavin (vitamin B2) 400 mg PO DAILY 30 days triamcinolone acetonide 0.025% 1 appl topical DAILY PRN 2 weeks valacyclovir 1,000 mg (2 x 500 mg) PO DAILY 90 days valacyclovir 1,000 mg PO DAILY Is last menstrual period known: No (no menses/Depo) HPI HPI breast check: Details: Patient she noticed a slight bump on her anymore left side that she had noticed before it reminded her of when she was . She has a new sexual partner and he noticed it when he was sucking on her nipples. She used to have nipple piercings but remove them sometime ago. Her daughter is with her father in the car driving around while she is here. She had lots to share about the details and challenges of dealing with the legal system and cords and her who she has been trying to divorce and is where about only resurfaced somewhat recently so it has been a very complicated challenge and there was lots of legal and historical issues involved and above it all she is concerned for her daughter's well-being. She is generally in a good place about it all today. As regards the nipple she has had no pain she did nurse her daughter for 9 months and she produced a lot of milk she never had mastitis or anything. [facility] Medical History Abdominal pain Chlamydia infection control counseling Yeast infection involving the vagina and surrounding area Pain of right scapula Visit for suture removal Dextroscoliosis of lumbar spine Status post fall Mid back pain Well woman exam with routine gynecological exam Screen for sexually transmitted diseases Cervical cancer screening Breast pain, right Physical exam Lumbar radiculopathy Lumbar spondylosis Polyarthralgia Pain in both feet Injury of toe on right foot Preoperative clearance Jaw pain Pain in right elbow Paresthesia of hand, bilateral Left ankle pain Bilateral leg edema Lymphadenopathy Incidental lung nodule, > 3mm and < 8mm Low vitamin D level Bug bite Anxiety and depression Neck mass Rib pain on right side Muscle spasms of neck Paresthesia and pain of both upper extremities Cervicalgia Upper respiratory tract infection Atopic reaction Allergic reaction Mass in neck Thrush, oral Muscle twitch Muscle spasm Shortness of breath Adenopathy Left shoulder pain Immunization due Nonimmune to hepatitis B virus Numbness and tingling of both legs Tinnitus Sore throat Upper respiratory tract infection Depo-Provera contraceptive status Screening for eye condition Routine screening for STI (sexually transmitted infection) Cervicalgia Headache Vision changes Chest pain Nausea and vomiting Hematochezia Abdominal pain Back pain Lung nodules Borderline personality disorder Depression Bipolar 1 disorder ADHD Low vitamin D level GERD (gastroesophageal reflux disease) Asthma History of multiple miscarriages COVID-19 virus infection Encounter to establish care (~03/2021) HIV exposure Surgical History S/P cubital tunnel release Hx of biopsy History of wisdom tooth extraction Family History Mother Substance use disorder Mental health disorder Father Cancer Social History Housing: House Alcohol intake: current Alcohol intake frequency: holidays/special occasions only Patient Tobacco Use Status: Never used Tobacco Tobacco use type: Cigar e-Cigarette/Vaping Use: Currently Using Second Hand Smoke Exposure: No service: No Current occupational status: unemployed 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 There is slight prominence of the normal milk ducts on the left side especially at 4 or 05:00 o'clock there is no leaking redness warmth erythema swelling other than normal physiologic. Chest/axillae images: 2 1. slight prominence of nipple duct Results Reviewed Results Reviewed: L Name: Argelia Adan Age/Sex: 29/F : 1995 Unit#: [id number] Attend Dr: Florence Vora CNM Re02/14/24 Status: DEP REF Location: [facility] D isch: SPEC : [id number] DEWEY: 02/14/24-UNK STATUS: COMP REQ : [id number] RECD: 02/14/24-[address]: Florence Vora CNM COMP: 11/ ENTERED: 02/14/24 [facility] DR: Maeve Woodard MD ORDERED: BV Panel Test Result Flag Reference TV PCR NOT DETECTED Not Detect BV PCR NEGATIVE Negative The BV organism targets of the Xpert Xpress MVP test can be commensal in women; Xpert Xpress MVP positive results for bacterial vaginosis should be considered in conjunction with other clinical and patient information to determine the disease status. Organisms that are not detected by the Xpert Xpress MVP test have also been reported to be associated with BV and aerobic vaginitis. The Xpert Xpress MVP test performance has not been evaluated in patients under the age of 14. Stephanie Grp PCR DETECTED A Not Detect Can gla-kru NOT DETECTED Not Detect Name: Argelia Adan Age/Sex: 29/F : 1995 Unit#: [id number] Attend Dr: Florence Vora CNM Re02/14/24 Status: DEP REF Location: [facility] isch: SPEC : [id number] DEWEY: 02/14/24 STATUS: COMP REQ : [id number] RECD: 02/14/[address]: Florence Vora CNM COMP: 02/15/24 ENTERED: 02/14/24 [facility] DR: Maeve Woodard MD ORDERED: CT NG by PCR QUERIES: CT NG Source: Vaginal Test Result Flag Reference CT PCR NOT DETECTED Not Detect. A not detected test result does not exclude the possibility of infection because test results can be affected by improper specimen collection, concurrent antibiotic therapy, or the number of organisms in the specimen which may be below the sensitivity of the test. As with many diagnostic tests, results from the Xpert CT/NG assay should be interpreted in conjunction with other laboratory and clinical data available to the clinician. Xpert CT/NG performance has not been evaluated in patients less than 14 years of age. The assay should not be used for the evaluation of suspected sexual abuse or for other medico-legal indications. Additional testing is recommended in any circumstance when false positive or false negative results could lead to adverse medical, social or psychological consequences. NG PCR NOT DETECTED Not Detect. A not detected test result does not exclude the possibility of infection because test results can be affected by improper specimen collection, concurrent antibiotic therapy, or the number of organisms in the specimen which may be below the sensitivity of the test. As with many diagnostic tests, results from the Xpert CT/NG assay should be interpreted in conjunction with other laboratory and clinical data available to the clinician. Xpert CT/NG performance has not been evaluated in patients less than 14 years of age. The assay should not be used for the evaluation of suspected sexual abuse or for other medico-legal indications. Additional testing is recommended in any circumstance when false positive or false negative results could lead to adverse medical, social or psychological consequences. Name: Argelia Adan Age/Sex: 27/F Attending: Florence Vora CNM : 1995 Submitted by: Florence Vora CNM Copies to: Maeve Woodard MD MR #: [id number] Status: [facility] REF Collected: 04/09/22 Location: [facility] Received: 04/12/22 Interpretation Satisfactory for evaluation. Negative for intraepithelial lesion or malignancy. Clinical Information LMP: Unknown Previous PAP test: Unknown, WNL Material Received ThinPrep-Cervical Copies To Florence Vora CNM [address] [place] [address] Dr. Spangler [address] [place] [address] Maeve Woodard MD [address] [place] [address] Dr. Spangler [address] [address] Electronically Signed By: Bri Banerjee 04/24/22 2947 The Pap Test is a screening procedure with the inherent possibility of both false negative and false positive results. Results should be interpreted in the context of historic and current clinical findings. Reliability of the Pap Test is enhanced by performing the test on a regular repetitive basis. Patient: Argelia Adan Age/Sex: 27/F MR#: [id number] Page 1 of 1 Patient: Argelia Adan MR#: [id number] : 1995 Acct:[id number] Age/Sex: 27 / F ADM Date: 04/29/22 Loc: HO.MAMMO Attending Dr: Maeve Guzman MD Ordering Physician: Maeve Woodard MD Results: 1Negative Date of Service: 04/29/22 Follow Up: Mammo at 40 or earlier if clinically needed Procedure(s): MM tomosynthesis diagnostic BI Accession Number(s): [id number] cc: Maeve Woodard MD~ EXAMINATION: MM DIAGNOSTIC DIGITAL BREAST TOMOSYNTHESIS, BILATERAL US DIAGNOSTIC ULTRASOUND BREAST, RIGHT CLINICAL INFORMATION: 27-year-old with right breast pain. No erythema or palpable mass. Patient notes intermittent bilateral milky discharge. No prior breast imaging. The lifetime risk of breast cancer based on the Tyrer-Cuzick Model is 18%. COMPARISON: None (current study represents initial baseline exam). TECHNIQUE: Ultrasound right breast is initially performed using grayscale imaging and color Doppler without and with harmonics. All 4 quadrants are imaged. Subsequently, bilateral digital breast tomosynthesis is performed. Digital breast tomosynthesis is performed in both the craniocaudal and mediolateral oblique views along with computer-aided detection (CAD). Synthesized 2D images are generated from the tomosynthesis. FINDINGS: Ultrasound, right: Ultrasound right breast demonstrates no cystic or solid mass, architectural abnormality, or focal duct ectasia. No skin thickening or edema tracking in the soft tissue planes. Mammography, bilateral: There are scattered areas of fibroglandular density (ACR BI-RADS breast composition Category b). Breast tissue composition borders on predominantly fatty. Stromal and fibroglandular densities appear normal. There is no significant mass or architectural abnormality or focal duct ectasia. No abnormal calcifications. The axilla are unremarkable. No skin thickening or coarsening of the Frederick's ligaments. There are bilateral nipple piercings. Results are discussed with the patient at time of visit. The history of bilateral intermittent milky nipple discharge suggests probable systemic etiology, possibly hormonal. Availability of genetic testing also discussed in regards to family history and cancer risks. Patient to follow-up with her PCP and COMPUTER SCIENCE PROFESSOR as usual. MM/MM tomosynthesis diagnostic BI IMPRESSION: 1. No mammographic evidence of malignancy or inflammatory changes. 2. Unremarkable targeted right breast ultrasound. ASSESSMENT: BI-RADS 1: Negative RECOMMENDATION: 1. Patient should be managed based on the clinical impression. The bilateral intermittent milky nipple discharge suggests probable systemic etiology, possibly hormonal. Recommend correlation with laboratories. 2. If there is significant or concerning family history cancer, genetic testing may be considered for further assessment. 3. Otherwise, routine annual screening mammography, beginning age 40, or earlier as clinical risk factors warrant. This patient's information was entered into a reminder system with a target due date for their next mammogram. Assessment & Plan Assessment & Plan (1) Concern about appearance of breast: Comment: (not appearance, but prominence of milk duct),increased During sexual activity-- patient felt left nipple will prominent, no anomaly appreciated today. Code(s): R46.89 - Other symptoms and signs involving appearance and behavior Category: Medical Plan Patient shared much of the challenges she has been going through trying to deal with the legal system to get her divorce from her and ensure only safe visitation of her daughter with the child's father. --------- As regards the nipple issue I do not see any evidence of any pathology today and suggest at the most that some previously useful milk duct has become slightly more prominent as a result of sexual activity suggest maybe warm showers but not squeezing and basically leaving it alone. Coding Level of Care Code Est Pt Level 3 (37868) Diagnoses Concern about appearance of breast R46.89
== END 2024-03-27 11:13 | disposition home or self-care (01) ==
PROVIDERS: PCP Internal Medicine; Visit Provider Advanced Practice Midwife
DX: R46.89 Other symptoms and signs involving appearance and behavior (principal)
CPT/HCPCS: 99213

== ENCOUNTER → 2024-03-27 09:36 | Outpatient (BNVA) | payer MEDICARE, MEDICAID, SELFPAY | PROVIDERS: PCP Internal Medicine; Visit Provider Advanced Practice Midwife | DX: R46.89 Other symptoms and signs involving appearance and behavior (principal) | CPT/HCPCS: 99212 ==

== ENCOUNTER 2024-04-16 12:44 | Outpatient (AMB) | payer MEDICARE, MEDICAID, SELFPAY ==
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
[2024-04-16 12:47] VITALS: BP 120/78; BMI 32.8
== END 2024-04-16 13:38 | disposition home or self-care (01) ==
PROVIDERS: PCP Internal Medicine; Visit Provider Internal Medicine
DX: Z00.00 Encounter for general adult medical examination without abnormal findings (principal); R41.3 Other amnesia; F31.9 Bipolar disorder, unspecified; H92.03 Otalgia, bilateral; M54.50 Low back pain, unspecified; J02.9 Acute pharyngitis, unspecified

== ENCOUNTER → 2024-04-16 12:44 | Outpatient (BNVA) | payer MEDICARE, MEDICAID, SELFPAY | PROVIDERS: PCP Internal Medicine; Visit Provider Internal Medicine | DX: Z00.00 Encounter for general adult medical examination without abnormal findings (principal); R41.3 Other amnesia; H92.03 Otalgia, bilateral; M54.50 Low back pain, unspecified; J02.9 Acute pharyngitis, unspecified; F31.9 Bipolar disorder, unspecified; E53.8 Deficiency of other specified B group vitamins; E55.9 Vitamin D deficiency, unspecified | CPT/HCPCS: 87880; 96127; 99212; 99395 ==

== ENCOUNTER 2024-05-01 09:56 | Outpatient (REF) | payer MEDICARE, MEDICAID, SELFPAY ==
--- OUTSIDE RECORDS SUMMARY | 2024-05-01 11:36 | XMS_ITS | Encounter Summary ---
Author Organization [facility] Address [address] [facility] [address] [place] [address] Care Team Providers Care Photograph Inspector Name Role Phone Unavailable Primary Care Provider [...]
--- OUTSIDE RECORDS SUMMARY | 2024-05-01 11:36 | XMS_ITS | Encounter Summary ---
Author Organization [employer] [facility] Address [address] [facility] 7[address] [place] [address] Care Team Providers Care Civil Engineering Technician Name Role Phone Unavailable Primary Care Provider [...]
--- OUTSIDE RECORDS SUMMARY | 2024-05-01 11:36 | XMS_ITS | Clinical Summary ---
Author Organization [employer] Address [address] [place] [address] [address] [place] [address] Care Team Providers Care Learning Administrator Name Role Phone Unavailable Primary Care Provider [...]
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
== END 2024-05-01 09:57 | disposition home or self-care (01) ==
LOC: HO.LAB 09:56
PROVIDERS: PCP Internal Medicine; Visit Provider Obstetrics & Gynecology
DX: N61.1 Abscess of the breast and nipple (principal)
CPT/HCPCS: 87070; 87205; 99212

== ENCOUNTER 2024-05-01 09:56 | Outpatient (AMB) | payer MEDICARE, MEDICAID, SELFPAY ==
--- NOTE | 2024-05-01 09:59 | A.OFFVIS_ITS ---
Intake Visit Reasons: nipple discharge Accompanied by: Self / Same As Patient Allergies Seasonal Allergies Allergy (Mild, Verified 05/01/24 09:59) Unknown metronidazole [From FLAGYL] Allergy (Unknown, Verified 05/01/24 09:59) Hives duloxetine Adverse Reaction (Verified 05/01/24 09:59) Nausea HPI Comments Details: Presenting complaining of left breast discharge from the site of nipple piercing. The patient had piercing 2 years ago that was taken out and since then has been having breast pain 2 days ago started having foul odorous discharge, no fever no redness no other complaints [facility] Medical History Sore throat Moderate recurrent major depression Physical exam Abdominal pain Chlamydia infection control counseling Yeast infection involving the vagina and surrounding area Pain of right scapula Visit for suture removal Dextroscoliosis of lumbar spine Status post fall Mid back pain Well woman exam with routine gynecological exam Screen for sexually transmitted diseases Cervical cancer screening Breast pain, right Lumbar radiculopathy Lumbar spondylosis Polyarthralgia Pain in both feet Injury of toe on right foot Preoperative clearance Jaw pain Pain in right elbow Paresthesia of hand, bilateral Left ankle pain Bilateral leg edema Lymphadenopathy Incidental lung nodule, > 3mm and < 8mm Low vitamin D level Bug bite Anxiety and depression Neck mass Rib pain on right side Muscle spasms of neck Paresthesia and pain of both upper extremities Cervicalgia Upper respiratory tract infection Atopic reaction Allergic reaction Mass in neck Thrush, oral Muscle twitch Muscle spasm Shortness of breath Adenopathy Left shoulder pain Immunization due Nonimmune to hepatitis B virus Numbness and tingling of both legs Tinnitus Upper respiratory tract infection Depo-Provera contraceptive status Screening for eye condition Routine screening for STI (sexually transmitted infection) Cervicalgia Headache Vision changes Chest pain Nausea and vomiting Hematochezia Abdominal pain Back pain Lung nodules Borderline personality disorder Depression Bipolar 1 disorder ADHD Low vitamin D level GERD (gastroesophageal reflux disease) Asthma History of multiple miscarriages COVID-19 virus infection Encounter to establish care (~03/2021) HIV exposure Surgical History S/P cubital tunnel release Hx of biopsy History of wisdom tooth extraction Family History Mother Substance use disorder Mental health disorder Father Cancer Social History Housing: House Alcohol intake: current Alcohol intake frequency: holidays/special occasions only Patient Tobacco Use Status: Never used Tobacco Tobacco use type: Cigar e-Cigarette/Vaping Use: Currently Using Second Hand Smoke Exposure: No service: No Current occupational status: unemployed 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 Cognitive needs: No Hearing needs: No Vision needs: Yes (glasses) Female Reproductive History Menstrual Age of Menarche: 13 Review of Systems Const All systems reviewed & are unremarkable except as noted in HPI and below Reports as per HPI and Reports no additional complaints GI Reports no additional complaints Reports no additional complaints Physical Exam Chest Chest palpation & inspection: normal inspection of the chest Breast/axilla inspection: normal inspection of the breasts (R breast wnl, L breast no masses , abscess @brunner site @9,1 cm from nipple) Assessment & Plan Assessment & Plan (1) Breast abscess: Comment: L breast abscess @9 o'clock, 1 cm from nipple at the previous piercing site Code(s): N61.1 - Abscess of the breast and nipple Category: Medical Plan: Discussed with the patient the finding on physical exam. Abscess drained with pressure application, culture collected, will treat with Augmentin 875 p.o. b.i.d. for 7 days, order left breast ultrasound and diagnostic bilateral mammogram. Instructions given the patient to schedule a 1-2 week follow-up appointment and to call in case of fever above 100.4, worsening of her symptoms redness or tenderness. All questions answered, the patient verbalized understanding Orders: Orders MM tomosynthesis diagnostic BI Today N61.1 - Abscess of the breast and nipple Routine Culture w Gram Stain Today N61.1 - Abscess of the breast and nipple US breast LT complete Today N61.1 - Abscess of the breast and nipple Medications: New amoxicillin-pot clavulanate 875-125 mg 1 tab PO BID 7 days 14 tabs 0RF Coding Level of Care Code Est Pt Level 3 (78560) Diagnoses Breast abscess N61.1
--- OUTSIDE RECORDS SUMMARY | 2024-05-01 10:37 | XMS_ITS | Encounter Summary ---
Author Organization [employer] [facility] Address [address] [place] [address] Care Team Providers Care Welfare Eligibility Worker Name Role Phone Unavailable Primary Care Provider Unavailabl e Encounter Details Date Type Department Care Team (Latest Contact Info) Description 04/07/2020 Abstract HHC CONVERSIONS Dental, Provider, DDS Social History Tobacco Use Types Packs/Day Years Used Date Smoking Tobacco: Never Assessed Comments Unknown Sex and Gender Information Value Date Recorded Sex Assigned at Female 02/01/2022 10:25 AM EDT Legal Sex Female 10:25 AM EDT Gender Identity Female 02/01/2022 10:25 AM EDT Sexual Orientation Straight 02/01/2022 10 :25 AM EDT documented as of this encounter Plan of Treatment Not on file documented as of this encounter Visit Diagnoses Not on filedocumented in this encounter
--- OUTSIDE RECORDS SUMMARY | 2024-05-01 10:37 | XMS_ITS | Clinical Summary ---
Author Organization [employer] Address [address] [place] [address] [address] [place] [address] Care Team Providers Care Windscreen Fitter Name Role Phone Unavailable Primary Care Provider Unavailabl e Social History Tobacco Use Types Packs/Day Years Used Date Smoking Tobacco: Never Assessed Comments Unknown Sex and Gender Information Value Date Recorded Sex Assigned at Female 02/01/2022 10:25 AM EDT Legal Sex Female 10:25 AM EDT Gender Identity Female 02/01/2022 10:25 AM EDT Sexual Orientation Straight 02/01/2022 10 :25 AM EDT Plan of Treatment Health Maintenance Due Date Last Done Comments Depression Screening 1996 Alcohol/Substance Use Screening 2008 Tobacco Screening 2008 Family Planning (PISQ) 02/03/2011 DTaP/Tdap/Td Vaccines (1 - Tdap) 02/03/2015 Hepatitis B Vaccines (1 of 3 - 19+ 3-dose series) 02/03/2015 Pap Smear 02/03/2017 COVID-19 Vaccine (1 - 2023-2 5 season) 2023 Influenza Vaccine (#1) 2023 Zoster Vaccines (1 of 2) 02/03/2046 RSV Patients and Pa tients Aged 60 years or older (1 - 1-dose 75+ series) 02/03/2071 HIB Vaccines Aged Out No longer eligi ble based on patient's age to complete this topic HPV Vaccines Aged Out No longer eligi ble based on patient's age to complete this topic Hepatitis A Vaccines Aged Out No long er eligible based on patient's age to complete this topic IPV Vaccines Aged Out No longer eligi ble based on patient's age to complete this topic Meningococcal Vaccine Aged Out No [place] asim eligible based on patient's age to complete this topic Pneumococcal Vaccine: Pediat rics (0 to 5 Years) and At-Risk Patients (6 to 64 Years) Aged Out No longer eligible b ased on patient's age to complete this topic RSV under 20 months Aged Out No longe r eligible based on patient's age to complete this topic Rotavirus Vaccines Aged Out No longer eligible based on patient's age to complete this topic
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
--- OUTSIDE RECORDS SUMMARY | 2024-05-01 10:37 | XMS_ITS | Encounter Summary ---
Author Organization [facility] Address [address] [facility] [address] [place] [address] Care Team Providers Care Rn Interventional Name Role Phone Unavailable Primary Care Provider Unavailabl e Encounter Details Date Type Department Care Team (Latest Contact Info) Description 12/16/2021 Abstract HHC CONVERSIONS Dental, Provider, DDS Social [...]
== END 2024-05-01 10:37 | disposition home or self-care (01) ==
LOC: HO.HWS 09:56
PROVIDERS: PCP Internal Medicine; Visit Provider Obstetrics & Gynecology
DX: N61.1 Abscess of the breast and nipple (principal)
CPT/HCPCS: 99213

== ENCOUNTER → 2024-05-02 08:45 | Outpatient (BNV) | payer MEDICARE, MEDICAID, SELFPAY | PROVIDERS: PCP Internal Medicine; Visit Provider Internal Medicine | DX: N63.21 Unspecified lump in the left breast, upper outer quadrant (principal) | CPT/HCPCS: 76642 ==

== ENCOUNTER 2024-05-02 08:55 | Outpatient (REF) | payer MEDICARE, MEDICAID, SELFPAY ==
--- NOTE | ~2024-05-02 | US_ITS ---
EXAMINATION: US DIAGNOSTIC ULTRASOUND BREAST, LEFT CLINICAL INFORMATION: Questioned left breast abscess at 9:00 1 cm from the nipple. History states the doctor squeezed out fluid and question posterior today and sent for culture. . COMPARISON: Comparison is made with relevant prior imaging. TECHNIQUE: Ultrasound of the breast is performed with real-time jacob scale imaging and color Doppler. FINDINGS: Targeted color Doppler ultrasound scanning in the retroareolar region and 9:00 1 cm from the nipple demonstrates normal fibronodular breast tissue. There is no fluid collected or abscess or tissue edema. There is an incidental hypoechoic solid mass at 1:00 2 cm from the nipple measuring 8 x 6 x 7 mm. Results are discussed with the patient at time of visit. US/US breast LT limited mamm only IMPRESSION: 1. Hypoechoic solid mass at 1:00 2 cm from nipple. Recommend ultrasound-guided core needle biopsy at this time for confirmation. The findings and recommendations were discussed with the patient the procedure will be scheduled. 2. No fluid collection or abnormal findings to account for the questioned infection. No abscess or retroareolar edema. Recommend clinical evaluation and follow-up. ASSESSMENT: BI-RADS 4: Suspicious (subcategory 4A: Low suspicion for malignancy) RECOMMENDATION: Biopsy This patient's information was entered into a reminder system with a target due date for their next mammogram. Electronically signed by: Terri Storey DO 05/02/2024 10:37 AM WEST
--- OUTSIDE RECORDS SUMMARY | 2024-05-02 10:03 | XMS_ITS | Encounter Summary ---
Author Organization [facility] Address [address] [facility] [address] [place] [address] Care Team Providers Care Radio Installer Name Role Phone Unavailable Primary Care Provider [...]
--- OUTSIDE RECORDS SUMMARY | 2024-05-02 10:03 | XMS_ITS | Clinical Summary ---
Author Organization [employer] Address [address] [place] [address] [address] [place] [address] Care Team Providers Care Pulp Making Plant Operator Name Role Phone Unavailable Primary Care Provider [...] 5 Years) and At-Risk Patients (6 to 49) Years) Aged Out No longer eligible b ased on patient's age to complete this topic RSV under 20 months Aged Out No longe r eligible based on patient's age to complete this topic Rotavirus Vaccines Aged Out No longer eligible based on patient's age to complete this topic
--- OUTSIDE RECORDS SUMMARY | 2024-05-02 10:03 | XMS_ITS | Encounter Summary ---
Author Organization [facility] Address [address] [facility] 7[address] [place] [address] Care Team Providers Care Venetian Blind Cleaner Name Role Phone Unavailable Primary Care Provider [...]
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
== END 2024-05-02 08:56 | disposition home or self-care (01) ==
LOC: HO.MAMMO 08:55
PROVIDERS: PCP Internal Medicine; Visit Provider Obstetrics & Gynecology
DX: N61.1 Abscess of the breast and nipple (principal)
CPT/HCPCS: 76642

== ENCOUNTER → 2024-05-03 12:41 | Outpatient (BNVA) | payer MEDICARE, MEDICAID, SELFPAY | PROVIDERS: PCP Internal Medicine; Visit Provider Obstetrics & Gynecology ==

== ENCOUNTER 2024-05-05 14:14 | Emergency (ER) | payer MEDICARE, MEDICAID, SELFPAY ==
[2024-05-05 14:25] VITALS: BP 139/84; PULSE 82; RESP 18; TEMP 36.8; O2SAT 98; BMI 31.6
--- NOTE | 2024-05-05 14:46 | ED_ITS ---
HPI - URI/Sore Throat General Chief Complaint: Upper Respiratory Symptoms Stated Complaint: sore throat Time Seen by Provider: 05/05/24 14:28 Source: patient and old records reviewed Mode of arrival: ambulatory Limitations: no limitations History of Present Illness ED Provider: JUNAID ORR Narrative: 29 yo female who has been dealing with Zerbe regarding breast mass or infection was on amoxicillin but then he switched her to augmentin after recent visit 2 days ago she never filled it. Her wound culture was negative she is here with her daughter after thinking her daughter has had strep throat since and now her throat is hurting for 3 days. No fevers but pain with swallowing. She is able to eat and drink. MD elicited complaint: sore throat Onset (ago): day(s) (3) Consistency: constant Severity: moderate Description of mucous: clear Able to tolerate fluids by mouth: Yes Exacerbating factors: swallowing Relieving factors: nothing Context: sick contacts Associated symptoms: chills Treatments prior to arrival: none Related Data Home Medications ?Medication ?Instructions ?Recorded ?Confirmed azelastine 137 mcg (0.1 %) nasal intranasal 06/03/22 04/16/24 spray medroxyprogesterone 150 mg/mL 150 mg IM [id number] 03/27/24 04/16/24 intramuscular syringe Previous Rx's ?Medication ?Instructions ?Recorded hydrocortisone 2.5 % topical cream 1 appl topical BID #20 grams 09/15/21 diclofenac sodium 1 % topical gel 2 g topical QID #100 grams 09/28/21 (Voltaren Arthritis Pain) diphenhydramine HCl 25 mg tablet 50 mg (2 x 25 mg) PO TID PRN 01/07/22 (Benadryl Allergy) allergic reaction #14 tabs epinephrine 0.3 mg/0.3 mL 0.3 mg (0.3 mL) IM Q4H PRN 01/07/22 injection, auto-injector (EpiPen anaphylaxis 1 month #2 ea 2-Edward) baclofen 10 mg tablet 10 mg PO TID muscle spasm 30 days 06/03/22 #90 tabs magnesium glycinate 100 mg (as 200 mg (2 x 100 mg) PO DAILY 06/03/22 glycinate) tablet migraine 30 days #60 tabs riboflavin (vitamin B2) 400 mg 400 mg PO DAILY migraine headache 06/03/22 tablet 30 days #30 tabs cholecalciferol (vitamin D3) 50 50 mcg PO DAILY 90 days #90 caps 10/12/22 mcg (2,000 unit) capsule omeprazole 20 mg capsule,delayed 20 mg PO DAILY PRN for heartburn 10/12/22 release #90 caps triamcinolone acetonide 0.025 % 1 appl topical DAILY PRN psoriasis 10/12/22 topical cream 2 weeks #15 grams fluticasone propionate 50 1 spray intranasal BID #16 grams 10/13/22 mcg/actuation nasal spray,suspension (Flonase Allergy Relief) loratadine 10 mg tablet 10 mg PO DAILY #30 tabs 10/13/22 folic acid 1 mg tablet 1 mg PO DAILY 90 days #90 tabs 10/17/22 mecobalamin (vitamin B12) 1,000 1,000 mcg PO DAILY 90 days #90 tabs 10/17/22 mcg chewable tablet gabapentin 300 mg capsule 300 mg PO BID pain 30 days #60 caps 10/25/22 clotrimazole 1 % topical cream 1 appl topical BID 4 weeks #30 10/26/22 grams ibuprofen 800 mg tablet 800 mg PO TID PRN pain #20 tabs 11/02/22 albuterol sulfate 90 mcg/actuation 2 inh inhalation Q6-8H PRN 11/14/22 aerosol inhaler shortness of breath or wheezing #6.7 grams clobetasol 0.05 % topical ointment 1 appl topical BID 1 week #15 grams 05/11/23 miconazole nitrate 2 % vaginal 1 appful vaginal BEDTIME 7 days 08/16/23 cream (Miconazole-7) #45 grams Knee brace #1 ea 08/31/23 cyclobenzaprine 10 mg tablet 10 mg PO TID PRN muscle spasm #10 01/30/24 tabs lidocaine 5 % topical patch 1 patch topical DAILY #15 ea 01/30/24 naproxen 500 mg tablet 500 mg PO BID PRN pain #20 tabs 01/30/24 clindamycin phosphate 2 % vaginal 1 appful vaginal BEDTIME 7 days #5 02/14/24 cream grams fluconazole 150 mg tablet 150 mg PO Q3D 2 doses #2 tabs 02/14/24 valacyclovir 1 gram tablet 1,000 mg PO DAILY #90 tabs 02/14/24 amoxicillin 500 mg capsule 500 mg PO BID 5 days #10 caps 04/16/24 fluconazole 150 mg tablet 150 mg PO DAILY 1 dose #1 tab 04/23/24 amoxicillin 875 mg-potassium 1 tab PO BID 7 days #14 tabs 05/01/24 clavulanate 125 mg tablet amoxicillin 875 mg-potassium 1 tab PO BID #20 tabs 05/05/24 clavulanate 125 mg tablet Allergies Allergy/AdvReac Type Severity Reaction Status Date / Time Seasonal Allergies Allergy Mild Unknown Verified 05/05/24 14:28 metronidazole [From FLAGYL] Allergy Unknown Hives Verified 05/05/24 14:28 duloxetine AdvReac Nausea Verified 05/05/24 14:28 Review of Systems Review of Systems: Constitutional : No Fever, pos Chills, No Fatigue ENT/Mouth : pos sore throat, No Rhinorrhea Eyes: No Eye Pain, No Swelling, No Redness Cardiovascular : No Chest Pain, No SOB, No Dyspnea on Exertion Respiratory : No Cough, No Sputum Gastrointestinal : No Nausea, No Vomiting, No Diarrhea, No abdominal Pain Genitourinary : No Dysuria, No Urinary Frequency, No Hematuria, Musculoskeletal : No joint pain, No Myalgias, No Joint Swelling Skin : No Skin Lesions, No rash Neuro : No Weakness, No Numbness, No Dizziness, no Headache All other systems reviewed and are negative PMFSH Past Medical History Attestation statement: The following information was validated with the patient. Source: old records reviewed Medical History Sore throat Moderate recurrent major depression Physical exam Abdominal pain Chlamydia infection control counseling Yeast infection involving the vagina and surrounding area Pain of right scapula Visit for suture removal Dextroscoliosis of lumbar spine Status post fall Mid back pain Well woman exam with routine gynecological exam Screen for sexually transmitted diseases Cervical cancer screening Breast pain, right Lumbar radiculopathy Lumbar spondylosis Polyarthralgia Pain in both feet Injury of toe on right foot Preoperative clearance Jaw pain Pain in right elbow Paresthesia of hand, bilateral Left ankle pain Bilateral leg edema Lymphadenopathy Incidental lung nodule, > 3mm and < 8mm Low vitamin D level Bug bite Anxiety and depression Neck mass Rib pain on right side Muscle spasms of neck Paresthesia and pain of both upper extremities Cervicalgia Upper respiratory tract infection Atopic reaction Allergic reaction Mass in neck Thrush, oral Muscle twitch Muscle spasm Shortness of breath Adenopathy Left shoulder pain Immunization due Nonimmune to hepatitis B virus Numbness and tingling of both legs Tinnitus Upper respiratory tract infection Depo-Provera contraceptive status Screening for eye condition Routine screening for STI (sexually transmitted infection) Cervicalgia Headache Vision changes Chest pain Nausea and vomiting Hematochezia Abdominal pain Back pain Lung nodules Borderline personality disorder Depression Bipolar 1 disorder ADHD Low vitamin D level GERD (gastroesophageal reflux disease) Asthma History of multiple miscarriages COVID-19 virus infection Encounter to establish care (~03/2021) HIV exposure Surgical History S/P cubital tunnel release Hx of biopsy History of wisdom tooth extraction Family History Family History Mother Substance use disorder Mental health disorder Father Cancer Social History Social History Housing: House Alcohol intake: current Alcohol intake frequency: holidays/special occasions only Patient Tobacco Use Status: Never used Tobacco Tobacco use type: Cigar e-Cigarette/Vaping Use: Currently Using Second Hand Smoke Exposure: No Advance Directives: No Advance Directives Information Provided: No service: No Current occupational status: unemployed 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 Oriented X3. No acute distress. Eyes: Pupils equal, round and reactive to light. ENT: Pharynx moderate swelling both tonsils uvula is midline but exudates present Neck: Normal inspection. Neck supple. CVS: Normal heart rate and rhythm. Pulses normal. Respiratory: No respiratory distress. Breath sounds normal. Abdomen: Soft and nontender. Skin: Skin warm and dry. Normal skin color. Extremities: No lower extremity edema. Neuro: Oriented X 3. No motor deficit. No sensory deficit. CN2-12 intact Medical Decision Making Medical Decision Making MDM Narrative: 29 yo female with PMH of asthma, PTSD here with sore throat and child has sore throat as well on exam consistent with GAS pharyngitis she is not toxic, no drooling no stiff neck and has no signs of DIESEL DINKEY ENGINEER or deeper space infection will swab viral panel and strep - start on augmentin if positive. Differential Diagnosis Differential Diagnoses: The differential diagnosis associated with the presentation includes URI, strep throat Admission/Observation Consideration of admission/observation: Escalation of care including admission/observation considered not toxic tolerating PO Lab Data MDM Lab Attestation statement: I reviewed the patient's lab results. Labs: Lab Results 05/05/24 Range/Units 14:36 S. pyogenes GrpA MARK Positive A (Negative) External Record Review External record reviewed: Outpatient record Prescription Management I considered prescription management with: Antibiotic Discharge Plan Discharge Clinical Impression: Strep throat Patient Disposition: Home, Self-Care Instructions: Strep Throat (ED) Additional Instructions: positive for strep will call if positive for flu covid rsv return for any worsening symptoms or concerns stop amoxicillin On amoxicillin-clavulanate, softer bowel movements are to be expected. Call your provider if you move your bowels more than 4 times a day, your bowel movements are almost all liquid, or you get a rash.? throw away toothbrush after 24 hours Prescriptions: New amoxicillin-pot clavulanate 875-125 mg tablet 1 tab PO BID Qty: 20 0RF No Action epinephrine [EpiPen 2-Edward] 0.3 mg/0.3 mL auto-injector 0.3 mg IM Q4H PRN (Reason: anaphylaxis) 30 Days Qty: 2 4RF Rx Instructions: practice injector as well if available please omeprazole 20 mg capsule,delayed release(DR/EC) 20 mg PO DAILY PRN (Reason: for heartburn) Qty: 90 0RF cholecalciferol (vitamin D3) 50 mcg (2,000 unit) capsule 50 mcg PO DAILY 90 Days Qty: 90 1RF fluticasone propionate [Flonase Allergy Relief] 50 mcg/actuation spray,suspension 1 spray intranasal BID Qty: 16 3RF Rx Instructions: administer into each nostril loratadine 10 mg tablet 10 mg PO DAILY Qty: 30 3RF folic acid 1 mg tablet 1 mg PO DAILY 90 Days Qty: 90 1RF mecobalamin (vitamin B12) 1,000 mcg tablet,chewable 1,000 mcg PO DAILY 90 Days Qty: 90 1RF gabapentin 300 mg capsule 300 mg PO BID 30 Days Qty: 60 3RF clotrimazole 1 % cream 1 appl topical BID 28 Days Qty: 30 0RF albuterol sulfate 90 mcg/actuation HFA aerosol inhaler 2 inh inhalation Q6-8H PRN (Reason: shortness of breath or wheezing) Qty: 6.7 0RF amoxicillin 500 mg capsule 500 mg PO BID 5 Days Qty: 10 0RF fluconazole 150 mg tablet 150 mg PO DAILY Qty: 1 0RF Rx Instructions: administer on day 1 of therapy diphenhydramine HCl [Benadryl Allergy] 25 mg tablet 50 mg PO TID PRN (Reason: allergic reaction) Qty: 14 0RF clobetasol 0.05 % ointment 1 appl topical BID 7 Days Qty: 15 0RF ibuprofen 800 mg tablet 800 mg PO TID PRN (Reason: pain) Qty: 20 0RF cyclobenzaprine 10 mg tablet 10 mg PO TID PRN (Reason: muscle spasm) Qty: 10 0RF lidocaine 5 % adhesive patch,medicated 1 patch topical DAILY Qty: 15 0RF Rx Instructions: leave on most painful area for up to 12 hrs naproxen 500 mg tablet 500 mg PO BID PRN (Reason: pain) Qty: 20 0RF hydrocortisone 2.5 % cream 1 appl topical BID Qty: 20 0RF (DME) Knee brace Misc See Rx Instructions .Route Qty: 1 0RF Rx Instructions: As directed diclofenac sodium [Voltaren Arthritis Pain] 1 % gel 2 g topical QID Qty: 100 0RF Rx Instructions: apply to single elbow, wrist or hand; for hand includes palm/fingers/back of hand triamcinolone acetonide 0.025 % cream 1 appl topical DAILY PRN (Reason: psoriasis) 14 Days Qty: 15 0RF azelastine 137 mcg (0.1 %) aerosol,spray intranasal baclofen 10 mg tablet 10 mg PO TID 30 Days Qty: 90 0RF magnesium glycinate 100 mg tablet 200 mg PO DAILY 30 Days Qty: 60 6RF riboflavin (vitamin B2) 400 mg tablet 400 mg PO DAILY 30 Days Qty: 30 6RF miconazole nitrate [Miconazole-7] 2 % cream 1 appful vaginal BEDTIME 7 Days Qty: 45 3RF amoxicillin-pot clavulanate 875-125 mg tablet 1 tab PO BID 7 Days Qty: 14 0RF clindamycin phosphate 2 % cream 1 appful vaginal BEDTIME 7 Days Qty: 5 2RF Rx Instructions: for 7 days; USE ONLY WHEN YOU HAVE CLEAR BV SYMPTOMS valacyclovir 1 gram tablet 1,000 mg PO DAILY Qty: 90 4RF fluconazole 150 mg tablet 150 mg PO Q3D 0 Days Qty: 2 6RF Rx Instructions: may repeat second dose 72 hrs after first dose if symptoms persist, USE WHEN CLEAR SYMPTOMS OF YEAST ARE PRESENT. medroxyprogesterone 150 mg/mL syringe 150 mg IM [id number] Interventions: ED Discharge Assessment Last Done: 05/05/24 15:10 Discharge Date/Time: 05/05/24 15:11 Print Language: Citizen Of [place]
[2024-05-05 14:49] LABS: IDNOW Serial# 08D9AD1C; Strep A Nucleic Acid Positive (Negative)
[2024-05-05 15:10] VITALS: BP 139/84; PULSE 82; RESP 18; TEMP 36.8; O2SAT 98
--- OUTSIDE RECORDS SUMMARY | 2024-05-05 15:10 | XMS_ITS | Clinical Summary ---
Author Organization [employer] Address [address] [place] [address] [address] [place] [address] Care Team Providers Care Yard Rigger Name Role Phone Unavailable Primary Care Provider [...]
--- OUTSIDE RECORDS SUMMARY | 2024-05-05 15:11 | XMS_ITS | Encounter Summary ---
Author Organization [employer] [facility] Address [address] [facility] [address] [place] [address] Care Team Providers Care Hammer Heater Name Role Phone Unavailable Primary Care Provider [...]
--- OUTSIDE RECORDS SUMMARY | 2024-05-05 15:11 | XMS_ITS | Encounter Summary ---
Author Organization [employer] [facility] Address [address] [facility] [address]t [place] [address] Care Team Providers Care Credit Control Manager Name Role Phone Unavailable Primary Care Provider [...]
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
[2024-05-05 15:27] LABS: Influenza A PCR NEGATIVE (Negative); Influenza B PCR NEGATIVE (Negative); Resp Syncy Virus RNA Qual PCR NEGATIVE (Negative); SARS COV2 PCR INHOUSE NEGATIVE (Negative)
== END 2024-05-05 15:11 | disposition home or self-care (01) ==
LOC: HO.ED 15:09
PROVIDERS: Emergency Provider Emergency Medicine; PCP Internal Medicine
DX: J02.0 Streptococcal pharyngitis (principal); Z03.818 Encounter for observation for suspected exposure to other biological agents ruled out; J45.909 Unspecified asthma, uncomplicated
CPT/HCPCS: 0241U; 87651; 99282; 99283

== ENCOUNTER → 2024-05-09 08:40 | Outpatient (BNVA) | payer MEDICARE, MEDICAID, SELFPAY | PROVIDERS: PCP Internal Medicine; Visit Provider Obstetrics & Gynecology | DX: N63.20 Unspecified lump in the left breast, unspecified quadrant (principal) | CPT/HCPCS: 99212 ==

== ENCOUNTER 2024-05-11 09:01 | Emergency (ER) | payer MEDICARE, MEDICAID, SELFPAY ==
--- NOTE | ~2024-05-11 | CT_ITS ---
CLINICAL HISTORY: hematemasis, mid ABD pain, diarrhea Exam: CT of the abdomen and pelvis with and without intravenous contrast. Comparison: CT of the abdomen and pelvis from 07/31/2023 Findings: Mild bibasilar atelectasis. Filtered contrast could obscure small stones in the renal collecting systems. Mild fluid about celiac axis and upper abdomen concerning for mild pancreatitis. Solid abdominal organs are otherwise unremarkable for technique. No small bowel obstruction. No extravasation of the contrast. Fluid in the cecum can be seen with a colitis in diarrhea type illnesses. The appendix is retrocecal and measures at the upper limits of normal. (6 mm diameter). Uterus is anteverted. No adnexal soft tissue mass. Urinary bladder is unremarkable. Phleboliths noted in the pelvis. No acute osseous abnormality. Impression: 1. No small bowel obstruction. 2. No extravasation of the contrast. 3. Fluid in the cecum as can be seen with colitis and diarrhea type illnesses. 4. Borderline dilatation of the appendix measuring at the upper limits of normal. Consider follow-up, if clinically indicated. This document has been electronically signed by: Alexandr Breen MD on 05/11/2024 20:29:37
[2024-05-11 09:03] VITALS: BP 126/83; PULSE 99; RESP 18; TEMP 36.6; O2SAT 99; BMI 31.9
[2024-05-11 09:24] LABS: MANUAL DIFF FLAG NO
[2024-05-11 09:25] LABS: Basophils Percent Auto 0.2 % (0-2); Eosinophils Absolute Auto 0.1 X10*3/uL (0.0-0.4); Eosinophils Percent Auto 0.9 % (0-4); Hematocrit 45.5 % (37.0-47.0); Hemoglobin 15.7 g/dl (12.0-16.0); Imm Gran Abs Auto 0.05 X10*3/uL (0.00-0.03); Imm Gran Pct Auto 0.4 % (0.0-0.4); Lymphocytes Percent Auto 8.3 % (20-40); Mean Corpuscular HGB Conc 34.5 g/dl (31.0-35.0); Mean Corpuscular Hemoglobin 29.1 pg (27.0-33.0); Mean Corpuscular Volume 84.4 fL (80.0-98.0); Mean Platelet Volume 9.9 fL (9.4-12.3); Monocytes Absolute Auto 0.4 X10*3/uL (0.1-1.2); Monocytes Percent Auto 3.5 % (2-11); Neutrophils Absolute Auto 10.8 x10*3/uL (2.0-8.3); Neutrophils Percent Auto 86.7 % (45-73); Platelet Count 341 X10*3/uL (160-400); Red Blood Count 5.39 X10*6/uL (4.20-5.50); Red Cell Distribution Width 12.8 % (11.0-16.0); White Blood Count 12.4 X10*3/uL (4.8-10.8)
[2024-05-11 09:45] LABS: Alanine Aminotransferase 25 U/L (0-31); Albumin Level 4.2 g/dL (3.5-5.0); Alkaline Phosphatase 81 U/L (39-117); Anion Gap 9 (12-20); Aspartate Amino Transferase 17 U/L (5-31); Bilirubin Direct 0.1 mg/dL (0.0-0.5); Bilirubin Total 0.4 mg/dL (0.0-1.0); Blood Urea Nitrogen 9 mg/dL (9-16); Calcium 9.1 mg/dL (8.4-10.2); Carbon Dioxide 19 mmol/L (22-29); Chloride 114 mmol/L (96-108); Creatinine Clr Calc Pharmacy 132.3; Estimated Glomerular Filt Rate > 60; Glucose Random 115 mg/dL (60-115); Potassium 3.5 mmol/L (3.3-5.1); Sodium 138 mmol/L (135-145); Total Protein 7.5 g/dL (6.5-8.0)
[2024-05-11 10:07] LABS: Influenza A PCR NEGATIVE (Negative); Influenza B PCR NEGATIVE (Negative); Resp Syncy Virus RNA Qual PCR NEGATIVE (Negative); SARS COV2 PCR INHOUSE NEGATIVE (Negative)
--- NOTE | 2024-05-11 11:48 | ECG_ITS ---
Test Reason : chest pain Blood Pressure : */* mmHG Vent. Rate : 86 BPM Atrial Rate : 86 BPM P-R Int : 140 ms QRS Dur : 94 ms QT Int : 354 ms P-R-T Axes : 28 8 11 degrees QTcB Int : 423 ms Normal sinus rhythm Incomplete right bundle branch block Nonspecific T wave abnormality Abnormal ECG When compared with ECG of 22-Apr-2022 10:12, Premature atrial complexes are no longer Present Incomplete right bundle branch block is now Present Referred By: Renae Mejia Electronically Signed By: Mauricio Michel
[2024-05-11 12:19] LABS: Troponin-I High Sensitivity < 2.7 ng/L (<3.5-17.0)
--- OUTSIDE RECORDS SUMMARY | 2024-05-11 15:07 | XMS_ITS | Encounter Summary ---
Author Organization [facility] Address [address] [place] [address] Care Team Providers Care Oil Heater Operator Name Role Phone Unavailable Primary Care [...]
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
--- OUTSIDE RECORDS SUMMARY | 2024-05-11 15:07 | XMS_ITS | Clinical Summary ---
Author Organization [employer] Address [address] [place] [address] [address] [place] [address] Care Team Providers Care Plisse Machine Operator Name Role Phone Unavailable Primary Care [...]
--- OUTSIDE RECORDS SUMMARY | 2024-05-11 15:07 | XMS_ITS | Encounter Summary ---
Author Organization [facility] Address [address] [place] [address] Care Team Providers Care Motor Coach Chauffeur Name Role Phone Unavailable Primary Care Provider [...]
--- NOTE | 2024-05-11 15:48 | ED.ABDPAIN ---
HPI - Abdominal Pain General Chief Complaint: Nausea/Vomiting/Diarrhea Stated Complaint: Vomiting Blood Time Seen by Provider: 05/11/24 14:51 Source: patient Limitations: no limitations History of Present Illness ED Provider: jose jj NP HPI narrative: Patient is a 29-year-old female with past medical history of anxiety, fibromyalgia, PTSD, bipolar disorder, depression, asthma, chronic pain who presents emergency department for evaluation of nausea vomiting and diarrhea. Patient reports that yesterday evening she had 10 slices of pizza for dinner, later in the evening upon returning home she still felt hungry she decided to have a large bowl of white rice. She was feeling generally unwell with mild aching in her abdomen. She awoke at 00:00 having multiple episodes of watery diarrhea every 30 minutes to 1 hour throughout this morning with associated nausea. Reports at approximately 07:00 this morning she began vomiting, by her account she vomited undigested rice that she had consumed yesterday evening. She then had an episode of large volume hematemesis, she states it was not blood tinged sputum or blood-tinged bile but rather entirely bright red blood. She decided to come to the emergency department for evaluation. She states that after her initial evaluation she has had 3 additional episodes of bloody emesis, unfortunately none of these have been witnessed or seen by myself nor staff. She has mild diffuse abdominal pain that is primarily worse at the epigastric region. She denies any recent sick contacts. She denies any fevers or chills. No genitourinary symptoms. No use of anticoagulants or known coagulation disorders Related Data Home Medications ?Medication ?Instructions ?Recorded ?Confirmed azelastine 137 mcg (0.1 %) nasal intranasal 06/03/22 04/16/24 spray medroxyprogesterone 150 mg/mL 150 mg IM [id number] 03/27/24 04/16/24 intramuscular syringe Previous Rx's ?Medication ?Instructions ?Recorded hydrocortisone 2.5 % topical cream 1 appl topical BID #20 grams 09/15/21 diclofenac sodium 1 % topical gel 2 g topical QID #100 grams 09/28/21 (Voltaren Arthritis Pain) diphenhydramine HCl 25 mg tablet 50 mg (2 x 25 mg) PO TID PRN 01/07/22 (Benadryl Allergy) allergic reaction #14 tabs epinephrine 0.3 mg/0.3 mL 0.3 mg (0.3 mL) IM Q4H PRN 01/07/22 injection, auto-injector (EpiPen anaphylaxis 1 month #2 ea 2-Edward) baclofen 10 mg tablet 10 mg PO TID muscle spasm 30 days 06/03/22 #90 tabs magnesium glycinate 100 mg (as 200 mg (2 x 100 mg) PO DAILY 06/03/22 glycinate) tablet migraine 30 days #60 tabs riboflavin (vitamin B2) 400 mg 400 mg PO DAILY migraine headache 06/03/22 tablet 30 days #30 tabs cholecalciferol (vitamin D3) 50 50 mcg PO DAILY 90 days #90 caps 10/12/22 mcg (2,000 unit) capsule omeprazole 20 mg capsule,delayed 20 mg PO DAILY PRN for heartburn 10/12/22 release #90 caps triamcinolone acetonide 0.025 % 1 appl topical DAILY PRN psoriasis 10/12/22 topical cream 2 weeks #15 grams fluticasone propionate 50 1 spray intranasal BID #16 grams 10/13/22 mcg/actuation nasal spray,suspension (Flonase Allergy Relief) loratadine 10 mg tablet 10 mg PO DAILY #30 tabs 10/13/22 folic acid 1 mg tablet 1 mg PO DAILY 90 days #90 tabs 10/17/22 mecobalamin (vitamin B12) 1,000 1,000 mcg PO DAILY 90 days #90 tabs 10/17/22 mcg chewable tablet gabapentin 300 mg capsule 300 mg PO BID pain 30 days #60 caps 10/25/22 clotrimazole 1 % topical cream 1 appl topical BID 4 weeks #30 10/26/22 grams ibuprofen 800 mg tablet 800 mg PO TID PRN pain #20 tabs 11/02/22 albuterol sulfate 90 mcg/actuation 2 inh inhalation Q6-8H PRN 11/14/22 aerosol inhaler shortness of breath or wheezing #6.7 grams clobetasol 0.05 % topical ointment 1 appl topical BID 1 week #15 grams 05/11/23 miconazole nitrate 2 % vaginal 1 appful vaginal BEDTIME 7 days 08/16/23 cream (Miconazole-7) #45 grams Knee brace #1 ea 08/31/23 cyclobenzaprine 10 mg tablet 10 mg PO TID PRN muscle spasm #10 01/30/24 tabs lidocaine 5 % topical patch 1 patch topical DAILY #15 ea 01/30/24 naproxen 500 mg tablet 500 mg PO BID PRN pain #20 tabs 01/30/24 clindamycin phosphate 2 % vaginal 1 appful vaginal BEDTIME 7 days #5 02/14/24 cream grams fluconazole 150 mg tablet 150 mg PO Q3D 2 doses #2 tabs 02/14/24 valacyclovir 1 gram tablet 1,000 mg PO DAILY #90 tabs 02/14/24 amoxicillin 500 mg capsule 500 mg PO BID 5 days #10 caps 04/16/24 fluconazole 150 mg tablet 150 mg PO DAILY 1 dose #1 tab 04/23/24 amoxicillin 875 mg-potassium 1 tab PO BID 7 days #14 tabs 05/01/24 clavulanate 125 mg tablet amoxicillin 875 mg-potassium 1 tab PO BID #20 tabs 05/05/24 clavulanate 125 mg tablet vancomycin 125 mg capsule 125 mg PO QID 10 days #40 caps 05/11/24 Allergies Allergy/AdvReac Type Severity Reaction Status Date / Time Seasonal Allergies Allergy Mild Unknown Verified 05/11/24 09:06 metronidazole [From FLAGYL] Allergy Unknown Hives Verified 05/11/24 09:06 duloxetine AdvReac Nausea Verified 05/11/24 09:06 Review of Systems Review of Systems Yes all other systems are reviewed and are negative [facility] Past Medical History Attestation statement: The following information was validated with the patient. Source: old records reviewed Medical History Sore throat Moderate recurrent major depression Physical exam Abdominal pain Chlamydia infection control counseling Yeast infection involving the vagina and surrounding area Pain of right scapula Visit for suture removal Dextroscoliosis of lumbar spine Status post fall Mid back pain Well woman exam with routine gynecological exam Screen for sexually transmitted diseases Cervical cancer screening Breast pain, right Lumbar radiculopathy Lumbar spondylosis Polyarthralgia Pain in both feet Injury of toe on right foot Preoperative clearance Jaw pain Pain in right elbow Paresthesia of hand, bilateral Left ankle pain Bilateral leg edema Lymphadenopathy Incidental lung nodule, > 3mm and < 8mm Low vitamin D level Bug bite Anxiety and depression Neck mass Rib pain on right side Muscle spasms of neck Paresthesia and pain of both upper extremities Cervicalgia Upper respiratory tract infection Atopic reaction Allergic reaction Mass in neck Thrush, oral Muscle twitch Muscle spasm Shortness of breath Adenopathy Left shoulder pain Immunization due Nonimmune to hepatitis B virus Numbness and tingling of both legs Tinnitus Upper respiratory tract infection Depo-Provera contraceptive status Screening for eye condition Routine screening for STI (sexually transmitted infection) Cervicalgia Headache Vision changes Chest pain Nausea and vomiting Hematochezia Abdominal pain Back pain Lung nodules Borderline personality disorder Depression Bipolar 1 disorder ADHD Low vitamin D level GERD (gastroesophageal reflux disease) Asthma History of multiple miscarriages COVID-19 virus infection Encounter to establish care (~03/2021) HIV exposure Surgical History S/P cubital tunnel release Hx of biopsy History of wisdom tooth extraction Family History Family History Mother Substance use disorder Mental health disorder Father Cancer Social History Social History Housing: House Alcohol intake: current Alcohol intake frequency: holidays/special occasions only Patient Tobacco Use Status: Never used Tobacco Tobacco use type: Cigar e-Cigarette/Vaping Use: Currently Using Second Hand Smoke Exposure: No Advance Directives: No Advance Directives Information Provided: Yes Do you have a plan to hurt others: No Plan service: No Current occupational status: unemployed 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 No acute distress.?Normal affect.?? Neck: Normal inspection.? Neck supple.?? CVS: Heart sounds normal. Normal heart rate and rhythm.? Pulses normal.?? Respiratory: No respiratory distress.? Lung sounds clear to auscultation bilaterally?? Abdomen: Soft and non-tender. No rebound tenderness at McBurney's point. Negative psoas sign. Negative Rovsing sign. Negative Salazar sign. No CVAT. Normoactive bowel sounds. No pulsatile mass.?? Skin: Skin warm and dry.? Normal skin color.? Extremities: No lower extremity edema.? Neuro: Moves all extremities spontaneously. Sensation intact bilaterally. Ambulates with normal steady gait. Course Reevaluation(s) Reevaluation #1: Repeat H&H obtain 7 hours later is stable initial H&H of 15.7/45.5, on repeat 15/42.4 despite multiple reported episodes of hematemesis since her initial draw. Has had no further episodes of hematemesis in the emergency department. Has had further episodes of nonbloody diarrhea, will send stool panel for GI/C difficile though she does not have great risk factors for C diff no recent antibiotic use, hospitalization. Reevaluation #2: Patient signed out to [facility] pending CT abdomen and pelvis and re-evaluation. I anticipate if no episodes of significant hematemesis, no evidence of GI be on CT imaging, she may be discharged home the symptoms likely secondary to viral gastroenteritis. Time: 18:46 Reevaluation #3: 2044 SERGIO Mora-C ---> Patient's C.Diff is positive. Patient's CT abd/pelvis GI bleed protocol showed colitis with an upper end of normal appendix that the radiologist recommended follow up on. I explained all results to the patient. Patient was given a dose of PO vancomycin while in the department. Patient cleared for discharge. Time: 20:46 Medical Decision Making Medical Decision Making MDM Narrative: Patient is a 29-year-old female who presents emergency department for evaluation of nausea vomiting diarrhea with abdominal pain since this morning, by her account has subsequently had episodes of large volume hematemesis. CBC revealing mild leukocytosis 12,400 with left shift, no anemia or thrombocytopenia. Mild hyperchloremia 114, likely secondary to dehydration in the setting of vomiting and diarrhea, potassium and sodium are normal. Mild acidosis with bicarb of 19 anion gap at 9, most consistent with metabolic acidosis and the setting of gastrointestinal illness. LFTs and lipase within normal range. Viral serologies are negative. Urinalysis and hCG has not been obtained prior to my assumption of care orders have been placed. EKG obtained prior to my assumption of care revealing normal sinus rhythm with ventricular rate of 86, QTC 473, no ST elevation. Obtaining CT of the abdomen and pelvis with GI bleed protocol to exclude GI bleed, her symptoms seem to rather favor a gastroenteritis, though given her endorsement of zoe hematemesis, this warrants further evaluation she is not on any anticoagulants nor does she have any known coagulation disorders. Possibly gastritis in the setting of vomiting. No hematochezia or melena, lower suspicion for diverticulitis. Differential Diagnosis Differential Diagnoses: The differential diagnosis associated with the presentation includes (See narrative above) Admission/Observation Consideration of admission/observation: Escalation of care including admission/observation considered (See narrative above ) Lab Data MDM Lab Attestation statement: I reviewed the patient's lab results. 05/11/24 16:29 05/11/24 09:17 Labs: Lab Results 05/11/24 05/11/24 05/11/24 Range/Units 09:17 16:29 18:15 WBC 12.4 H 11.8 H (4.8-10.8) X10*3/uL RBC 5.39 5.04 (4.20-5.50) X10*6/uL Hgb 15.7 15.0 (12.0-16.0) g/dl Hct 45.5 42.4 (37.0-47.0) % MCV 84.4 84.1 (80.0-98.0) fL MCH 29.1 29.8 (27.0-33.0) pg MCHC 34.5 35.4 H (31.0-35.0) g/dl RDW 12.8 13.0 (11.0-16.0) % Plt Count 341 341 (160-400) X10*3/uL MPV 9.9 9.7 (9.4-12.3) fL Immature Gran % (Auto) 0.4 0.3 (0.0-0.4) % Neut % (Auto) 86.7 H 86.4 H (45-73) % Lymph % (Auto) 8.3 L 10.3 L (20-40) % Wright % (Auto) 3.5 2.8 (2-11) % Eos % (Auto) 0.9 0.0 (0-4) % Baso % (Auto) 0.2 0.2 (0-2) % Lymph # (Auto) 1.0 L 1.2 (1.2-4.9) X10*3/uL Wright # (Auto) 0.4 0.3 (0.1-1.2) X10*3/uL Eos # (Auto) 0.1 0.0 (0.0-0.4) X10*3/uL Baso # (Auto) 0.0 0.0 (0.0-0.2) X10*3/uL Abs Immat Gran (auto) 0.05 H 0.03 (0.00-0.03) X10*3/uL Absolute Neuts (auto) 10.8 H 10.2 H (2.0-8.3) x10*3/uL Absolute Nucleated RBC 0.000 0.000 (0.0-0.012) X10*3/uL Nucleated RBC % (auto) 0.0 0.0 (0.0-0.2) /100WBC PT 12.0 13.5 H (10.9-12.4) SEC INR 1.0 1.2 H (0.9-1.1) Sodium 138 (135-145) mmol/L Potassium 3.5 (3.3-5.1) mmol/L Chloride 114 H (96-108) mmol/L Carbon Dioxide 19 L (22-29) mmol/L Anion Gap 9 L (12-20) BUN 9 (9-16) mg/dL Creatinine 0.69 (0.5-1.4) mg/dL Estim Creat Clear Calc 132.3 Estimated GFR > 60 Random Glucose 115 (60-115) mg/dL Calcium 9.1 (8.4-10.2) mg/dL Total Bilirubin 0.4 (0.0-1.0) mg/dL Direct Bilirubin 0.1 (0.0-0.5) mg/dL AST 17 (5-31) U/L ALT 25 (0-31) U/L Alkaline Phosphatase 81 (39-117) U/L Troponin I High Sens < 2.7 (<3.5-17.0) ng/L Total Protein 7.5 (6.5-8.0) g/dL Albumin 4.2 (3.5-5.0) g/dL Lipase 11 (8-78) U/L Beta HCG, Quant < 2 mIU/mL Urine Color Yellow Urine Appearance Clear Urine pH 6.5 (5.0-9.0) Ur Specific [place] >= 1.030 H (1.005-1.025) Urine Protein Trace (Neg-Trace) mg/dL Urine Glucose (UA) Negative (Negative) mg/dL Urine Ketones Negative (Negative) mg/dL Urine Blood Negative (Negative) Urine Nitrite Negative (Negative) Ur Leukocyte Esterase Negative (Negative) C. difficile Tox B Gene POSITIVE A* (Negative) C. difficile Toxin A&B Negative (Negative) C. difficile Interpret SEE NOTE Influenza Type A (PCR) NEGATIVE (Negative) Influenza Type B (PCR) NEGATIVE (Negative) RSV RNA Qual (PCR) NEGATIVE (Negative) SARS-CoV-2 RNA (RT-PCR) NEGATIVE (Negative) Medications Administered Discontinued Medications Generic Name Dose Route Start Last Admin Trade Name Freq PRN Reason Stop Dose Admin Sodium Chloride 1,000 mls @ 999 mls/hr 05/11/24 16:15 05/11/24 19:30 Ns IV 05/11/24 17:15 Infused .Q1H1M PANCHO Infusion Iohexol 85 ml 05/11/24 19:38 05/11/24 19:38 Iohexol 350 Mg/Ml 100 Ml Infus..Btl IV 05/11/24 19:39 85 ml ONCE ONE Administration Morphine Sulfate 2 mg 05/11/24 18:26 05/11/24 19:47 Morphine Sulfate 2 Mg/Ml Cartridge IVPUSH 05/11/24 18:27 2 mg ONCE ONE Administration Protocol Ondansetron HCl 4 mg 05/11/24 16:13 05/11/24 16:32 Ondansetron Hcl 4 Mg/2 Ml Vial IVPUSH 05/11/24 16:14 4 mg ONCE ONE Administration Pantoprazole Sodium 40 mg 05/11/24 16:13 05/11/24 16:32 Pantoprazole Sodium 40 Mg/10 Ml Vial IVPUSH 05/11/24 16:14 40 mg ONCE ONE Administration Critical Care Time Critical Care Time Critical Care Time: Yes Total Critical Care Time: 35 Attestation: I personally attest to this critical care time spent taking care of the patient exclusive of all other billable procedures was approximately 35 minutes including initial evaluation of patient, ordering tests, morphine IV for analgesia and re-evaluation, documentation, re-evaluation. Discharge Plan Discharge Clinical Impression: Hematemesis, Nausea vomiting and diarrhea, C. difficile colitis Patient Disposition: Home, Self-Care Instructions: C. Diff (Clostridioides Difficile) Infection (ED), Hematemesis (ED) Additional Instructions: Your testing today shows you are positive for C.Diff colitis. C. difficile?infection (CDI) can spread among household contacts; however, it is rare for otherwise healthy individuals to develop CDI in the absence of antibiotic use. Patients with CDI should wash hands with soap and water after using the bathroom, before eating or food preparation, and when hands are visibly soiled. If possible, patients with diarrhea should avoid using the same toilet as other family members. In addition, bathroom and kitchen areas (including toilet seats, toilet bowl, flush handle, sink faucet handles, and countertops) may be cleaned with a mixture of bleach and water (1 part bleach to every 10 parts water) to help prevent spread of infection. Please take your antibiotic as prescribed. Your CT scan of the abdomen/pelvis showed a normal appendix however - it is on the larger side of normal. This should be followed up on by your primary care provider. Follow up with your primary care provider. Return to the emergency department immediately if your symptoms worsen or if you develop any dizziness, shortness of breath, difficulty breathing, chest pain, blurry vision, loss of vision, nausea, vomiting, abdominal pain, fever, chills, back pain, or any other complaints. Prescriptions: New vancomycin 125 mg capsule 125 mg PO QID 10 Days Qty: 40 0RF No Action epinephrine [EpiPen 2-Edward] 0.3 mg/0.3 mL auto-injector 0.3 mg IM Q4H PRN (Reason: anaphylaxis) 30 Days Qty: 2 4RF Rx Instructions: practice injector as well if available please omeprazole 20 mg capsule,delayed release(DR/EC) 20 mg PO DAILY PRN (Reason: for heartburn) Qty: 90 0RF cholecalciferol (vitamin D3) 50 mcg (2,000 unit) capsule 50 mcg PO DAILY 90 Days Qty: 90 1RF fluticasone propionate [Flonase Allergy Relief] 50 mcg/actuation spray,suspension 1 spray intranasal BID Qty: 16 3RF Rx Instructions: administer into each nostril loratadine 10 mg tablet 10 mg PO DAILY Qty: 30 3RF folic acid 1 mg tablet 1 mg PO DAILY 90 Days Qty: 90 1RF mecobalamin (vitamin B12) 1,000 mcg tablet,chewable 1,000 mcg PO DAILY 90 Days Qty: 90 1RF gabapentin 300 mg capsule 300 mg PO BID 30 Days Qty: 60 3RF clotrimazole 1 % cream 1 appl topical BID 28 Days Qty: 30 0RF albuterol sulfate 90 mcg/actuation HFA aerosol inhaler 2 inh inhalation Q6-8H PRN (Reason: shortness of breath or wheezing) Qty: 6.7 0RF amoxicillin 500 mg capsule 500 mg PO BID 5 Days Qty: 10 0RF fluconazole 150 mg tablet 150 mg PO DAILY Qty: 1 0RF Rx Instructions: administer on day 1 of therapy diphenhydramine HCl [Benadryl Allergy] 25 mg tablet 50 mg PO TID PRN (Reason: allergic reaction) Qty: 14 0RF clobetasol 0.05 % ointment 1 appl topical BID 7 Days Qty: 15 0RF amoxicillin-pot clavulanate 875-125 mg tablet 1 tab PO BID Qty: 20 0RF ibuprofen 800 mg tablet 800 mg PO TID PRN (Reason: pain) Qty: 20 0RF cyclobenzaprine 10 mg tablet 10 mg PO TID PRN (Reason: muscle spasm) Qty: 10 0RF lidocaine 5 % adhesive patch,medicated 1 patch topical DAILY Qty: 15 0RF Rx Instructions: leave on most painful area for up to 12 hrs naproxen 500 mg tablet 500 mg PO BID PRN (Reason: pain) Qty: 20 0RF hydrocortisone 2.5 % cream 1 appl topical BID Qty: 20 0RF (DME) Knee brace Misc See Rx Instructions .Route Qty: 1 0RF Rx Instructions: As directed diclofenac sodium [Voltaren Arthritis Pain] 1 % gel 2 g topical QID Qty: 100 0RF Rx Instructions: apply to single elbow, wrist or hand; for hand includes palm/fingers/back of hand triamcinolone acetonide 0.025 % cream 1 appl topical DAILY PRN (Reason: psoriasis) 14 Days Qty: 15 0RF azelastine 137 mcg (0.1 %) aerosol,spray intranasal baclofen 10 mg tablet 10 mg PO TID 30 Days Qty: 90 0RF magnesium glycinate 100 mg tablet 200 mg PO DAILY 30 Days Qty: 60 6RF riboflavin (vitamin B2) 400 mg tablet 400 mg PO DAILY 30 Days Qty: 30 6RF miconazole nitrate [Miconazole-7] 2 % cream 1 appful vaginal BEDTIME 7 Days Qty: 45 3RF amoxicillin-pot clavulanate 875-125 mg tablet 1 tab PO BID 7 Days Qty: 14 0RF clindamycin phosphate 2 % cream 1 appful vaginal BEDTIME 7 Days Qty: 5 2RF Rx Instructions: for 7 days; USE ONLY WHEN YOU HAVE CLEAR BV SYMPTOMS valacyclovir 1 gram tablet 1,000 mg PO DAILY Qty: 90 4RF fluconazole 150 mg tablet 150 mg PO Q3D 0 Days Qty: 2 6RF Rx Instructions: may repeat second dose 72 hrs after first dose if symptoms persist, USE WHEN CLEAR SYMPTOMS OF YEAST ARE PRESENT. medroxyprogesterone 150 mg/mL syringe 150 mg IM [id number] Referrals: Maeve Woodard MD [Primary Care Provider] - Stand Alone Forms: Work/School Release Print Language: Lithuanian
[2024-05-11 15:53] VITALS: BP 113/70; PULSE 87; RESP 16; TEMP 36.9; O2SAT 99
[2024-05-11] MEDS: Pantoprazole Sodium 40 MG/10 ML VIAL IVPUSH (16:32)
[2024-05-11] MEDS: ondansetron HCL 4 MG/2 ML VIAL IVPUSH (16:32)
[2024-05-11 16:33] LABS: MANUAL DIFF FLAG NO
[2024-05-11] MEDS: 0.9 % Sodium Chloride 1,000 ML 999 ML IV (16:33)
[2024-05-11 16:38] LABS: Basophils Percent Auto 0.2 % (0-2); Hematocrit 42.4 % (37.0-47.0); Imm Gran Abs Auto 0.03 X10*3/uL (0.00-0.03); Imm Gran Pct Auto 0.3 % (0.0-0.4); Lymphocytes Absolute Auto 1.2 X10*3/uL (1.2-4.9); Lymphocytes Percent Auto 10.3 % (20-40); Mean Corpuscular HGB Conc 35.4 g/dl (31.0-35.0); Mean Corpuscular Hemoglobin 29.8 pg (27.0-33.0); Mean Corpuscular Volume 84.1 fL (80.0-98.0); Mean Platelet Volume 9.7 fL (9.4-12.3); Monocytes Absolute Auto 0.3 X10*3/uL (0.1-1.2); Monocytes Percent Auto 2.8 % (2-11); Neutrophils Absolute Auto 10.2 x10*3/uL (2.0-8.3); Neutrophils Percent Auto 86.4 % (45-73); Platelet Count 341 X10*3/uL (160-400); Red Blood Count 5.04 X10*6/uL (4.20-5.50); White Blood Count 11.8 X10*3/uL (4.8-10.8)
[2024-05-11 16:40] LABS: INTERNATIONAL NORM RATIO 1.2 (0.9-1.1); Prothrombin Time 13.5 SEC (10.9-12.4)
[2024-05-11 17:44] LABS: Lipase 11 U/L (8-78)
[2024-05-11 17:47] LABS: HCG Quantitative < 2 mIU/mL
[2024-05-11 18:29] LABS: Appearance Urine Clear; Color Urine Yellow; Glucose Urine UA Negative (Negative); Leukocyte Esterase Urine Negative (Negative); Nitrite Urine Negative (Negative); PH 6.5 (5.0-9.0); Specific Gravity - Urine >= 1.030 (1.005-1.025); Urine Blood Negative (Negative); Urine Ketones Negative (Negative); Urine Protein Trace mg/dL (Neg-Trace)
[2024-05-11 19:21] LABS: CDiff Gene PCR POSITIVE (Negative)
[2024-05-11] MEDS: iohexoL 350 MG/ML 100 ML INFUS..BTL 85 ML IV (19:38)
[2024-05-11 19:46] VITALS: BP 140/75; PULSE 90; RESP 20; TEMP 37.6; O2SAT 99
[2024-05-11] MEDS: Morphine Sulfate 2 MG/ML CARTRIDGE IVPUSH (19:47)
[2024-05-11 20:02] LABS: CDIFF Internal ctrl Dots and bkg OK (V)
[2024-05-11 20:04] LABS: CDiff Toxin Negative (Negative)
[2024-05-11 21:04] VITALS: BP 140/75; PULSE 90; RESP 20; TEMP 37.6; O2SAT 99
[2024-05-11] MEDS: vancomycin HCL 125 MG CAPSULE PO (21:07)
[2024-05-12 09:27] LABS: Adenovirus F 40/41 Not Detected (Not Detect.); Astrovirus Not Detected (Not Detect.); Campylobacter Not Detected (Not Detect.); Cryptosporidium Not Detected (Not Detect.); Cyclospora cayetanensis Not Detected (Not Detect.); E. coli EAEC Not Detected (Not Detect.); E. coli EPEC Not Detected (Not Detect.); E. coli ETEC Not Detected (Not Detect.); E. coli STEC Not Detected (Not Detect.); Entamoeba histolytica Not Detected (Not Detect.); Giardia lamblia Not Detected (Not Detect.); Plesiomonas shigelloides Not Detected (Not Detect.); Rotavirus A Not Detected (Not Detect.); Salmonella Not Detected (Not Detect.); Sapovirus Not Detected (Not Detect.); Shigella sp./EIEC Not Detected (Not Detect.); Vibrio Not Detected (Not Detect.); Vibrio Cholerae Not Detected (Not Detect.); Yersinia enterocolitica Not Detected (Not Detect.)
[2024-05-12 10:29] LABS: Norovirus GI/GII Detected (Not Detect.)
== END 2024-05-11 21:14 | disposition home or self-care (01) ==
PROVIDERS: Nurse Practitioner Family; Physician Assistant Medical; Emergency Provider Emergency Medicine Emergency Medical Services; PCP Internal Medicine
DX: R11.2 Nausea with vomiting, unspecified (principal); A04.72 Enterocolitis due to Clostridium difficile, not specified as recurrent; R07.89 Other chest pain; R10.2 Pelvic and perineal pain; Z79.899 Other long term (current) drug therapy; Z03.818 Encounter for observation for suspected exposure to other biological agents ruled out
CPT/HCPCS: 0241U; 36415; 74178; 80048; 80076; 81003; 83690; 84484; 84702; 85025; 85610; 87324; 87493; 87507; 93005; 96361; 96374; 96375; 99284; J2270; J2405; J2470; Q9967

== ENCOUNTER → 2024-05-11 11:48 | Outpatient (BNV) | payer MEDICARE, MEDICAID, SELFPAY | PROVIDERS: Emergency Provider Emergency Medicine Emergency Medical Services; PCP Internal Medicine; Visit Provider Internal Medicine Cardiovascular Disease | DX: I45.10 Unspecified right bundle-branch block (principal) | CPT/HCPCS: 93010 ==

== ENCOUNTER → 2024-05-11 16:07 | Outpatient (BNV) | payer MEDICARE, MEDICAID, SELFPAY | PROVIDERS: Emergency Provider Emergency Medicine Emergency Medical Services; PCP Internal Medicine; Visit Provider Radiology Neuroradiology | DX: J98.11 Atelectasis (principal); N20.0 Calculus of kidney | CPT/HCPCS: 74178 ==

== ENCOUNTER 2024-05-21 10:54 | Outpatient (REF) | payer MEDICARE, MEDICAID, SELFPAY ==
--- OUTSIDE RECORDS SUMMARY | 2024-05-21 10:56 | XMS_ITS | Clinical Summary ---
Author Organization [employer] Address [address] [place] [address] [address] [place] [address] Care Team Providers Care Lead Shipper Name Role Phone Unavailable Primary Care Provider [...]
--- OUTSIDE RECORDS SUMMARY | 2024-05-21 10:56 | XMS_ITS | Encounter Summary ---
Author Organization [facility] Address [address] [facility] [address]t [place] [address] Care Team Providers Care Shadowgraph Scale Operator Name Role Phone Unavailable Primary Care [...]
--- OUTSIDE RECORDS SUMMARY | 2024-05-21 10:56 | XMS_ITS | Encounter Summary ---
Author Organization [employer] [facility] Address [address] [facility] 7t [place] [address] Care Team Providers Care Website Designer Name Role Phone Unavailable Primary Care Provider [...]
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
[2024-05-21 12:07] LABS: Alanine Aminotransferase 30 U/L (0-31); Alkaline Phosphatase 73 U/L (39-117); Anion Gap 12 (12-20); Aspartate Amino Transferase 16 U/L (5-31); Bilirubin Total 0.4 mg/dL (0.0-1.0); Blood Urea Nitrogen 6 mg/dL (9-16); Calcium 9.1 mg/dL (8.4-10.2); Carbon Dioxide 24 mmol/L (22-29); Chloride 109 mmol/L (96-108); Cholesterol 156 mg/dL (<200); Estimated Glomerular Filt Rate > 60; Glucose Fasting 99 mg/dL (60-99); HDL Cholesterol 41 mg/dL (>40); LDL Cholesterol Calculated 89 mg/dL (<100); Potassium 3.3 mmol/L (3.3-5.1); Sodium 142 mmol/L (135-145); Total Protein 7.3 g/dL (6.5-8.0); Triglycerides 132 mg/dL (<150)
[2024-05-21 12:23] LABS: Thyroid Stimulating Hormone 1.57 uIU/mL (0.32-4.0); Vitamin D 25-OH Total 11.4 ng/mL (>30)
[2024-05-21 12:28] LABS: Folate 8.1 ng/mL (> or = 4.0); Vitamin B12 341 pg/mL (200-900)
== END 2024-05-21 10:55 | disposition home or self-care (01) ==
LOC: HO.LAB 10:54
PROVIDERS: PCP Internal Medicine; Visit Provider Internal Medicine
DX: Z00.00 Encounter for general adult medical examination without abnormal findings (principal); R41.3 Other amnesia; E53.8 Deficiency of other specified B group vitamins; E55.9 Vitamin D deficiency, unspecified; Z13.6 Encounter for screening for cardiovascular disorders
CPT/HCPCS: 36415; 80053; 80061; 82306; 82607; 82746; 84443

== ENCOUNTER → 2024-05-22 10:42 | Outpatient (REF) | payer MEDICARE, MEDICAID, SELFPAY ==
--- NOTE | 2024-05-22 10:55 | ECG_ITS ---
Test Reason : RBBB Blood Pressure : */* mmHG Vent. Rate : 73 BPM Atrial Rate : 73 BPM P-R Int : 154 ms QRS Dur : 96 ms QT Int : 394 ms P-R-T Axes : 28 13 19 degrees QTcB Int : 434 ms Normal sinus rhythm Normal ECG When compared with ECG of 11-May-2024 11:59, Incomplete right bundle branch block is no longer Present Nonspecific T wave abnormality no longer evident in Anterolateral leads Referred By: Maeve Guzman Electronically Signed By: TURNER HAYS
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
--- OUTSIDE RECORDS SUMMARY | 2024-05-22 11:47 | XMS_ITS | Clinical Summary ---
Author Organization [employer] Address [address] [place] [address] [address]t [place] [address] Care Team Providers Care Fresh Work Wrapper Layer Name Role Phone Unavailable Primary Care Provider [...]
--- OUTSIDE RECORDS SUMMARY | 2024-05-22 11:47 | XMS_ITS | Encounter Summary ---
Author Organization [employer] [facility] Address [address] 7[address] [place] [address] Care Team Providers Care Steel Buffer Name Role Phone Unavailable Primary Care Provider [...]
--- OUTSIDE RECORDS SUMMARY | 2024-05-22 11:47 | XMS_ITS | Encounter Summary ---
Author Organization [employer] [facility] Address [address] [facility] 7t [place] [address] Care Team Providers Care Operations Boardman Name Role Phone Unavailable Primary Care Provider [...]
== END ==
LOC: HO.CARD 10:42
PROVIDERS: PCP Internal Medicine; Visit Provider Internal Medicine
DX: I45.10 Unspecified right bundle-branch block (principal)
CPT/HCPCS: 93005

== ENCOUNTER → 2024-05-22 10:55 | Outpatient (BNV) | payer MEDICARE, MEDICAID, SELFPAY | PROVIDERS: PCP Internal Medicine; Visit Provider Internal Medicine | DX: Z13.6 Encounter for screening for cardiovascular disorders (principal) | CPT/HCPCS: 93010 ==

== ENCOUNTER 2024-05-29 10:42 | Outpatient (AMB) | payer MEDICARE, MEDICAID, SELFPAY ==
--- NOTE | 2024-05-29 10:51 | MHC.OFFVIS ---
Vital Signs 05/29/24 10:57 Height 5 ft 4.5 in Weight 192 lb 6 oz BMI 32.5 BP 131/81 Blood Pressure Location Lt brachial Position Sitting Pulse 90 Intake Visit Reasons: ultrasound bx consult, left breast 1 o'clock mass Intake Note: Patient is seen in office for ultrasound biopsy CONSULT, left breast for 1 o'clock mass. Pt c/o: left side feels heavier like breast feeding , does not feel a lump, no prior breast surgeries or bx, yes to breast feeding with no complications, first at 18 yrs old Bx sched:05/30/24 @ 9am Gravure Press Set Up Operator Required: No Cleaning Handyman: Cleaning Handyman Present Accompanied by: Self / Same As Patient Allergies Seasonal Allergies Allergy (Mild, Verified 05/29/24 11:02) Unknown metronidazole [From FLAGYL] Allergy (Unknown, Verified 05/29/24 11:02) Hives duloxetine Adverse Reaction (Verified 05/29/24 11:02) Nausea Medication List - Last Reconciled 05/31/24 by Thierry Mata MD albuterol sulfate 90 mcg/actuation 2 inhalations inhalation Q6-8H PRN amoxicillin 500 mg PO BID 5 days amoxicillin-pot clavulanate 875-125 mg 1 tab PO BID amoxicillin-pot clavulanate 875-125 mg 1 tab PO BID 7 days azelastine intranasal baclofen 10 mg PO TID 30 days cholecalciferol (vitamin D3) 50 mcg PO DAILY 90 days clindamycin phosphate 2% 1 appful vaginal BEDTIME 7 days clobetasol 0.05% 1 appl topical BID 1 week clotrimazole 1% 1 appl topical BID 4 weeks cyclobenzaprine 10 mg PO TID PRN diclofenac sodium 1% (Voltaren Arthritis Pain) 2 grams topical QID diphenhydramine HCl (Benadryl Allergy) 50 mg (2 x 25 mg) PO TID PRN epinephrine (EpiPen 2-Edward) 0.3 mg (0.3 mL) IM Q4H PRN 1 month fluconazole 150 mg PO Q3D 2 doses fluconazole 150 mg PO DAILY 1 dose fluticasone propionate 50 mcg/actuation (Flonase Allergy Relief) 1 spray intranasal BID folic acid 1 mg PO DAILY 90 days gabapentin 300 mg PO BID 30 days hydrocortisone 2.5% 1 appl topical BID ibuprofen 800 mg PO TID PRN Knee brace As directed lidocaine 5% 1 patch topical DAILY loratadine 10 mg PO DAILY magnesium glycinate 200 mg (2 x 100 mg) PO DAILY 30 days mecobalamin (vitamin B12) 1,000 mcg PO DAILY 90 days medroxyprogesterone 150 mg IM [id number] miconazole nitrate 2% (Miconazole-7) 1 appful vaginal BEDTIME 7 days naproxen 500 mg PO BID PRN omeprazole 20 mg PO DAILY PRN riboflavin (vitamin B2) 400 mg PO DAILY 30 days triamcinolone acetonide 0.025% 1 appl topical DAILY PRN 2 weeks valacyclovir 1,000 mg PO DAILY vancomycin 125 mg PO QID 10 days HPI Comments Details: 29-year-old female patient presenting for breast evaluation due to an area of pain in the left breast at approximately the 9 o'clock position. Subsequent ultrasound was performed on 05/02/2024. This revealed a hypoechoic solid mass at the 1 o'clock position 2 cm from the nipple. An ultrasound-guided core biopsy was recommended in his scheduled for later today at the [facility]. No fluid collection or abnormal finding was noted in the area of symptoms at the 9 o'clock position. She reports having bilateral nipple piercings but after a recent surgery the nipple piercings were removed and she never replaced them. She is uncertain if this is a possible cause of her symptoms. The patient denies a previous history of breast problems or breast surgery. She is 4 para 1 full-term, 1 SA, and 1 EA. In addition the patient recently underwent a CT performed on 05/11/2024. This revealed the appendix in a retrocecal location measuring in the upper limits of normal (6 mm diameter). This was felt to be borderline for appendicitis. The patient currently denies any abdominal pain in the right lower quadrant. [facility] Medical History Sore throat Moderate recurrent major depression Physical exam Abdominal pain Chlamydia infection control counseling Yeast infection involving the vagina and surrounding area Pain of right scapula Visit for suture removal Dextroscoliosis of lumbar spine Status post fall Mid back pain Well woman exam with routine gynecological exam Screen for sexually transmitted diseases Cervical cancer screening Breast pain, right Lumbar radiculopathy Lumbar spondylosis Polyarthralgia Pain in both feet Injury of toe on right foot Preoperative clearance Jaw pain Pain in right elbow Paresthesia of hand, bilateral Left ankle pain Bilateral leg edema Lymphadenopathy Incidental lung nodule, > 3mm and < 8mm Low vitamin D level Bug bite Anxiety and depression Neck mass Rib pain on right side Muscle spasms of neck Paresthesia and pain of both upper extremities Cervicalgia Upper respiratory tract infection Atopic reaction Allergic reaction Mass in neck Thrush, oral Muscle twitch Muscle spasm Shortness of breath Adenopathy Left shoulder pain Immunization due Nonimmune to hepatitis B virus Numbness and tingling of both legs Tinnitus Upper respiratory tract infection Depo-Provera contraceptive status Screening for eye condition Routine screening for STI (sexually transmitted infection) Cervicalgia Headache Vision changes Chest pain Nausea and vomiting Hematochezia Abdominal pain Back pain Lung nodules Borderline personality disorder Depression Bipolar 1 disorder ADHD Low vitamin D level GERD (gastroesophageal reflux disease) Asthma History of multiple miscarriages COVID-19 virus infection Encounter to establish care (~03/2021) HIV exposure Surgical History S/P cubital tunnel release Hx of biopsy History of wisdom tooth extraction Family History Mother Substance use disorder Mental health disorder Father Cancer Maternal Aunt Lung cancer Maternal Uncle Prostate CA Maternal Uncle Colon cancer Maternal Aunt Breast cancer Social History Housing: House Alcohol intake: current Alcohol intake frequency: holidays/special occasions only Patient Tobacco Use Status: Never used Tobacco Tobacco use type: Cigar e-Cigarette/Vaping Use: Currently Using Second Hand Smoke Exposure: No service: No Current occupational status: unemployed 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 Cognitive needs: No Hearing needs: No Vision needs: Yes (glasses) Female Reproductive History Menstrual Age of Menarche: 13 Total pregnancies: 4 Number of Living Children: 1 Review of Systems Const All systems reviewed & are unremarkable except as noted in HPI and below Physical Exam Vital Signs: Last Vital Signs Pulse 90 05/29/24 10:57 BP 131/81 05/29/24 10:57 BMI result Body Mass Index 32.5 Const General: cooperative and no acute distress Nutritional Appearance: well nourished Orientation/consciousness: patient oriented x3 Limitations: no limitations HEENT Head: Yes normocephalic and Yes atraumatic Ears: hearing grossly normal bilaterally Chest Other: Left breast: No skin change, no nipple retraction, no nipple discharge, faintly palpable nodule in the 1 o'clock position, mobile within the breast tissue, no enlarged lymph nodes. Right breast: No skin change, no nipple retraction, no nipple discharge, no palpable mass, no enlarged lymph nodes Resp Effort & Inspection: normal respiratory effort, no audible wheezes, no cough and no respiratory distress Cardio Jugular venous distension: no JVD GI Inspection: Yes normal to inspection Palpation (GI): Soft to palpation, nontender, no guarding, not rigid and No hepatosplenomegaly present Skin Other: Warm, dry, no rash Neuro General: patient oriented x3 Extrem General: Yes no clubbing, cyanosis or edema Assessment & Plan Assessment & Plan (1) Breast mass, left: Code(s): N63.20 - Unspecified lump in the left breast, unspecified quadrant Category: Medical Qualifiers: Breast mass location: upper outer quadrant Qualified Code(s): N63.21 - Unspecified lump in the left breast, upper outer quadrant Plan: 29-year-old female patient presenting with a density in the left breast at the upper outer quadrant noted by ultrasound felt to be suspicious for malignancy. This is palpable on examination and does appear suggestive of a fibroadenoma. No other skin changes or palpable masses are appreciated. No enlarged lymph nodes are appreciated. She is scheduled for an ultrasound-guided core biopsy later today at the [facility]. I recommended follow-up examination in 1 week to review the pathology results and discuss treatment options. She expressed understanding and agrees with the plan. (2) Appendix disease: Code(s): K38.9 - Disease of appendix, unspecified Category: Medical Plan: CT of the abdomen and pelvis was reviewed and a minimally dilated appendix is identified. Examination reveals no tenderness in the right lower quadrant to indicate appendicitis. No surgical intervention is recommended at this time. Orders: Orders US breast ndl core biopsy LT 05/30/24 N63.20 - Unspecified lump in the left breast, unspecified quadrant Medications: Refilled vancomycin 125 mg PO QID 10 days 40 caps 0RF Coding Level of Care Code New Pt Level 4 (37834) Diagnoses Mass of upper outer quadrant of left breast N63.21 Breast mass location: upper outer quadrant Appendix disease K38.9
[2024-05-29 10:57] VITALS: BP 131/81; PULSE 90; BMI 32.5
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
--- OUTSIDE RECORDS SUMMARY | 2024-05-29 12:49 | XMS_ITS | Encounter Summary ---
Author Organization [employer] [facility] Address [address]t [place] [address] Care Team Providers Care Energy Sales Broker Name Role Phone Unavailable Primary Care Provider [...]
--- OUTSIDE RECORDS SUMMARY | 2024-05-29 12:49 | XMS_ITS | Encounter Summary ---
Author Organization [employer] [facility] Address [address] [facility] [address] [facility] [address]t [place] [address] Care Team Providers Care Mason Tender Restoration Labor Name Role Phone Unavailable Primary Care Provider [...]
--- OUTSIDE RECORDS SUMMARY | 2024-05-29 12:49 | XMS_ITS | Clinical Summary ---
Author Organization [employer] Address [address] [place] [address] [address]t [place] [address] Care Team Providers Care Cake Press Operator Name Role Phone Unavailable Primary Care [...]
== END 2024-05-29 11:22 | disposition home or self-care (01) ==
PROVIDERS: PCP Internal Medicine; Visit Provider Surgery
DX: N63.21 Unspecified lump in the left breast, upper outer quadrant (principal); K38.9 Disease of appendix, unspecified
CPT/HCPCS: 99204

== ENCOUNTER → 2024-05-29 10:42 | Outpatient (BNVA) | payer MEDICARE, MEDICAID, SELFPAY | PROVIDERS: PCP Internal Medicine; Visit Provider Surgery | DX: N64.4 Mastodynia (principal); N63.21 Unspecified lump in the left breast, upper outer quadrant; K38.9 Disease of appendix, unspecified | CPT/HCPCS: 99202 ==

== ENCOUNTER 2024-05-30 08:36 | Outpatient (REF) | payer MEDICARE, MEDICAID, SELFPAY ==
--- NOTE | ~2024-05-30 | US_ITS ---
PROCEDURE: ULTRASOUND-GUIDED LEFT BREAST BIOPSY CLINICAL INFORMATION: Solid mass in the left breast at 1:00. COMPARISON: Available priors on PACS. TECHNIQUE: The details of the procedure, as well as the risks, benefits, and alternatives to the procedure were explained to the patient in detail and all of her questions were answered, after which, written informed consent was obtained. PROCEDURE: Prior to the procedure, sonography revealed solid mass at 1:00 in the left breast. A time-out was performed, the lesion intended for biopsy was targeted and the skin of the left breast was then prepped and draped in the usual sterile fashion. Using sonographic guidance, sterile technique, and 1% lidocaine without epinephrine for local anesthesia, a total of 4 cores were obtained through the targeted area with a 14-gauge biopsy device. At the completion of tissue sampling, a single coil metallic clip was deposited at the biopsy site. An appropriate sample was obtained. No postprocedure mammogram was performed the patient is 29 years old. The patient tolerated the procedure well and, after assuring adequate hemostasis, was discharged in good condition after reviewing postbiopsy breast care instructions. Final pathology results are pending. US/US breast ndl core biopsy LT IMPRESSION: 1. Uncomplicated sonographically-guided core biopsy of the left breast 2. Final pathology results are pending. A separate report with final recommendations will be issued once these results are made available. Electronically signed by: Terri Storey DO 05/30/2024 10:49 AM [facility]
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
--- OUTSIDE RECORDS SUMMARY | 2024-05-30 09:12 | XMS_ITS | Encounter Summary ---
Author Organization [employer] [facility] Address [address] [facility] 7t [place] [address] Care Team Providers Care Casing Man Name Role Phone Unavailable Primary Care Provider [...]
--- OUTSIDE RECORDS SUMMARY | 2024-05-30 09:12 | XMS_ITS | Clinical Summary ---
Author Organization [employer] Address [address] [place] [address] [address] [place] [address] Care Team Providers Care Cotton Jammer Name Role Phone Unavailable Primary Care Provider [...]
--- OUTSIDE RECORDS SUMMARY | 2024-05-30 09:12 | XMS_ITS | Encounter Summary ---
Author Organization [facility] Address [address] [facility] [address] [place] [address] Care Team Providers Care Brush Worker Name Role Phone Unavailable Primary Care [...]
[2024-05-30] MEDS: Lidocaine HCl 1 % 20 ML VIAL 9 ML SUBCUT (09:25)
[2024-05-30] MEDS: Sodium Bicarbonate 8.4% 50 MEQ/50 ML VIAL SUBCUT (09:25)
== END 2024-05-30 08:37 | disposition home or self-care (01) ==
LOC: HO.MAMMO 08:36
PROVIDERS: Absent Provider Obstetrics & Gynecology; PCP Internal Medicine; Visit Provider Surgery
DX: D24.2 Benign neoplasm of left breast (principal); N63.21 Unspecified lump in the left breast, upper outer quadrant
CPT/HCPCS: 19083; 88305; A4648; J2003

== ENCOUNTER → 2024-05-30 09:00 | Outpatient (BNV) | payer MEDICARE, MEDICAID, SELFPAY | PROVIDERS: Absent Provider Obstetrics & Gynecology; PCP Internal Medicine; Visit Provider Internal Medicine | DX: N60.22 Fibroadenosis of left breast (principal) | CPT/HCPCS: 19083 ==

== ENCOUNTER 2024-06-01 09:55 | Outpatient (AMB) | payer MEDICARE, MEDICAID, SELFPAY ==
--- NOTE | 2024-06-01 10:07 | MHC.OFFVIS ---
Vital Signs 06/01/24 10:09 Height 5 ft 4.5 in Weight 192 lb BMI 32.4 BP 121/76 Blood Pressure Location Lt brachial Position Sitting Pulse 74 Intake Visit Reasons: abdominal pains Intake Note: Argelia presents in the office as a new patient for abdominal pains. CC: She seen gen surgeons yesterday and had a breast biopsy. She states that she has been drinking and smoking and also sleeping on the side / on her stomach and she was not told instructions on what she should do. She states she is here for abdominal pains - she is on treatment for c diff - she was having loose stools for about 5 months even taking anti diarrheal medications. Wall Taper Helper Required: No Allergies Seasonal Allergies Allergy (Mild, Verified 06/01/24 10:11) Unknown metronidazole [From FLAGYL] Allergy (Unknown, Verified 06/01/24 10:11) Hives duloxetine Adverse Reaction (Verified 06/01/24 10:11) Nausea HPI Comments Details: 29 y.o F with PMH of who is here for abd pain and diarrhea. Sx ongoing for almost a year. Reports lower abd crampy pain accompanied by loose watery stools 3 times a day. No night time sx but urgency +. No incontinence. Tenesmus+. Was ordered stool studies by PCP last year but pt has not done those yet. Pt was recently in ER for norovirus. Was also told had C Diff but from testing appears had colonization. Did not complete vanc as felt better within a few days (again more consistent with noro) Of note - pt also had a CT abd/pel done which showed dilated appendix. No s/sx to correlate clinically. Fam hx: Father: crohns Sister: crohns dx at age 23. [facility] Medical History Sore throat Moderate recurrent major depression Physical exam Abdominal pain Chlamydia infection control counseling Yeast infection involving the vagina and surrounding area Pain of right scapula Visit for suture removal Dextroscoliosis of lumbar spine Status post fall Mid back pain Well woman exam with routine gynecological exam Screen for sexually transmitted diseases Cervical cancer screening Breast pain, right Lumbar radiculopathy Lumbar spondylosis Polyarthralgia Pain in both feet Injury of toe on right foot Preoperative clearance Jaw pain Pain in right elbow Paresthesia of hand, bilateral Left ankle pain Bilateral leg edema Lymphadenopathy Incidental lung nodule, > 3mm and < 8mm Low vitamin D level Bug bite Anxiety and depression Neck mass Rib pain on right side Muscle spasms of neck Paresthesia and pain of both upper extremities Cervicalgia Upper respiratory tract infection Atopic reaction Allergic reaction Mass in neck Thrush, oral Muscle twitch Muscle spasm Shortness of breath Adenopathy Left shoulder pain Immunization due Nonimmune to hepatitis B virus Numbness and tingling of both legs Tinnitus Upper respiratory tract infection Depo-Provera contraceptive status Screening for eye condition Routine screening for STI (sexually transmitted infection) Cervicalgia Headache Vision changes Chest pain Nausea and vomiting Hematochezia Abdominal pain Back pain Lung nodules Borderline personality disorder Depression Bipolar 1 disorder ADHD Low vitamin D level GERD (gastroesophageal reflux disease) Asthma History of multiple miscarriages COVID-19 virus infection Encounter to establish care (~03/2021) HIV exposure Surgical History S/P cubital tunnel release Hx of biopsy History of wisdom tooth extraction Family History Mother Substance use disorder Mental health disorder Father Cancer Maternal Aunt Lung cancer Maternal Uncle Prostate CA Maternal Uncle Colon cancer Maternal Aunt Breast cancer Social History Housing: House Alcohol intake: current Alcohol intake frequency: holidays/special occasions only Patient Tobacco Use Status: Never used Tobacco Tobacco use type: Cigar e-Cigarette/Vaping Use: Currently Using Second Hand Smoke Exposure: No service: No Current occupational status: unemployed 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 Suspect dilated appendix could be proxy of T.I inflammation. Other differentials include celiac, IBS, SIBO. Plan: - Labs as below - EGD/colo to be booked - PEG prep reviewed and handout provided Follow up after scopes Orders: Orders Complete Blood Count no Diff Today K38.9 - Disease of appendix, unspecified, K52.9 - Noninfective gastroenteritis and colitis, unspecified, R10.9 - Unspecified abdominal pain C Reactive Protein Today K38.9 - Disease of appendix, unspecified, K52.9 - Noninfective gastroenteritis and colitis, unspecified, R10.9 - Unspecified abdominal pain Transglutaminase IgA Today K38.9 - Disease of appendix, unspecified, K52.9 - Noninfective gastroenteritis and colitis, unspecified, R10.9 - Unspecified abdominal pain Calprotectin, Fecal Today K38.9 - Disease of appendix, unspecified, K52.9 - Noninfective gastroenteritis and colitis, unspecified, R10.9 - Unspecified abdominal pain TSH reflex Free T4 Today K38.9 - Disease of appendix, unspecified, K52.9 - Noninfective gastroenteritis and colitis, unspecified, R10.9 - Unspecified abdominal pain Immunoglobulin A Today K38.9 - Disease of appendix, unspecified, K52.9 - Noninfective gastroenteritis and colitis, unspecified, R10.9 - Unspecified abdominal pain Medications: New peg 3350-electrolytes 236-22.74-6.74 -5.86 gram (Golytely) as per split prep instructions, until fecal effluent is clear 240 mL PO Q10M 4,000 mL 0RF colonoscopy Coding Level of Care Code New Pt Level 4 (61729) Diagnoses Abdominal pain R10.9 Chronic diarrhea K52.9
[2024-06-01 10:09] VITALS: BP 121/76; PULSE 74; BMI 32.4
--- OUTSIDE RECORDS SUMMARY | 2024-06-01 10:55 | XMS_ITS | Clinical Summary ---
Author Organization [employer] Address [address] [place] [address] [address] [place] [address] Care Team Providers Care Systems Integration Manager Name Role Phone Unavailable Primary Care [...]
--- OUTSIDE RECORDS SUMMARY | 2024-06-01 10:55 | XMS_ITS | Encounter Summary ---
Author Organization [facility] Address [address] [place] [address] Care Team Providers Care Manager Credit Risk Name Role Phone Unavailable Primary Care Provider [...]
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
--- OUTSIDE RECORDS SUMMARY | 2024-06-01 10:55 | XMS_ITS | Encounter Summary ---
Author Organization [facility] Address [address] [place] [address] Care Team Providers Care Grout Worker Name Role Phone Unavailable Primary Care [...]
== END 2024-06-01 14:27 | disposition home or self-care (01) ==
PROVIDERS: PCP Internal Medicine; Visit Provider Internal Medicine
DX: R10.9 Unspecified abdominal pain (principal); K52.9 Noninfective gastroenteritis and colitis, unspecified
CPT/HCPCS: 99204

== ENCOUNTER → 2024-06-01 09:55 | Outpatient (BNVA) | payer MEDICARE, MEDICAID, SELFPAY | PROVIDERS: PCP Internal Medicine; Visit Provider Internal Medicine | DX: R10.9 Unspecified abdominal pain (principal); K52.9 Noninfective gastroenteritis and colitis, unspecified | CPT/HCPCS: 99202 ==

== ENCOUNTER 2024-06-07 14:35 | Outpatient (AMB) | payer MEDICARE, MEDICAID, SELFPAY ==
--- NOTE | 2024-06-07 14:46 | MHC.OFFVIS ---
Vital Signs 06/07/24 14:52 Height 5 ft 4 in Weight 192 lb 3.889 oz BMI 33.0 Respiration 18 Pulse 72 Intake Visit Reasons: US Breast Bx results Intake Note: Patient is seen in office for ultrasound biopsy RESULTS, left breast for 1 o'clock mass. Pt c/o: admits to sore and tender, denies redness or discharge Satellite Manager Required: No Accompanied by: Self / Same As Patient Allergies Seasonal Allergies Allergy (Mild, Verified 06/07/24 14:47) Unknown metronidazole [From FLAGYL] Allergy (Unknown, Verified 06/07/24 14:47) Hives duloxetine Adverse Reaction (Verified 06/07/24 14:47) Nausea HPI Comments Details: 29-year-old female patient returning following a ultrasound-guided core biopsy of the left breast 01:00 o'clock density noted by ultrasound. Subsequent pathology revealed a fibroadenoma. She tolerated the procedure well but does have some swelling and soreness at the biopsy site. She denies any bleeding or discharge. She would like to have the lesion removed. [facility] Medical History Sore throat Moderate recurrent major depression Physical exam Abdominal pain Chlamydia infection control counseling Yeast infection involving the vagina and surrounding area Pain of right scapula Visit for suture removal Dextroscoliosis of lumbar spine Status post fall Mid back pain Well woman exam with routine gynecological exam Screen for sexually transmitted diseases Cervical cancer screening Breast pain, right Lumbar radiculopathy Lumbar spondylosis Polyarthralgia Pain in both feet Injury of toe on right foot Preoperative clearance Jaw pain Pain in right elbow Paresthesia of hand, bilateral Left ankle pain Bilateral leg edema Lymphadenopathy Incidental lung nodule, > 3mm and < 8mm Low vitamin D level Bug bite Anxiety and depression Neck mass Rib pain on right side Muscle spasms of neck Paresthesia and pain of both upper extremities Cervicalgia Upper respiratory tract infection Atopic reaction Allergic reaction Mass in neck Thrush, oral Muscle twitch Muscle spasm Shortness of breath Adenopathy Left shoulder pain Immunization due Nonimmune to hepatitis B virus Numbness and tingling of both legs Tinnitus Upper respiratory tract infection Depo-Provera contraceptive status Screening for eye condition Routine screening for STI (sexually transmitted infection) Cervicalgia Headache Vision changes Chest pain Nausea and vomiting Hematochezia Abdominal pain Back pain Lung nodules Borderline personality disorder Depression Bipolar 1 disorder ADHD Low vitamin D level GERD (gastroesophageal reflux disease) Asthma History of multiple miscarriages COVID-19 virus infection Encounter to establish care (~03/2021) HIV exposure Surgical History S/P cubital tunnel release Hx of biopsy History of wisdom tooth extraction Family History Mother Substance use disorder Mental health disorder Father Cancer Maternal Aunt Lung cancer Maternal Uncle Prostate CA Maternal Uncle Colon cancer Maternal Aunt Breast cancer Social History Housing: House Alcohol intake: current Alcohol intake frequency: holidays/special occasions only Patient Tobacco Use Status: Never used Tobacco Tobacco use type: Cigar e-Cigarette/Vaping Use: Currently Using Second Hand Smoke Exposure: No service: No Current occupational status: unemployed 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 Cognitive needs: No Hearing needs: No Vision needs: Yes (glasses) Female Reproductive History Menstrual Age of Menarche: 13 Review of Systems Const All systems reviewed & are unremarkable except as noted in HPI and below Physical Exam Const General: cooperative and no acute distress Nutritional Appearance: well nourished Orientation/consciousness: patient oriented x3 Limitations: no limitations HEENT Head: Yes normocephalic and Yes atraumatic Ears: hearing grossly normal bilaterally Chest Other: Left breast: Biopsy site in the left breast at the 1 o'clock position is clean, dry, and intact with intact Steri-Strips. I am currently unable to palpate any nodule in the 1 o'clock position possibly due to residual inflammation from the biopsy. Right breast: No skin change, no nipple retraction, no nipple discharge, no palpable mass, no enlarged lymph nodes Resp Effort & Inspection: normal respiratory effort, no audible wheezes, no cough and no respiratory distress Cardio Jugular venous distension: no JVD GI Inspection: Yes normal to inspection Palpation (GI): Soft to palpation, nontender, no guarding, not rigid and No hepatosplenomegaly present Skin Other: Warm, dry, no rash Neuro General: patient oriented x3 Extrem General: Yes no clubbing, cyanosis or edema Assessment & Plan Assessment & Plan (1) Fibroadenoma of left breast: Code(s): D24.2 - Benign neoplasm of left breast Category: Medical Plan 29-year-old female patient presenting with a ultrasound identified density in the left breast 1 o'clock position, 2 cm from the nipple felt to be suspicious for malignancy. Subsequent ultrasound-guided core biopsy revealed a fibroadenoma. Patient has requested excision although currently the lesion is not palpable. I recommended observation for a month with repeat examination. If the lesion is palpable at that time we can make arrangements for an excisional biopsy. She expressed understanding and agrees with the plan. Coding Level of Care Code Est Pt Level 3 (63153) Diagnoses Fibroadenoma of left breast D24.2
[2024-06-07 14:52] VITALS: PULSE 72; RESP 18; BMI 33.0
--- OUTSIDE RECORDS SUMMARY | 2024-06-07 17:58 | XMS_ITS | Encounter Summary ---
Author Organization [employer] [facility] Address [address] [place] [address] Care Team Providers Care Transportation Aide Name Role Phone Unavailable Primary Care Provider [...]
--- OUTSIDE RECORDS SUMMARY | 2024-06-07 17:58 | XMS_ITS | Continuity of Care Document ---
Author Organization [place] - [facility], [facility] [place] Address [address] [place] [address] Assessment Encounter Date Assessment Date Assessment LastModified by Organization Details LastModified Time 05/22/2024 05/22/2024 29-year-old female presents for evaluation of recurrent sinus infection. Her symptoms are more consistent with recurrent migraine rather than sinus infection. It is however likely that these are triggered by seasonal allergies given she had significant allergies on testing 2 years ago with outside facility. She is interested in resuming immunotherapy but would like to transition to our office. Recommended updated skin testing. She will follow-up after skin testing for review and further planning. In the meantime, I have recommended daily Flonase and qfxl-maw-fikvzbv antihistamine for better allergy control which will likely help in reducing her migraine symptoms. She understands and agrees to this plan and has no further questions. [email or web address] Not available 05/22/2024 16:23:21 Plan of Treatment Reminders Order Date Submit Date Provider Last Modified By Organization Details Last Modified Time Details Appointments Allergy Test 2024 10:30A M [facility] Not available Not available Not available Establish ed 15 2024 09:45A M GEOVANNY LEON PA-C Not available Not available Not available Lab None recorded. Referral None recorded. Procedures allergy testing, skin prick (PROC) 2024 025 [email or web address] Not available 05/25/2024 08:51:20 intraderm al allergy skin testing (PROC) 2024 025 [email or web address] Not available 05/25/2024 08:51:20 pulmonary function test procedure (PROC) 2024 025 [email or web address] Not available 05/25/2024 08:51:20 pulse oximetry (PROC) 2024 025 [email or web address] Not available 05/25/2024 08:51:20 Surgeries None recorded. Imaging None recorded. Medication Orders Flonase Allergy Relief 50 mcg/actua tion nasal spray,dayne pension 2024 025 [facility]/Pharmacy #[id number], [address] [facility], [place], [address], 05/22/2024 16:24:13 Patient TargetsNo targets recorded. Patient InstructionsNo instructions recorded. Reason for Referral None Reported. Problems Name Problem SNOMED Code Status Onset Date Resolution Date Notes Provider Name and Address Organization Details Recorded Time Neck pain 03533519 Active 2021 Cervicalg ia; Note: Date Diagnosed : 2 11:09 AM (M54.2) Not Available [facility] 4 02:15:24 Mass of neck 121844176 Active 2021 Localized swelling, mass and lump, neck; Note: Date Diagnosed : 08/10/2021 3:55 PM (R22.1) Not Available [facility] 4 02:15:30 Neck swelling 415316969 Active 2021 Localized swelling, mass and lump, neck; Note: Date Diagnosed : 08/10/2021 3:55 PM (R22.1) Not Available [facility] 4 02:15:30 Bilateral tinnitus 17680907823 02 Active 2021 Tinnitus, bilateral ; Note: Date Diagnosed : 09/09/2021 2:03 PM (H93.13) Not Available [facility] 4 02:15:20 Acute pharyngit is 455139698 Active 2023 Sore throat (acute) NOS; Note: Date Diagnosed : 04/28/2023 8:41 AM (J02.9) Not Available [facility] 4 02:15:46 Allergic rhinitis 28628546 Active 2024 GEOVANNY LEON PA-C [address] [place] [address],[place] [address], [place], [address] , [facility] - [facility] 5 16:23:31 Migraine without aura 45439469 Active 2024 GEOVANNY LEON PA-C [address] [place] [address],[place] [address], [place], [address] , [facility] - [facility] 5 16:23:35 Non-aller gic rhinitis 16203370062 1 Active 2024 GEOVANNY LEON PA-C [address] [place] [address],[place] [address], [facility] [place], [address] , [facility] - [facility] 5 16:23:41 Seasonal allergic rhinitis 631695066 Active 2024 GEOVANNY LEON PA-C [address] [place] [address],[place] [address], [place], [address] , [facility] - [facility] 5 16:23:41 Problem Notes None recorded. Medical Equipment None Reported. Allergies Allergen ID Allergen Name Allergen Category Reaction Reaction Severity Criticality Documentation Date Start Date Code Code System Note Provider Name and Address Organization Details Recorded Time 58954 Flagyl medicatio n other Not available Not available 08/16/2023 6 RxNorm React ion: other react ion, Unkno wn; Not Available [facility] 4 00:53:30 Medications Name Sig Start Date Stop Date Status Note LastModified by Organization Details LastModified Time cyclobenz aprine 10 mg tablet TAKE 1 TABLET BY MOUTH 3 TIMES A DAY NEEDED FOR MUSCLE SPASM 05/22 completed Not Available Not Available Not Available amoxicill in 500 mg capsule TAKE 1 CAPSULE BY MOUTH TWICE A DAY FOR 5 DAYS 05/22 completed Not Available Not Available Not Available prednison e 10 mg tablet by mouth 04/28 completed Medicati on ID: [id number] Lucero sanders By Name: Saeed barahona MD Brand Name: predniso ne Send Method: E-Prescr ibed Sub s Allowed: subs OK Speci al Instruct ion: Take 4 tabs daily for 3 days then 3 tabs daily for 3 days then 2 tabs daily for 3 days then 1 tab daily for 3 days then stop Med icationG enericNa me: predniso ne Not Available Not Available Not Available doxycycli ne hyclate 100 mg capsule by mouth 05/22 completed Medicati on ID: [id number] D uration Value: 10 Prescri bed By Name: Saeed barahona, Brand Name: doxycycl ine hyclate Send Method: E-Prescr ibed Sub s Allowed: subs OK Speci al Instruct ion: Take 1 po BID X 10 days Med icationG enericNa me: doxycycl ine hyclate Not Available Not Available Not Available cefuroxim e axetil 250 mg tablet TAKE 1 TABLET ORALLY 2 TIMES A DAY FOR 7 DAYS 05/22 completed Not Available Not Available Not Available ibuprofen 800 mg tablet active Not Available Not Available Not Available fluconazo le 150 mg tablet 150 MG ORALLY DAILY FOR 1 DOSE ADMINIST ER ON DAY 1 OF THERAPY 05/22 completed Not Available Not Available Not Available valacyclo vir 1 gram tablet TAKE 1 TABLET BY MOUTH EVERY DAY active Not Available Not Available No t Available prednison e 20 mg tablet TAKE 2 TABLETS BY MOUTH DAILY FOR 3 DAYS 05/22 completed Not Available Not Available Not Available acetamino phen 300 mg-codein e 30 mg tablet active Not Available Not Available Not Available valacyclo vir 500 mg tablet TAKE 2 TABLETS BY MOUTH EVERY DAY FOR 90 DAYS 05/22 completed Not Available Not Available Not Available vancomyci n 125 mg capsule TAKE 1 CAPSULE BY MOUTH 4 TIMES A DAY FOR 10 DAYS active Not Available Not Available No t Available famotidin e 20 mg tablet TAKE 1 TABLET BY MOUTH TWICE A DAY FOR 5 DAYS 05/22 completed Not Available Not Available Not Available Banophen 25 mg capsule TAKE 1 CAP BY MOUTH 3 TIMES PER DAY NEEDED FOR ALLERGY SYMPTOMS X5 DAYS active Not Available Not Available No t Available clindamyc in 2 % vaginal cream 1 APPFUL VAGINALL Y BEDTIME FOR 7 DAYS USE ONLY WHEN YOU HAVE CLEAR BV SYMPTOMS 05/22 completed Not Available Not Available Not Available fluticaso ne propionat e 50 mcg/actua tion nasal spray,dayne pension SPRAY 2 SPRAYS INTO EACH NOSTRIL EVERY DAY active Not Available Not Available No t Available clotrimaz ole 1 % topical cream APPLY TOPICALL Y 2 TIMES A DAY FOR 4 WEEKS active Not Available Not Available No t Available naproxen 500 mg tablet TAKE 1 TABLET ORALLY 2 TIMES A DAY NEEDED FOR PAIN active Not Available Not Available No t Available amoxicill in 875 mg-potass ium clavulana te 125 mg tablet TAKE 1 TABLET BY MOUTH TWICE A DAY 05/22 completed Not Available Not Available Not Available GaviLyte- G 236 gram-22.7 4 gram-6.74 gram-5.86 gram oral solution active Not Available Not Available Not Available Vitals Date Recorded Body height Body mass index (BMI) Body weight Provider Name and Address Organization Details Last Updated DateTime 05/22/2024 162.56 cm 32.6 kg/m2 34687.55 g Scarlet Russell [place] - [facility] 05/22/2024 15:29:42 Social History None recorded. Functional Status None recorded. Mental Status None recorded. Family History Nothing Reported. Medical History No medical history recorded. Gynecological HistoryNo gynecological history recorded. Obstetrics History GPAL:G 0 P 0 0 0 0 Past Encounters Encounter ID Performer Location Encounter Start Date Encounter Closed Date Diagnosis/Indication Diagnosis SNOMED-CT Code Diagnosis ICD10 Code Diagnosis Note [id number] ALVARADO MARQUES MD [facility] of [address] [address] 05/22/2024 15:24:51 05/22/2024 15:51:35 Allergic rhinitis 82034389 J30.9 Migraine without aura 56 797908 G43.009 Health Concerns Section Related Observation LastModified by Organization Detai ls LastModified Time None Recorded Concern Status LastModified by Organization Details LastModified Time None Recorded Payers Encounter Date Sequence Insurance Name Policy Number Policy Goodrich Covered Member ID Goodrich Member ID Guarantor Name 05/22/2024 2 [place]: [facility] Argelia Adan [id number] Argelia Adan Notes Date Note Type Note Provider Name and Address Organization Details Recorded Time 05/22/2024 text/html 29-year-old elsa disla presents for evaluation of recurrent sinus infection. She states that she has recurrent facial pain and pressure between her eyes which radiates across her cheekbones. She notices significant sensitivity to light and nausea during these episodes. They can typically last up to 3 days and then resolve without treatment. She does notice some gait disturbance when this is happening. She does have a significant history of seasonal allergy and was previously on immunotherapy about 2 years ago with [facility] but discontinued therapy after about 6 months. She continues to have allergy symptoms. Does not take any routine allergy medication. ALVARADO MARQUES MD [address] [place] [address], [phone], [facility] - [facility] 05/22/2024 21:05:32 OBGyn Episode No OBEpisode recorded.
--- OUTSIDE RECORDS SUMMARY | 2024-06-07 17:58 | XMS_ITS | Encounter Summary ---
Author Organization [facility] Address [address] [place] [address] Care Team Providers Care Counter Tacker Name Role Phone Unavailable Primary Care Provider [...]
--- OUTSIDE RECORDS SUMMARY | 2024-06-07 17:58 | XMS_ITS | Data Portability ---
Author Organization [place] - [facility], Allergy Address [address] [address] Assessment Encounter Date Assessment Date Assessment LastModified [...] meantime, I have recommended daily Flonase and exyq-fgh-haammwr antihistamine for better allergy control which will likely help in reducing her migraine symptoms. She understands and agrees to this plan and has no further questions. [email or web address] Not available 05/22/2024 16:23:21 Plan of Treatment Reminders Order Date Submit Date Provider Last Modified By Organization Details Last Modified Time Details Appointments Allergy Test 2024 10:30A M [facility] Not available Not available Not available Establish [...] mcg/actua tion nasal spray,dayne pension 2024 025 [facility]/Pharmacy #[id number], [address] [facility], [place], [address], 05/22/2024 16:24:13 Patient TargetsNo targets recorded. Patient InstructionsNo instructions recorded. Reason for Referral None Reported. Problems Name Problem SNOMED Code Status Onset Date Resolution Date Notes Provider Name and Address Organization Details Recorded Time Neck pain 26215090 Active 2021 Cervicalg ia; Note: Date Diagnosed : 2 11:09 AM (M54.2) Not Available [facility] 4 02:15:24 Mass of neck 090558700 Active 2021 Localized swelling, mass and lump, neck; Note: Date Diagnosed : 08/10/2021 3:55 PM (R22.1) Not Available [facility] 4 02:15:30 Neck swelling 015690383 Active 2021 Localized swelling, mass and lump, neck; Note: Date Diagnosed : 08/10/2021 3:55 PM (R22.1) Not Available [facility] 4 02:15:30 Bilateral tinnitus 85722215856 02 Active 2021 Tinnitus, bilateral ; Note: Date Diagnosed : 09/09/2021 2:03 PM (H93.13) Not Available [facility] 4 02:15:20 Acute pharyngit is 242414911 Active 2023 Sore throat (acute) NOS; Note: Date Diagnosed : 04/28/2023 8:41 AM (J02.9) Not Available [facility] 4 02:15:46 Allergic rhinitis 08740892 Active 2024 GEOVANNY LEON PA-C [address] [place] [address],[place] [address], [place], [address] , [facility] - [facility] 5 16:23:31 Migraine without aura 61036701 Active 2024 GEOVANNY LEON PA-C [address] [place] [address],[place] [address], [place], [address] , [facility] - [facility] 5 16:23:35 Non-aller gic rhinitis 16310176791 1 Active 2024 GEOVANNY LEON PA-C [address] [place] [address],[place] [address], [facility] [place], [address] , [facility] - [facility] 5 16:23:41 Seasonal allergic rhinitis 704397497 Active 2024 GEOVANNY LEON PA-C [address] [place] [address],[place] [address], [place], [address] , [facility] 5 16:23:41 Problem Notes None recorded. Medical Equipment None Reported. Allergies Allergen ID Allergen Name Allergen Category Reaction Reaction Severity Criticality Documentation Date Start Date Code Code System Note Provider Name and Address Organization Details Recorded Time 12780 Flagyl medicatio n other Not available Not available 08/16/2023 6 RxNorm React ion: other react ion, Unkno wn; Not Available [facility] 4 00:53:30 Medications Name Sig Start [...] by mouth 04/28 completed Medicati on ID: [id number] Lucero sanders By Name: Saeed barahona MD [...] by mouth 05/22 completed Medicati on ID: [id number] D uration Value: 10 Prescri bed By Name: Saeed barahona MD Brand Name: doxycycl ine hyclate Send Method: [...] Updated DateTime 05/22/2024 162.56 cm 32.6 kg/m2 16413.55 g Scarlet Russell [place] - [facility] 05/22/2024 15:29:42 Social History None recorded. Functional Status None recorded. Mental Status None recorded. Family History Nothing Reported. Medical History No medical history recorded. Gynecological HistoryNo gynecological history recorded. Obstetrics History GPAL:G 0 P 0 0 0 0 Past Encounters Encounter ID Performer Location Encounter Start Date Encounter Closed Date Diagnosis/Indication Diagnosis SNOMED-CT Code Diagnosis ICD10 Code Diagnosis Note [id number] ALVARADO MARQUES MD [facility] of [address] [address] 05/22/2024 15:24:51 05/22/2024 15:51:35 Allergic rhinitis 96317686 J30.9 Migraine without aura 56 084322 G43.009 Health Concerns Section Related Observation LastModified by Organization Detai ls LastModified Time None Recorded Concern Status LastModified by Organization Details LastModified Time None Recorded Advance Directives Directive None Recorded Payers Encounter Date Sequence Insurance Name Policy Number Policy Goodrich Covered Member ID Goodrich Member ID Guarantor Name 05/22/2024 2 [place]: [facility] Argelia Adan [id number] Argelia Adan Notes Date Note Type Note [...] any routine allergy medication. ALVARADO MARQUES MD [address] [place] [address], [phone], [facility] - [facility] 05/22/2024 21:05:32 OBGyn Episode No OBEpisode recorded.
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
--- OUTSIDE RECORDS SUMMARY | 2024-06-07 17:58 | XMS_ITS | Clinical Summary ---
Author Organization [employer] Address [address] [place] [address] [address] [place] [address] Care Team Providers Care Electronic Transaction Implementer Name Role Phone Unavailable Primary Care Provider [...]
== END 2024-06-07 14:56 | disposition home or self-care (01) ==
PROVIDERS: PCP Internal Medicine; Visit Provider Surgery
DX: D24.2 Benign neoplasm of left breast (principal)
CPT/HCPCS: 99213

== ENCOUNTER → 2024-06-07 14:35 | Outpatient (BNVA) | payer MEDICARE, MEDICAID, SELFPAY | PROVIDERS: PCP Internal Medicine; Visit Provider Surgery | DX: D24.2 Benign neoplasm of left breast (principal) | CPT/HCPCS: 99212 ==

== ENCOUNTER 2024-07-10 10:27 | Outpatient (AMB) | payer MEDICARE, MEDICAID, SELFPAY ==
--- NOTE | 2024-07-10 10:27 | MHC.OFFVIS ---
Vital Signs 07/10/24 10:35 Height 5 ft 4 in Weight 192 lb 3.889 oz BMI 33.0 Intake Visit Reasons: 1 month f/up, fibroadenoma of the left breast Intake Note: Patient is seen in office for one month follow up visit, following fibroadenoma of the left breast. Pt c/o:admits to continued pain, area is sensitive * observation * Sales And Marketing Associate Required: No Mandate Retail Service Merchandiser: Mandate Retail Service Merchandiser Present Accompanied by: Self / Same As Patient Allergies Seasonal Allergies Allergy (Mild, Verified 06/07/24 14:47) Unknown metronidazole [From FLAGYL] Allergy (Unknown, Verified 06/07/24 14:47) Hives duloxetine Adverse Reaction (Verified 06/07/24 14:47) Nausea Medication List - Last Reconciled 07/10/24 by Thierry Mata MD acetaminophen-codeine 300-30 mg 1 tab PO Q8H PRN albuterol sulfate 90 mcg/actuation 2 inhalations inhalation Q6-8H PRN azelastine intranasal baclofen 10 mg PO TID 30 days cholecalciferol (vitamin D3) 50 mcg PO DAILY 90 days clindamycin phosphate 2% 1 appful vaginal BEDTIME 7 days clobetasol 0.05% 1 appl topical BID 1 week clotrimazole 1% 1 appl topical BID 4 weeks cyclobenzaprine 10 mg PO TID PRN diclofenac sodium 1% (Voltaren Arthritis Pain) 2 grams topical QID diphenhydramine HCl (Benadryl Allergy) 50 mg (2 x 25 mg) PO TID PRN epinephrine (EpiPen 2-Edward) 0.3 mg (0.3 mL) IM Q4H PRN 1 month fluconazole 150 mg PO Q3D 2 doses fluconazole 150 mg PO DAILY 1 dose fluticasone propionate 50 mcg/actuation (Flonase Allergy Relief) 1 spray intranasal BID folic acid 1 mg PO DAILY 90 days gabapentin 300 mg PO BID 30 days hydrocortisone 2.5% 1 appl topical BID ibuprofen 800 mg PO TID PRN Knee brace As directed lidocaine 5% 1 patch topical DAILY loratadine 10 mg PO DAILY magnesium glycinate 200 mg (2 x 100 mg) PO DAILY 30 days mecobalamin (vitamin B12) 1,000 mcg PO DAILY 90 days medroxyprogesterone 150 mg IM [id number] miconazole nitrate 2% (Miconazole-7) 1 appful vaginal BEDTIME 7 days naproxen 500 mg PO BID PRN omeprazole 20 mg PO DAILY PRN peg 3350-electrolytes 236-22.74-6.74 -5.86 gram (Golytely) 240 mL PO Q10M riboflavin (vitamin B2) 400 mg PO DAILY 30 days triamcinolone acetonide 0.025% 1 appl topical DAILY PRN 2 weeks valacyclovir 1,000 mg PO DAILY vancomycin 125 mg PO QID 10 days HPI Comments Details: 29-year-old female patient presenting for breast evaluation due to an area of pain in the left breast at approximately the 9 o'clock position. Subsequent ultrasound was performed on 05/02/2024. This revealed a hypoechoic solid mass at the 1 o'clock position 2 cm from the nipple. No fluid collection or abnormal finding was noted in the area of symptoms at the 9 o'clock position. She reports having bilateral nipple piercings but after a recent surgery the nipple piercings were removed and she never replaced them. She is uncertain if this is a possible cause of her symptoms. The patient denies a previous history of breast problems or breast surgery. She is 4 para 1 full-term, 1 SA, and 1 EA. She underwent an ultrasound-guided core biopsy of the left breast on 05/30/2024. Subsequent pathology revealed a fibroadenoma. Since the biopsy she continues to have pain in the upper outer quadrant of the left breast. She returns for follow-up examination. She reports multiple stressors in her life which may be affecting her breast pain. She was also concerned that the Depo-Provera is causing breast symptoms as well. She will be talking to Dr. Gonsales regarding this. [facility] Medical History Sore throat Moderate recurrent major depression Physical exam Abdominal pain Chlamydia infection control counseling Yeast infection involving the vagina and surrounding area Pain of right scapula Visit for suture removal Dextroscoliosis of lumbar spine Status post fall Mid back pain Well woman exam with routine gynecological exam Screen for sexually transmitted diseases Cervical cancer screening Breast pain, right Lumbar radiculopathy Lumbar spondylosis Polyarthralgia Pain in both feet Injury of toe on right foot Preoperative clearance Jaw pain Pain in right elbow Paresthesia of hand, bilateral Left ankle pain Bilateral leg edema Lymphadenopathy Incidental lung nodule, > 3mm and < 8mm Low vitamin D level Bug bite Anxiety and depression Neck mass Rib pain on right side Muscle spasms of neck Paresthesia and pain of both upper extremities Cervicalgia Upper respiratory tract infection Atopic reaction Allergic reaction Mass in neck Thrush, oral Muscle twitch Muscle spasm Shortness of breath Adenopathy Left shoulder pain Immunization due Nonimmune to hepatitis B virus Numbness and tingling of both legs Tinnitus Upper respiratory tract infection Depo-Provera contraceptive status Screening for eye condition Routine screening for STI (sexually transmitted infection) Cervicalgia Headache Vision changes Chest pain Nausea and vomiting Hematochezia Abdominal pain Back pain Lung nodules Borderline personality disorder Depression Bipolar 1 disorder ADHD Low vitamin D level GERD (gastroesophageal reflux disease) Asthma History of multiple miscarriages COVID-19 virus infection Encounter to establish care (~03/2021) HIV exposure Surgical History S/P cubital tunnel release Hx of biopsy History of wisdom tooth extraction Family History Mother Substance use disorder Mental health disorder Father Cancer Maternal Aunt Lung cancer Maternal Uncle Prostate CA Maternal Uncle Colon cancer Maternal Aunt Breast cancer Social History Housing: House Alcohol intake: current Alcohol intake frequency: holidays/special occasions only Patient Tobacco Use Status: Never used Tobacco Tobacco use type: Cigar e-Cigarette/Vaping Use: Currently Using Second Hand Smoke Exposure: No service: No Current occupational status: unemployed 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 Cognitive needs: No Hearing needs: No Vision needs: Yes (glasses) Female Reproductive History Menstrual Age of Menarche: 13 Review of Systems Const All systems reviewed & are unremarkable except as noted in HPI and below Physical Exam Vital Signs: BMI result Body Mass Index 33.0 Const General: cooperative and no acute distress Nutritional Appearance: well nourished Orientation/consciousness: patient oriented x3 Limitations: no limitations HEENT Head: Yes normocephalic and Yes atraumatic Ears: hearing grossly normal bilaterally Chest Other: Left breast: Examination of the left breast reveals a biopsy site in the 1-2 o'clock position. No palpable masses noted throughout the left breast and I am unable to clearly palpate the previously biopsied fibroadenoma. Chest/axillae images: 1. Needle biopsy site Resp Effort & Inspection: normal respiratory effort, no audible wheezes, no cough and no respiratory distress Cardio Jugular venous distension: no JVD GI Inspection: Yes normal to inspection Palpation (GI): Soft to palpation, nontender, no guarding, not rigid and No hepatosplenomegaly present Skin Other: Warm, dry, no rash Neuro General: patient oriented x3 Extrem General: Yes no clubbing, cyanosis or edema Assessment & Plan Assessment & Plan (1) Fibroadenoma of left breast: Code(s): D24.2 - Benign neoplasm of left breast Category: Medical Plan female patient presenting with complaints of left breast pain found to have a fibroadenoma in the left breast after a needle biopsy. She reports pain throughout the left breast which he was finding frustrating. She will talk to Dr. Gonsales regarding the Depo-Provera. One option is to remove the fibroadenoma but I am not confident that this will improve her breast pain. She will follow-up as needed. She was encouraged to continue her self-examination on a monthly basis. Coding Level of Care Code Est Pt Level 3 (42758) Diagnoses Fibroadenoma of left breast D24.2
[2024-07-10 10:35] VITALS: BMI 33.0
--- OUTSIDE RECORDS SUMMARY | 2024-07-10 12:30 | XMS_ITS | Clinical Summary ---
Author Organization [employer] Address [address] [place] [address] [address] [place] [address] Care Team Providers Care Project Management Specialist Name Role Phone Unavailable Primary Care [...]
--- OUTSIDE RECORDS SUMMARY | 2024-07-10 12:30 | XMS_ITS | Encounter Summary ---
Author Organization [employer] [facility] Address [address] [place] [address] Care Team Providers Care Elevator Installer Apprentice Name Role Phone Unavailable Primary Care Provider [...]
--- OUTSIDE RECORDS SUMMARY | 2024-07-10 12:30 | XMS_ITS | Data Portability ---
Author Organization [place] [facility], All[facility] Address [address] [address] Care Team Providers Care Shoe Lining Fitter Name Role Phone FANRAZ NOBLES Primary Care Provider Assessment Encounter Date Assessment Date Assessment LastModified [...] meantime, I have recommended daily Flonase and ebza-sur-cukrhka antihistamine for better allergy control which will likely help in reducing her migraine symptoms. She understands and agrees to this plan and has no further questions. [email or web address] Not available 05/22/2024 16:23:21 07/09/2024 07/09/2024 29-year-old female presents for allergy review. Skin testing showed significant allergies across the board. Would certainly be a good candidate to continue immunotherapy. She is interested in allergy shots at this time. Will initiate this process and send EpiPen to pharmacy. Continue her current allergy medications. Will follow-up in 6 months for review. Immunotherapy - Subcutaneous We also discussed the role of immunotherapy. I explained that this is instituted for the most significant of allergies and involves the introduction of increasingly graduated dosages of the appropriate allergens by subcutaneous injection to facilitate tolerance. I explained about the likelihood of improvement usually within a three to six month time period provided that the patient is compliant with therapy. We spoke about the duration of therapy, which typically lasts from three to five years though at times can be indefinite. We also discussed the risk of anaphylaxis with this. [email or web address] Not available 07/09/2024 11:32:34 Plan of Treatment Reminders Order Date Submit Date Provider Last Modified By Organization Details Last Modified Time Details Appointments Establish ed- Allergy f-up 6mon 2024 10:15A M GEOVANNY LEON PA-C Not available Not available Not available Lab None recorded. Referral None recorded. Procedures allergen immunothe rapy; multiple injection s (PROC) 2024 025 [email or web address] Not available 07/09/2024 11:32:58 allergy testing, skin prick (PROC) 2024 025 [email or web address] Not available 06/15/2024 11:52:36 intraderm al allergy skin testing (PROC) 2024 025 [email or web address] Not available 06/15/2024 11:52:29 pulmonary function test procedure (PROC) 2024 025 [email or web address] Not available 06/15/2024 11:52:43 pulse oximetry (PROC) 2024 025 [email or web address] Not available 06/15/2024 11:52:50 Surgeries None recorded. Imaging None recorded. Medication Orders epinephri ne 0.3 mg/0.3 mL injection , auto-inje ctor 2024 025 maria luz [facility]/Pharmacy #[id number], [address] [place] [address], [address], 07/10/2024 11:02:15 Flonase Allergy Relief 50 mcg/actua tion nasal spray,dayne pension 2024 025 ALINA [facility]/Pharmacy #[id number], [address] [place], [address], 05/22/2024 16:24:13 Patient TargetsNo targets recorded. Patient Instructions Encounter Date Encounter Id Patient Instructions Last Modified By Organization Details Last Modified Time 06/15/2024 [id number] Nursing Documentation for Allergy Testing: Ordering Provider {{Dr. Chele Marques* Dr. Joceline Nayak}} Weight:lbs:? ? ?kg: ? ? ? PFT {{Yes* no}} With Bronchodilator {{Yes no*}} Dr. birmingham needed to proceed with allergy testing? {{Yes No}} {{Dr. Chele Nayak}} ok'd testing {{Yes No* Pulmonar y Clearance PCP Clearance RAST}}Hi story of Asthma:{{Yes* No}} Asthma Meds: ? ? ?Last used:? ? ? Asthma exacerbated by: ? ? ? Chance that : {{Yes No* Not Sure N/A}} Fear of needles: {{Yes* No}} Regular medications reviewed in Computer: {{Yes No*}} Medication allergies: {{Reviewed* NKDA}} Antihistamine use: {{Yes No*}} Medications used: ? ? ? Food Allergies: ? ? ? n/a Any foods make your mouth feeling itchy: {{Yes* No}} If yes: ? ? ? kiwi, pineapple, apples , grapes History of severe reaction where had to go to ER? {{Yes* No}} If yes details: ? ? ? 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 ? ?4 cats , 2 dogs Smoker: {{Yes Current Never* For trell}} If former smoker-how much ? ? ? / day for how long ? ? ? When quit years ago Smoking now-how much ? ? ? /day for how long ? ? ? Occupation/Social History: ? ? ?unemployed Symptoms having: {{Congestion* Post Nasal Drip Headache Runn y Nose Cough Other}} If other: ? ? ?post nasal drip, headache Frequency {{Seasonally Year Round*}} Spirometry Contraindications: Heart attack in the last 3 months: {{Yes No*}} Major surgery in last 3 months: {{Yes No*}} Detached retina(serious eye issues) in last 2 months: {{Yes No*}} Hospitilization in last month: {{Yes No*}} Proceed with PFT {{Yes* No}} approval needed: {{Yes No*}} Nursing Notes: Pt tolerated test well {{Yes* No}} Benadryl cream to test sites {{Yes* No}} Patient became syncopal-placed in supine position {{Yes No*}} Large reactions to MQT, reschedule IDT for a different date {{Yes* No}} Other: ? ? ? Written by: {{Soumya Simons, EMMA Sims, SAMINA Butcher*}} [email or web address] Not available 06/15/2024 11:29:58 Reason for Referral None Reported. Results Created Date Observation Date Name Description Value Unit Range Abnormal Flag Note LastModifiedBy Organization Detail LastModifiedTime 06/16/19 25 destiny metry testi ng* No observ ation record ed. [email or web address] Not Available 2024 13:34:35 Result Notes None recorded. Problems Name Problem SNOMED Code Status Onset Date Resolution Date Notes Provider Name and Address Organization Details Recorded Time Neck pain 17684576 Active 2021 Cervicalg ia; Note: Date Diagnosed : 2 11:09 AM (M54.2) Not Available [facility] 4 02:15:24 Mass of neck 739291221 Active 2021 Localized swelling, mass and lump, neck; Note: Date Diagnosed : 08/10/2021 3:55 PM (R22.1) Not Available [facility] 4 02:15:30 Neck swelling 619056467 Active 2021 Localized swelling, mass and lump, neck; Note: Date Diagnosed : 08/10/2021 3:55 PM (R22.1) Not Available [facility] 4 02:15:30 Bilateral tinnitus 68632944398 02 Active 2021 Tinnitus, bilateral ; Note: Date Diagnosed : 09/09/2021 2:03 PM (H93.13) Not Available [facility] 4 02:15:20 Acute pharyngit is 680844835 Active 2023 Sore throat (acute) NOS; Note: Date Diagnosed : 04/28/2023 8:41 AM (J02.9) Not Available [facility] 4 02:15:46 Allergic rhinitis 77378333 Active 2024 GEOVANNY LEON PA-C [address],[place] [facility], [place], [address] , [facility] [place] 5 16:23:31 Migraine without aura 94398171 Active 2024 GEOVANNY LEON PA-C [address] [facility] [address],[place] [facility], [place], [address] , [facility] - [facility] [place] 5 16:23:35 Non-aller gic rhinitis 18509949050 1 Active 2024 GEOVANNY LEON PA-C [address] [facility] [address] [place] [facility], [place], [address] , [facility] - [facility] [place] 5 16:23:41 Seasonal allergic rhinitis 163613785 Active 2024 GEOVANNY LEON PA-C [address] [facility] [address],[place] [facility], [place], [address] , [facility] [place] 16:23:41 Problem Notes None recorded. Procedures Surgical History Date Name Laterality Status Provider Name and Address Organization Details Recorded Time 06/23/19 25 Allergy Testing-Full completed SAMINA ARRIAZA [address] [facility] [place] [address], [place], [address], [facility] 06/22/2024 09:53:42 06/16/19 25 Allergy Testing Modified- Quantitative Testing (MQT) Only completed SAMINA ARRIAZA [address],[place] [facility], [place], [address], [facility] - [facility] 06/15/2024 11:28:56 Imaging Results Imaging Date Name Status LastModified by [facility] Details LastModified Time 06/15/2024 spirometry testing* completed [email or web address] Information not available 06/18/2024 13:34:35 Procedure Notes None recorded. Medical Equipment None Reported. Allergies Allergen ID Allergen Name Allergen Category Reaction Reaction Severity Criticality Documentation Date Start Date Code Code System Note Provider Name and Address Organization Details Recorded Time 99682 Flagyl medicatio n other Not available Not available 08/16/2023 6 RxNorm React ion: other react ion, Unkno wn; Not Available [facility] 00:53:30 Medications Name Sig Start Date Stop [...] by mouth 04/28 completed Medicati on ID: [id number] P rescribe d By Name: Saeed barahona MD Brand Name: [...] by mouth 05/22 completed Medicati on ID: [id number] D uration Value: 10 Prescri bed By [...] TAKE 1 TABLET BY MOUTH EVERY DAY 07/09 completed Not Available Not Available Not Available prednison e 20 mg tablet TAKE [...] 4 TIMES A DAY FOR 10 DAYS 07/09 completed Not Available Not Available Not Available famotidin e 20 mg tablet TAKE 1 TABLET BY MOUTH TWICE A DAY FOR 5 DAYS 05/22 completed Not Available Not Available Not Available Banophen 25 mg capsule TAKE 1 CAP BY MOUTH 3 TIMES PER DAY NEEDED FOR ALLERGY SYMPTOMS X5 DAYS 07/09 completed Not Available Not Available Not Available clindamyc in 2 % vaginal cream 1 APPFUL VAGINALL Y BEDTIME FOR 7 DAYS USE ONLY WHEN YOU HAVE CLEAR BV SYMPTOMS 05/22 completed Not Available Not Available Not Available epinephri ne 0.3 mg/0.3 mL injection , auto-inje ctor USE DIRECTED FOR ALLERGIC REACTION S active Not Available Not Available No t Available fluticaso ne propionat e 50 mcg/actua [...] 2 TIMES A DAY NEEDED FOR PAIN 07/09 completed Not Available Not Available Not Available amoxicill in 875 mg-potass ium clavulana te 125 mg tablet TAKE 1 TABLET BY MOUTH TWICE A DAY 05/22 completed Not Available Not Available Not Available GaviLyte- G 236 gram-22.7 4 gram-6.74 gram-5.86 gram oral solution active Not Available Not Available Not Available Vitals Date Recorded Body height Body mass index (BMI) Body weight Heart rate Systolic blood pressure Diastolic blood pressure Provider Name and Address Organization Details Last Updated DateTime 5 162.56 cm 32.6 kg/m2 97563.5 5 g 70 /min 116 mm[Hg] 79 mm[Hg] SAMINA ARRIAZA [address] [facility], [place], [address], [facility] 11:13:07 Date Recorded Body height Provider Name an d Address Organization Details Last Updated DateTime 06/22/2024 162.56 cm ALEX BUTCHER [facility] [address] [facility] [address], [place], [address], [facility] 06/22/2024 09:08:52 Date Recorded Body height Body weight Provider Name and Address Organization Details Last Updated DateTime 07/09/2024 162.56 cm 20281.55 g Farnaz Funes [facility] 07/09/2024 11:00:03 Date Recorded Body height Body mass index (BMI) Body weight Provider Name and Address Organization Details Last Updated DateTime 05/22/2024 162.56 cm 32.6 kg/m2 33973.55 g Scarlet Russell [facility] 05/22/2024 15:29:42 Social History None recorded. Functional Status None recorded. Mental Status None recorded. Family History Nothing Reported. Medical History No medical history recorded. Gynecological HistoryNo gynecological history recorded. Obstetrics History GPAL:G 0 P 0 0 0 0 Past Encounters Encounter ID Performer Location Encounter Start Date Encounter Closed Date Diagnosis/Indication Diagnosis SNOMED-CT Code Diagnosis ICD10 Code Diagnosis Note [id number] ALVARADO MARQUES MD [facility] [address] [address] 05/22/2024 15:24:51 05/22/2024 15:51:35 Allergic rhinitis 00048391 J30.9 Migraine without aura 56 328455 G43.009 [id number] [facility] [address] [place] [address],[place] [address] [place] [address] 06/15/2024 10:25:55 06/15/2024 11:51:45 Allergic rhinitis 88159262 J30.9 [id number] SAMINA ARRIAZA [facility] [address] [address] 06/22/2024 09:06:30 06/22/2024 09:54:25 Allergic rhinitis 96832148 J30.9 [id number] BRENNON MULLER MD [facility] [address] [address] 07/09/2024 10:55:41 07/09/2024 11:27:03 Allergic rhinitis 89651244 J30.9 Health Concerns Section Related Observation LastModified by Organization Detai ls LastModified Time None Recorded Concern Status LastModified by Organization Details LastModified Time None Recorded Advance Directives Directive None Recorded Payers Encounter Date Sequence Insurance Name Policy Number Policy Goodrich Covered Member ID Goodrich Member ID Guarantor Name 05/22/2024 2 [place] Argelia L Adan [id number] Argelia L Adan 06/15/2024 2 [place] Argelia L Adan [id number] Argelia L Adan 06/15/2024 1 [place] [facility] Argelia Adan [id number] Argelia L Adan 06/22/2024 2 [place] Argelia L Adan [id number] Argelia L Adan 06/22/2024 1 [place] [employer] Argelia Adan [id number] Argelia L Adan 07/09/2024 2 [place] Argelia L Adan [id number] Argelia L Adan 07/09/2024 1 [place] [facility] Argelia Adan [id number] Argelia L Adan Notes Date Note Type Note Provider [...] any routine allergy medication. ALVARADO MARQUES MD [address] [facility],[address], [address], [facility] 05/22/2024 21:05:32 07/09/2024 text/html 29-year-old elsa disla presents for allergy test review. Previously was receiving immunotherapy with an outside lubrication servicer but is moving to the area and would like to transfer care. She did have quite a lapse in treatment. Has frequent sinus infections and allergy symptoms. BRENNON MULLER MD [address] [facility],[place] [address], [place], [address], [facility] - [facility] 07/09/2024 12:51:22 OBGyn Episode No OBEpisode recorded.
--- OUTSIDE RECORDS SUMMARY | 2024-07-10 12:30 | XMS_ITS | Continuity of Care Document ---
Author Organization [place] - [facility], [facility] Address [address] [place] [address] Care Team Providers Care Buttermaker Name Role Phone MAEVE NOBLES Primary Care Provider [phone] Assessment Encounter Date Assessment Date Assessment LastModified by Organization Details LastModified Time 07/09/2024 07/09/2024 29-year-old female presents for allergy [...] discussed the risk of anaphylaxis with this. [email or web address] Not available 07/09/2024 11:32:34 Plan of Treatment Reminders Order Date Submit Date Provider Last Modified By Organization Details Last Modified Time Details Appointments Establish ed- Allergy f-up 6mon 2024 10:15A M GEOVANNY LEON PA-C Not available Not available Not available Lab None recorded. Referral None recorded. Procedures allergen immunothe rapy; multiple injection s (PROC) 2024 025 [email or web address] Not available 07/09/2024 11:32:58 Surgeries None recorded. Imaging None recorded. Medication Orders epinephri ne 0.3 mg/0.3 mL injection , auto-inje ctor 2024 Sharmin [email or web address] [id number], [id number], [place], [address], 07/10/2024 11:02:15 Patient TargetsNo targets recorded. Patient InstructionsNo instructions recorded. Reason for Referral None Reported. Results Created Date Observation Date Name Description Value Unit Range Abnormal Flag Note LastModifiedBy Organization Detail LastModifiedTime 06/16/19 25 destiny metry testi ng* No observ ation record ed. [email or web address] Not Available 2024 13:34:35 Result Notes None recorded. Problems Name Problem SNOMED Code Status Onset Date Resolution Date Notes Provider Name and Address Organization Details Recorded Time Neck pain 84176119 Active 2021 Cervicalg ia; Note: Date Diagnosed : 11:09 AM (M54.2) Not Available [facility] 4 02:15:24 Mass of neck 789469267 Active 2021 Localized swelling, mass and lump, neck; Note: Date Diagnosed : 08/10/2021 3:55 PM (R22.1) Not Available [facility] 4 02:15:30 Neck swelling 445673434 Active 2021 Localized swelling, mass and lump, neck; Note: Date Diagnosed : 08/10/2021 3:55 PM (R22.1) Not Available [facility] 4 02:15:30 Bilateral tinnitus 59975170896 02 Active 2021 Tinnitus, bilateral ; Note: Date Diagnosed : 09/09/2021 2:03 PM (H93.13) Not Available [facility] 4 02:15:20 Acute pharyngit is 916995027 Active 2023 Sore throat (acute) NOS; Note: Date Diagnosed : 04/28/2023 8:41 AM (J02.9) Not Available [facility] 4 02:15:46 Allergic rhinitis 87209171 Active 2024 GEOVANNY LEON PA-C [address], [place], [address] , [facility] - [facility] 5 16:23:31 Migraine without aura 90551484 Active 2024 GEOVANNY LEON PA-C [address], [place] [place], [address] , [facility] 5 16:23:35 Non-aller gic rhinitis 33279223132 1 Active 2024 GEOVANNY LEON PA-C [address], [facility] [place], [address] , [facility] 5 16:23:41 Seasonal allergic rhinitis 355972311 Active 2024 GEOVANNY LEON PA-C [address], [facility] [place], [address] , [facility] 5 16:23:41 Problem Notes None recorded. Procedures Surgical History Date Name Laterality Status Provider Name and Address Organization Details Recorded Time 06/23/19 25 Allergy Testing-Full completed SAMINA ARRIAZA [address] [address], [place], [address], [facility] 06/22/2024 09:53:42 06/16/19 25 Allergy Testing Modified- Quantitative Testing (MQT) Only completed SAMINA ARRIAZA [address] [facility] [address], [place], [address], [facility] 06/15/2024 11:28:56 Imaging Results None recorded. Procedure Notes None recorded. Medical Equipment None Reported. Allergies Allergen ID Allergen Name Allergen Category Reaction Reaction Severity Criticality Documentation Date Start Date Code Code System Note Provider Name and Address Organization Details Recorded Time 30994 Flagyl medicatio n other Not available Not available 08/16/2023 6 RxNorm React ion: other react ion, Unkno wn; Not Available [facility] 4 00:53:30 Medications Name Sig Start Date [...] by mouth 04/28 completed Medicati on ID: [id number] P rescribe d By Name: Saeed barahona [...] by mouth 05/22 completed Medicati on ID: [id number] D uration Value: 10 Prescri bed By [...] ne propionat e 50 mcg/actua tion nasal spray,danye pension SPRAY 2 SPRAYS INTO EACH NOSTRIL [...] Available Vitals Date Recorded Body height Body weight Provider Name and Address Organization Details Last Updated DateTime 07/09/2024 162.56 cm 71873.55 g Maeve Funes [place] - [facility] 07/09/2024 11:00:03 Social History None recorded. Functional Status None recorded. Mental Status None recorded. Family History Nothing Reported. Medical History No medical history recorded. Gynecological HistoryNo gynecological history recorded. Obstetrics History GPAL:G 0 P 0 0 0 0 Past Encounters Encounter ID Performer Location Encounter Start Date Encounter Closed Date Diagnosis/Indication Diagnosis SNOMED-CT Code Diagnosis ICD10 Code Diagnosis Note [id number] Angella Whitehead [facility] [address] [facility] [address] [place] [address] 06/15/2024 10:25:55 06/15/2024 11:51:45 Allergic rhinitis 38565208 J30.9 [id number] SAMINA ARRIAZA [facility] [address] [facility] [place] [address] 06/22/2024 09:06:30 06/22/2024 09:54:25 Allergic rhinitis 85416091 J30.9 [id number] BRENNON MULLER MD [facility] [address] [place] [address] 07/09/2024 10:55:41 07/09/2024 11:27:03 Allergic rhinitis 83771928 J30.9 Health Concerns Section Related Observation LastModified by Organization Detai ls LastModified Time None Recorded Concern Status LastModified by Organization Details LastModified Time None Recorded Payers Encounter Date Sequence Insurance Name Policy Number Policy Goodrich Covered Member ID Goodrich Member ID Guarantor Name 07/09/2024 2 [place] [facility] Argelia L Adan [id number] Argelia L Adan 07/09/2024 1 [place] B-[place] [employer] Argelia Adan [id number] Argelia L Adan Notes Date Note Type Note Provider Name and Address Organization Details Recorded Time 07/09/2024 text/html 29-year-old elsa disla presents for allergy test review. Previously was receiving immunotherapy with an outside manager administrative services but is moving to the area and would like to transfer care. She did have quite a lapse in treatment. Has frequent sinus infections and allergy symptoms. BRENNON MULLER MD [address] [place] [address], [address], [facility] - [facility] 07/09/2024 12:51:22 OBGyn Episode No OBEpisode recorded.
--- OUTSIDE RECORDS SUMMARY | 2024-07-10 12:30 | XMS_ITS | Encounter Summary ---
Author Organization [facility] Address [address] [place] [address] Care Team Providers Care Programs Director Name Role Phone Unavailable Primary Care Provider [...]
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
== END 2024-07-10 10:50 | disposition home or self-care (01) ==
LOC: HO.HGS 10:27
PROVIDERS: PCP Internal Medicine; Visit Provider Surgery
DX: D24.2 Benign neoplasm of left breast (principal)
CPT/HCPCS: 99213

== ENCOUNTER → 2024-07-10 10:27 | Outpatient (BNVA) | payer MEDICARE, MEDICAID, SELFPAY | PROVIDERS: PCP Internal Medicine; Visit Provider Surgery | DX: D24.2 Benign neoplasm of left breast (principal) | CPT/HCPCS: 99212 ==

== ENCOUNTER 2024-09-14 08:31 | Emergency (ER) | payer MEDICARE, MEDICAID, SELFPAY ==
[2024-09-14 08:56] VITALS: BP 123/87; PULSE 89; RESP 18; TEMP 36.7; O2SAT 95; BMI 31.6
--- NOTE | 2024-09-14 09:55 | ED_ITS ---
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 Reports she was taking a new knife out of its package this morning and accidentally cut her thumb. She immediately washed her hand with water and held pressure to the area. The bleeding stopped prior to arrival to the ED. Reports she is up to date with tetanus vaccine. Denies taking blood thinners or history of diabetes. No other injuries/ concerns. No difficulty moving the right first digit. Denies numbness/tingling. Related Data Home Medications ?Medication ?Instructions ?Recorded ?Confirmed azelastine 137 mcg (0.1 %) nasal intranasal 06/03/22 07/10/24 spray medroxyprogesterone 150 mg/mL 150 mg IM [id number] 03/27/24 07/10/24 intramuscular syringe Previous Rx's ?Medication ?Instructions ?Recorded hydrocortisone 2.5 % topical cream 1 appl topical BID #20 grams 09/15/21 diclofenac sodium 1 % topical gel 2 g topical QID #100 grams 09/28/21 (Voltaren Arthritis Pain) diphenhydramine HCl 25 mg tablet 50 mg (2 x 25 mg) PO TID PRN 01/07/22 (Benadryl Allergy) allergic reaction #14 tabs epinephrine 0.3 mg/0.3 mL 0.3 mg (0.3 mL) IM Q4H PRN 01/07/22 injection, auto-injector (EpiPen anaphylaxis 1 month #2 ea 2-Edward) baclofen 10 mg tablet 10 mg PO TID muscle spasm 30 days 06/03/22 #90 tabs magnesium glycinate 100 mg (as 200 mg (2 x 100 mg) PO DAILY 06/03/22 glycinate) tablet migraine 30 days #60 tabs riboflavin (vitamin B2) 400 mg 400 mg PO DAILY migraine headache 06/03/22 tablet 30 days #30 tabs cholecalciferol (vitamin D3) 50 50 mcg PO DAILY 90 days #90 caps 10/12/22 mcg (2,000 unit) capsule omeprazole 20 mg capsule,delayed 20 mg PO DAILY PRN for heartburn 10/12/22 release #90 caps triamcinolone acetonide 0.025 % 1 appl topical DAILY PRN psoriasis 10/12/22 topical cream 2 weeks #15 grams fluticasone propionate 50 1 spray intranasal BID #16 grams 10/13/22 mcg/actuation nasal spray,suspension (Flonase Allergy Relief) loratadine 10 mg tablet 10 mg PO DAILY #30 tabs 10/13/22 folic acid 1 mg tablet 1 mg PO DAILY 90 days #90 tabs 10/17/22 mecobalamin (vitamin B12) 1,000 1,000 mcg PO DAILY 90 days #90 tabs 10/17/22 mcg chewable tablet gabapentin 300 mg capsule 300 mg PO BID pain 30 days #60 caps 10/25/22 albuterol sulfate 90 mcg/actuation 2 inh inhalation Q6-8H PRN 11/14/22 aerosol inhaler shortness of breath or wheezing #6.7 grams clobetasol 0.05 % topical ointment 1 appl topical BID 1 week #15 grams 05/11/23 miconazole nitrate 2 % vaginal 1 appful vaginal BEDTIME 7 days 08/16/23 cream (Miconazole-7) #45 grams Knee brace #1 ea 08/31/23 cyclobenzaprine 10 mg tablet 10 mg PO TID PRN muscle spasm #10 01/30/24 tabs lidocaine 5 % topical patch 1 patch topical DAILY #15 ea 01/30/24 naproxen 500 mg tablet 500 mg PO BID PRN pain #20 tabs 01/30/24 clindamycin phosphate 2 % vaginal 1 appful vaginal BEDTIME 7 days #5 02/14/24 cream grams fluconazole 150 mg tablet 150 mg PO Q3D 2 doses #2 tabs 02/14/24 valacyclovir 1 gram tablet 1,000 mg PO DAILY #90 tabs 02/14/24 fluconazole 150 mg tablet 150 mg PO DAILY 1 dose #1 tab 04/23/24 vancomycin 125 mg capsule 125 mg PO QID 10 days #40 caps 05/29/24 clotrimazole 1 % topical cream 1 appl topical BID 4 weeks #30 05/31/24 grams ibuprofen 800 mg tablet 800 mg PO TID PRN pain #20 tabs 05/31/24 acetaminophen 300 mg-codeine 30 mg 1 tab PO Q8H PRN pain (scale score 06/01/24 tablet 7-10) #10 tabs peg 3350-electrolytes 236 240 ml PO Q10M colonoscopy #4,000 06/01/24 gram-22.74 gram-6.74 gram-5.86 mL gram solution (Golytely) amoxicillin 500 mg capsule 500 mg PO Q12H 5 days #10 caps 08/15/24 Allergies Allergy/AdvReac Type Severity Reaction Status Date / Time Seasonal Allergies Allergy Mild Unknown Verified 09/14/24 08:58 metronidazole [From FLAGYL] Allergy Unknown Hives Verified 09/14/24 08:58 duloxetine AdvReac Nausea Verified 09/14/24 08:58 PMFSH Past Medical History Attestation statement: The following information was validated with the patient. Source: old records reviewed and nursing notes reviewed Medical History Sore throat Moderate recurrent major depression Physical exam Abdominal pain Chlamydia infection control counseling Yeast infection involving the vagina and surrounding area Pain of right scapula Visit for suture removal Dextroscoliosis of lumbar spine Status post fall Mid back pain Well woman exam with routine gynecological exam Screen for sexually transmitted diseases Cervical cancer screening Breast pain, right Lumbar radiculopathy Lumbar spondylosis Polyarthralgia Pain in both feet Injury of toe on right foot Preoperative clearance Jaw pain Pain in right elbow Paresthesia of hand, bilateral Left ankle pain Bilateral leg edema Lymphadenopathy Incidental lung nodule, > 3mm and < 8mm Low vitamin D level Bug bite Anxiety and depression Neck mass Rib pain on right side Muscle spasms of neck Paresthesia and pain of both upper extremities Cervicalgia Upper respiratory tract infection Atopic reaction Allergic reaction Mass in neck Thrush, oral Muscle twitch Muscle spasm Shortness of breath Adenopathy Left shoulder pain Immunization due Nonimmune to hepatitis B virus Numbness and tingling of both legs Tinnitus Upper respiratory tract infection Depo-Provera contraceptive status Screening for eye condition Routine screening for STI (sexually transmitted infection) Cervicalgia Headache Vision changes Chest pain Nausea and vomiting Hematochezia Abdominal pain Back pain Lung nodules Borderline personality disorder Depression Bipolar 1 disorder ADHD Low vitamin D level GERD (gastroesophageal reflux disease) Asthma History of multiple miscarriages COVID-19 virus infection Encounter to establish care (~03/2021) HIV exposure Surgical History S/P cubital tunnel release Hx of biopsy History of wisdom tooth extraction Family History Family History Mother Substance use disorder Mental health disorder Father Cancer Maternal Aunt Lung cancer Maternal Uncle Prostate CA Maternal Uncle Colon cancer Maternal Aunt Breast cancer Social History Social History Housing: House Alcohol intake: current Alcohol intake frequency: holidays/special occasions only Patient Tobacco Use Status: Never used Tobacco Tobacco use type: Cigar e-Cigarette/Vaping Use: Currently Using Second Hand Smoke Exposure: No Advance Directives: No Advance Directives Information Provided: Yes service: No Current occupational status: unemployed 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 Skin: Warm, dry, intact. No rashes or lesions. Head: Normocephalic, atraumatic. EENT: Hearing is intact b/l. Conjunctiva clear. Sclera is anicteric. PERRLA. EOM intact. Moist mucous membranes.? Cardiac: Chest wall symmetric. RRR Lungs: Normal respiratory effort without accessory muscle use. CTA bilaterally Ext: +1 inch superficial linear laceration noted to base of right first digit, overlying MCP. No involvement of deeper structures. No visible bones, tendons, or foreign body. finger strength intact. Full ROM to fingers and wrist. Sensation in tact. Capillary refill <2 seconds in all extremities. Pulses 2+ equal and bilateral. Neuro: AOx3. Normal speech. Medications Administered Discontinued Medications Generic Name Dose Route Start Last Admin Trade Name Freq PRN Reason Stop Dose Admin Lidocaine HCl 5 ml 09/14/24 09:56 09/14/24 10:09 Lidocaine Hcl 1 % Mpf 5 Ml Vial INFILTRATI 09/14/24 09:57 5 ml ONCE ONE Administration Medical Decision Making Medical Decision Making [facility] Narrative: 29 year old right hand dominant female with pmhx significant for fibromyalgia, psorasis, PTSD, recurrent HSV, bipolar 1 disorder, migraines with aura, asthma, and chronic pain syndrome presents to the ED today for evaluation of laceration to first digit of right hand, sustained CORRECTIONS NURSE in ED today. Vital signs are stable. She is well-appearing and in no acute distress. On exam, there is a 1 inch superficial linear laceration noted to base of right first digit, overlying MCP. No involvement of deeper structures. No visible bones, tendons, or foreign body. finger strength intact. Full ROM to fingers and wrist. Sensation in tact. Capillary refill <2 seconds in all extremities. Pulses 2+ equal and bilateral. Differential diagnosis includes abrasion, laceration. Unlikely ligament or tendon injury. Unlikely retained foreign body, fracture. I do not feel as though labs or imaging is warranted at this time. There is no concern for deeper injury. This is a superficial laceration that will be repaired with Dermabond and Steri-Strips. the area was thoroughly cleaned with saline + iodine. Her tetanus is up-to-date. Booster not required. Differential Diagnosis Differential Diagnoses: The differential diagnosis associated with the presentation includes As above Admission/Observation Not indicated Social Determinants Patient?s care significantly limited by Social Determinants of Health including: Other Social Determinant of Health Procedures Laceration Laceration 1: Site: hand (first digit) Side (If applicable): right Size (cm): 1 Description: linear Depth: simple, single layer Skin layer closed with: other (Dermabond, Steri-Strips) Critical Care Time Critical Care Time Critical Care Time: No Discharge Plan Discharge Clinical Impression: Laceration of thumb Qualifiers: Encounter type: initial encounter Damage to nail status: without damage Foreign body presence: without foreign body Laterality: right Qualified Code(s): S61.011A - Laceration without foreign body of right thumb without damage to nail, initial encounter Patient Disposition: Home, Self-Care Instructions: Laceration (ED), Skin Adhesive Care (ED) Additional Instructions: You have been evaluated in the Emergency Department today for a laceration to your right thumb. Your laceration was repaired in the ED with skin adhesive and steri strips. these will fall off on their own. Your tetanus vaccination is up to date. You did not require booster today. Please keep the area surrounding the laceration clean and dry. Do not get the area wet for 24 hours. After 24 hours, you may clean the area with a non-scented soap and pat to dry. Please keep the area out of the sunlight for the next 6 months to help prevent scarring.? If you develop redness or swelling at the site of your laceration or note any discharge/ fluid coming from the laceration, please come back to the ER for a wound check. I recommend you take 600mg ibuprofen every 6 hours or tylenol 650mg every 6 hours as needed for pain. If needed, you can alternate these medications so that you take one medication every 3 hours. For example, at noon take ibuprofen, then at 3pm take tylenol, then at 6pm take ibuprofen. Return to the Emergency Department if you experience discharge from your laceration, redness around your laceration, warmth around your laceration, fever, vomiting, numbness, tingling, or any other concerning symptoms. In the case of an emergency call 911. Prescriptions: No Action epinephrine [EpiPen 2-Edward] 0.3 mg/0.3 mL auto-injector 0.3 mg IM Q4H PRN (Reason: anaphylaxis) 30 Days Qty: 2 4RF Rx Instructions: practice injector as well if available please omeprazole 20 mg capsule,delayed release(DR/EC) 20 mg PO DAILY PRN (Reason: for heartburn) Qty: 90 0RF cholecalciferol (vitamin D3) 50 mcg (2,000 unit) capsule 50 mcg PO DAILY 90 Days Qty: 90 1RF fluticasone propionate [Flonase Allergy Relief] 50 mcg/actuation spray,suspension 1 spray intranasal BID Qty: 16 3RF Rx Instructions: administer into each nostril loratadine 10 mg tablet 10 mg PO DAILY Qty: 30 3RF folic acid 1 mg tablet 1 mg PO DAILY 90 Days Qty: 90 1RF mecobalamin (vitamin B12) 1,000 mcg tablet,chewable 1,000 mcg PO DAILY 90 Days Qty: 90 1RF gabapentin 300 mg capsule 300 mg PO BID 30 Days Qty: 60 3RF albuterol sulfate 90 mcg/actuation HFA aerosol inhaler 2 inh inhalation Q6-8H PRN (Reason: shortness of breath or wheezing) Qty: 6.7 0RF fluconazole 150 mg tablet 150 mg PO DAILY Qty: 1 0RF Rx Instructions: administer on day 1 of therapy clotrimazole 1 % cream 1 appl topical BID 28 Days Qty: 30 0RF ibuprofen 800 mg tablet 800 mg PO TID PRN (Reason: pain) Qty: 20 0RF acetaminophen-codeine 300-30 mg tablet 1 tab PO Q8H PRN (Reason: pain (scale score 7-10)) Qty: 10 0RF amoxicillin 500 mg capsule 500 mg PO Q12H 5 Days Qty: 10 0RF diphenhydramine HCl [Benadryl Allergy] 25 mg tablet 50 mg PO TID PRN (Reason: allergic reaction) Qty: 14 0RF clobetasol 0.05 % ointment 1 appl topical BID 7 Days Qty: 15 0RF cyclobenzaprine 10 mg tablet 10 mg PO TID PRN (Reason: muscle spasm) Qty: 10 0RF lidocaine 5 % adhesive patch,medicated 1 patch topical DAILY Qty: 15 0RF Rx Instructions: leave on most painful area for up to 12 hrs naproxen 500 mg tablet 500 mg PO BID PRN (Reason: pain) Qty: 20 0RF hydrocortisone 2.5 % cream 1 appl topical BID Qty: 20 0RF (DME) Knee brace Misc See Rx Instructions .Route Qty: 1 0RF Rx Instructions: As directed diclofenac sodium [Voltaren Arthritis Pain] 1 % gel 2 g topical QID Qty: 100 0RF Rx Instructions: apply to single elbow, wrist or hand; for hand includes palm/fingers/back of hand triamcinolone acetonide 0.025 % cream 1 appl topical DAILY PRN (Reason: psoriasis) 14 Days Qty: 15 0RF azelastine 137 mcg (0.1 %) aerosol,spray intranasal baclofen 10 mg tablet 10 mg PO TID 30 Days Qty: 90 0RF magnesium glycinate 100 mg tablet 200 mg PO DAILY 30 Days Qty: 60 6RF riboflavin (vitamin B2) 400 mg tablet 400 mg PO DAILY 30 Days Qty: 30 6RF miconazole nitrate [Miconazole-7] 2 % cream 1 appful vaginal BEDTIME 7 Days Qty: 45 3RF vancomycin 125 mg capsule 125 mg PO QID 10 Days Qty: 40 0RF clindamycin phosphate 2 % cream 1 appful vaginal BEDTIME 7 Days Qty: 5 2RF Rx Instructions: for 7 days; USE ONLY WHEN YOU HAVE CLEAR BV SYMPTOMS valacyclovir 1 gram tablet 1,000 mg PO DAILY Qty: 90 4RF fluconazole 150 mg tablet 150 mg PO Q3D 0 Days Qty: 2 6RF Rx Instructions: may repeat second dose 72 hrs after first dose if symptoms persist, USE WHEN CLEAR SYMPTOMS OF YEAST ARE PRESENT. medroxyprogesterone 150 mg/mL syringe 150 mg IM [id number] peg 3350-electrolytes [Golytely] 236-22.74-6.74 -5.86 gram recon soln 240 ml PO Q10M Qty: 4000 0RF Rx Instructions: as per split prep instructions, until fecal effluent is clear Referrals: Maeve Woodard MD [Primary Care Provider] - Interventions: ED Discharge Assessment Last Done: 09/14/24 11:00 Discharge Date/Time: 09/14/24 11:01 Print Language: Irish
[2024-09-14] MEDS: Lidocaine HCl 1 % MPF 5 ML VIAL INFILTRATI (10:09)
--- OUTSIDE RECORDS SUMMARY | 2024-09-14 10:53 | XMS_ITS | Clinical Summary ---
Author Organization [employer] Address [address] [place] [address] Care Team Providers Care Operations Support Coordinator Name Role Phone Unavailable Primary Care Provider [...] Date Last Done Comments Depression Screening 1996 Disability Screening 1996 Alcohol/Substance Use Screening 2008 Tobacco Screening 2008 Family Planning (PISQ) 02/03/2011 DTaP/Tdap/Td Vaccines (1 - Tdap) 02/03/2015 Hepatitis B Vaccines (1 of 3 - 19+ 3-dose series) 02/03/2015 Pap Smear 02/03/2017 COVID-19 Vaccine (1 - 2023-2 5 season) 2023 Influenza Vaccine (Season Ended) 2024 Zoster Vaccines (1 of 2) 02/03/2046 RSV [...] patient's age to complete this topic Meningococcal B Vaccine Aged Out No l [...]
--- NOTE | 2024-09-14 10:59 | PC.NURSE ---
laceration was closed with skin adhesive and steri strips. no active bleeding noted.
[2024-09-14 11:00] VITALS: BP 123/87; PULSE 89; RESP 18; TEMP 36.7; O2SAT 95
== END 2024-09-14 11:01 | disposition home or self-care (01) ==
PROVIDERS: Emergency Provider Emergency Medicine; PCP Internal Medicine
DX: S61.011A Laceration without foreign body of right thumb without damage to nail, initial encounter (principal); W26.0XXA Contact with knife, initial encounter; Y93.9 Activity, unspecified; Y92.9 Unspecified place or not applicable; Y99.9 Unspecified external cause status
CPT/HCPCS: 12001; 99282; 99284; J2003

== ENCOUNTER 2024-09-14 15:56 | Emergency (ER) | payer MEDICARE, MEDICAID, SELFPAY ==
--- NOTE | 2024-09-14 16:16 | ED_ITS ---
HPI - General Adult General Chief complaint: Wound/Laceration Stated complaint: rt thumb stitches reoped from this morning Time Seen by Provider: 09/14/24 16:33 Source: patient and RN notes reviewed Mode of arrival: ambulatory Limitations: no limitations History of Present Illness ED Provider: Bri Conklin PA-C HPI narrative: This is a 29-year-old female who presents emergency department with concerns of wound reopening. Patient was seen here this morning after accidentally lacerating her right thumb on a clean knife. She had Dermabond and Steri-Strips placed as this was a superficial wound. She states that the Steri-Strips popped off, and she has some oozing from the wound. Denies any new injury or trauma. No other complaints or concerns at this time. MD complaint: Wound check Related Data Home Medications ?Medication ?Instructions ?Recorded ?Confirmed azelastine 137 mcg (0.1 %) nasal intranasal 06/03/22 07/10/24 spray medroxyprogesterone 150 mg/mL 150 mg IM [id number] 03/27/24 07/10/24 intramuscular syringe Previous Rx's ?Medication ?Instructions ?Recorded hydrocortisone 2.5 % topical cream 1 appl topical BID #20 grams 09/15/21 diclofenac sodium 1 % topical gel 2 g topical QID #100 grams 09/28/21 (Voltaren Arthritis Pain) diphenhydramine HCl 25 mg tablet 50 mg (2 x 25 mg) PO TID PRN 01/07/22 (Benadryl Allergy) allergic reaction #14 tabs epinephrine 0.3 mg/0.3 mL 0.3 mg (0.3 mL) IM Q4H PRN 01/07/22 injection, auto-injector (EpiPen anaphylaxis 1 month #2 ea 2-Edward) baclofen 10 mg tablet 10 mg PO TID muscle spasm 30 days 06/03/22 #90 tabs magnesium glycinate 100 mg (as 200 mg (2 x 100 mg) PO DAILY 06/03/22 glycinate) tablet migraine 30 days #60 tabs riboflavin (vitamin B2) 400 mg 400 mg PO DAILY migraine headache 06/03/22 tablet 30 days #30 tabs cholecalciferol (vitamin D3) 50 50 mcg PO DAILY 90 days #90 caps 10/12/22 mcg (2,000 unit) capsule omeprazole 20 mg capsule,delayed 20 mg PO DAILY PRN for heartburn 10/12/22 release #90 caps triamcinolone acetonide 0.025 % 1 appl topical DAILY PRN psoriasis 10/12/22 topical cream 2 weeks #15 grams fluticasone propionate 50 1 spray intranasal BID #16 grams 10/13/22 mcg/actuation nasal spray,suspension (Flonase Allergy Relief) loratadine 10 mg tablet 10 mg PO DAILY #30 tabs 10/13/22 folic acid 1 mg tablet 1 mg PO DAILY 90 days #90 tabs 10/17/22 mecobalamin (vitamin B12) 1,000 1,000 mcg PO DAILY 90 days #90 tabs 10/17/22 mcg chewable tablet gabapentin 300 mg capsule 300 mg PO BID pain 30 days #60 caps 10/25/22 albuterol sulfate 90 mcg/actuation 2 inh inhalation Q6-8H PRN 11/14/22 aerosol inhaler shortness of breath or wheezing #6.7 grams clobetasol 0.05 % topical ointment 1 appl topical BID 1 week #15 grams 05/11/23 miconazole nitrate 2 % vaginal 1 appful vaginal BEDTIME 7 days 08/16/23 cream (Miconazole-7) #45 grams Knee brace #1 ea 08/31/23 cyclobenzaprine 10 mg tablet 10 mg PO TID PRN muscle spasm #10 01/30/24 tabs lidocaine 5 % topical patch 1 patch topical DAILY #15 ea 01/30/24 naproxen 500 mg tablet 500 mg PO BID PRN pain #20 tabs 01/30/24 clindamycin phosphate 2 % vaginal 1 appful vaginal BEDTIME 7 days #5 02/14/24 cream grams fluconazole 150 mg tablet 150 mg PO Q3D 2 doses #2 tabs 02/14/24 valacyclovir 1 gram tablet 1,000 mg PO DAILY #90 tabs 02/14/24 fluconazole 150 mg tablet 150 mg PO DAILY 1 dose #1 tab 04/23/24 vancomycin 125 mg capsule 125 mg PO QID 10 days #40 caps 05/29/24 clotrimazole 1 % topical cream 1 appl topical BID 4 weeks #30 05/31/24 grams ibuprofen 800 mg tablet 800 mg PO TID PRN pain #20 tabs 05/31/24 acetaminophen 300 mg-codeine 30 mg 1 tab PO Q8H PRN pain (scale score 0228/25 tablet 7-10) #10 tabs peg 3350-electrolytes 236 240 ml PO Q10M colonoscopy #4,000 06/01/24 gram-22.74 gram-6.74 gram-5.86 mL gram solution (Golytely) amoxicillin 500 mg capsule 500 mg PO Q12H 5 days #10 caps 08/15/24 Allergies Allergy/AdvReac Type Severity Reaction Status Date / Time Seasonal Allergies Allergy Mild Unknown Verified 09/14/24 16:18 metronidazole [From FLAGYL] Allergy Unknown Hives Verified 09/14/24 16:18 duloxetine AdvReac Nausea Verified 09/14/24 16:18 Review of Systems Review of Systems: Yes all other systems are reviewed and are negative Constitutional: Constitutional: Reports as per HPI [facility] Past Medical History Medical History Sore throat Moderate recurrent major depression Physical exam Abdominal pain Chlamydia infection control counseling Yeast infection involving the vagina and surrounding area Pain of right scapula Visit for suture removal Dextroscoliosis of lumbar spine Status post fall Mid back pain Well woman exam with routine gynecological exam Screen for sexually transmitted diseases Cervical cancer screening Breast pain, right Lumbar radiculopathy Lumbar spondylosis Polyarthralgia Pain in both feet Injury of toe on right foot Preoperative clearance Jaw pain Pain in right elbow Paresthesia of hand, bilateral Left ankle pain Bilateral leg edema Lymphadenopathy Incidental lung nodule, > 3mm and < 8mm Low vitamin D level Bug bite Anxiety and depression Neck mass Rib pain on right side Muscle spasms of neck Paresthesia and pain of both upper extremities Cervicalgia Upper respiratory tract infection Atopic reaction Allergic reaction Mass in neck Thrush, oral Muscle twitch Muscle spasm Shortness of breath Adenopathy Left shoulder pain Immunization due Nonimmune to hepatitis B virus Numbness and tingling of both legs Tinnitus Upper respiratory tract infection Depo-Provera contraceptive status Screening for eye condition Routine screening for STI (sexually transmitted infection) Cervicalgia Headache Vision changes Chest pain Nausea and vomiting Hematochezia Abdominal pain Back pain Lung nodules Borderline personality disorder Depression Bipolar 1 disorder ADHD Low vitamin D level GERD (gastroesophageal reflux disease) Asthma History of multiple miscarriages COVID-19 virus infection Encounter to establish care (~03/2021) HIV exposure Surgical History S/P cubital tunnel release Hx of biopsy History of wisdom tooth extraction Family History Family History Mother Substance use disorder Mental health disorder Father Cancer Maternal Aunt Lung cancer Maternal Uncle Prostate CA Maternal Uncle Colon cancer Maternal Aunt Breast cancer Social History Social History Housing: House Alcohol intake: current Alcohol intake frequency: holidays/special occasions only Patient Tobacco Use Status: Never used Tobacco Tobacco use type: Cigar e-Cigarette/Vaping Use: Currently Using Second Hand Smoke Exposure: No Advance Directives: No Advance Directives Information Provided: Yes Do you have a plan to hurt others: No Plan service: No Current occupational status: unemployed 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 No acute distress. HEENT: Normal inspection CVS: Normal heart rate and rhythm. Pulses normal. Respiratory: No respiratory distress Skin: right thumb, there is a superficial linear laceration overlying the MCP. No involvement of deeper structures. Steri-Strips no longer seen, slight oozing noted along the medial aspect of this wound. Full ROM, no surrounding erythema or warmth. Capillary refill less than 2 seconds, radial pulse 2 +. Full ROM of the thumb. Distal sensation and circulation intact. Extremities: normal to inspection Neuro: Oriented X 3. No motor deficit. No sensory deficit. Procedures Procedure Narrative Procedure Narrative: wound cleansed using Betadine and saline, Dermabond applied to wound, wound well approximated, also applied Steri-Strips for further reinforcement. dressing applied, nonadherent, patient tolerated procedure well without any complications or concerns. Medical Decision Making Medical Decision Making MDM Narrative: This is a 29-year-old female who presents emergency department for wound check. She was seen here this morning after accidentally lacerating her right thumb on a clean knife. Patient was seen here in the emergency department where she had Dermabond and Steri-Strips placed. She states that the Steri-Strips fell off, and now she has oozing at the wound. The wound is superficial therefore sutures are not clinically indicated, I cleansed the region, and reapplied 2nd layer of Dermabond, adhered this was Steri-Strips. Also applied nonstick dressing. Given strict return precautions. She tolerated this procedure well without any complications or concerns. Patient stable for discharge Differential Diagnosis Differential Diagnoses: The differential diagnosis associated with the presentation includes wound check, wound dehiscence, cellulitis Discharge Plan Discharge Clinical Impression: Laceration of thumb, right Patient Disposition: Home, Self-Care Instructions: Laceration (ED), Laceration Without Closure (ED) Additional Instructions: You have been evaluated in the Emergency Department today for a laceration to your right thumb. Your laceration was repaired in the ED with skin adhesive and steri strips. these will fall off on their own. Your tetanus vaccination is up to date. You did not require booster today. Please keep the area surrounding the laceration clean and dry. Do not get the area wet for 24 hours. After 24 hours, you may clean the area with a non-scented soap and pat to dry. Please keep the area out of the sunlight for the next 6 months to help prevent scarring.? If you develop redness or swelling at the site of your laceration or note any discharge/ fluid coming from the laceration, please come back to the ER for a wound check. I recommend you take 600mg ibuprofen every 6 hours or tylenol 650mg every 6 hours as needed for pain. If needed, you can alternate these medications so that you take one medication every 3 hours. For example, at noon take ibuprofen, then at 3pm take tylenol, then at 6pm take ibuprofen. Return to the Emergency Department if you experience discharge from your lacerat ion, redness around your laceration, warmth around your laceration, fever, vomiting, numbness, tingling, or any other concerning symptoms. In the case of an emergency call 911. Prescriptions: No Action epinephrine [EpiPen 2-Edward] 0.3 mg/0.3 mL auto-injector 0.3 mg IM Q4H PRN (Reason: anaphylaxis) 30 Days Qty: 2 4RF Rx Instructions: practice injector as well if available please omeprazole 20 mg capsule,delayed release(DR/EC) 20 mg PO DAILY PRN (Reason: for heartburn) Qty: 90 0RF cholecalciferol (vitamin D3) 50 mcg (2,000 unit) capsule 50 mcg PO DAILY 90 Days Qty: 90 1RF fluticasone propionate [Flonase Allergy Relief] 50 mcg/actuation spray,suspension 1 spray intranasal BID Qty: 16 3RF Rx Instructions: administer into each nostril loratadine 10 mg tablet 10 mg PO DAILY Qty: 30 3RF folic acid 1 mg tablet 1 mg PO DAILY 90 Days Qty: 90 1RF mecobalamin (vitamin B12) 1,000 mcg tablet,chewable 1,000 mcg PO DAILY 90 Days Qty: 90 1RF gabapentin 300 mg capsule 300 mg PO BID 30 Days Qty: 60 3RF albuterol sulfate 90 mcg/actuation HFA aerosol inhaler 2 inh inhalation Q6-8H PRN (Reason: shortness of breath or wheezing) Qty: 6.7 0RF fluconazole 150 mg tablet 150 mg PO DAILY Qty: 1 0RF Rx Instructions: administer on day 1 of therapy clotrimazole 1 % cream 1 appl topical BID 28 Days Qty: 30 0RF ibuprofen 800 mg tablet 800 mg PO TID PRN (Reason: pain) Qty: 20 0RF acetaminophen-codeine 300-30 mg tablet 1 tab PO Q8H PRN (Reason: pain (scale score 7-10)) Qty: 10 0RF amoxicillin 500 mg capsule 500 mg PO Q12H 5 Days Qty: 10 0RF diphenhydramine HCl [Benadryl Allergy] 25 mg tablet 50 mg PO TID PRN (Reason: allergic reaction) Qty: 14 0RF clobetasol 0.05 % ointment 1 appl topical BID 7 Days Qty: 15 0RF cyclobenzaprine 10 mg tablet 10 mg PO TID PRN (Reason: muscle spasm) Qty: 10 0RF lidocaine 5 % adhesive patch,medicated 1 patch topical DAILY Qty: 15 0RF Rx Instructions: leave on most painful area for up to 12 hrs naproxen 500 mg tablet 500 mg PO BID PRN (Reason: pain) Qty: 20 0RF hydrocortisone 2.5 % cream 1 appl topical BID Qty: 20 0RF (DME) Knee brace Misc See Rx Instructions .Route Qty: 1 0RF Rx Instructions: As directed diclofenac sodium [Voltaren Arthritis Pain] 1 % gel 2 g topical QID Qty: 100 0RF Rx Instructions: apply to single elbow, wrist or hand; for hand includes palm/fingers/back of hand triamcinolone acetonide 0.025 % cream 1 appl topical DAILY PRN (Reason: psoriasis) 14 Days Qty: 15 0RF azelastine 137 mcg (0.1 %) aerosol,spray intranasal baclofen 10 mg tablet 10 mg PO TID 30 Days Qty: 90 0RF magnesium glycinate 100 mg tablet 200 mg PO DAILY 30 Days Qty: 60 6RF riboflavin (vitamin B2) 400 mg tablet 400 mg PO DAILY 30 Days Qty: 30 6RF miconazole nitrate [Miconazole-7] 2 % cream 1 appful vaginal BEDTIME 7 Days Qty: 45 3RF vancomycin 125 mg capsule 125 mg PO QID 10 Days Qty: 40 0RF clindamycin phosphate 2 % cream 1 appful vaginal BEDTIME 7 Days Qty: 5 2RF Rx Instructions: for 7 days; USE ONLY WHEN YOU HAVE CLEAR BV SYMPTOMS valacyclovir 1 gram tablet 1,000 mg PO DAILY Qty: 90 4RF fluconazole 150 mg tablet 150 mg PO Q3D 0 Days Qty: 2 6RF Rx Instructions: may repeat second dose 72 hrs after first dose if symptoms persist, USE WHEN CLEAR SYMPTOMS OF YEAST ARE PRESENT. medroxyprogesterone 150 mg/mL syringe 150 mg IM [id number] peg 3350-electrolytes [Golytely] 236-22.74-6.74 -5.86 gram recon soln 240 ml PO Q10M Qty: 4000 0RF Rx Instructions: as per split prep instructions, until fecal effluent is clear Stand Alone Forms: Work/School Release Interventions: ED Discharge Assessment Last Done: 09/14/24 16:34 Discharge Date/Time: 09/14/24 16:36 Print Language: Belarusian
[2024-09-14 16:17] VITALS: BP 133/69; PULSE 82; RESP 16; TEMP 36.9; O2SAT 98; BMI 31.6
[2024-09-14 16:34] VITALS: BP 133/69; PULSE 82; RESP 16; TEMP 36.9; O2SAT 98
== END 2024-09-14 16:36 | disposition home or self-care (01) ==
PROVIDERS: Emergency Provider Emergency Medicine Emergency Medical Services
DX: S61.011A Laceration without foreign body of right thumb without damage to nail, initial encounter (principal); W26.0XXA Contact with knife, initial encounter; Y93.9 Activity, unspecified; Y92.9 Unspecified place or not applicable; Y99.9 Unspecified external cause status; Z48.00 Encounter for change or removal of nonsurgical wound dressing
CPT/HCPCS: 99282

== ENCOUNTER 2024-11-07 10:25 | Outpatient (REF) | payer MEDICARE, MEDICAID, SELFPAY ==
--- OUTSIDE RECORDS SUMMARY | 2024-11-07 11:05 | XMS_ITS | Clinical Summary ---
Author Organization [employer] Address [address] [place] [address] Care Team Providers Care Back Roll Lathe Operator Name Role Phone Unavailable Primary Care [...] Tobacco Screening 2008 Family Planning (PISQ) 02/03/2011 HPV Vaccines (1 - 3-dose series) 02/03/2011 DTaP/Tdap/Td Vaccines (1 - Tdap) 02/03/2015 Hepatitis B Vaccines (1 of 3 - 19+ 3-dose series) 02/03/2015 Pap Smear 02/03/2017 COVID-19 Vaccine (1 - 2023-2 5 season) 2023 Influenza Vaccine (#1) 2024 Zoster Vaccines (1 of 2) 02/03/2046 [...] Years) and At-Risk Patients (6 to 49) Years Aged Out No longer eligible b ased on patient's age to complete this topic RSV under 20 months Aged Out No longe r eligible based on patient's age to complete this topic Rotavirus Vaccines Aged Out No longer eligible based on patient's age to complete this topic
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
--- OUTSIDE RECORDS SUMMARY | 2024-11-07 11:06 | XMS_ITS | Clinical Summary ---
Author Organization [facility] Address [address] [place] [address] Phone Care Team Providers Care Computer Trainer Name Role Phone Pcp, Unknown Primary Care Provider Unavailabl e Social History Tobacco Use Types Packs/Day Years Used Date Smoking Tobacco: Never Assessed Education Answer Date Recorded Are you interested in more education? Not on jesus e 07/31/2022 Are you concerned about learning? Not on file 07/31/2022 No 07/31/2022 No 07/31/2022 Digital Access Answer Date Recorded No 08/31/2022 No 08/31/2022 Reliable internet access at home? Not on file 08/31/2022 Device with a working camera? Not on file Comments Unknown Sex and Gender Information Value Date Recorded Sex Assigned at Not on file Legal Sex Female 1:04 PM EDT Gender Identity Not on file Sexual Orientation Not on file Plan of Treatment Not on file Medical Devices Not on file Insurance MEDICARE PART A & B [facility] MEDICARE PART A & B [employer] MED[facility] A [facility] [place] [facility] [place] & B [facility] MEDICARE PART A & B [facility] Care Teams Computer Trainer Relationship Specialty Start Date End Date Pcp, Unknown PCP - General 10/06/21 Additional Source Comments The information contained in this document represents components of the legal health record. It is not the complete legal health record.[facility]
[2024-11-07 11:26] LABS: Alanine Aminotransferase 39 U/L (0-31); Albumin Level 4.2 g/dL (3.5-5.0); Alkaline Phosphatase 87 U/L (39-117); Anion Gap 10 (12-20); Aspartate Amino Transferase 21 U/L (5-31); Blood Urea Nitrogen 5 mg/dL (9-16); Calcium 8.9 mg/dL (8.4-10.2); Carbon Dioxide 26 mmol/L (22-29); Chloride 110 mmol/L (96-108); Estimated Glomerular Filt Rate > 60; Potassium 3.8 mmol/L (3.3-5.1); Sodium 142 mmol/L (135-145); Total Protein 6.9 g/dL (6.5-8.0)
[2024-11-07 11:45] LABS: Hematocrit 42.8 % (37.0-47.0); Hemoglobin 14.7 g/dl (12.0-16.0); Mean Corpuscular HGB Conc 34.3 g/dl (31.0-35.0); Mean Corpuscular Hemoglobin 29.2 pg (27.0-33.0); Mean Corpuscular Volume 84.9 fL (80.0-98.0); NRBC Abs Auto 0.000 X10*3/uL (0.0-0.012); NRBC Pct Auto 0.0 /100WBC (0.0-0.2); Platelet Count 298 X10*3/uL (160-400); Red Blood Count 5.04 X10*6/uL (4.20-5.50); White Blood Count 7.8 X10*3/uL (4.8-10.8)
[2024-11-07 12:36] LABS: HBsAGNum1 0.43 S/CO (0.00-0.99); HIV Num 1 0.05 S/CO (0.00-0.99); Hepatitis B Surface Antigen Negative (Negative); ~HepC Num1 0.14 S/CO (0.00-0.79); ~Hepatitis C Antibody Nonreactive (Nonreactive)
[2024-11-07 12:39] LABS: Syphilis Screen Nonreactive (Nonreactive)
[2024-11-08 09:23] LABS: Immunoglobulin A 259 mg/dL (47-310)
== END 2024-11-07 10:26 | disposition home or self-care (01) ==
LOC: HO.LAB 10:25
PROVIDERS: Absent Provider Advanced Practice Midwife; PCP Internal Medicine; Referring Provider Internal Medicine; Visit Provider Internal Medicine
DX: Z11.59 Encounter for screening for other viral diseases (principal); Z11.4 Encounter for screening for human immunodeficiency virus [HIV]; Z13.29 Encounter for screening for other suspected endocrine disorder; J02.9 Acute pharyngitis, unspecified; K52.9 Noninfective gastroenteritis and colitis, unspecified; K38.9 Disease of appendix, unspecified; R10.9 Unspecified abdominal pain; Z72.89 Other problems related to lifestyle
CPT/HCPCS: 36415; 80053; 82784; 84443; 85027; 86140; 86364; 86780; 86803; 87340; 87389

== ENCOUNTER → 2024-12-20 08:00 | Outpatient (BNV) | payer MEDICARE, MEDICAID, SELFPAY | PROVIDERS: PCP Internal Medicine; Visit Provider Internal Medicine | DX: N63.21 Unspecified lump in the left breast, upper outer quadrant (principal) | CPT/HCPCS: 76642 ==

== ENCOUNTER 2024-12-20 08:02 | Outpatient (REF) | payer MEDICARE, MEDICAID, SELFPAY ==
--- NOTE | ~2024-12-20 | US_ITS ---
EXAMINATION: US DIAGNOSTIC ULTRASOUND BREAST, LEFT CLINICAL INFORMATION: Left biopsy-proven malignancy 1:00 2 cm from the nipple May 2024. Patient prefers to have this mass removed. Patient is under the care of a breast surgeon.. COMPARISON: Comparison is made with relevant prior imaging. TECHNIQUE: Ultrasound of the breast is performed with real-time jacob scale imaging and color Doppler. FINDINGS: Limited color Doppler ultrasound in the area the previously biopsy-proven fibroadenoma left breast 1:00 2 cm from the nipple demonstrates a hypoechoic oval parallel solid and cystic mass with an internal marker clip slightly increased in size from prior now measuring 9 x 6 x 13 mm previously measuring 8 x 7 x 6 mm. Results are discussed with the patient at time of visit. 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 This mass is increased in size from previous imaging April and May 2024. The patient prefers to have this mass removed. Recommend breast consultation for possible excision and further management. ASSESSMENT: BI-RADS 4: Suspicious RECOMMENDATION: Surgical consultation for growing fibroadenoma for which the patient prefers excision. Electronically signed by: Terri Storey DO 12/20/2024 12:26 PM EDT
--- OUTSIDE RECORDS SUMMARY | 2024-12-20 08:09 | XMS_ITS | Clinical Summary ---
Author Organization [facility] Address [address] [place] [address] Phone Care Team Providers Care Floor Sanding Machine Operator Name Role Phone Pcp, Unknown Primary Care [...] file Insurance MEDICARE PART A & B [facility] MEDICARE PART A & B [employer] MEDICARE PART A & [facility] [place] [facility] [place] [facility] [place] MED[place] & B [facility] MEDICARE PART A & B [facility] Care Teams Floor Sanding Machine Operator Relationship Specialty Start Date End Date Pcp, Unknown PCP - General 10/06/21 Additional Source Comments The information contained in this document represents components of the legal health record. It is not the complete legal health record.[facility]
--- OUTSIDE RECORDS SUMMARY | 2024-12-20 08:09 | XMS_ITS | Encounter Summary ---
Author Organization [employer] Address [address] [place] [address] Care Team Providers Care Wire Mill Rover Name Role Phone Unavailable Primary Care Provider [...]
--- OUTSIDE RECORDS SUMMARY | 2024-12-20 08:09 | XMS_ITS | Clinical Summary ---
Author Organization [employer] Address [address] [place] [address] Care Team Providers Care Engineering Team Supervisor Name Role Phone Unavailable Primary Care Provider [...] COVID-19 Vaccine (1 - 2023-2 5 season) 2024 Influenza Vaccine (#1) 2024 Zoster Vaccines (1 [...]
--- OUTSIDE RECORDS SUMMARY | 2024-12-20 08:10 | XMS_ITS | Encounter Summary ---
Author Organization [employer] Address [address] [place] [address] Care Team Providers Care Vice President Of Software Engineering Name Role Phone Unavailable Primary Care Provider [...]
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
== END 2024-12-20 08:03 | disposition home or self-care (01) ==
LOC: HO.MAMMO 08:02
PROVIDERS: PCP Internal Medicine; Visit Provider Obstetrics & Gynecology
DX: N63.21 Unspecified lump in the left breast, upper outer quadrant (principal)
CPT/HCPCS: 76642

== ENCOUNTER 2024-12-20 14:33 | Outpatient (AMB) | payer MEDICARE, MEDICAID, SELFPAY ==
--- NOTE | 2024-12-20 14:34 | A.OFFVIS_ITS ---
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 This mass is increased in size from previous imaging April and May 2024. The patient prefers to have this mass removed. Recommend breast consultation for possible excision and further management. ASSESSMENT: BI-RADS 4: Suspicious RECOMMENDATION: Surgical consultation for growing fibroadenoma for which the patient prefers excision. [facility] Medical History Sore throat Moderate recurrent major depression Physical exam Abdominal pain Chlamydia infection control counseling Yeast infection involving the vagina and surrounding area Pain of right scapula Visit for suture removal Dextroscoliosis of lumbar spine Status post fall Mid back pain Well woman exam with routine gynecological exam Screen for sexually transmitted diseases Cervical cancer screening Breast pain, right Lumbar radiculopathy Lumbar spondylosis Polyarthralgia Pain in both feet Injury of toe on right foot Preoperative clearance Jaw pain Pain in right elbow Paresthesia of hand, bilateral Left ankle pain Bilateral leg edema Lymphadenopathy Incidental lung nodule, > 3mm and < 8mm Low vitamin D level Bug bite Anxiety and depression Neck mass Rib pain on right side Muscle spasms of neck Paresthesia and pain of both upper extremities Cervicalgia Upper respiratory tract infection Atopic reaction Allergic reaction Mass in neck Thrush, oral Muscle twitch Muscle spasm Shortness of breath Adenopathy Left shoulder pain Immunization due Nonimmune to hepatitis B virus Numbness and tingling of both legs Tinnitus Upper respiratory tract infection Depo-Provera contraceptive status Screening for eye condition Routine screening for STI (sexually transmitted infection) Cervicalgia Headache Vision changes Chest pain Nausea and vomiting Hematochezia Abdominal pain Back pain Lung nodules Borderline personality disorder Depression Bipolar 1 disorder ADHD Low vitamin D level GERD (gastroesophageal reflux disease) Asthma History of multiple miscarriages COVID-19 virus infection Encounter to establish care (~03/2021) HIV exposure Surgical History S/P cubital tunnel release Hx of biopsy History of wisdom tooth extraction Family History Mother Substance use disorder Mental health disorder Father Cancer Maternal Aunt Lung cancer Maternal Uncle Prostate CA Maternal Uncle Colon cancer Maternal Aunt Breast cancer Social History Housing: House Alcohol intake: current Alcohol intake frequency: holidays/special occasions only Patient Tobacco Use Status: Never used Tobacco Tobacco use type: Cigar e-Cigarette/Vaping Use: Currently Using Second Hand Smoke Exposure: No service: No Current occupational status: unemployed 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 Cognitive needs: No Hearing needs: No Vision needs: Yes (glasses) Female Reproductive History Menstrual Age of Menarche: 13 Review of Systems Const All systems reviewed & are unremarkable except as noted in HPI and below Reports as per HPI and Reports no additional complaints GI Reports no additional complaints Reports no additional complaints Telehealth Telehealth Telehealth Platform: [employer] Location of provider rendering services: practice address Location of patient: address on file Patient Identification confirmed using: Name, : Yes Telehealth method: video Patient verbally consented to treatment: Yes Patient verbally consented to billing insurance company: Yes Patient informed of any privacy concerns related to visit: Yes Minutes spent on Phone/Video with Pt.: 2 Assessment & Plan Assessment & Plan (1) Abnormal ultrasound of breast: Comment: BI-RADS 4 Code(s): R92.8 - Other abnormal and inconclusive findings on diagnostic imaging of breast Category: Medical Plan: Discussed with the patient the results of the breast ultrasound, BI-RADS 4, recommended biopsy. The patient was referred to breast surgery, appointment scheduled on 12/[address] Mata, the patient is aware. All questions answered, the patient verbalized understanding I spent a total of 20 minutes reviewing the chart, talking to the patient via video and documenting in the medical record. Coding Level of Care Code Tele Est Pt Level 3 (21404) Diagnoses Abnormal ultrasound of breast R92.8
--- OUTSIDE RECORDS SUMMARY | 2024-12-20 16:18 | XMS_ITS | Clinical Summary ---
Author Organization [facility] Address [address] [place] [address] Phone Care Team Providers Care Assistant Corporate Controller Name Role Phone Pcp, Unknown Primary Care [...] file Insurance MEDICARE PART A & B [facility] MEDICARE PART A & B [employer] MEDICARE PART A & [facility] [place] [facility] [facility] [place] B [facility] MEDICARE PART A & B Member Subscriber Plan / Payer (Ef fective 2016-) Name:Argelia Adan Member ID:[id number] Relation to Subscriber:Self Name:Argelia Adan Subscriber ID:[id number] Payer ID:[id number] Group ID:Not on file Type:Medicare Address: [facility] [employer] [facility] [employer] [facility] [address] [facility] [place] [address] [facility] Care Teams Assistant Corporate Controller Relationship Specialty Start Date End Date Pcp, Unknown PCP - General 10/06/21 Additional Source Comments The information contained in this document represents components of the legal health record. It is not the complete legal health record.[facility]
--- OUTSIDE RECORDS SUMMARY | 2024-12-20 16:18 | XMS_ITS | Encounter Summary ---
Author Organization [employer] Address [address] [facility] [address] [place] [address] Care Team Providers Care Wellness Trainer Name Role Phone Unavailable Primary Care Provider [...]
--- OUTSIDE RECORDS SUMMARY | 2024-12-20 16:18 | XMS_ITS | Encounter Summary ---
Author Organization [employer] Address [address] [facility] [address] [place] [address] Care Team Providers Care Enterprise Architect Manager Name Role Phone Unavailable Primary Care [...]
--- OUTSIDE RECORDS SUMMARY | 2024-12-20 16:18 | XMS_ITS | Clinical Summary ---
Author Organization [employer] Address [address] [facility] [address] [place] [address] Care Team Providers Care Physical Therapy Technician Name Role Phone Unavailable Primary Care [...]
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
== END 2024-12-20 15:02 | disposition home or self-care (01) ==
LOC: HO.HWS 14:33
PROVIDERS: PCP Internal Medicine; Visit Provider Obstetrics & Gynecology
DX: R92.8 Other abnormal and inconclusive findings on diagnostic imaging of breast (principal)
CPT/HCPCS: 99213

== ENCOUNTER 2024-12-24 15:35 | Outpatient (AMB) | payer MEDICARE, MEDICAID, SELFPAY ==
--- NOTE | 2024-12-24 15:38 | MHC.OFFVIS ---
Vital Signs 12/24/24 15:45 Height 5 ft 5 in Weight 209 lb BMI 34.8 BP 133/72 Blood Pressure Location Lt brachial Position Sitting Pulse 83 Intake Visit Reasons: Unspecified lump in the left breast Intake Note: Patient is seen in office for evaluation of a lump on the left breast. Pt c/o: lump in the left breast has increase since last visit, admits to pain, would like to discuss surgical removal us:12/20/24 L.OV:07/30/24 Jig Grinder Required: No Building Construction Teacher: Building Construction Teacher Present Accompanied by: Self / Same As Patient Allergies Seasonal Allergies Allergy (Mild, Verified 12/24/24 15:39) Unknown metronidazole (From FLAGYL) Allergy (Unknown, Verified 12/24/24 15:39) Hives duloxetine Adverse Reaction (Verified 12/24/24 15:39) Nausea Medication List - Last Reconciled 12/24/24 by Thierry Mata MD acetaminophen-codeine 300-30 mg 1 tab PO Q8H PRN albuterol sulfate 90 mcg/actuation 2 inhalations inhalation Q6-8H PRN amoxicillin 500 mg PO Q12H 5 days azelastine intranasal baclofen 10 mg PO TID 30 days cholecalciferol (vitamin D3) 50 mcg PO DAILY 90 days clindamycin phosphate 2% 1 appful vaginal BEDTIME 7 days clobetasol 0.05% 1 appl topical BID 1 week clotrimazole 1% 1 appl topical BID 4 weeks cyclobenzaprine 10 mg PO TID PRN diclofenac sodium 1% (Voltaren Arthritis Pain) 2 grams topical QID diphenhydramine HCl (Benadryl Allergy) 50 mg (2 x 25 mg) PO TID PRN epinephrine (EpiPen 2-Edward) 0.3 mg (0.3 mL) IM Q4H PRN 1 month fluconazole 150 mg PO Q3D 2 doses fluconazole 150 mg PO DAILY 1 dose fluticasone propionate 50 mcg/actuation (Flonase Allergy Relief) 1 spray intranasal BID folic acid 1 mg PO DAILY 90 days gabapentin 300 mg PO BID 30 days hydrocortisone 2.5% 1 appl topical BID ibuprofen 800 mg PO TID PRN Knee brace As directed lidocaine 5% 1 patch topical DAILY loratadine 10 mg PO DAILY magnesium glycinate 200 mg (2 x 100 mg) PO DAILY 30 days mecobalamin (vitamin B12) 1,000 mcg PO DAILY 90 days medroxyprogesterone 150 mg IM [id number] miconazole nitrate 2% (Miconazole-7) 1 appful vaginal BEDTIME 7 days naproxen 500 mg PO BID PRN omeprazole 20 mg PO DAILY PRN peg 3350-electrolytes 236-22.74-6.74 -5.86 gram (Golytely) 240 mL PO Q10M riboflavin (vitamin B2) 400 mg PO DAILY 30 days triamcinolone acetonide 0.025% 1 appl topical DAILY PRN 2 weeks valacyclovir 1,000 mg PO DAILY vancomycin 125 mg PO QID 10 days HPI Comments Details: 21-year-old female patient returning for a breast evaluation due to an enlarging mass in the left breast. She was previously evaluated for pain in the left breast initially in the 9 o'clock position. Ultrasound performed on 05/02/2024 revealed a hypoechoic solid mass in the 1 o'clock position, 2 cm from the nipple. Subsequent ultrasound performed on 12/20/2024 revealed the hypoechoic oval biopsy proven fibroadenoma in the left breast at the 1 o'clock position 2 cm from the nipple. The mass has increased in size from 8 x 7 x 6 mm to 9 x 6 x 13 mm. She continues to report pain in this location and in the nipple. She does have a history of bilateral nipple piercings. She denies a previous history of breast surgery. She is 4 para 1 full-term, 1 SA and 1 EA. She presents today to discuss excision of this enlarging fibroadenoma. [facility] Medical History Sore throat Moderate recurrent major depression Physical exam Abdominal pain Chlamydia infection control counseling Yeast infection involving the vagina and surrounding area Pain of right scapula Visit for suture removal Dextroscoliosis of lumbar spine Status post fall Mid back pain Well woman exam with routine gynecological exam Screen for sexually transmitted diseases Cervical cancer screening Breast pain, right Lumbar radiculopathy Lumbar spondylosis Polyarthralgia Pain in both feet Injury of toe on right foot Preoperative clearance Jaw pain Pain in right elbow Paresthesia of hand, bilateral Left ankle pain Bilateral leg edema Lymphadenopathy Incidental lung nodule, > 3mm and < 8mm Low vitamin D level Bug bite Anxiety and depression Neck mass Rib pain on right side Muscle spasms of neck Paresthesia and pain of both upper extremities Cervicalgia Upper respiratory tract infection Atopic reaction Allergic reaction Mass in neck Thrush, oral Muscle twitch Muscle spasm Shortness of breath Adenopathy Left shoulder pain Immunization due Nonimmune to hepatitis B virus Numbness and tingling of both legs Tinnitus Upper respiratory tract infection Depo-Provera contraceptive status Screening for eye condition Routine screening for STI (sexually transmitted infection) Cervicalgia Headache Vision changes Chest pain Nausea and vomiting Hematochezia Abdominal pain Back pain Lung nodules Borderline personality disorder Depression Bipolar 1 disorder ADHD Low vitamin D level GERD (gastroesophageal reflux disease) Asthma History of multiple miscarriages COVID-19 virus infection Encounter to establish care (~03/2021) HIV exposure Surgical History S/P cubital tunnel release Hx of biopsy History of wisdom tooth extraction Family History Mother Substance use disorder Mental health disorder Father Cancer Maternal Aunt Lung cancer Maternal Uncle Prostate CA Maternal Uncle Colon cancer Maternal Aunt Breast cancer Social History Housing: House Alcohol intake: current Alcohol intake frequency: holidays/special occasions only Patient Tobacco Use Status: Never used Tobacco Tobacco use type: Cigar e-Cigarette/Vaping Use: Currently Using Second Hand Smoke Exposure: No service: No Current occupational status: unemployed 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 Cognitive needs: No Hearing needs: No Vision needs: Yes (glasses) Female Reproductive History Menstrual Age of Menarche: 13 Review of Systems Const All systems reviewed & are unremarkable except as noted in HPI and below Physical Exam Vital Signs: Last Vital Signs Pulse 83 12/24/24 15:45 BP 133/72 12/24/24 15:45 BMI result Body Mass Index 34.8 Const General: cooperative and no acute distress Nutritional Appearance: well nourished Orientation/consciousness: patient oriented x3 Limitations: no limitations HEENT Head: Yes normocephalic and Yes atraumatic Ears: hearing grossly normal bilaterally Chest Other: Left breast: Faintly palpable nodule noted in the 1 o'clock position 2 cm from the nipple. No overlying skin changes appreciated. No redness or discharge. No enlarged lymph nodes. Resp Effort & Inspection: normal respiratory effort, no audible wheezes, no cough and no respiratory distress Cardio Jugular venous distension: no JVD GI Inspection: Yes normal to inspection Palpation (GI): Soft to palpation, nontender, no guarding, not rigid and No hepatosplenomegaly present Skin Other: Warm, dry, no rash Neuro General: patient oriented x3 Extrem General: Yes no clubbing, cyanosis or edema Assessment & Plan Assessment & Plan (1) Fibroadenoma of left breast: Code(s): D24.2 - Benign neoplasm of left breast Category: Medical Plan 29-year-old female patient presenting with a painful mass in the left breast at the 1 o'clock position 2 cm from the nipple which has been documented to have increased in size since April of 2024. The lesion is biopsy proven fibroadenoma but with the enlarging size I would recommend a left breast lumpectomy with localizer. After discussion of the procedure, alternatives and risks, she consents to the left breast lumpectomy with localizer. This will be scheduled at her earliest convenience. Coding Level of Care Code Est Pt Level 4 (95864) Diagnoses Fibroadenoma of left breast D24.2
[2024-12-24 15:45] VITALS: BP 133/72; PULSE 83; BMI 34.8
== END 2024-12-24 15:53 | disposition home or self-care (01) ==
LOC: HO.HGS 15:37
PROVIDERS: PCP Internal Medicine; Visit Provider Surgery
DX: D24.2 Benign neoplasm of left breast (principal)
CPT/HCPCS: 99214

== ENCOUNTER → 2024-12-24 15:35 | Outpatient (BNVA) | payer MEDICARE, MEDICAID, SELFPAY | PROVIDERS: PCP Internal Medicine; Visit Provider Surgery | DX: D24.2 Benign neoplasm of left breast (principal) | CPT/HCPCS: 99212 ==

== ENCOUNTER 2024-12-31 10:25 | Outpatient (REF) | payer MEDICARE, MEDICAID, SELFPAY ==
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
--- OUTSIDE RECORDS SUMMARY | 2024-12-31 11:38 | XMS_ITS | Encounter Summary ---
Author Organization [employer] Address [address] [facility] 7t [place] [address] Care Team Providers Care Technical Operations Specialist Name Role Phone Unavailable Primary Care [...]
--- OUTSIDE RECORDS SUMMARY | 2024-12-31 11:38 | XMS_ITS | Clinical Summary ---
Author Organization [employer] Address [address] [facility] 7t [place] [address] Care Team Providers Care Soda Worker Name Role Phone Unavailable Primary Care [...]
--- OUTSIDE RECORDS SUMMARY | 2024-12-31 11:38 | XMS_ITS | Clinical Summary ---
Author Organization [facility] Address [address] [place] [address] Phone Care Team Providers Care Assembly Line Worker Name Role Phone Pcp, Unknown Primary Care [...] file Insurance MEDICARE PART A & B [facility] MEDICARE PART A & B [facility] MED[facility] PART A & [facility] [place] [facility] [place] [facility] PART [facility] [place] B [facility] MEDICARE PART A & B Member Subscriber Plan / Payer (Ef fective 2016-) Name:Argelia Adan Member ID:[id number] Relation to Subscriber:Self Name:Argelia Adan Subscriber ID:[id number] Payer ID:[id number] Group ID:Not on file Type:Medicare Address: [facility] [employer] [facility] [address] [place] [address] [facility] Care Teams Assembly Line Worker Relationship Specialty Start Date End Date Pcp, Unknown PCP - General 10/06/21 Additional Source Comments The information contained in this document represents components of the legal health record. It is not the complete legal health record.[facility]
--- OUTSIDE RECORDS SUMMARY | 2024-12-31 11:38 | XMS_ITS | Encounter Summary ---
Author Organization [employer] Address [address] [facility] 7[address] [place] [address] Care Team Providers Care Clamp Truck Driver Name Role Phone Unavailable Primary Care Provider [...]
[2024-12-31 11:48] LABS: Thyroid Stimulating Hormone 1.77 uIU/mL (0.32-4.0)
== END 2024-12-31 10:26 | disposition home or self-care (01) ==
LOC: HO.LAB 10:25
PROVIDERS: Absent Provider Obstetrics & Gynecology; PCP Internal Medicine; Visit Provider Internal Medicine
DX: N64.3 Galactorrhea not associated with childbirth (principal); Z13.29 Encounter for screening for other suspected endocrine disorder
CPT/HCPCS: 36415; 84146; 84443; 84702

== ENCOUNTER → 2025-01-03 08:00 | Outpatient (BNV) | payer MEDICARE, MEDICAID, SELFPAY | PROVIDERS: PCP Internal Medicine; Visit Provider Internal Medicine | DX: D24.2 Benign neoplasm of left breast (principal) | CPT/HCPCS: 19285 ==

== ENCOUNTER 2025-01-03 08:01 | Outpatient (REF) | payer MEDICARE, MEDICAID, SELFPAY ==
--- NOTE | ~2025-01-03 | US_ITS ---
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 COMPARISON: [facility] on PACS. TECHNIQUE NEEDLE LOC: Proper informed consent is obtained from the patient after discussion of the procedure, potential risks and complications, and alternatives including declining the procedure today. Patient was given an opportunity for questions. The patient appeared to understand. The patient consented to the procedure and signed the consent form. GUIDANCE: Ultrasound. APPROACH: Lateral. TARGET: Solid mass at 1:00 with clip.. ANESTHESIA: Lidocaine 1%. LOCALIZATION SYSTEM: THE [employer] LOCallizer Wire-Free Guidance System with 12g needle applicator. RADIOFREQUENCY TAG: ID # [id number] RF Tag ID confirmed with LOCalizer Guidance System prior to placement. The skin is prepped and local anesthesia administered. The needle is positioned and RFID tag deployed. Final images demonstrate the LOCalizer RF tag to reside within the mass adjacent to the marker clip. The patient tolerated the procedure well and had no immediate complications. Dressing placed and home instructions reviewed. US/US Breast RF Tag Device Left IMPRESSION: -Status post left breast RFID localization. Electronically signed by: Terri Storey DO 01/03/2025 10:47 AM EDT
--- OUTSIDE RECORDS SUMMARY | 2025-01-03 08:10 | XMS_ITS | Clinical Summary ---
Author Organization [facility] Address [address] [place] [address] Phone Care Team Providers Care Equipment Operat0R Name Role Phone Pcp, Unknown Primary Care [...] file Insurance MEDICARE PART A & B [facility] MEDICARE PART A & B [employer] MEDICARE PART A & [facility] [place] [facility] PART A & B [facility] [place] MED[place] A & B [facility] MEDICARE PART A & B Member Subscriber Plan / Payer (Ef fective 2016-) Name:Argelia Adan Member ID:[id number] Relation to Subscriber:Self Name:Argelia Adan Subscriber ID:[id number] Payer ID:[id number] Group ID:Not on file Type:Medicare Address: [facility] [employer] [facility] [address] [place] [address] [facility] Care Teams Equipment Operat0R Relationship Specialty Start Date End Date Pcp, Unknown PCP - General 10/06/21 Additional Source Comments The information contained in this document represents components of the legal health record. It is not the complete legal health record.[facility]
--- OUTSIDE RECORDS SUMMARY | 2025-01-03 08:10 | XMS_ITS | Clinical Summary ---
Author Organization [employer] Address [address] [facility] 7t [place] [address] Care Team Providers Care Police Magistrate Name Role Phone Unavailable Primary Care Provider [...]
--- OUTSIDE RECORDS SUMMARY | 2025-01-03 08:10 | XMS_ITS | Encounter Summary ---
Author Organization [employer] Address [address] [facility] 7t [place] [address] Care Team Providers Care Diesel Mechanic Construction Name Role Phone Unavailable Primary Care Provider [...]
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
--- OUTSIDE RECORDS SUMMARY | 2025-01-03 08:11 | XMS_ITS | Encounter Summary ---
Author Organization [employer] Address [address] [facility] 7t [place] [address] Care Team Providers Care Watcher Lookout Tower Name Role Phone Unavailable Primary Care Provider [...]
--- OUTSIDE RECORDS SUMMARY | 2025-01-03 08:11 | XMS_ITS | Data Portability ---
Author Organization [place] [facility], [facility] Address [address] [address] Care Team Providers Care Head Sugar Reprocess Operator Name Role Phone FARNAZ NOBLES Primary Care Provider [phone] Assessment Encounter Date Assessment Date Assessment LastModified [...] meantime, I have recommended daily Flonase and otfy-fza-uhjndbw antihistamine for better allergy control which will [...] discussed the risk of anaphylaxis with this. Not available 07/09/2024 11:32:34 10/08/2024 10/08/2024 Visit With: Melissa Vazquez Use of Antihistamines: No If yes: Vial Test No Change in medications: No If yes Increase in asthma symptoms If yes, inhaler use: Reaction to last injections: If yes: Allergy Symptoms: Other: Missed: Dose Aware of Vial Test Aware: Notes:pt didn't bring epi pen , gave allergy shots info will be back this week or next week for allergy shots [email or web address] Not available 10/08/2024 10:45:30 Plan of Treatment Reminders Order Date Submit Date Provider Last Modified By Organization Details Last Modified Time Details Appointments None recorded. Lab None recorded. Referral None recorded. Procedures allergen immunothera py; multiple injections (PROC) 2024 025 [email or web address] Not available 09:10:15 allergy testing, skin prick (PROC) 2024 025 Not available 11:52:36 intradermal allergy skin testing (PROC) 2024 025 [email or web address] Not available 11:52:29 pulmonary function test procedure (PROC) 2024 025 [email or web address] Not available 11:52:43 pulse oximetry (PROC) 2024 025 [email or web address] Not available 11:52:50 Surgeries None recorded. Imaging None recorded. Medication Orders epinephrine 0.3 mg/0.3 mL injection, auto-inject or 2024 025 [email or web address] [facility]/Pharmacy #[id number], [address], [place], [address], 04/08/202 5 11:02:15 Flonase Allergy Relief 50 mcg/actuati on nasal spray,suspe nsion 2024 025 KIT [facility]/Pharmacy #[id number], [address], [place], [address], 16:24:13 Patient TargetsNo targets recorded. Patient Instructions Encounter Date Encounter Id Patient Instructions Last Modified By Organization Details Last Modified Time 06/15/2024 [id number] Nursing Documentation for Allergy Testing: Ordering Provider Dr. Marques Weight:lbs: kg: PFT Yes With Bronchodilator no approval needed to proceed with allergy testing? ok'd testing NoHistory of Asthma:Yes Asthma Meds: Last used: Asthma exacerbated by: Chance that : No Fear of needles: Yes Regular medications reviewed in Computer: No Medication allergies: Reviewed Antihistamine use: No Medications used: Food Allergies: n/a Any foods make your mouth feeling itchy: Yes If yes: kiwi, pineapple, apples , grapes History of severe reaction where had to go to ER? Yes If yes details: had to use epi pen pen due to eating a frozen grape Type of heat in home: Baseboard Pets: Yes If yes: 4 cats , 2 dogs Smoker: Never If former smoker-how much / day for how long When quit years ago Smoking now-how much /day for how long Occupation/Social History: unemployed Symptoms having: Congestion If other: post nasal drip, headache Frequency Year Round Spirometry Contraindications: Heart attack in the last 3 months: No Major surgery in last 3 months: No Detached retina(serious eye issues) in last 2 months: No Hospitilization in last month: No Proceed with PFT Yes approval needed: No Nursing Notes: Pt tolerated test well Yes Benadryl cream to test sites Yes Patient became syncopal-placed in supine position No Large reactions to MQT, reschedule IDT for a different date Yes Other: Written by: Melissa Vazquez Not available 06/15/2024 11:29:58 10/08/2024 [id number] allergy shots: c are instructions [email or web address] Not available 10/08/2024 10:46:30 Reason for Referral None Reported. Results Created Date Observation Date Name Description Value Unit Range Abnormal Flag Note LastModifiedBy Organization Detail LastModifiedTime 06/16/19 25 destiny metry testi ng* No observ ation record ed. [email or web address] Not Available 2024 13:34:35 Result Notes None recorded. Problems Name Problem SNOMED Code Status Onset Date Resolution Date Notes Provider Name and Address Organization Details Recorded Time Mass of neck 152576792 Active 2021 Localized swelling, mass and lump, neck; Note: Date Diagnosed : 08/10/2021 3:55 PM (R22.1) Not Available [facility] 4 02:15:30 Neck swelling 737257852 Active 2021 Localized swelling, mass and lump, neck; Note: Date Diagnosed : 08/10/2021 3:55 PM (R22.1) Not Available [facility] 4 02:15:30 Bilateral tinnitus 47828163145 02 Active 2021 Tinnitus, bilateral ; Note: Date Diagnosed : 09/09/2021 2:03 PM (H93.13) Not Available [facility] 4 02:15:20 Neck pain 74430258 Active 2021 Cervicalg ia; Note: Date Diagnosed : 2 11:09 AM (M54.2) Not Available [facility] 4 02:15:24 Acute pharyngit is 940614273 Active 2023 Sore throat (acute) NOS; Note: Date Diagnosed : 04/28/2023 8:41 AM (J02.9) Not Available [facility] 4 02:15:46 Allergic rhinitis 52301943 Active 2024 GEOVANNY LEON PA-C [address] [facility],[place] [address], [place], [address] , [facility] - [facility] 5 16:23:31 Migraine without aura 88538700 Active 2024 GEOVANNY LEON PA-C [address] [facility] [address], [place], [address] , [facility] - [facility] 5 16:23:35 Non-aller gic rhinitis 16548498536 1 Active 2024 GEOVANNY LEON PA-C [address], [place], [address] , [facility] 5 16:23:41 Seasonal allergic rhinitis 289562659 Active 2024 GEOVANNY LEON PA-C [address], [facility] [place], [address] , [facility] 5 16:23:41 Perennial allergic rhinitis 931703724 Active 2024 SAMINA ARRIAZA [address],[place] [address], [place], [address] , [facility] 5 10:17:42 Problem Notes None recorded. Procedures Surgical History Date Name Laterality Status Provider Name and Address Organization Details Recorded Time 10/09/19 25 Allergy Immunotherapy Injections completed SAMINA ARRIAZA [address] [facility] [address],[place] [address], [place], [address], [facility] 10/08/2024 10:45:46 06/23/19 25 Allergy Testing-Full completed SAMINA ARRIAZA [address] [address], [place], [address], [facility] 06/22/2024 09:53:42 06/16/19 25 Allergy Testing Modified- Quantitative Testing (MQT) Only completed SAMINA ARRIAZA [address] [facility],[place] [address], [place], [address], [facility] 06/15/2024 11:28:56 Imaging Results None recorded. Procedure Notes None recorded. Medical Equipment None Reported. Allergies Allergen ID Allergen Name Allergen Category Reaction Reaction Severity Criticality Documentation Date Start Date Code Code System Note Provider Name and Address Organization Details Recorded Time 05570 Flagyl medicatio n other Not available Not available 08/16/2023 6 RxNorm React ion: other react ion, Unkno wn; Not Available [facility] 4 00:53:30 Medications Name Sig Start Date Stop Date Status Note LastModified by Organization Details LastModified Time cyclobenz aprine 10 mg tablet TAKE 1 TABLET BY MOUTH 3 TIMES A DAY NEEDED FOR MUSCLE SPASM 05/22 completed Not Available Not Available Not Available amoxicill in 500 mg capsule TAKE ONE CAPSULE BY MOUTH EVERY 12 HOURS FOR 5 DAYS 10/21 completed Not Available Not Available Not Available prednison e 10 mg tablet by mouth 04/28 completed Medicati on ID: [id number] P rescribe d By Name: Saeed barahona [...] by mouth 05/22 completed Medicati on ID: [id number] D uration Value: 10 Prescri bed By [...] completed Not Available Not Available Not Available cetirizin e 10 mg tablet TAKE 1 TABLET BY MOUTH EVERY DAY active Not Available Not Available No t Available ibuprofen 800 mg tablet active Not [...] 0.3 mg/0.3 mL injection , auto-inje ctor INJECT 1 PEN INTRAMUS CULARLY NEEDED active Not Available Not Available No t [...] Updated DateTime 05/22/2024 162.56 cm 32.6 kg/m2 25812.55 g Scarlet Russell [place] - [facility] 05/22/2024 15:29:42 Date Recorded Body height Body mass index (BMI) Body weight Heart rate Systolic And Diastolic Provider Name and Address Organization Details Last Updated DateTime 06/15/2024 162.56 cm 32.6 kg/m2 30602.55 g 70 /min 116/79 mm[Hg] MELISSA VAZQUEZ, A [address] [facility] [address], [place], [address] , [place] [facility] 06/15/2024 11:13:07 Date Recorded Body height Provider Name an d Address Organization Details Last Updated DateTime 06/22/2024 162.56 cm SAMINA ARRIAZA [address] [place] [address], [address], [place] - [facility] 06/22/2024 09:08:52 Date Recorded Body height Body weight Provider Name and Address Organization Details Last Updated DateTime 07/09/2024 162.56 cm 13636.55 g Farnaz Funes [place] [facility] [place] 07/09/2024 11:00:03 Social History None recorded. Functional Status None recorded. Mental Status None recorded. Family History Nothing Reported. Medical History No medical history recorded. Gynecological HistoryNo gynecological history recorded. Obstetrics History GPAL:G 0 P 0 0 0 0 Past Encounters Encounter ID Performer Location Encounter Start Date Encounter Closed Date Diagnosis/Indication Diagnosis SNOMED-CT Code Diagnosis ICD10 Code Diagnosis IMO Codes Diagnosis Note [id number] GEOVANNY LEON PA-C [facility] [address] [address] 05/22/2024 15:24:51 05/22/2024 15:51:35 Allergic rhinitis 04466160 J30.9 Migraine without aura 56 216242 G43.009 [id number] SAMINA ARRIAZA [address] [address] 06/15/2024 10:25:55 06/15/2024 11:51:45 Allergic rhinitis 51759980 J30.9 [id number] MELISSA VAZQUEZ [facility] [address] [place] [address] 06/22/2024 09:06:30 06/22/2024 09:54:25 Allergic rhinitis 03070931 J30.9 [id number] GEOVANNY LEON PA-C [facility] [address] [address] 07/09/2024 10:55:41 07/09/2024 11:27:03 Allergic rhinitis 58148216 J30.9 [id number] SAMINA ARRIAZA [facility] [address] [facility] [place] [address] 10/08/2024 10:12:42 10/08/2024 10:47:15 Perennial allergic rhinitis 404688594 J30.89 Health Concerns Section Related Observation LastModified by Organization Detai ls LastModified Time None Recorded Concern Status LastModified by Organization Details LastModified Time None Recorded Advance Directives Directive None Recorded Payers Insurance Date Sequence Insurance Name Policy Number Policy Goodrich Covered Member ID Goodrich Member ID Guarantor Name 10/05/2024 2 [place] [facility] Argelia L Adan [id number] Argelia L Adan 05/28/2024 3 [place] [employer] Argelia Adan [id number] Argelia L Adan 10/05/2024 1 [place] [facility] Argelia Adan [id number] Argelia L Adan Notes Date Note Type Note Provider Name and Address Organization Details Recorded Time 05/22/2024 text/html ROS as noted in the [facility] 29-year-old female presents for evaluation of recurrent [...] any routine allergy medication. ALVARADO MARQUES MD [address] [place] [address],[address], [address], [facility] 05/22/2024 21:05:32 07/09/2024 text/html ROS as noted in the [facility] 29-year-old female presents for allergy test review. Previously was receiving immunotherapy with an outside configuration management specialist but is moving to the area and would like to transfer care. She did have quite a lapse in treatment. Has frequent sinus infections and allergy symptoms. BRENNON MULLER MD [address] [facility] [address], [place], [address], [place] - [facility] 07/09/2024 12:51:22 OBGyn Episode No OBEpisode recorded.
[2025-01-03] MEDS: Lidocaine HCl 1 % 20 ML VIAL 9 ML SUBCUT (08:41)
== END 2025-01-03 08:02 | disposition home or self-care (01) ==
LOC: HO.MAMMO 08:01
PROVIDERS: PCP Internal Medicine; Visit Provider Surgery
DX: N63.21 Unspecified lump in the left breast, upper outer quadrant (principal); N61.1 Abscess of the breast and nipple
CPT/HCPCS: 19285; C1819; J2003

== ENCOUNTER 2025-01-09 07:23 | Day surgery (SDC) | payer MEDICARE, MEDICAID, SELFPAY ==
--- OUTSIDE RECORDS SUMMARY | 2024-12-27 17:05 | XMS_ITS | Clinical Summary ---
Author Organization [facility] Address [address] [place] [address] Phone Care Team Providers Care Court Monitor Name Role Phone Pcp, Unknown Primary Care [...] file Insurance MEDICARE PART A & B [facility] MEDICARE PART A & B [facility] MED[facility] A & [facility] [place] [facility] PART A & [facility] [place] MED[place] & B [facility] MEDICARE PART A & B [facility] Care Teams Court Monitor Relationship Specialty Start Date End Date Pcp, Unknown PCP - General 10/06/21 Additional Source Comments The information contained in this document represents components of the legal health record. It is not the complete legal health record.[facility]
--- OUTSIDE RECORDS SUMMARY | 2024-12-27 17:05 | XMS_ITS | Clinical Summary ---
Author Organization [employer] Address [address] [facility] [address] [place] [address] Care Team Providers Care Painter And Body Mechanic Apprentice Name Role Phone Unavailable Primary Care [...]
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
--- OUTSIDE RECORDS SUMMARY | 2024-12-27 17:05 | XMS_ITS | Encounter Summary ---
Author Organization [employer] Address [address] [facility] [address] [place] [address] Care Team Providers Care Industrial Cook Name Role Phone Unavailable Primary Care Provider [...]
--- OUTSIDE RECORDS SUMMARY | 2024-12-27 17:05 | XMS_ITS | Encounter Summary ---
Author Organization [employer] Address [address] [facility] [address] [place] [address] Care Team Providers Care Guide Tour Name Role Phone Unavailable Primary Care Provider [...]
[2025-01-07 07:52] VITALS: BMI 32.8
--- NOTE | 2025-01-08 10:55 | HO.ANESPROP2 ---
Documented by User: Soo Martinez NP 01/08/25 10:56 HPI - Anesthesia Eval Consult details Narrative: 29 yr old female for left Breast Lumpectomy w/LOCalizer GERD: on PPI Asthma: prn MARIEL E cigaretter user PMFSH Active Problems Active Problems: All Active Problems (Updated 12/20/24 @ 14:48 by Jett Gonsales MD) Galactorrhea (Acute) Left foot pain (Acute) Fibroadenoma of left breast (Acute) Appendix disease (Acute) Incomplete right bundle branch block (Acute) Breast mass, left (Acute) Abnormal ultrasound of breast (Acute) Breast abscess (Acute) Severe major depression without psychotic features (Acute) Sore throat (Acute) Lumbar pain (Acute) Discomfort of both ears (Acute) Memory loss (Acute) Physical exam (Acute) Concern about appearance of breast (Acute) Recurrent HSV (herpes simplex virus) (Acute) Abdominal pain (Acute) Chlamydia infection (Acute) control counseling (Acute) Toe pain, right (Acute) Chronic diarrhea (Acute) Yeast infection involving the vagina and surrounding area (Acute) Encounter for screening examination for sexually transmitted disease (Acute) Left knee pain (Acute) Psoriasis (Acute) Fibromyalgia (Acute) Migraine headache with aura (Acute) Severe anxiety (Acute) PTSD (post-traumatic stress disorder) (Acute) Bipolar 1 disorder (Acute) ADHD (Acute) Hemorrhoids (Acute) Vitamin D deficiency (Acute) Allergies (Acute) Cubital tunnel syndrome (Acute) Right upper lobe pulmonary nodule (Acute) Hypovitaminosis D (Acute) Spondylosis of lumbar region without myelopathy or radiculopathy (Acute) Cubital tunnel syndrome on left (Acute) Pulmonary nodules (Acute) Chronic pain syndrome (Acute) Asthma (Acute) Past Medical History Medical History Sore throat Moderate recurrent major depression Physical exam Abdominal pain Chlamydia infection control counseling Yeast infection involving the vagina and surrounding area Pain of right scapula Visit for suture removal Dextroscoliosis of lumbar spine Status post fall Mid back pain Well woman exam with routine gynecological exam Screen for sexually transmitted diseases Cervical cancer screening Breast pain, right Lumbar radiculopathy Lumbar spondylosis Polyarthralgia Pain in both feet Injury of toe on right foot Preoperative clearance Jaw pain Pain in right elbow Paresthesia of hand, bilateral Left ankle pain Bilateral leg edema Lymphadenopathy Incidental lung nodule, > 3mm and < 8mm Low vitamin D level Bug bite Anxiety and depression Neck mass Rib pain on right side Muscle spasms of neck Paresthesia and pain of both upper extremities Cervicalgia Upper respiratory tract infection Atopic reaction Allergic reaction Mass in neck Thrush, oral Muscle twitch Muscle spasm Shortness of breath Adenopathy Left shoulder pain Immunization due Nonimmune to hepatitis B virus Numbness and tingling of both legs Tinnitus Upper respiratory tract infection Depo-Provera contraceptive status Screening for eye condition Routine screening for STI (sexually transmitted infection) Cervicalgia Headache Vision changes Chest pain Nausea and vomiting Hematochezia Abdominal pain Back pain Lung nodules Borderline personality disorder Depression Bipolar 1 disorder ADHD Low vitamin D level GERD (gastroesophageal reflux disease) Asthma History of multiple miscarriages COVID-19 virus infection Encounter to establish care (~03/2021) HIV exposure Family History Family History Mother Substance use disorder Mental health disorder Father Cancer Maternal Aunt Lung cancer Maternal Uncle Prostate CA Maternal Uncle Colon cancer Maternal Aunt Breast cancer Family history of problems with anesthesia: Unobtainable Surgical History Surgical History S/P cubital tunnel release Hx of biopsy History of wisdom tooth extraction History of Problems with Anesthesia: No Social History Social History Housing: House Are you a primary senior caregiver to a significant other at home: No Do you presently have visiting nurse or other home services: No Alcohol intake: current Alcohol intake frequency: a few times a month Comment: Counts correct Patient Tobacco Use Status: Never used Tobacco Tobacco use type: Cigar e-Cigarette/Vaping Use: Currently Using Second Hand Smoke Exposure: No Use of substances other than those prescribed or required for medical reasons: Yes Substance Use Frequency: Daily Have you been hit, kicked, punched, or otherwise hurt by someone within the past year? 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 Cognitive needs: No Hearing needs: No Vision needs: Yes (glasses) Meds Allergies Allergy/AdvReac Type Severity Reaction Status Date / Time metronidazole (From FLAGYL) Allergy Severe Hives Verified 01/09/25 08:19 Seasonal Allergies Allergy Mild Unknown Verified 01/09/25 08:19 duloxetine AdvReac Nausea Verified 01/09/25 08:19 Home Medications ?Medication ?Instructions ?Recorded ?Confirmed ?Last Taken ?Type azelastine 137 mcg (0.1 %) nasal intranasal 06/03/22 12/24/24 Unknown History spray medroxyprogesterone 150 mg/mL 150 mg IM [id number] 03/27/24 12/24/24 Unknown History intramuscular syringe Exam Height,Weight and Vital Signs: Height 5 ft 4 in Weight 86.636 kg Assessment and Plan Final Anesthetic Review Family History of Problems with Anesthesia: Unobtainable History of Problems with Anesthesia: No Documented by User: Chase Bates MD 01/09/25 09:48 [facility] Past Medical History Medical History Sore throat Moderate recurrent major depression Physical exam Abdominal pain Chlamydia infection control counseling Yeast infection involving the vagina and surrounding area Pain of right scapula Visit for suture removal Dextroscoliosis of lumbar spine Status post fall Mid back pain Well woman exam with routine gynecological exam Screen for sexually transmitted diseases Cervical cancer screening Breast pain, right Lumbar radiculopathy Lumbar spondylosis Polyarthralgia Pain in both feet Injury of toe on right foot Preoperative clearance Jaw pain Pain in right elbow Paresthesia of hand, bilateral Left ankle pain Bilateral leg edema Lymphadenopathy Incidental lung nodule, > 3mm and < 8mm Low vitamin D level Bug bite Anxiety and depression Neck mass Rib pain on right side Muscle spasms of neck Paresthesia and pain of both upper extremities Cervicalgia Upper respiratory tract infection Atopic reaction Allergic reaction Mass in neck Thrush, oral Muscle twitch Muscle spasm Shortness of breath Adenopathy Left shoulder pain Immunization due Nonimmune to hepatitis B virus Numbness and tingling of both legs Tinnitus Upper respiratory tract infection Depo-Provera contraceptive status Screening for eye condition Routine screening for STI (sexually transmitted infection) Cervicalgia Headache Vision changes Chest pain Nausea and vomiting Hematochezia Abdominal pain Back pain Lung nodules Borderline personality disorder Depression Bipolar 1 disorder ADHD Low vitamin D level GERD (gastroesophageal reflux disease) Asthma History of multiple miscarriages COVID-19 virus infection Encounter to establish care (~03/2021) HIV exposure Functional capacity: independent ambulation Family History Family History Mother Substance use disorder Mental health disorder Father Cancer Maternal Aunt Lung cancer Maternal Uncle Prostate CA Maternal Uncle Colon cancer Maternal Aunt Breast cancer Family history of problems with anesthesia: No Surgical History Surgical History S/P cubital tunnel release Hx of biopsy History of wisdom tooth extraction Social History Social History Housing: House Are you a primary senior caregiver to a significant other at home: No Do you presently have visiting nurse or other home services: No Alcohol intake: current Alcohol intake frequency: a few times a month Comment: Counts correct Patient Tobacco Use Status: Never used Tobacco Tobacco use type: Cigar e-Cigarette/Vaping Use: Currently Using Second Hand Smoke Exposure: No Use of substances other than those prescribed or required for medical reasons: Yes Substance Use Frequency: Daily Have you been hit, kicked, punched, or otherwise hurt by someone within the past year? 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 Cognitive needs: No Hearing needs: No Vision needs: Yes (glasses) Meds Allergies Allergy/AdvReac Type Severity Reaction Status Date / Time metronidazole (From FLAGYL) Allergy Severe Hives Verified 01/09/25 08:19 Seasonal Allergies Allergy Mild Unknown Verified 01/09/25 08:19 duloxetine AdvReac Nausea Verified 01/09/25 08:19 Home Medications ?Medication ?Instructions ?Recorded ?Confirmed ?Last Taken ?Type azelastine 137 mcg (0.1 %) nasal intranasal 06/03/22 12/24/24 Unknown History spray medroxyprogesterone 150 mg/mL 150 mg IM [id number] 03/27/24 12/24/24 Unknown History intramuscular syringe Exam Exam Date and Time: 01/09/2025 Airway Mallampati Class: II TM Dist: >3cm Neck ROM: Full Heart: normal Lungs: normal Assessment and Plan Assessment Anesthesia Assessment: Anesthesia Plan Discussed Final Anesthetic Review Family History of Problems with Anesthesia: No NPO: Yes ASA Class: II Final Preanesthetic Review: No Changes in Pt Med Stat, Meds/Allgs Chart Reviewed, Consent Obtained/Reviewed and Anes Risks/Benef Reviewed Patient Risk: Low Procedure Risk: Low Anesthetic Plan Anesthetic Plan: GA Disposition: Standard PACU
[2025-01-09] VITALS (12 sets, daily range): BP systolic 100–120; BP diastolic 53–80; PULSE 62–80; RESP 14–21; TEMP 36.6–36.8; O2SAT 96–100; BMI 35.9
--- NOTE | ~2025-01-09 | MM_ITS ---
Single left breast specimen radiograph demonstrates the tag and the coil clip within the specimen. Electronically signed by: Terri Storey DO 01/09/2025 10:16 AM EDT
[2025-01-09 08:03] LABS: UPreg QC Valid YES
[2025-01-09] MEDS: Lactated Ringers 1,000 ML 100 ML IVCONT (08:18)
--- NOTE | 2025-01-09 08:54 | MHC.SHP ---
Pre-Procedural Eval Section A - 24 Hr Update-Section A only Date of Service: 01/09/25 The patient is an INPATIENT: No Changes since office visit: Yes Patient answered all questions; No Cold of Flu in the past 2 weeks, No New Medical Problems and No Changes in Medication The patient has been examined within 24 hours of the surgical procedure. The History & Physical has been completed within 30 days and I have reviewed it.: Yes Section B - Complete if H&P > 30 days Chief Complaint: Benign neoplasm of left breast Allergies: Allergies Allergy/AdvReac Type Severity Reaction Status Date / Time metronidazole (From FLAGYL) Allergy Severe Hives Verified 01/09/25 08:19 Seasonal Allergies Allergy Mild Unknown Verified 01/09/25 08:19 duloxetine AdvReac Nausea Verified 01/09/25 08:19 Plan Diagnosis/Plan: Unchanged I have reviewed the history and physical and performed a pertinent physical examination on my patient. No changes have occurred unless specified. Time Spent With Patient Time: Total time managing care of this patient today ____ minutes.
--- NOTE | 2025-01-09 10:13 | W.PM.OPN ---
Operative Note Operative Note Date of Service: 01/09/25 Narrative: Preoperative diagnosis: Enlarging fibroadenoma left breast upper outer quadrant Postoperative diagnosis: Same Procedure: Left breast lumpectomy with localizer Surgeon: Thierry Mata MD Director Of Market Research: Oralia Huitron PA-C, JAZZ Hanson Anesthesia: General LMA Indications for procedure: 29-year-old female patient presenting with a biopsy proven fibroadenoma noted on recent imaging to have an enlarging mass. Excision was recommended given the changing size to evaluate for phyllodes tumor. Operative findings: Specimen x-ray confirmed marking clip and localizer clip. Specimen: Left breast lumpectomy upper outer quadrant Estimated blood loss: 5 mL Complications: None Procedure details: Patient was brought to the OR and placed in a supine position. After administering general anesthesia the patient's left breast was prepped with ChloraPrep and draped in a sterile fashion. A surgical time-out was called the consent confirmed. Patient received preoperative antibiotics and Venodyne boots were in place. Local anesthesia consisting of 0.5% Sensorcaine was infiltrated in the upper outer quadrant near the localizing clip. The localizer was used to identify a adequate incision site. Curvilinear incision was then made in the transverse fashion and carried out through subcutaneous tissue. Superior and inferior skin flaps were then created. Core of tissue around the localizing clip was then performed using electrocautery. Specimen was removed and a specimen x-ray performed in the OR. This confirmed the marking clip and localizer clip within the specimen. This was then sent to pathology for further examination. Wounds were irrigated with saline solution and suctioned dry. Hemostasis was assured using electrocautery. Deep breast tissue and dermis were then reapproximated using interrupted 3-0 Polysorb sutures. Skin was closed using a running subcuticular 4-0 Polysorb suture. Steri-Strips, 4 x 4 gauze and Tegaderm were then applied. The patient tolerated the procedure well. Sponge, instrument, and needle counts reported as correct. The patient was transferred to PACU in stable condition.
[2025-01-09] MEDS: oxyCODONE HCl Immed Release 5 MG TABLET PO (11:40)
== END 2025-01-09 12:40 | disposition home or self-care (01) ==
PROVIDERS: Nurse Practitioner; PCP Internal Medicine; Visit Provider Surgery
PROC: (CPT 19301; principal; 2025-01-09 09:30)
DX: D24.2 Benign neoplasm of left breast (principal); J45.909 Unspecified asthma, uncomplicated; R91.8 Other nonspecific abnormal finding of lung field; F31.9 Bipolar disorder, unspecified; F60.3 Borderline personality disorder; M47.26 Other spondylosis with radiculopathy, lumbar region; K21.9 Gastro-esophageal reflux disease without esophagitis; E55.9 Vitamin D deficiency, unspecified; F90.9 Attention-deficit hyperactivity disorder, unspecified type; Z20.6 Contact with and (suspected) exposure to human immunodeficiency virus [HIV]; Z79.1 Long term (current) use of non-steroidal anti-inflammatories (NSAID); Z79.899 Other long term (current) drug therapy; Z79.51 Long term (current) use of inhaled steroids; Z88.8 Allergy status to other drugs, medicaments and biological substances; Z98.890 Other specified postprocedural states
CPT/HCPCS: 19301; 81025; 88307; J0131; J0690; J1100; J2405; J2704; J3010

== ENCOUNTER → 2025-01-09 07:23 | Outpatient (BNV) | payer MEDICARE, MEDICAID, SELFPAY | PROVIDERS: PCP Internal Medicine; Visit Provider Surgery | DX: D24.2 Benign neoplasm of left breast (principal) | CPT/HCPCS: 19301 ==

== ENCOUNTER 2025-01-21 10:10 | Outpatient (AMB) | payer MEDICARE, MEDICAID, SELFPAY ==
--- NOTE | 2025-01-21 10:19 | MHC.OFFVIS ---
Vital Signs 01/21/25 10:24 Height 5 ft 4 in Weight 209 lb 7.026 oz BMI 35.9 Intake Visit Reasons: S/P Lt brst lumpectomy w/localizer Intake Note: Patient is seen in office for post op assessment post Left breast lumpectomy with localizer. Pt c/o: denies any concerns surgery:01/09/25 Sports Instructor Required: No Accompanied by: Self / Same As Patient Allergies metronidazole (From FLAGYL) Allergy (Severe, Verified 01/09/25 08:19) Hives Seasonal Allergies Allergy (Mild, Verified 01/09/25 08:19) Unknown duloxetine Adverse Reaction (Verified 01/09/25 08:19) Nausea Medication List - Last Reconciled 01/21/25 by Thierry Mata MD albuterol sulfate 90 mcg/actuation 2 inhalations inhalation Q6-8H PRN azelastine intranasal baclofen 10 mg PO TID 30 days cholecalciferol (vitamin D3) 50 mcg PO DAILY 90 days epinephrine (EpiPen 2-Edward) 0.3 mg (0.3 mL) IM Q4H PRN 1 month fluconazole 150 mg PO Q3D 2 doses fluconazole 150 mg PO DAILY 1 dose fluticasone propionate 50 mcg/actuation (Flonase Allergy Relief) 1 spray intranasal BID folic acid 1 mg PO DAILY 90 days gabapentin 300 mg PO BID 30 days hydrocortisone 2.5% 1 appl topical BID ibuprofen 800 mg PO TID PRN Knee brace As directed lidocaine 5% 1 patch topical DAILY loratadine 10 mg PO DAILY mecobalamin (vitamin B12) 1,000 mcg PO DAILY 90 days medroxyprogesterone 150 mg IM [id number] naproxen 500 mg PO BID PRN oxycodone 5 mg PO Q6H PRN peg 3350-electrolytes 236-22.74-6.74 -5.86 gram (Golytely) 240 mL PO Q10M valacyclovir 1,000 mg PO DAILY HPI Comments Details: 29-year-old female patient returning following left breast lumpectomy with localizer performed on 01/09/2025. Pathology revealed a fibroadenoma, completely excised with no atypia or malignancy identified. Biopsy site changes were identified. This mass was previously identified as a fibroadenoma by biopsy but over subsequent ultrasounds, the lesion was noted to be increasing in size which was worrisome for a phyllodes tumor. She also reported pain associated with the lesion therefore the decision was made for an excision. She denies a previous history of breast surgery or breast cancer. She is . She tolerated the procedure well but reports some soreness from the incision and that the nipple. She denies any bleeding or discharge. COUNTS INCLUDE 234 BEDS AT THE [facility] Medical History Sore throat Moderate recurrent major depression Physical exam Abdominal pain Chlamydia infection control counseling Yeast infection involving the vagina and surrounding area Pain of right scapula Visit for suture removal Dextroscoliosis of lumbar spine Status post fall Mid back pain Well woman exam with routine gynecological exam Screen for sexually transmitted diseases Cervical cancer screening Breast pain, right Lumbar radiculopathy Lumbar spondylosis Polyarthralgia Pain in both feet Injury of toe on right foot Preoperative clearance Jaw pain Pain in right elbow Paresthesia of hand, bilateral Left ankle pain Bilateral leg edema Lymphadenopathy Incidental lung nodule, > 3mm and < 8mm Low vitamin D level Bug bite Anxiety and depression Neck mass Rib pain on right side Muscle spasms of neck Paresthesia and pain of both upper extremities Cervicalgia Upper respiratory tract infection Atopic reaction Allergic reaction Mass in neck Thrush, oral Muscle twitch Muscle spasm Shortness of breath Adenopathy Left shoulder pain Immunization due Nonimmune to hepatitis B virus Numbness and tingling of both legs Tinnitus Upper respiratory tract infection Depo-Provera contraceptive status Screening for eye condition Routine screening for STI (sexually transmitted infection) Cervicalgia Headache Vision changes Chest pain Nausea and vomiting Hematochezia Abdominal pain Back pain Lung nodules Borderline personality disorder Depression Bipolar 1 disorder ADHD Low vitamin D level GERD (gastroesophageal reflux disease) Asthma History of multiple miscarriages COVID-19 virus infection Encounter to establish care (~03/2021) HIV exposure Surgical History History of lumpectomy of left breast (01/09/25) S/P cubital tunnel release Hx of biopsy History of wisdom tooth extraction Family History Mother Substance use disorder Mental health disorder Father Cancer Maternal Aunt Lung cancer Maternal Uncle Prostate CA Maternal Uncle Colon cancer Maternal Aunt Breast cancer Social History Housing: House Are you a primary patient care technician instructor to a significant other at home: No Do you presently have visiting nurse or other home services: No Alcohol intake: current Alcohol intake frequency: a few times a month Comment: Counts correct Patient Tobacco Use Status: Never used Tobacco Tobacco use type: Cigar e-Cigarette/Vaping Use: Currently Using Second Hand Smoke Exposure: No service: No Current occupational status: unemployed 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 No palpable hematoma or seroma is appreciated. Wounds are healing nicely. Chest/axillae images:  1. Incision upper outer quadrant left breast, Steri-Strips in-situ Resp Effort & Inspection: normal respiratory effort, no audible wheezes, no cough and no respiratory distress Cardio Jugular venous distension: no JVD GI Inspection: Yes normal to inspection Palpation (GI): Soft to palpation, nontender, no guarding, not rigid and No hepatosplenomegaly present Skin Other: Warm, dry, no rash Neuro General: patient oriented x3 Extrem General: Yes no clubbing, cyanosis or edema Assessment & Plan Assessment & Plan (1) Fibroadenoma of left breast: Code(s): D24.2 - Benign neoplasm of left breast Category: Medical Plan 29-year-old female patient with an enlarging fibroadenoma of the left breast status post excision on 01/09/2025. Pathology confirmed a fibroadenoma, completely excised. She tolerated the procedure well the wounds are healing nicely. She should follow up as needed. Coding Level of Care Code Global (68688) Diagnoses Fibroadenoma of left breast D24.2
[2025-01-21 10:24] VITALS: BMI 35.9
== END 2025-01-21 10:35 | disposition home or self-care (01) ==
LOC: HO.HGS 10:11
PROVIDERS: PCP Internal Medicine; Visit Provider Surgery
DX: D24.2 Benign neoplasm of left breast (principal)
CPT/HCPCS: 99024

== ENCOUNTER → 2025-01-21 10:10 | Outpatient (BNVA) | payer MEDICARE, MEDICAID, SELFPAY | PROVIDERS: PCP Internal Medicine; Visit Provider Surgery | DX: D24.2 Benign neoplasm of left breast (principal) | CPT/HCPCS: 99212 ==

== ENCOUNTER 2025-01-25 13:36 | Outpatient (REF) | payer MEDICARE, MEDICAID, SELFPAY ==
[2025-01-26 05:47] LABS: Bacterial Vaginosis PCR NEGATIVE (Negative); Candida Group PCR NOT DETECTED (Not Detect); Candida glab krusei PCR NOT DETECTED (Not Detect); Trichomonas vaginalis PCR NOT DETECTED (Not Detect)
[2025-01-26 07:14] LABS: CT PCR NOT DETECTED (Not Detect.); NG PCR NOT DETECTED (Not Detect.)
== END 2025-01-25 13:37 | disposition home or self-care (01) ==
LOC: HO.LNP 13:36
PROVIDERS: PCP Internal Medicine; Visit Provider Advanced Practice Midwife
DX: Z30.09 Encounter for other general counseling and advice on contraception (principal); Z20.2 Contact with and (suspected) exposure to infections with a predominantly sexual mode of transmission
CPT/HCPCS: 81515; 87491; 87591; 99212

== ENCOUNTER 2025-01-25 13:36 | Outpatient (AMB) | payer MEDICARE, MEDICAID, SELFPAY ==
--- OUTSIDE RECORDS SUMMARY | 2025-01-22 13:00 | XMS_ITS | Encounter Summary ---
Author Organization [employer] Address [address] [facility] 7[address] [place] [address] Care Team Providers Care Electronics Engineer Name Role Phone Unavailable Primary Care Provider Unavailabl e Reason for Visit * Reason Comments Dental Pain Pt presents due to h aving pain on the UR but feels like its radiating to the lower. Throbbing pain started today but pain has been on and off. Pt states that she had a filling done on it back in 2020 and was told it might be to be extracted in the future. Pt still has throbbing pain Pain Rate is 9.Kacey R. Encounter Details Date Type Department Care Team (Late st Contact Info) Description 01/22/2025 1:00 PM EDT Office Visit [facility] [address] [place] [address] Manish Huynh DDS [address] [place] [address] Social History Tobacco Use Types Packs/Day Years Used Date Smoking Tobacco: Never Assessed Comments Unknown Sex and Gender Information Value Date Recorded Sex Assigned at Female 02/01/2022 10:25 AM EDT Legal Sex Female 10:25 AM EDT Gender Identity Female 02/01/2022 10:25 AM EDT Sexual Orientation Straight 02/01/2022 10 :25 AM EDT documented as of this encounter Progress Notes * Manish Huynh DDS - 01/22/2025 1:00 PM EDT Dental procedures in this visit [id number] - CASE PRESENTATION, DETAILED AND EXTENSIVE TREATMENT PLANNING (Completed) Service provider: Manish Huynh DDS Billing provider: Rosendo Sterling DMD [id number] - PALLIATIVE (EMERGENCY) TREATMENT OF DENTAL PAIN - MINOR PROCEDURE 3 UR (Completed) Service provider: Manish Huynh DDS Billing provider: Rosendo Sterling DMD [id number] - BITEWINGS - 4 RADIOGRAPHIC IMAGES (Completed) Service provider: Manish Huynh DDS Billing provider: Rosendo Sterling DMD [id number] - INTRAORAL - PERIAPICAL FIRST RADIOGRAPHIC IMAGE 3 (Completed) Service provider: Manish Huynh DDS Billing provider: Rosendo Sterling DMD [id number] - INTRAORAL - PERIAPICAL EACH ADDITIONAL RADIOGRAPHIC IMAGE 18 (Completed) Service provider: Manish Huynh DDS Billing provider: Rosendo Sterling DMD Patient ID: Argelia Adan is a 29 y.o. female. Time Out: Date: 01/22/2025 Location: [facility] Tooth: UR and #3 Procedure: Exam and Root Canal Verified the above with patient, parking assistant, and provider. Confirmed via patient's chart, intraorally and by radiographs. Zigzag Tunnel Elastic Operator: not applicable 29 y.o. y/o female presents for limited exam with Dr. Manish Huynh DDS Medical history: Reviewed in EHR Vitals: There were no vitals taken for this visit. Allergies: Reviewed in EHR Medications: Reviewed in EHR Radiographs taken: 4 BW + 2 PA CHIEF COMPLAINT: I have so much pain on my upper right side. I have not sleep well last night. I woke up in the middle of the night. Discussion: Subjective: A young female patient presents with a lot of pain on her upper right area. She states that it wokeher up today at around 3 AM. It lingers (lasts longer than 5 seconds), throbs, is both spontaneous and provoked. She rates the pain at a 9 out of 10. Prior to today, she mentions no pain had been experienced in said area. She is unsure if it is related to a specific tooth. She believes pain is referred. Objective: Clinical: Percussion was negative to all upper right teeth with exception of tooth #3. Palpation of tooth #3 was negative. Distal Occlusal Evangelical is noted on tooth #3. Radiographic: Radiographic evidence of tooth #3 reveals an extensive radiolucency that runs through the distal third of the crown into the cervical third of the root. The radiolucency appears to impinge on the distal aspect of the pulp chamber. Additional clinical/radiographic findings: - mesio-occlusal radiolucency is spotted on #30. - extensive radiolucency in intimate contact with the pulp chamber through the occlusal of #18. - Clinical signs of caries lesions on both #18 and #30 Assessment/Plan: Caries control tooth #3: may turn into an Endo, Risk of non restorability due to subgingival caries RCT #18 Evangelical #30 MO Comprehensive Oral Exam Risk, benefits, and alternatives discussed with the patient. Procedure: - LA: 20% topical benzocaine; local infiltration with 1 carpule 4% septocaine/articaine 1:100,000 epinephrine - Tooth #3 DO caries control procedure initiated - Existing congregational and recurrent decay removed. - Direct Pulp Exposure, 1 mm diameter, on the axial wall of the distal - Decision made to perform an RCT on tooth #3 - Rubber dam placed and tooth isolated with clamp #7 - Remaining Decay removed. - Access opening done from the distal towards the mesial - Canals found: P, DB, MB - Irrigation done using Sodium Hypochlorite ( NaOCl ) - Coronal pulpal tissue eliminated using Endodontic spoon excavators - Intrapulpal anesthesia administered with 1 carpule 2% lidocaine 1:100,000 epinephrine - Intracanal pulpal tissue extirpated using a combination of Hand Files #10 and NaOCl irrigation - Canal length to be determined NV - Irrigation done using Sodium Hypochlorite - CaOH Intracanal medicament placed in all three canals - Cotton pellet placed. - Rubber dam isolation removed - Matrix band used as needed - Temporary Class II (DO) congregational done using IRM - Anatomy and margins adjusted - Proximal contact confirmed with floss. - Occlusion checked with articulating paper - Necessary reductions made. - Evangelical smoothed and polished. - Post op instructions given - Patient made aware possible post op sensitivity. - Cautioned to return if the temporary filling dislodges or if she experiences an uneven bite. - CONSENT FORM INITIALED & SIGNED BY THE PATIENT AND COUNTERSIGNED BY Dr. Manish Huynh DDS - Patient satisfied, left in stable condition NV: RCT #3 Rx: No Provider: Dr. Manish Huynh DDS School Traffic Guard: Kacey Dennis Supervising dentist: Dr. Sterling documented in this encounter Plan of Treatment Upcoming Encounters Date Type Department Care Team (Late st Contact Info) Description 02/11/2025 8:00 AM EST Office Visit [facility] [address] [place] [address] Huynh, Manish, DDS [address] [place] [address] Scheduled Orders Name Type Priority Associated Diagnoses Orde r Schedule Full Full PROPHYLAXIS - ADULT Dental Routine [address] arting 01/22/2025 COMPREHENSIVE ORAL EVALUATION - NEW OR ESTABLISHED PATIENT Dental Routine 1 Occurrence s starting 01/22/2025 18 18 ENDODONTIC THERAPY, MOLAR TOOTH Dental Routine [address] arting 01/22/2025 18 18 PREFABRICATED POST AND CORE IN ADDITION TO CROWN Dental Routine [address] arting 01/22/2025 18 18 CROWN - PORCELAIN/CERAMIC Dental Routine 1 Occurrences starting 01/22/2025 30 MOD 30 MOD RESIN-BASED COMPOSITE - 3 SURF, POSTERIOR Dental Routine [address] arting 01/22/2025 3 3 ENDODONTIC THERAPY, MOLAR TOOTH Dental Routine [address] arting 01/22/2025 3 3 CORE BUILDUP, INCL ANY PINS WHEN REQ Dental Routine 1 Occurrences starting 01/22/2025 3 3 CROWN - PORCELAIN/CERAMIC Dental Routine 1 Occurrences starting 01/22/2025 documented as of this encounter Procedures Procedure Name Priority Date/Time Associated Diagnosis Comments 3 UR PALLIATIVE (EMERGENCY) TREATMENT OF DENTAL PAIN - MINOR PROCEDURE Routine 01/22/2025 1:00 PM EDT 3 INTRAORAL - PERIAPICAL FIRST RADIOGRAPHIC IMAGE Routine 01/22/2025 1:00 PM EDT 18 INTRAORAL - PERIAPICAL EACH ADDITIONAL RADIOGRAPHIC IMAGE Routine 01/22/2025 1:00 PM EDT CASE PRESENTATION, DETAILED AND EXTENSIVE TREATMENT PLANNING Routine 01/22/2025 1:00 PM EDT BITEWINGS - 4 RADIOGRAPHIC IMAGES Routine 01/22/2025 1:00 PM EDT documented in this encounter Visit Diagnoses Not on filedocumented in this encounter
--- OUTSIDE RECORDS SUMMARY | 2025-01-23 09:45 | XMS_ITS | Encounter Summary ---
Author Organization [employer] Address [address] [facility] 7[address] [place] [address] Care Team Providers Care Data Analyst Etl Developer Name Role Phone Unavailable Primary Care Provider Unavailabl e Reason for Visit * Reason Comments Dental Pain Pt presents due to s till having pain on the UR. Kacey RRani Encounter Details Date Type Department Care Team (Late st Contact Info) Description 01/23/2025 9:45 AM EDT Office Visit [facility] [address] [place] [address] Manish Huynh DDS [address] [place] [address] Social History Tobacco Use Types Packs/Day Years Used Date Smoking Tobacco: Never Assessed Comments Unknown Sex and Gender Information Value Date Recorded Sex Assigned at Female 02/01/2022 10:25 AM EDT Legal Sex Female 10:25 AM EDT Gender Identity Female 02/01/2022 10:25 AM EDT Sexual Orientation Straight 02/01/2022 10 :25 AM EDT documented as of this encounter Progress Notes * Manish Huynh DDS - 01/23/2025 9:45 AM EDT Dental procedures in this visit D9999.5 - NO CHARGE PROCEDURE (Completed) Service provider: Manish Huynh DDS Billing provider: Rosendo Sterling DMD Patient ID: Argelia Adan is a 29 y.o. female. Time Out: Date: 01/23/2025 Location: [facility] Tooth: #3 Procedure: Occlusal Adjustment Verified the above with patient, dietetic assistant, and provider. Confirmed via patient's chart, intraorally and by radiographs. Chlorine Cells Operator: not applicable 29 y.o. y/o female presents for limited exam with Dr. Manish Huynh DDS Medical history: Reviewed in EHR Vitals: There were no vitals taken for this visit. Allergies: Reviewed in EHR Medications: Reviewed in EHR Radiographs taken: No CHIEF COMPLAINT: My upper right tooth has been hurting since you last worked on it yesterday. Discussion: Subjective: Patient presents with pain on tooth #3. She mentions it hurts most when she bites, but also when her mouth is open. Objective/Assessment/Plan: Clinical evaluation: - Articulating paper was used. - Confirmed Tooth #3 is in occlusion. Clinical procedure: - Bite reduction / filing carried out with football shaped nemesio bur; tooth taken out of occlusion; afterwards, it was smoothed - Cavit used to fill small void on the occlusal - Bite adjusted one last time - Patient reports feeling a lot better Rx: Ibuprofen 600 mg QID / 7 days Acetaminophen 500 mg QID / 7 days NV: RCT #3 Provider: Dr. Manish Huynh DDS Dental Electronics Engineering Manager: Kacey Dennis Attending: Dr. Sterling documented in this encounter Plan of Treatment Upcoming Encounters Date Type Department Care Team (Late st Contact Info) Description 02/11/2025 8:00 AM EST Office Visit [facility] [address] [place] [address] Manish Huynh DDS [address] [place] [address] documented as of this encounter Procedures Procedure Name Priority Date/Time Associated Diagnosis Comments NO CHARGE PROCEDURE Routine 01/23/2025 9:45 AM EDT documented in this encounter Visit Diagnoses Not on filedocumented in this encounter
--- NOTE | 2025-01-25 13:48 | MHC.OFFVIS ---
Vital Signs 01/25/25 13:54 Height 5 ft 2 in Weight 209 lb BMI 38.2 BP 126/80 Blood Pressure Location Rt brachial Position Sitting Intake Visit Reasons: std screen Intake Note: Here for std screening for unprotected sex Information Interpreted: non-clinical & clinical Java Enterprise Architect: Java Enterprise Architect Present (erik) Accompanied by: Self / Same As Patient Allergies metronidazole (From FLAGYL) Allergy (Severe, Verified 01/25/25 13:51) Hives Seasonal Allergies Allergy (Mild, Verified 01/25/25 13:51) Unknown duloxetine Adverse Reaction (Verified 01/25/25 13:51) Nausea Medication List - Last Reconciled 01/25/25 by Nori Kan LPN albuterol sulfate 90 mcg/actuation 2 inhalations inhalation Q6-8H PRN azelastine intranasal baclofen 10 mg PO TID 30 days cholecalciferol (vitamin D3) 50 mcg PO DAILY 90 days epinephrine (EpiPen 2-Edward) 0.3 mg (0.3 mL) IM Q4H PRN 1 month fluconazole 150 mg PO Q3D 2 doses fluconazole 150 mg PO DAILY 1 dose fluticasone propionate 50 mcg/actuation (Flonase Allergy Relief) 1 spray intranasal BID folic acid 1 mg PO DAILY 90 days gabapentin 300 mg PO BID 30 days hydrocortisone 2.5% 1 appl topical BID ibuprofen 800 mg PO TID PRN Knee brace As directed lidocaine 5% 1 patch topical DAILY loratadine 10 mg PO DAILY mecobalamin (vitamin B12) 1,000 mcg PO DAILY 90 days medroxyprogesterone 150 mg IM L6CHUSEY naproxen 500 mg PO BID PRN oxycodone 5 mg PO Q6H PRN peg 3350-electrolytes 236-22.74-6.74 -5.86 gram (Golytely) 240 mL PO Q10M valacyclovir 1,000 mg PO DAILY Is last menstrual period known: Yes Last menstrual period: 01/25/21 (have depo provera since 2020) Do you need a note to return to daycare/school/sports/work: No PFSH Medical History Sore throat Moderate recurrent major depression Physical exam Abdominal pain Chlamydia infection control counseling Yeast infection involving the vagina and surrounding area Pain of right scapula Visit for suture removal Dextroscoliosis of lumbar spine Status post fall Mid back pain Well woman exam with routine gynecological exam Screen for sexually transmitted diseases Cervical cancer screening Breast pain, right Lumbar radiculopathy Lumbar spondylosis Polyarthralgia Pain in both feet Injury of toe on right foot Preoperative clearance Jaw pain Pain in right elbow Paresthesia of hand, bilateral Left ankle pain Bilateral leg edema Lymphadenopathy Incidental lung nodule, > 3mm and < 8mm Low vitamin D level Bug bite Anxiety and depression Neck mass Rib pain on right side Muscle spasms of neck Paresthesia and pain of both upper extremities Cervicalgia Upper respiratory tract infection Atopic reaction Allergic reaction Mass in neck Thrush, oral Muscle twitch Muscle spasm Shortness of breath Adenopathy Left shoulder pain Immunization due Nonimmune to hepatitis B virus Numbness and tingling of both legs Tinnitus Upper respiratory tract infection Depo-Provera contraceptive status Screening for eye condition Routine screening for STI (sexually transmitted infection) Cervicalgia Headache Vision changes Chest pain Nausea and vomiting Hematochezia Abdominal pain Back pain Lung nodules Borderline personality disorder Depression Bipolar 1 disorder ADHD Low vitamin D level GERD (gastroesophageal reflux disease) Asthma History of multiple miscarriages COVID-19 virus infection Encounter to establish care (~03/2021) HIV exposure Surgical History History of lumpectomy of left breast (01/09/25) S/P cubital tunnel release Hx of biopsy History of wisdom tooth extraction Family History Mother Substance use disorder Mental health disorder Father Cancer Maternal Aunt Lung cancer Maternal Uncle Prostate CA Maternal Uncle Colon cancer Maternal Aunt Breast cancer Social History Housing: House Are you a primary childcare administrator to a significant other at home: No Do you presently have visiting nurse or other home services: No Alcohol intake: current Alcohol intake frequency: a few times a month Comment: Counts correct Patient Tobacco Use Status: Never used Tobacco Tobacco use type: Cigar e-Cigarette/Vaping Use: Currently Using Second Hand Smoke Exposure: No service: No Current occupational status: unemployed 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 Cognitive needs: No Hearing needs: No Vision needs: Yes (glasses) Female Reproductive History Menstrual Age of Menarche: 13 Date of last menstrual period: 01/25/21 (have depo provera since 2020) control method: progesterone injection Total pregnancies: 4 Number of Living Children: 1 Ab induced: 1 Ab spontaneous: 2 History of abnormal pap smear: No Physical Exam Vital Signs: Last Vital Signs BP 126/80 01/25/25 13:54 BMI result Body Mass Index 38.2 Assessment & Plan Assessment & Plan (1) control counseling: Comment: [facility] was around January 20, 2022, due for next around 2022,; [facility] and discussion of whether not continue [facility] and she is considering switching to patch at that visit issues discussed Code(s): Z30.09 - Encounter for other general counseling and advice on contraception Category: Medical Plan This is a visit for an STI check status post UTI after an unplanned event. She is on Depo-Provera that she has been on for years and years [facility] is considering switching to ortho Evra patch and we will have a conversation with them the other alternative would be to go with nothing and continue with what her plan is which is abstinence however the challenges of that with unprotected intercourse that does not get planned was discussed as well she has a 10-year-old daughter. She is currently not working she has dogs that she exercises with a lot taking them for walks. She is trying to eat very clean and healthy but she is gaining weight and not losing it and plans to talk about Ozempic with her PCC. She has used Mirena in the past but it has gotten stuck in her cervix more than once. Blood work ordered for STI screen she will get it when she can and she is on the portal. Orders: Orders Bacterial Vaginosis Panel Today Z11.3 - Encounter for screening for infections with a predominantly sexual mode of transmission Hepatitis B Surface Antigen Today Z30.09 - Encounter for other general counseling and advice on contraception Hepatitis C Antibody Today Z30.09 - Encounter for other general counseling and advice on contraception HIV Ab/Ag Today Z30.09 - Encounter for other general counseling and advice on contraception CT NG by PCR Vag/Cerv Today Z11.3 - Encounter for screening for infections with a predominantly sexual mode of transmission Syphilis Screen Today Z30.09 - Encounter for other general counseling and advice on contraception Coding Level of Care Code Est Pt Level 3 (30238) Diagnoses control counseling Z30.09
[2025-01-25 13:54] VITALS: BP 126/80; BMI 38.2
--- OUTSIDE RECORDS SUMMARY | 2025-01-25 15:36 | XMS_ITS | Encounter Summary ---
Author Organization [employer] Address [address] [facility] 7 [place] [address] Care Team Providers Care Medical Physics Teacher Name Role Phone Unavailable Primary Care Provider Unavailabl e Encounter Details Date Type Department Care Team (Latest Contact Info) Description 04/07/[address] [facility] CONVERSIONS Dental, Provider, DDS Social History Tobacco Use Types Packs/Day Years Used Date Smoking Tobacco: Never Assessed Comments Unknown Sex and Gender Information Value Date Recorded Sex Assigned at Female 02/01/2022 10:25 AM EDT Legal Sex Female 10:25 AM EDT Gender Identity Female 02/01/2022 10:25 AM EDT Sexual Orientation Straight 02/01/2022 10 :25 AM EDT documented as of this encounter Plan of Treatment Upcoming Encounters Date Type Department Care Team (Late st Contact Info) Description 02/11/2025 8:00 AM EST Office Visit [facility] ADULT D[facility] [address] [place] [address] Manish Huynh DDS [address] [place] [address] documented as of this encounter Visit Diagnoses Not on filedocumented in this encounter
--- OUTSIDE RECORDS SUMMARY | 2025-01-25 15:36 | XMS_ITS | Encounter Summary ---
Author Organization [employer] Address [address] [facility] [address] [place] [address] Care Team Providers Care Toll Bridge Operator Name Role Phone Unavailable Primary Care Provider Unavailabl e Encounter Details Date Type Department Care Team (Latest Contact Info) Description 12/16/2021 Abstract [facility] CONVERSIONS Dental, Provider, DDS Social History [...] Description 02/11/2025 8:00 AM EST Office Visit [facility] ADULT D[facility] [address] [place] [address] Manish Huynh DDS [address] [place] [address] documented as of this encounter Visit Diagnoses Not on filedocumented in this encounter
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
--- OUTSIDE RECORDS SUMMARY | 2025-01-25 15:36 | XMS_ITS | Clinical Summary ---
Author Organization [facility] Address [address] [place] [address] Phone Care Team Providers Care Car Tester Name Role Phone Pcp, Unknown Primary Care [...] file Insurance MEDICARE PART A & B [facility] MEDICARE PART A & B [facility] MED[facility] PART A & [facility] [place] [facility] [place] MED[place] & B [facility] MEDICARE PART A & B [facility] Care Teams Car Tester Relationship Specialty Start Date End Date Pcp, Unknown PCP - General 10/06/21 Additional Source Comments The information contained in this document represents components of the legal health record. It is not the complete legal health record.[facility]
--- OUTSIDE RECORDS SUMMARY | 2025-01-25 15:36 | XMS_ITS | Clinical Summary ---
Author Organization [employer] Address [address] [place] [address] Care Team Providers Care Senior Market Intelligence Consultant Name Role Phone Unavailable Primary Care Provider Unavailabl e Allergies Active Allergy Reactions Criticality Noted Date Comments Lavender Oil 01/22/2025 Other Reaction(s): Swelling of throat. Metronidazole Hives 01/22/2025 Flagyl Shellfish Allergy 01/22/2025 Medications oxyCODONE (Roxicodone) 5 MG immediate release tablet TAKE 1 TABLET ORALLY EVERY 6 HOURS NEEDED FOR PAIN (SCALE SCORE 7-10) 01/15/2025 Active ibuprofen 600 MG tablet Take 1 tablet (600 mg) by mouth every 6 (six) hours if needed for mild pain for up to 7 days. 20 tablet 01/23/2025 Active acetaminophen (Tylenol) 500 MG tablet Take 1 tablet (500 mg) by mouth every 6 (six) hours if needed for mild pain for up to 7 days. 20 tablet 01/23/2025 5 Active Active Problems Problem Noted Date Diagnosed Date Class 1 obesity 01/22/2025 Migraine without aura 05/22/2024 Non-allergic rhinitis 05/22/2024 Perennial allergic rhinitis 05/22/2024 Seasonal allergic rhinitis 05/22/2024 Acute pharyngitis 04/28/2023 Overview (01/22/2025): Sore throat (acute) NOS; Note: Date Diagnosed: 04/28/2023 8:41 AM (J02.9) Neck pain 01/12/2022 Overview (01/22/2025): Cervicalgia; Note: Date Diagnosed: 01/12/2022 11:09 AM (M54.2) Bilateral tinnitus 09/09/2021 Overview (01/22/2025): Tinnitus, bilateral; Note: Date Diagnosed: 09/09/2021 2:03 PM (H93.13) Mass of neck 08/10/2021 Overview (01/22/2025): Localized swelling, mass and lump, neck; Note: Date Diagnosed: 08/10/2021 3:55 PM (R22.1) Neck swelling 08/10/2021 Overview (01/22/2025): Localized swelling, mass and lump, neck; Note: Date Diagnosed: 08/10/2021 3:55 PM (R22.1) Dislocation of knee 09/22/2010 Mood disorder 09/22/2010 Posttraumatic stress disorder 09/22/2010 ADHD 09/22/2010 Encounters Date Type Department Care Team Description 01/23/2025 9:45 AM EDT Office Visit [facility] [address] [place] [address] Manish Huynh DDS 01/22/2025 1:00 PM EDT Office Visit [facility] [address] [place] [address] Manish Huynh DDS from Last 3 Months Social History Tobacco Use Types Packs/Day Years Used Date Smoking Tobacco: Never Assessed Comments Unknown Sex and Gender Information Value Date Recorded Sex Assigned at Female 02/01/2022 10:25 AM EDT Legal Sex Female 10:25 AM EDT Gender Identity Female 02/01/2022 10:25 AM EDT Sexual Orientation Straight 02/01/2022 10 :25 AM EDT Plan of Treatment Upcoming Encounters Date Type Department Care Team (Late st Contact Info) Description 02/11/2025 8:00 AM EST Office Visit [facility] [address] [place] [address] Manish Huynh, DDS [address] [place] [address] Health Maintenance Due Date Last Done Comments Depression Screening 1996 HIV Screening 1996 SDOH Screening 1996 Disability Screening 1996 Alcohol/Substance Use Screening 2008 Tobacco Screening 2008 Family Planning (PISQ) 02/03/2011 Hepatitis C Screening 02/03/2014 Pap Smear 02/03/2017 Dental Oral Exam 06/16/2022 12/16/2021, 07/2020, 04/07/2020, Additional history exists Dental Prophylaxis 07/08/2022 01/06/2022, 0 07/23/2020, 01/10/2015, Additional history exists Dental X-Ray: Full Mouth 04/08/2023 04/07/2020 Influenza Vaccine (#1) 2024 , 04/07/2022, 03/11/2014, Additional history exists Dental X-Ray: Bitewings 01/23/2026 01/23/20 25, 12/16/2021, 04/07/2020, Additional history exists DTaP/Tdap/Td Vaccines (9 - Td or Tdap) 11/03/2032 11/03/2022, 11/07/2014, 09/01/2007, Additional history exists Zoster Vaccines (1 of 2) 02/03/2046 RSV Patients and Patients Aged 60 years or older (1 - 1-dose 75+ series) 02/03/2071 HIB Vaccines Completed 04/12/1997, 08/03, 1996 IPV Vaccines Completed 02/09/2000, 08/03, 1996, Additional history exists Hepatitis A Vaccines Completed 04/26/2000, 05/10/19 00 Pneumococcal Vaccine: Pediatrics (0 to 5 Years) and At-Risk Patients (6 to 49) Years Aged Out 08/25/2000 No longer eligible based on patient's age to complete this topic Meningococcal Vaccine Aged Out 09/01/2007 No linwood asim eligible based on patient's age to complete this topic HPV Vaccines Completed 03/04/2018, 08/2008, 09/01/2007, Additional history exists Hepatitis B Vaccines Completed 05/15/2021, 04/16/2021, 03/04/2018, Additional history exists COVID-19 Vaccine Completed 12/14/2023, 09/15/2020 Meningococcal B Vaccine Aged Out No l onger eligible based on patient's age to complete this topic RSV under 20 months Aged Out No longe r eligible based on patient's age to complete this topic Rotavirus Vaccines Aged Out No longer eligible based on patient's age to complete this topic Procedures Procedure Name Priority Date/Time Associated Diagnosis Comments NO CHARGE PROCEDURE Routine 01/23/2025 9 :45 AM EDT 18 INTRAORAL - PERIAPICAL EACH ADDITIONAL RADIOGRAPHIC IMAGE Routine 01/22/2025 1:00 PM EDT 3 INTRAORAL - PERIAPICAL FIRST RADIOGRAPHIC IMAGE Routine 01/22/2025 1:00 PM EDT BITEWINGS - 4 RADIOGRAPHIC IMAGES Routine 01/22/2025 1:00 PM EDT 3 UR PALLIATIVE (EMERGENCY) TREATMENT OF DENTAL PAIN - MINOR PROCEDURE Routine 01/22/2025 1:00 PM EDT CASE PRESENTATION, DETAILED AND EXTENSIVE TREATMENT PLANNING Routine 01/22/2025 1:00 PM EDT PROPHYLAXIS - ADULT Routine 01/06/2022 1 2:00 AM EDT PERIODIC ORAL EVALUATION - ESTABLISHED PATIENT Routine 12/16/2021 12:00 AM EDT INTRAORAL - COMPLETE SERIES OF RADIOGRAPHIC IMAGES Routine 04/07/2020 12:00 AM EST from Last 3 Months or Most Recently Relevant to Health Maintenance Insurance [facility] MEDICAID STAND ADULT
--- OUTSIDE RECORDS SUMMARY | 2025-01-25 15:36 | XMS_ITS | Data Portability ---
Author Organization [place] - [facility], Allergy Address [address] [address] Care Team Providers Care Director Design Name Role Phone FARNAZ NOBLES Primary Care Provider Assessment Encounter Date [...] meantime, I have recommended daily Flonase and pnml-iht-oqccuzd antihistamine for better allergy control which will [...] available 07/09/2024 11:32:34 10/08/2024 10/08/2024 Visit With: Melsisa Vazquez Use of Antihistamines: No If yes: Vial Test No Change in medications: No If yes Increase in asthma symptoms If yes, inhaler use: Reaction to last injections: If yes: Allergy Symptoms: Other: Missed: Dose Aware of Vial Test Aware: Notes:pt didn't bring epi pen , gave allergy shots info will be back this week or next week for allergy shots [email or web address] Not available 10/08/2024 10:45:30 Plan of Treatment Reminders Order Date Submit Date Provider Last Modified By Organization Details Last Modified Time Details Appointments None recorded. Lab None recorded. Referral None recorded. Procedures allergen immunothera py; multiple injections (PROC) 2024 025 [email or web address] Not available 09:10:15 allergy testing, skin prick (PROC) 2024 025 [email or web address] Not available 11:52:36 intradermal allergy skin testing (PROC) 2024 025 Not available 11:52:29 pulmonary function test procedure (PROC) 2024 025 [email or web address] Not available 11:52:43 pulse oximetry (PROC) 2024 025 [email or web address] Not available 11:52:50 Surgeries None recorded. Imaging None recorded. Medication Orders epinephrine 0.3 mg/0.3 mL injection, auto-inject or 2024 025 [email or web address] [facility]/Pharmacy #[id number], [address], [place], [address], 04/08/202 5 11:02:15 Flonase Allergy Relief 50 mcg/actuati on nasal spray,suspe nsion 2024 025 [facility]/Pharmacy #[id number], [address], [place], [address], 16:24:13 Patient TargetsNo targets recorded. Patient Instructions Encounter Date Encounter Id Patient Instructions Last Modified By Organization Details Last Modified Time 06/15/2024 [id number] Nursing Documentation for Allergy Testing: Ordering Provider Dr. Wade Weight:lbs: kg: PFT Yes With Bronchodilator no [...] date Yes Other: Written by: Melissa Vazquez [email or web address] Not available 06/15/2024 11:29:58 10/08/2024 [id number] allergy shots: c are instructions [email or web address] Not available 10/08/2024 10:46:30 Reason for Referral None Reported. Results Created Date Observation Date Name Description Value Unit Range Abnormal Flag Note LastModifiedBy Organization Detail LastModifiedTime 06/16/19 25 destiny metry testi ng* No observ ation record ed. [email or web address] Not Available 2024 13:34:35 Result Notes None recorded. Problems Name Problem SNOMED Code Status Onset Date Resolution Date Notes Provider Name and Address Organization Details Recorded Time Mass of neck 226240614 Active 2021 Localized swelling, mass and lump, neck; Note: Date Diagnosed : 08/10/2021 3:55 PM (R22.1) Not Available [facility], [facility] 4 02:15:30 Neck swelling 305549464 Active 2021 Localized swelling, mass and lump, neck; Note: Date Diagnosed : 08/10/2021 3:55 PM (R22.1) Not Available [facility], [facility] 4 02:15:30 Bilateral tinnitus 52960908395 02 Active 2021 Tinnitus, bilateral ; Note: Date Diagnosed : 09/09/2021 2:03 PM (H93.13) Not Available [facility], [facility] 4 02:15:20 Neck pain 60460986 Active 2021 Cervicalg ia; Note: Date Diagnosed : 2 11:09 AM (M54.2) Not Available [facility], [facility] 4 02:15:24 Acute pharyngit is 462216447 Active 2023 Sore throat (acute) NOS; Note: Date Diagnosed : 04/28/2023 8:41 AM (J02.9) Not Available [facility], [facility] 4 02:15:46 Allergic rhinitis 95571923 Active 2024 GEOVANNY LEON PA-C [address] [facility],[place] [address], [place], [address] , [facility] - [facility] 5 16:23:31 Migraine without aura 78466066 Active 2024 GEOVANNY LEON PA-C [address] [facility] [address], [place], [address] , [facility] - [facility] 5 16:23:35 Non-aller gic rhinitis 29919376867 1 Active 2024 GEOVANNY LEON PA-C [address], [place], [address] , [facility] 5 16:23:41 Seasonal allergic rhinitis 214799654 Active 2024 GEOVANNY LEON PA-C [address], [facility] [place], [address] , [facility] 5 16:23:41 Perennial allergic rhinitis 087898817 Active 2024 SAMINA ARRIAZA [address],[place] [address], [place], [address] , [facility] 5 10:17:42 Problem Notes None recorded. Procedures Surgical History Date Name Laterality Status Provider Name and Address Organization Details Recorded Time 10/09/19 25 Allergy Immunotherapy Injections completed SAMINA ARRIAZA [address] [facility],[place] [address], [place], [address], [facility] 10/08/2024 10:45:46 06/23/19 25 Allergy Testing-Full completed SAMINA ARRIAZA [address] [facility] [address],[place] [address], [place], [address], [facility] 06/22/2024 09:53:42 06/16/19 25 Allergy Testing Modified- Quantitative Testing (MQT) Only completed SAMINA ARRIAZA [address] [facility],[place] [address], [place], [address], [facility] 06/15/2024 11:28:56 Imaging Results None recorded. Procedure Notes None recorded. Medical Equipment None Reported. Allergies Allergen ID Allergen Name Allergen Category Reaction Reaction Severity Criticality Documentation Date Start Date Code Code System Note Provider Name and Address Organization Details Recorded Time 77160 Flagyl medicatio n other Not available Not available 08/16/2023 6 RxNorm React ion: other react ion, Unkno wn; Not Available [facility] 4 00:53:30 Medications Name Sig Start [...] by mouth 04/28 completed Medicati on ID: [id number] P rescribe d By Name: Seaed barahona MD Brand Name: predniso ne Send [...] by mouth 05/22 completed Medicati on ID: [id number] D uration Value: 10 Prescri bed By [...] Updated DateTime 05/22/2024 162.56 cm 32.6 kg/m2 34592.55 g Scarlet Russell [place] - [facility] 05/22/2024 15:29:42 Date Recorded Body height Body mass index (BMI) Body weight Heart rate Systolic And Diastolic Provider Name and Address Organization Details Last Updated DateTime 06/15/2024 162.56 cm 32.6 kg/m2 37195.55 g 70 /min 116/79 mm[Hg] MELISSA VAZQUEZ, A [address] [facility] [address], [place], [address] , [place] - [facility] 06/15/2024 11:13:07 Date Recorded Body height Provider Name an d Address Organization Details Last Updated DateTime 06/22/2024 162.56 cm SAMINA ARRIAZA [address] [place] [address], [address], [place] - [facility] 06/22/2024 09:08:52 Date Recorded Body height Body weight Provider Name and Address Organization Details Last Updated DateTime 07/09/2024 162.56 cm 01622.55 g Farnaz Funes [place] [facility] 07/09/2024 11:00:03 Social History None recorded. Functional Status None recorded. Mental Status None recorded. Family History Nothing Reported. Medical History No medical history recorded. Gynecological HistoryNo gynecological history recorded. Obstetrics History GPAL:G 0 P 0 0 0 0 Past Encounters Encounter ID Performer Location Encounter Start Date Encounter Closed Date Diagnosis/Indication Diagnosis SNOMED-CT Code Diagnosis ICD10 Code Diagnosis IMO Codes Diagnosis Note [id number] GEOVANNY LEON PA-C [facility] [address] [address] 05/22/2024 15:24:51 05/22/2024 15:51:35 Allergic rhinitis 21824363 J30.9 Migraine without aura 56 451171 G43.009 [id number] SAMINA ARRIAZA [address] [address] 06/15/2024 10:25:55 06/15/2024 11:51:45 Allergic rhinitis 28784195 J30.9 [id number] MELISSA VAZQUEZ [facility] [address] [place] [address] 06/22/2024 09:06:30 06/22/2024 09:54:25 Allergic rhinitis 15514723 J30.9 [id number] GEOVANNY LEON PA-C [facility] [address] [address] 07/09/2024 10:55:41 07/09/2024 11:27:03 Allergic rhinitis 26015741 J30.9 [id number] SAM[address]A [facility] [address] [facility],[place] [address] [place] [address] 10/08/2024 10:12:42 10/08/2024 10:47:15 Perennial allergic rhinitis 222554664 J30.89 Health Concerns Section Related Observation LastModified by Organization Detai ls LastModified Time None Recorded Concern Status LastModified by Organization Details LastModified Time None Recorded Advance Directives Directive None Recorded Payers Insurance Date Sequence Insurance Name Policy Number Policy Goodrich Covered Member ID Goodrich Member ID Guarantor Name 10/05/2024 2 MEDICAID-[place]: [facility] Argelia L Adan [id number] Argelia L Adan 05/28/2024 3 [place] [employer] Argelia Adan [id number] Argelia L Adan 10/05/2024 1 [place] [facility] Argelia Adan [id number] Argelia L Adan Notes Date Note Type Note Provider Name and Address Organization Details Recorded Time 05/22/2024 text/html ROS as noted in the [facility] 29-year-old female presents for evaluation of recurrent [...] not take any routine allergy medication. ALVARADO WADE MD [address] [place] [address],[address], [address], [facility] 05/22/2024 21:05:32 07/09/2024 text/html ROS as noted in the [facility] 29-year-old female presents for allergy test review. Previously was receiving immunotherapy with an outside chocolate finisher operator but is moving to the area and would like to transfer care. She did have quite a lapse in treatment. Has frequent sinus infections and allergy symptoms. BRENNON MULLER MD [address] [facility] [address], [place], [address], [place] - [facility] 07/09/2024 12:51:22 OBGyn Episode No OBEpisode recorded.
== END 2025-01-25 14:26 | disposition home or self-care (01) ==
LOC: HO.HWS 13:37
PROVIDERS: PCP Internal Medicine; Visit Provider Advanced Practice Midwife
DX: Z30.09 Encounter for other general counseling and advice on contraception (principal)
CPT/HCPCS: 99213

== ENCOUNTER 2025-01-30 08:18 | Outpatient (REF) | payer MEDICARE, MEDICAID, SELFPAY ==
[2025-01-30 09:44] LABS: Syphilis Screen Nonreactive (Nonreactive)
[2025-01-30 09:53] LABS: HBsAGNum1 0.34 S/CO (0.00-0.99); HIV Num 1 0.05 S/CO (0.00-0.99); Hepatitis B Surface Antigen Negative (Negative); ~HepC Num1 0.08 S/CO (0.00-0.79); ~Hepatitis C Antibody Nonreactive (Nonreactive)
== END 2025-01-30 08:19 | disposition home or self-care (01) ==
LOC: HO.LAB 08:18
PROVIDERS: PCP Internal Medicine; Visit Provider Advanced Practice Midwife
DX: Z11.4 Encounter for screening for human immunodeficiency virus [HIV] (principal); Z11.59 Encounter for screening for other viral diseases; Z30.09 Encounter for other general counseling and advice on contraception; Z20.2 Contact with and (suspected) exposure to infections with a predominantly sexual mode of transmission; Z72.89 Other problems related to lifestyle
CPT/HCPCS: 36415; 86780; 86803; 87340; 87389

== ENCOUNTER 2025-02-07 08:31 | Day surgery (SDC) | payer MEDICARE, MEDICAID, SELFPAY ==
--- OUTSIDE RECORDS SUMMARY | 2024-12-25 17:27 | XMS_ITS | Encounter Summary ---
Author Organization [employer] Address [address] [facility] [address] [place] [address] Care Team Providers Care Medical Territory Manager Name Role Phone Unavailable Primary Care [...]
--- OUTSIDE RECORDS SUMMARY | 2024-12-25 17:27 | XMS_ITS | Clinical Summary ---
Author Organization [employer] Address [address] [facility] [address] [place] [address] Care Team Providers Care Hub Borer Name Role Phone Unavailable Primary Care Provider [...]
--- OUTSIDE RECORDS SUMMARY | 2024-12-25 17:27 | XMS_ITS | Encounter Summary ---
Author Organization [employer] Address [address] [facility] [address] [place] [address] Care Team Providers Care Grocery Buyer Name Role Phone Unavailable Primary Care Provider [...]
--- OUTSIDE RECORDS SUMMARY | 2024-12-25 17:27 | XMS_ITS | Clinical Summary ---
Author Organization [facility] Address [address] [place] [address] Phone Care Team Providers Care Workers Compensation Claims Adjuster Name Role Phone Pcp, Unknown Primary Care [...] file Insurance MEDICARE PART A & B [facility] MEDICARE PART A & B [facility] MEDIC[facility] PART A & B [facility] PART A & B [place] & [facility] PART A & [place] MED[place] A & B [facility] MEDICARE PART A & B Member Subscriber Plan / Payer (Ef fective 2016-) Name:Argeila Adan Member ID:[id number] Relation to Subscriber:Self Name:Argelia Adan Subscriber ID:[id number] Payer ID:[id number] Group ID:Not on file Type:Medicare Address: [facility] [employer] [facility] [address] [facility] [place] [address] [facility] Care Teams Workers Compensation Claims Adjuster Relationship Specialty Start Date End Date Pcp, Unknown PCP - General 10/06/21 Additional Source Comments The information contained in this document represents components of the legal health record. It is not the complete legal health record.[facility]
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
--- NOTE | 2025-02-05 10:54 | HO.ANESPROP2 ---
Documented by User: Soo Martinez NP 02/05/25 10:55 HPI - Anesthesia Eval Consult details Narrative: 30 yr old female for upper endoscopy, colonoscopy PMFSH Active Problems Active Problems: All Active Problems (Updated 01/25/25 @ 14:28 by Florence Vora CNM) Routine screening for STI (sexually transmitted infection) (Acute) Galactorrhea (Acute) Left foot pain (Acute) Fibroadenoma of left breast (Acute) Appendix disease (Acute) Incomplete right bundle branch block (Acute) Breast mass, left (Acute) Abnormal ultrasound of breast (Acute) Breast abscess (Acute) Severe major depression without psychotic features (Acute) Sore throat (Acute) Lumbar pain (Acute) Discomfort of both ears (Acute) Memory loss (Acute) Physical exam (Acute) Concern about appearance of breast (Acute) Recurrent HSV (herpes simplex virus) (Acute) Abdominal pain (Acute) Chlamydia infection (Acute) control counseling (Acute) Toe pain, right (Acute) Chronic diarrhea (Acute) Yeast infection involving the vagina and surrounding area (Acute) Encounter for screening examination for sexually transmitted disease (Acute) Left knee pain (Acute) Psoriasis (Acute) Fibromyalgia (Acute) Migraine headache with aura (Acute) Severe anxiety (Acute) PTSD (post-traumatic stress disorder) (Acute) Bipolar 1 disorder (Acute) ADHD (Acute) Hemorrhoids (Acute) Vitamin D deficiency (Acute) Allergies (Acute) Cubital tunnel syndrome (Acute) Right upper lobe pulmonary nodule (Acute) Hypovitaminosis D (Acute) Spondylosis of lumbar region without myelopathy or radiculopathy (Acute) Cubital tunnel syndrome on left (Acute) Pulmonary nodules (Acute) Chronic pain syndrome (Acute) Asthma (Acute) Past Medical History Medical History Routine screening for STI (sexually transmitted infection) Sore throat Moderate recurrent major depression Physical exam Abdominal pain Chlamydia infection control counseling Yeast infection involving the vagina and surrounding area Pain of right scapula Visit for suture removal Dextroscoliosis of lumbar spine Status post fall Mid back pain Well woman exam with routine gynecological exam Screen for sexually transmitted diseases Cervical cancer screening Breast pain, right Lumbar radiculopathy Lumbar spondylosis Polyarthralgia Pain in both feet Injury of toe on right foot Preoperative clearance Jaw pain Pain in right elbow Paresthesia of hand, bilateral Left ankle pain Bilateral leg edema Lymphadenopathy Incidental lung nodule, > 3mm and < 8mm Low vitamin D level Bug bite Anxiety and depression Neck mass Rib pain on right side Muscle spasms of neck Paresthesia and pain of both upper extremities Cervicalgia Upper respiratory tract infection Atopic reaction Allergic reaction Mass in neck Thrush, oral Muscle twitch Muscle spasm Shortness of breath Adenopathy Left shoulder pain Immunization due Nonimmune to hepatitis B virus Numbness and tingling of both legs Tinnitus Upper respiratory tract infection Depo-Provera contraceptive status Screening for eye condition Cervicalgia Headache Vision changes Chest pain Nausea and vomiting Hematochezia Abdominal pain Back pain Lung nodules Borderline personality disorder Depression Bipolar 1 disorder ADHD Low vitamin D level GERD (gastroesophageal reflux disease) Asthma History of multiple miscarriages COVID-19 virus infection Encounter to establish care (~03/2021) HIV exposure Family History Family History Mother Substance use disorder Mental health disorder Father Cancer Maternal Aunt Lung cancer Maternal Uncle Prostate CA Maternal Uncle Colon cancer Maternal Aunt Breast cancer Family history of problems with anesthesia: No Surgical History Surgical History History of lumpectomy of left breast (01/09/25) S/P cubital tunnel release Hx of biopsy History of wisdom tooth extraction History of Problems with Anesthesia: No Social History Social History Housing: House Are you a primary care rep to a significant other at home: No Do you presently have visiting nurse or other home services: No Alcohol intake: current Alcohol intake frequency: a few times a month Comment: Counts correct Patient Tobacco Use Status: Never used Tobacco Tobacco use type: Cigar e-Cigarette/Vaping Use: Currently Using Second Hand Smoke Exposure: No Substance Use Frequency: Daily Have you been hit, kicked, punched, or otherwise hurt by someone within the past year? 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 Cognitive needs: No Hearing needs: No Vision needs: Yes (glasses) Meds Allergies Allergy/AdvReac Type Severity Reaction Status Date / Time metronidazole (From FLAGYL) Allergy Severe Hives Verified 02/07/25 09:07 Seasonal Allergies Allergy Mild Unknown Verified 02/07/25 09:07 duloxetine AdvReac Nausea Verified 02/07/25 09:07 Home Medications ?Medication ?Instructions ?Recorded ?Confirmed ?Last Taken ?Type azelastine 137 mcg (0.1 %) nasal intranasal 06/03/22 01/25/25 Unknown History spray medroxyprogesterone 150 mg/mL 150 mg IM [id number] 03/27/24 02/05/25 Unknown History intramuscular syringe Assessment and Plan Final Anesthetic Review Family History of Problems with Anesthesia: No History of Problems with Anesthesia: No Documented by User: Chase Bates MD 02/07/25 09:18 [facility] Past Medical History Medical History Routine screening for STI (sexually transmitted infection) Sore throat Moderate recurrent major depression Physical exam Abdominal pain Chlamydia infection control counseling Yeast infection involving the vagina and surrounding area Pain of right scapula Visit for suture removal Dextroscoliosis of lumbar spine Status post fall Mid back pain Well woman exam with routine gynecological exam Screen for sexually transmitted diseases Cervical cancer screening Breast pain, right Lumbar radiculopathy Lumbar spondylosis Polyarthralgia Pain in both feet Injury of toe on right foot Preoperative clearance Jaw pain Pain in right elbow Paresthesia of hand, bilateral Left ankle pain Bilateral leg edema Lymphadenopathy Incidental lung nodule, > 3mm and < 8mm Low vitamin D level Bug bite Anxiety and depression Neck mass Rib pain on right side Muscle spasms of neck Paresthesia and pain of both upper extremities Cervicalgia Upper respiratory tract infection Atopic reaction Allergic reaction Mass in neck Thrush, oral Muscle twitch Muscle spasm Shortness of breath Adenopathy Left shoulder pain Immunization due Nonimmune to hepatitis B virus Numbness and tingling of both legs Tinnitus Upper respiratory tract infection Depo-Provera contraceptive status Screening for eye condition Cervicalgia Headache Vision changes Chest pain Nausea and vomiting Hematochezia Abdominal pain Back pain Lung nodules Borderline personality disorder Depression Bipolar 1 disorder ADHD Low vitamin D level GERD (gastroesophageal reflux disease) Asthma History of multiple miscarriages COVID-19 virus infection Encounter to establish care (~03/2021) HIV exposure Cognitive capacity: normal Functional capacity: independent ambulation Family History Family History Mother Substance use disorder Mental health disorder Father Cancer Maternal Aunt Lung cancer Maternal Uncle Prostate CA Maternal Uncle Colon cancer Maternal Aunt Breast cancer Surgical History Surgical History History of lumpectomy of left breast (01/09/25) S/P cubital tunnel release Hx of biopsy History of wisdom tooth extraction Social History Social History Housing: House Are you a primary care rep to a significant other at home: No Do you presently have visiting nurse or other home services: No Alcohol intake: current Alcohol intake frequency: a few times a month Comment: Counts correct Patient Tobacco Use Status: Never used Tobacco Tobacco use type: Cigar e-Cigarette/Vaping Use: Currently Using Second Hand Smoke Exposure: No Substance Use Frequency: Daily Have you been hit, kicked, punched, or otherwise hurt by someone within the past year? 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 Cognitive needs: No Hearing needs: No Vision needs: Yes (glasses) Meds Allergies Allergy/AdvReac Type Severity Reaction Status Date / Time metronidazole (From FLAGYL) Allergy Severe Hives Verified 02/07/25 09:07 Seasonal Allergies Allergy Mild Unknown Verified 02/07/25 09:07 duloxetine AdvReac Nausea Verified 02/07/25 09:07 Home Medications ?Medication ?Instructions ?Recorded ?Confirmed ?Last Taken ?Type azelastine 137 mcg (0.1 %) nasal intranasal 06/03/22 01/25/25 Unknown History spray medroxyprogesterone 150 mg/mL 150 mg IM [id number] 03/27/24 02/05/25 Unknown History intramuscular syringe Exam Exam Date and Time: 02/07/25 Airway Mallampati Class: II TM Dist: >3cm Neck ROM: Full Loose/Missing/Broken Teeth: No Heart: normal Lungs: normal Other: normal Assessment and Plan Assessment Anesthesia Assessment: Anesthesia Plan Discussed and Chart Reviewed Final Anesthetic Review NPO: Yes ASA Class: II Final Preanesthetic Review: No Changes in Pt Med Stat, Meds/Allgs Chart Reviewed, Consent Obtained/Reviewed and Anes Risks/Benef Reviewed Patient Risk: Low Procedure Risk: Low Anesthetic Plan Anesthetic Plan: MAC: Disposition: Standard PACU
[2025-02-05 11:46] VITALS: BMI 35.9
[2025-02-07 08:49] LABS: UPreg QC Valid YES
[2025-02-07 08:50] VITALS: BMI 36.3
[2025-02-07] MEDS: Lactated Ringers 1,000 ML 100 ML IVCONT (08:52)
--- NOTE | 2025-02-07 08:58 | MHC.SHP ---
Pre-Procedural Eval Section A - 24 Hr Update-Section A only Date of Service: 02/07/25 Section B - Complete if H&P > 30 days Chief Complaint: Abd pain and diarrhea Details of Present Illness: Sore throat Moderate recurrent major depression Physical exam Abdominal pain Chlamydia infection control counseling Yeast infection involving the vagina and surrounding area Pain of right scapula Visit for suture removal Dextroscoliosis of lumbar spine Status post fall Mid back pain Well woman exam with routine gynecological exam Screen for sexually transmitted diseases Cervical cancer screening Breast pain, right Lumbar radiculopathy Lumbar spondylosis Polyarthralgia Pain in both feet Injury of toe on right foot Preoperative clearance Jaw pain Pain in right elbow Paresthesia of hand, bilateral Left ankle pain Bilateral leg edema Lymphadenopathy Incidental lung nodule, > 3mm and < 8mm Low vitamin D level Bug bite Anxiety and depression Neck mass Rib pain on right side Muscle spasms of neck Paresthesia and pain of both upper extremities Cervicalgia Upper respiratory tract infection Atopic reaction Allergic reaction Mass in neck Thrush, oral Muscle twitch Muscle spasm Shortness of breath Adenopathy Left shoulder pain Immunization due Nonimmune to hepatitis B virus Numbness and tingling of both legs Tinnitus Upper respiratory tract infection Depo-Provera contraceptive status Screening for eye condition Routine screening for STI (sexually transmitted infection) Cervicalgia Headache Vision changes Chest pain Nausea and vomiting Hematochezia Abdominal pain Back pain Lung nodules Borderline personality disorder Depression Bipolar 1 disorder ADHD Low vitamin D level GERD (gastroesophageal reflux disease) Asthma History of multiple miscarriages COVID-19 virus infection Encounter to establish care (~03/2021) HIV exposure Surgical History S/P cubital tunnel release Hx of biopsy History of wisdom tooth extraction Present Medications: see Short Stay Collaborative assessment Allergies: Allergies Allergy/AdvReac Type Severity Reaction Status Date / Time metronidazole (From FLAGYL) Allergy Severe Hives Verified 01/25/25 13:51 Seasonal Allergies Allergy Mild Unknown Verified 01/25/25 13:51 duloxetine AdvReac Nausea Verified 01/25/25 13:51 Review of Systems Review of Systems Comment: Ten point ROS negative Exam Exam Comment: Gen appear: No acute distress HEENT: no icterus Chest: No overt resp distress Abd: soft, nontender, nondistended Psych: Stable affect, answering questions appropriately Neuro: A/Ox3 noted to move all extremities spontaneously Ext: no peripheral edema Plan Diagnosis/Plan: Unchanged I have reviewed the history and physical and performed a pertinent physical examination on my patient. No changes have occurred unless specified. Time Spent With Patient Time: Total time managing care of this patient today ____ minutes.
[2025-02-07 09:06] VITALS: BP 111/76; PULSE 70; RESP 18; TEMP 36.7; O2SAT 96
--- NOTE | 2025-02-07 09:29 | P.OPN-COLO_ITS ---
Colonoscopy Operative Note Operative Note Date of Service: 02/07/25 Narrative: Procedure: Upper endoscopy and colonoscopy Indication: Abd pain, chronic diarrhea Endoscopist: Isha Su MD Anesthesia Provider: Dr Bates Anesthesia type: MAC Instrument: [id number] and [id number] EGD Procedure:?? The procedure, indications, preparation and potential complications were reviewed with the patient, who indicated understanding and gave written informed consent to proceed. The endoscope was introduced through the mouth, and advanced to the 2nd part of the duodenum. The mucosa was carefully examined on slow withdrawal of the endoscope. The patient tolerated the procedure well. There were no immediate complications.? EGD Findings:? * Esophagus:? Normal esophageal mucosa was noted. The Z-line was at 37 cm. * Stomach:? Normal gastric mucosa. Retroflexion was performed in the cardia. Random cold forceps biopsies were taken from the stomach. * Duodenum:? Normal duodenal mucosa. Cold forceps biopsies were taken from the duodenal bulb and 2nd portion of the duodenum to rule out celiac sprue. Colonoscopy Procedure:? The patient was then turned for the colonoscopy. An abdominal binder was affixed to the lower abdomen. A digital rectal exam was performed which was abnormal for external hemorrhoids.? A distal attachment cap was affixed to the tip of the scope and the colonoscope was then inserted through the anus and advanced through the colon and advanced to the cecum at 70 cm and terminal ileum.? Appendiceal orifice and ileocecal valve were identified. Mucosa was carefully examined under high definition white light as the instrument was slowly withdrawn in a retrograde panoramic fashion. Retroflexion was performed in ascending colon and rectum. The procedure was not difficult. The quality of the prep was BBPS: 3+3+3 = adequate Withdrawal time 11 minutes Limitations: No limitations Findings: Mucosa: The ileocecal valve was noted to have erythema with aphthous ulcers. Colon mucosa and terminal ileum mucosa (intubated at least 25 cm) was normal endoscopically. Cold forceps biopsies were taken from the ileocecal valve, right side of the colon and left side of the colon. Protruding lesions: * Medium internal hemorrhoids without stigmata of recent bleeding. Impression: 1. Normal esophagus 2. Normal stomach (biopsy) 3. Normal duodenum (biopsy) 4. Abnormal IC valve mucosa (biopsy) 5. Internal and external hemorrhoids Recommendations:?? * Follow-up path results * Avoid NSAIDs * H Pylori treatment if biopsies + * Commence asymptomatic colorectal ca screening at 46 y.o.
[2025-02-07 10:18] VITALS: BP 105/63; PULSE 80; RESP 16; TEMP 36.6; O2SAT 96
[2025-02-07 10:33] VITALS: BP 112/76; PULSE 75; RESP 18; TEMP 36.4; O2SAT 99
== END 2025-02-07 11:43 | disposition home or self-care (01) ==
PROVIDERS: Nurse Practitioner; PCP Internal Medicine; Visit Provider Internal Medicine
PROC: (CPT 45380; principal; 2025-02-07 10:00)
DX: R10.9 Unspecified abdominal pain (principal); K52.9 Noninfective gastroenteritis and colitis, unspecified; K12.0 Recurrent oral aphthae; K64.8 Other hemorrhoids; K64.4 Residual hemorrhoidal skin tags; A04.8 Other specified bacterial intestinal infections
CPT/HCPCS: 45380; 43239; 81025; 88305; 88313; 88342; J2003; J2704; J3010

== ENCOUNTER → 2025-02-07 08:31 | Outpatient (BNV) | payer MEDICARE, MEDICAID, SELFPAY | PROVIDERS: PCP Internal Medicine; Visit Provider Internal Medicine | DX: R10.9 Unspecified abdominal pain (principal); K52.9 Noninfective gastroenteritis and colitis, unspecified; K63.89 Other specified diseases of intestine; K64.8 Other hemorrhoids | CPT/HCPCS: 43239; 45380 ==

== ENCOUNTER 2025-03-27 11:15 | Outpatient (AMB) | payer MEDICARE, MEDICAID, SELFPAY ==
--- NOTE | 2025-03-27 11:17 | A.OFFVIS_ITS ---
Vital Signs 03/27/25 11:18 Height 5 ft 4 in Weight 212 lb 8.41 oz BMI 36.5 BP 114/66 Blood Pressure Location Lt brachial Position Sitting Respiration 16 Pulse 87 Pulse Source Pulse Oximeter Temp 97.6 F Temp Source Temporal Artery Scan Pulse Oximetry (%) 97 Oxygen Delivery Method Room Air Intake Visit Reasons: s/p double Family Preservation Worker Required: No Accompanied by: Self / Same As Patient Allergies metronidazole (From FLAGYL) Allergy (Severe, Verified 03/27/25 11:24) Hives Seasonal Allergies Allergy (Mild, Verified 03/27/25 11:24) Unknown duloxetine Adverse Reaction (Verified 03/27/25 11:24) Nausea HPI Comments Details: 29 y.o F with PMH of who is here for abd pain and diarrhea. Sx ongoing for almost a year. Reports lower abd crampy pain accompanied by loose watery stools 3 times a day. No night time sx but urgency +. No incontinence. Tenesmus+. Was ordered stool studies by PCP last year but pt has not done those yet. Pt was recently in ER for norovirus. Was also told had C Diff but from testing appears had colonization. Did not complete vanc as felt better within a few days (again more consistent with noro) Of note - pt also had a CT abd/pel done which showed dilated appendix. No s/sx to correlate clinically. Fam hx: Father: crohns Sister: crohns dx at age 23. 02/07/25: EGD/colo 1. Normal esophagus 2. Normal stomach (biopsy) 3. Normal duodenum (biopsy) 4. Abnormal IC valve mucosa (biopsy) 5. Internal and external hemorrhoids A. Duodenum, biopsy: Duodenal mucosa with mildly increased intraepithelial lymphocytes and preserved villous architecture. See comment. B. Stomach, random, biopsy: - Antral-type and oxyntic mucosa with moderate chronic active inflammation. - Positive for H pylori. C. Ileocecal valve, biopsy: Ileocolonic mucosa within normal limits. D. Colon, right, biopsy: Colonic mucosa within normal limits. E. Colon, left, biopsy: Colonic mucosa within normal limits. Comment: The lymphocytes in the duodenum are likely secondary to the H. pylori infection. Ancillary studies will be addended. 03/27/25: Here for follow up. Reports no acute GI issues. Results of EGD.colo reviewed. No colitis including microscopic colitis. Does however have H Pylori infection. Pt also reports etOH use, myrna heavy around the holidays. Shares she lost her mom 03/27 seven years ago so this time is myrna rough. But even otherwise has been drinking more than usual this past year. Thinks her weight gain of 40 lbs in a year is also likely 2/2 etOh consumption. No DUI though possibly got into a mild accident once. Father has brought up concerns re drinking too. Pt interested in medical tx. LFTs not concerning at this time. [facility] Medical History Routine screening for STI (sexually transmitted infection) Sore throat Moderate recurrent major depression Physical exam Abdominal pain Chlamydia infection control counseling Yeast infection involving the vagina and surrounding area Pain of right scapula Visit for suture removal Dextroscoliosis of lumbar spine Status post fall Mid back pain Well woman exam with routine gynecological exam Screen for sexually transmitted diseases Cervical cancer screening Breast pain, right Lumbar radiculopathy Lumbar spondylosis Polyarthralgia Pain in both feet Injury of toe on right foot Preoperative clearance Jaw pain Pain in right elbow Paresthesia of hand, bilateral Left ankle pain Bilateral leg edema Lymphadenopathy Incidental lung nodule, > 3mm and < 8mm Low vitamin D level Bug bite Anxiety and depression Neck mass Rib pain on right side Muscle spasms of neck Paresthesia and pain of both upper extremities Cervicalgia Upper respiratory tract infection Atopic reaction Allergic reaction Mass in neck Thrush, oral Muscle twitch Muscle spasm Shortness of breath Adenopathy Left shoulder pain Immunization due Nonimmune to hepatitis B virus Numbness and tingling of both legs Tinnitus Upper respiratory tract infection Depo-Provera contraceptive status Screening for eye condition Cervicalgia Headache Vision changes Chest pain Nausea and vomiting Hematochezia Abdominal pain Back pain Lung nodules Borderline personality disorder Depression Bipolar 1 disorder ADHD Low vitamin D level GERD (gastroesophageal reflux disease) Asthma History of multiple miscarriages COVID-19 virus infection Encounter to establish care (~03/2021) HIV exposure Surgical History History of lumpectomy of left breast (01/09/25) S/P cubital tunnel release Hx of biopsy History of wisdom tooth extraction Family History Mother Substance use disorder Mental health disorder Father Cancer Maternal Aunt Lung cancer Maternal Uncle Prostate CA Maternal Uncle Colon cancer Maternal Aunt Breast cancer Social History Housing: House Are you a primary intensive care medicine specialist to a significant other at home: No Do you presently have visiting nurse or other home services: No Alcohol intake: current Alcohol intake frequency: a few times a month Comment: Counts correct Patient Tobacco Use Status: Never used Tobacco Tobacco use type: Cigar e-Cigarette/Vaping Use: Currently Using Second Hand Smoke Exposure: No service: No Current occupational status: unemployed 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 Cognitive needs: No Hearing needs: No Vision needs: Yes (glasses) Female Reproductive History Menstrual Age of Menarche: 13 Review of Systems Const All systems reviewed & are unremarkable except as noted in HPI and below Physical Exam Exam Exam: No apparent distress , with obesity Nonicteric Abdomen soft, nondistended Alert and oriented x3, normal gait Vital Signs: Last Vital Signs Temp 97.6 F 03/27/25 11:18 Pulse 87 03/27/25 11:18 Resp 16 03/27/25 11:18 BP 114/66 03/27/25 11:18 Pulse Ox 97 03/27/25 11:18 Oxygen Delivery Method Room Air 03/27/25 11:18 BMI result Body Mass Index 36.5 Assessment & Plan Assessment & Plan (1) Abdominal pain: Code(s): R10.9 - Unspecified abdominal pain Category: Medical (2) Hemorrhoids: Code(s): K64.9 - Unspecified hemorrhoids Category: Medical (3) H. pylori infection: Code(s): A04.8 - Other specified bacterial intestinal infections Category: Medical (4) Allergy to metronidazole: Code(s): Z88.3 - Allergy status to other anti-infective agents Category: Medical (5) Family history of colon cancer: Code(s): Z80.0 - Family history of malignant neoplasm of digestive organs Category: Medical Plan 1. H pylori Would faor tx given abd pain. Pt allergic to flagyl, had a near anaphylactic reaction to it and ended up in ER. Therefore unable to do bismuth based quad therapy. Will elect for rifabutin based therapy. Plan: - Talicia TID x 14 days - FRANCISCA to be done 2-3 weeks after completion of therapy - Pt educated on common s/e 2. EtOH use disorder Mod to severe. Pt would like medical therapy to help quit. Plan: - [facility] referral placed Follow up in 8 weeks for FRANCISCA with RN Orders: Referrals Addiction Medicine Referral F10.90 - Alcohol use, unspecified, uncomplicated Medications: New irkgrcugor-smihxekiy-jpmhqtlqu 10-250-12.5 mg (Talicia) must administer with a meal/food 4 caps (4 x 10-250-12.5 mg) PO TID 168 ea 0RF 14 days Coding Level of Care Code Est Pt Level 4 (85305) Diagnoses Abdominal pain R10.9 Hemorrhoids K64.9 H. pylori infection A04.8 Allergy to metronidazole Z88.3 Family history of colon cancer Z80.0
[2025-03-27 11:18] VITALS: BP 114/66; PULSE 87; RESP 16; TEMP 36.4; O2SAT 97; BMI 36.5
--- OUTSIDE RECORDS SUMMARY | 2025-03-27 11:19 | XMS_ITS | Data Portability ---
Author Organization [place] - [facility], Allergy Address [address] [address] Care Team Providers Care Drywall Installer Name Role Phone FARNAZ NOBLES Primary Care [...] meantime, I have recommended daily Flonase and odbz-yig-ppawrup antihistamine for better allergy control which will [...] discussed the risk of anaphylaxis with this. [email or web address] Not available 07/09/2024 11:32:34 10/08/2024 10/08/2024 Visit [...] week or next week for allergy shots [email or web address] Not available 10/08/2024 10:45:30 Plan of Treatment Reminders Order Date Submit Date Provider Last Modified By Organization Details Last Modified Time Details Appointments None recorded. Lab None recorded. Referral None recorded. Procedures allergen immunothera py; multiple injections (PROC) 2024 025 [email or web address] Not available 09:10:15 allergy testing, skin prick (PROC) 2024 025 [email or web address] Not available 11:52:36 intradermal allergy skin testing (PROC) 2024 025 [email or web address] Not available 11:52:29 pulmonary function test procedure (PROC) 2024 025 Not available 11:52:43 pulse oximetry (PROC) 2024 025 [email or web address] Not available 11:52:50 Surgeries None recorded. Imaging None recorded. Medication Orders epinephrine 0.3 mg/0.3 mL injection, auto-inject or 2024 025 [email or web address] [facility]/Pharmacy #[id number], [address] [facility] [address] [facility], [place], [address], 04/08/202 5 11:02:15 Flonase Allergy Relief 50 mcg/actuati on nasal spray,suspe nsion 2024 025 [facility]/Pharmacy #[id number], [address] [facility], [place], [address], 16:24:13 Patient TargetsNo targets recorded. Patient Instructions Encounter Date Encounter Id Patient Instructions Last Modified By Organization Details Last Modified Time 06/15/2024 [id number] Nursing Documentation for Allergy Testing: Ordering Provider [...] date Yes Other: Written by: Melissa Vazquez [email or web address] Not available 06/15/2024 11:29:58 10/08/2024 [id number] allergy shots: c are instructions [email or web address] Not available 10/08/2024 10:46:30 Reason for Referral None Reported. Results Created Date Observation Date Name Description Value Unit Range Abnormal Flag Note LastModifiedBy Organization Detail LastModifiedTime 06/16/19 25 destiny metry testi ng* No observ ation record ed. [email or web address] Not Available 2024 13:34:35 Result Notes None recorded. Problems Name Problem SNOMED Code Status Onset Date Resolution Date Notes Provider Name and Address Organization Details Recorded Time Mass of neck 779646781 Active 2021 Localized swelling, mass and lump, neck; Note: Date Diagnosed : 08/10/2021 3:55 PM (R22.1) Not Available [facility] 4 02:15:30 Neck swelling 482419967 Active 2021 Localized swelling, mass and lump, neck; Note: Date Diagnosed : 08/10/2021 3:55 PM (R22.1) Not Available [facility] 4 02:15:30 Bilateral tinnitus 91247506470 02 Active 2021 Tinnitus, bilateral ; Note: Date Diagnosed : 09/09/2021 2:03 PM (H93.13) Not Available [facility] 4 02:15:20 Neck pain 24733896 Active 2021 Cervicalg ia; Note: Date Diagnosed : 2 11:09 AM (M54.2) Not Available [facility] 4 02:15:24 Acute pharyngit is 228255169 Active 2023 Sore throat (acute) NOS; Note: Date Diagnosed : 04/28/2023 8:41 AM (J02.9) Not Available [facility] 4 02:15:46 Allergic rhinitis 32164716 Active 2024 GEOVANNY LEON PA-C [address] [facility],[place] [address], [place], [address] , [facility] - [facility] 5 16:23:31 Migraine without aura 87181637 Active 2024 GEOVANNY LEON PA-C [address] [facility] [address], [place], [address] , [facility] - [facility] 5 16:23:35 Non-aller gic rhinitis 81747366008 1 Active 2024 GEOVANNY LEON PA-C [address], [place], [address] , [facility] 5 16:23:41 Seasonal allergic rhinitis 072738244 Active 2024 GEOVANNY LEON PA-C [address] [facility] [address], [facility] [place], [address] , [facility] 5 16:23:41 Perennial allergic rhinitis 535345295 Active 2024 SAMINA ARRIAZA [address] [facility] [address],[place] [address], [place], [address] , [facility] 5 10:17:42 Problem Notes None recorded. Procedures Surgical History Date Name Laterality Status Provider Name and Address Organization Details Recorded Time 10/09/19 25 Allergy Immunotherapy Injections completed SAMINA ARRIAZA [address] [facility],[place] [place] [address], [place], [address], [facility] 10/08/2024 10:45:46 06/23/19 25 Allergy Testing-Full completed SAMINA ARRIAZA [address] [facility],[address] [address], [place], [address], [facility] 06/22/2024 09:53:42 06/16/19 25 Allergy Testing Modified- Quantitative Testing (MQT) Only completed SAMINA ARRIAZA [address] [facility],[address] [address], [place], [address], [facility] 06/15/2024 11:28:56 Imaging Results None recorded. Procedure Notes None recorded. Medical Equipment None Reported. Allergies Allergen ID Allergen Name Allergen Category Reaction Reaction Severity Criticality Documentation Date Start Date Code Code System Note Provider Name and Address Organization Details Recorded Time 54070 Flagyl medicatio n other Not available Not available 08/16/2023 6 RxNorm React ion: other react ion, Unkno wn; Not Available [facility] 4 00:53:30 Medications Name Sig Start Date [...] by mouth 04/28 completed Medicati on ID: [id number] P rescribe d By Name: Saeed barahona [...] by mouth 05/22 completed Medicati on ID: [id number] D uration Value: 10 Prescri bed By [...] Updated DateTime 05/22/2024 162.56 cm 32.6 kg/m2 76185.55 g Scarlte Russell [place] - [facility] 05/22/2024 15:29:42 Date Recorded Body height Body mass index (BMI) Body weight Heart rate Systolic And Diastolic Provider Name and Address Organization Details Last Updated DateTime 06/15/2024 162.56 cm 32.6 kg/m2 28114.55 g 70 /min 116/79 mm[Hg] MELISSA VAZQUEZ, A [address] [facility] [address], [place], [address] , [place] - [facility] 06/15/2024 11:13:07 Date Recorded Body height Provider Name an d Address Organization Details Last Updated DateTime 06/22/2024 162.56 cm SAMINA ARRIAZA [address] [place] [address], [address], [place] - [facility] 06/22/2024 09:08:52 Date Recorded Body height Body weight Provider Name and Address Organization Details Last Updated DateTime 07/09/2024 162.56 cm 81026.55 g Farnaz Funes [place] [facility] [place] 07/09/2024 11:00:03 Social History None recorded. Functional Status None recorded. Mental Status None recorded. Family History Nothing Reported. Medical History No medical history recorded. Gynecological HistoryNo gynecological history recorded. Obstetrics History GPAL:G 0 P 0 0 0 0 Past Encounters Encounter ID Performer Location Encounter Start Date Encounter Closed Date Diagnosis/Indication Diagnosis SNOMED-CT Code Diagnosis ICD10 Code Diagnosis IMO Codes Diagnosis Note [id number] GEOVANNY LEON PA-C [facility] [address] [address] 05/22/2024 15:24:51 05/22/2024 15:51:35 Allergic rhinitis 48778906 J30.9 Migraine without aura 56 717729 G43.009 [id number] SAMINA ARRIAZA [address] [address] 06/15/2024 10:25:55 06/15/2024 11:51:45 Allergic rhinitis 74310197 J30.9 [id number] MELISSA VAZQUEZ [facility] [address] [place] [address] 06/22/2024 09:06:30 06/22/2024 09:54:25 Allergic rhinitis 96972205 J30.9 [id number] GEOVANNY LEON PA-C [facility] [address] [address] 07/09/2024 10:55:41 07/09/2024 11:27:03 Allergic rhinitis 92303701 J30.9 [id number] SAMINA ARRIAZA All[facility] [address] [facility],[place] [address] [place] [address] 10/08/2024 10:12:42 10/08/2024 10:47:15 Perennial allergic rhinitis 254322433 J30.89 Health Concerns Section Related Observation LastModified by Organization Detai ls LastModified Time None Recorded Concern Status LastModified by Organization Details LastModified Time None Recorded Advance Directives Directive None Recorded Payers Insurance Date Sequence Insurance Name Policy Number Policy Goodrich Covered Member ID Goodrich Member ID Guarantor Name 10/05/2024 2 [place] [facility] Argelia L Adan [id number] Argelia L Adan 05/28/2024 3 [place] [employer] [facility] Argelia Adan [id number] Argelia L Adan 10/05/2024 1 [place] [facility] Argelia Adan [id number] Argelia L Adan Notes Date Note Type Note Provider Name and Address Organization Details Recorded Time 05/22/2024 text/html ROS as noted in the [facility] 29-year-old female presents for evaluation of [...] any routine allergy medication. ALVARADO MARQUES MD [address] [place] [address],[address], [address], [facility] 05/22/2024 21:05:32 07/09/2024 text/html ROS as noted in the [facility] 29-year-old female presents for allergy test review. Previously was receiving immunotherapy with an outside whittling room operator but is moving to the area and would like to transfer care. She did have quite a lapse in treatment. Has frequent sinus infections and allergy symptoms. BRENNON MULLER MD [address] [facility] [address], [address], [place] - [facility] 07/09/2024 12:51:22 OBGyn Episode No OBEpisode recorded.
== END 2025-03-27 11:51 | disposition home or self-care (01) ==
LOC: HO.HGI 11:16
PROVIDERS: PCP Internal Medicine; Visit Provider Internal Medicine
DX: R10.9 Unspecified abdominal pain (principal); K64.9 Unspecified hemorrhoids; A04.8 Other specified bacterial intestinal infections; Z88.3 Allergy status to other anti-infective agents; Z80.0 Family history of malignant neoplasm of digestive organs
CPT/HCPCS: 99214

== ENCOUNTER → 2025-03-27 11:15 | Outpatient (BNVA) | payer MEDICARE, MEDICAID, SELFPAY | PROVIDERS: PCP Internal Medicine; Visit Provider Internal Medicine | DX: R10.30 Lower abdominal pain, unspecified (principal); R19.7 Diarrhea, unspecified; A04.8 Other specified bacterial intestinal infections; F10.10 Alcohol abuse, uncomplicated; Z80.0 Family history of malignant neoplasm of digestive organs | CPT/HCPCS: 99212 ==